=== PATIENT | female | born 1940 | race Caucasian/White ===

== ENCOUNTER 2017-01-10 12:52 | Inpatient (IN) | payer OTHER, BC ==
[2017-01-10 13:01] VITALS: BMI 34.2
--- NOTE | 2017-01-10 14:16 | PDOC ---
History of Present Illness - History of Present Illness Initial Comments: 01/10/17 14:19 The patient is a 76 year old female, with a significant past medical history of CAD s/p stents x3, CHF, COPD, hypertension, hyperlipidemia, diabetes, anemia ( hx of transfusions), who presents to the emergency department with complaints of right foot pain and swelling for 2 days sent by PCP for DVT today. She states she had an ultrasound of her right lower extremity yesterday around noon which was positive for a DVT. She states she first attributed her pain to the shoes she was wearing, however, became concerned when the pain persisted when the shoes were off. She states she is not as ambulatory as she should be and has been having a visiting nurse come to the house recently. She reports having a negative endoscopy with Dr. Castro recently. She denies chest pain, shortness of breath, headache and dizziness. She denies fever, chills, nausea, vomit, diarrhea and constipation. She denies dysuria, frequency, urgency and hematuria. Allergies: NKDA Social history: denies toxic habits PCP - Dr. Barrientos <Rika Crespo - Last Filed: 01/10/17 14:19> <Rosanne Butts - Last Filed: 01/12/17 10:24> - General Chief Complaint: Pain Stated Complaint: (PCP SENT) DVT Time Seen by Provider: 01/10/17 13:29 Past History <Rika Crespo - Last Filed: 01/10/17 14:19> - Past Medical History Anemia: Yes (h/o blood transfusions.) Cardiac Disorders: Yes COPD: Yes Dementia: Yes Diabetes: Yes (TYPE 2) Disorders: Yes ("WEAK BLADDER") HTN: Yes Hypercholesterolemia: Yes Suicide Attempt (Hx): No - Surgical History Abdominal Surgery: Yes (hernia repair) Cardiac Surgery: Yes (STENT) - Immunization History Td Vaccination: Yes TDAP Vaccination: No Immunization Up to Date: Yes - Psycho/Social/Smoking Cessation Hx Anxiety: No Suicidal Ideation: No Smoking Status: No Smoking History: Never smoked Years of Tobacco Use: 0 Have you smoked in the past 12 months: No Number of Cigarettes Smoked Daily: 0 Cigars Per Day: 0 Information on smoking cessation initiated: No Hx Alcohol Use: No Drug/Substance Use Hx: No Substance Use Type: None Hx Substance Use Treatment: No <Rosanne Butts - Last Filed: 01/12/17 10:24> - Past Medical History Allergies/Adverse Reactions: Allergies Allergy/AdvReac Type Severity Reaction Status Date / Time No Known Allergies Allergy Verified 01/10/17 13:01 Home Medications: Ambulatory Orders Atorvastatin Ca [Lipitor] 10 mg PO DAILY #0 05/21/13 Aspirin [ASA -] 81 mg PO DAILY #0 tab.chew 06/23/13 Budesonide/Formeterol Fumarate [SYMBICORT 80/4.5mcg -] 2 inh IH BID #0 inhaler 06/23/13 Carvedilol [Coreg -] 3.125 mg PO BID #0 tablet 06/23/13 Clopidogrel Bisulfate [Plavix -] 75 mg PO DAILY #0 tablet 06/23/13 Glipizide [Glucotrol -] 5 mg PO DAILY@1730 #0 tablet 06/23/13 Hypromellose 0.5% Opth Soln [Artificial Tears] 2 drop OU TID PRN #0 drops Losartan Potassium [Cozaar -] 50 mg PO DAILY #0 tablet 06/23/13 Metformin HCl [Glucophage -] 1,000 mg PO BIDAC #0 tablet 06/23/13 Pantoprazole Sodium [Protonix -] 40 mg PO DAILY #0 tablet.ec 06/23/13 Sitagliptin Phosphate [Januvia -] 100 mg PO DAILY@0700 #0 ud 06/23/13 Furosemide [Lasix -] 20 mg PO DAILY #30 tablet 11/30/16 Ezetimibe [Zetia] 10 mg PO DAILY 01/10/17 Non-Formulary 5 mg PO DAILY 01/10/17 Review of Systems - Review of Systems Able to Perform ROS?: Yes Comments:: 01/10/17 14:19 GENERAL/CONSTITUTIONAL: No fever or chills. No weakness. HEAD, EYES, EARS, NOSE AND THROAT: No change in vision. No ear pain or discharge. No sore throat. CARDIOVASCULAR: No chest pain or shortness of breath. RESPIRATORY: No cough, wheezing, or hemoptysis. GASTROINTESTINAL: No nausea, vomiting, diarrhea or constipation. GENITOURINARY: No dysuria, frequency, or change in urination. MUSCULOSKELETAL: (+) right foot pain. No joint or muscle swelling. No neck or back pain. SKIN: No rash NEUROLOGIC: No headache, vertigo, loss of consciousness, or change in strength/ sensation. ENDOCRINE: No increased thirst. No abnormal weight change. HEMATOLOGIC/LYMPHATIC: No anemia, easy bleeding, or history of blood clots. ALLERGIC/IMMUNOLOGIC: No hives or skin allergy. <Rika Crespo - Last Filed: 01/10/17 14:19> *Physical Exam - Vital Signs Last Vital Signs Temp Pulse Resp BP Pulse Ox 98.5 F 72 19 152/71 98 01/10/17 13:00 01/10/17 13:00 01/10/17 13:00 01/10/17 13:00 01/10/17 13:00 - Physical Exam Comments: 01/10/17 14:20 GENERAL: Awake, alert, and fully oriented, in no acute distress HEAD: No signs of trauma EYES: PERRLA, EOMI, sclera anicteric, conjunctiva clear ENT: Auricles normal inspection, hearing grossly normal, nares patent, oropharynx clear without exudates. Moist mucosa NECK: Normal ROM, supple, no lymphadenopathy, JVD, or masses LUNGS: Breath sounds equal, clear to auscultation bilaterally. No wheezes, and no crackles HEART: Regular rate and rhythm, normal S1 and S2, no murmurs, rubs or gallops ABDOMEN: Soft, nontender, normoactive bowel sounds. No guarding, no rebound. No masses EXTREMITIES: (+) mild tenderness over anterior right foot. Non-tender, non- edematous right calf. Normal range of motion, No clubbing or cyanosis. No cords , erythema. NEUROLOGICAL: Cranial nerves II through XII grossly intact. Normal speech, SKIN: Warm, Dry, normal turgor, no rashes or lesions noted. <Rika Crespo - Last Filed: 01/10/17 14:19> - Vital Signs Last Vital Signs Temp Pulse Resp BP Pulse Ox 98.5 F 72 19 152/71 98 01/10/17 13:00 01/10/17 13:00 01/10/17 13:00 01/10/17 13:00 01/10/17 13:00 <Rosanne Butts - Last Filed: 01/12/17 10:24> ED Treatment Course - LABORATORY CBC & Chemistry Diagram: 01/12/17 08:00 01/12/17 08:00 <Rosanne Butts - Last Filed: 01/12/17 10:24> Medical Decision Making - Medical Decision Making 01/10/17 16:47 D/w Dr. Pathak via phone. Pt sent for DVT, but found to have significant anemia. She has had prior negative GI workup. I will prepare to transfuse. Dr. Byrd in department to evaluate patient. I will sent guaiac in addition to the anemia labs, which I have already sent. Patient also with hypoglycemia, improved after she was given a tray of food. <Rosanne Butts - Last Filed: 01/12/17 10:24> *DC/Admit/Observation/Transfer - Attestations Scribe Attestion: 01/10/17 14:22 Documentation prepared by Rika Crespo, acting as medical review specialist for Rosanne Butts MD, <Rika Crespo - Last Filed: 01/10/17 14:19> - Discharge Dispostion Admit: Yes <Rosanne Butts - Last Filed: 01/12/17 10:24> Diagnosis at time of Disposition: Deep vein thrombosis (DVT) of right lower extremity Qualifiers: Affected thrombotic vein of extremity: femoral Chronicity: acute Qualified Code (s): I82.411 - Acute embolism and thrombosis of right femoral vein - Discharge Dispostion Condition at time of disposition: Stable - Referrals
[2017-01-10 15:37] LABS: BASOPHIL 1.2 % (0-2.0); EOSINOPHIL 1.5 % (0-4.5); MCH 21.3 pg (25.7-33.7); MCHC 30.1 g/dl (32.0-36.0); MEAN CELL VOLUME 70.7 fl (80-96); MEAN PLT VOLUME 7.3 fl (7.5-11.1); NEUTROPHILS 65.9 % (42.8-82.8); PLATELET COUNT 519 K/MM3 (134-434); RDW 24.6 % (11.6-15.6); WHITE BLOOD COUNT 9.4 K/mm3 (4.0-10.0)
[2017-01-10 16:10] LABS: INR 1.04 (0.82-1.09); PROTHROMBIN TIME (PATIENT) 11.5 SEC (9.98-11.88)
[2017-01-10 16:11] LABS: ALBUMIN 3.5 g/dl (3.4-5.0); BILIRUBIN,TOTAL 0.3 mg/dL (0.2-1.0); CALCIUM 9.2 mg/dL (8.5-10.1); COCKROFT - GAULT 40.6045; CREATININE 1.5 mg/dL (0.55-1.02); TOT PROT 6.6 g/dl (6.4-8.2)
[2017-01-10 16:22] LABS: ANISOCYTOSIS 3+; HYPOCHROMIA 4+; MICROCYTOSIS 2+; OVALOCYTES 1+; POIKILOCYTOSIS 2+; POLYCHROMASIA 1+; TEAR DROP CELLS 1+
[2017-01-10] MEDS ORDERED: DEXTROSE 50%-WATER 50 ML DISP.SYRIN ONE (16:38)
[2017-01-10] MEDS ORDERED: DEXTROSE 50%-WATER 50 ML VIAL IVPUSH ONE (16:39)
[2017-01-10] MEDS ORDERED: ARTIFICIAL TEARS (POLYVINYL ALCOHOL 1.4%) OPTH DROPS OU PRN (18:04)
--- NOTE | 2017-01-10 18:04 | HP ---
Admitting History and Physical - Primary Care Physician PCP: Pérez Barrientos - Admission Chief Complaint: I have a blood clot History of Present Illness: Ms Pierce is a very pleasant 76 year old female who comes in after being found to have a DVT as an outpatient. She was recently here for GI bleed where she had both an endoscopy and colonoscopy. No source of bleeding was found and her bleeding had stopped. She says she underwent capsule endoscopy as well and that was also negative. In spite of all tests being negative she is still having dark stool but she attributes this to iron. She has been feeling weak ever since prior to her last admission and she says this has not improved. She endorsed to me that she was ambulating, however she told the nurse that she was not walking much at all and relied heavily on her aids to assist her. Over the past week she started to notice pain and swelling in her R foot. She says that it was not severe and she decided to mention it at her next appointment. She saw Dr Pathak as an outpatient and was found to have a DVT. She was called and instructed to present to the ER for admission which she did the next day. Currently she says she is not feeling well for the above reasons. She denies fevers, chills, lightheadedness, dizziness, passing out, chest pain, shortness of breath, abdominal pain, nausea, vomiting, or pain or difficulty on urination. History Source: Patient Limitations to Obtaining History: No Limitations 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 History of Recent Travel: No Home Medications - Allergies Allergies/Adverse Reactions: Allergies Allergy/AdvReac Type Severity Reaction Status Date / Time No Known Allergies Allergy Verified 01/10/17 13:01 - Home Medications Home Medications: Ambulatory Orders Atorvastatin Ca [Lipitor] 10 mg PO DAILY #0 05/21/13 Aspirin [ASA -] 81 mg PO DAILY #0 tab.chew 06/23/13 Budesonide/Formeterol Fumarate [SYMBICORT 80/4.5mcg -] 2 inh IH BID #0 inhaler 06/23/13 Carvedilol [Coreg -] 3.125 mg PO BID #0 tablet 06/23/13 Clopidogrel Bisulfate [Plavix -] 75 mg PO DAILY #0 tablet 06/23/13 Glipizide [Glucotrol -] 5 mg PO DAILY@1730 #0 tablet 06/23/13 Hypromellose 0.5% Opth Soln [Artificial Tears] 2 drop OU TID PRN #0 drops Losartan Potassium [Cozaar -] 50 mg PO DAILY #0 tablet 06/23/13 Metformin HCl [Glucophage -] 1,000 mg PO BIDAC #0 tablet 06/23/13 Pantoprazole Sodium [Protonix -] 40 mg PO DAILY #0 tablet.ec 06/23/13 Sitagliptin Phosphate [Januvia -] 100 mg PO DAILY@0700 #0 ud 06/23/13 Furosemide [Lasix -] 20 mg PO DAILY #30 tablet 11/30/16 Ezetimibe [Zetia] 10 mg PO DAILY 01/10/17 Non-Formulary 5 mg PO DAILY 01/10/17 Family Disease History - Family Disease History Family Disease History: Heart Disease: Mother, Son (patient unsure of exact condition) Review of Systems Findings/Remarks: Full review of systems obtained, as per HPI and otherwise negative Physical Examination Vital Signs: Vital Signs Temperature 98.5 F 01/10/17 13:00 Pulse Rate 67 01/10/17 17:00 Respiratory Rate 18 01/10/17 17:00 Blood Pressure 103/51 01/10/17 17:00 O2 Sat by Pulse Oximetry (%) 94 L 01/10/17 17:00 Constitutional: Yes: No Distress, Calm, Obese Eyes: Yes: Conjunctiva Clear, EOM Intact Cardiovascular: Yes: Regular Rate and Rhythm. No: Gallop, Murmur, Rub Respiratory: Yes: Regular, CTA Bilaterally. No: Rales, Rhonchi, Wheezes Gastrointestinal: Yes: Normal Bowel Sounds, Soft. No: Distention, Tenderness Extremities: Yes: Cool Edema: RLE: 1+ Labs: CBC, BMP 01/10/17 15:19 01/10/17 15:19 Imaging - Results Chest X-ray: Report Reviewed, Image Reviewed Problem List - Problems (1) Deep vein thrombosis (DVT) of right lower extremity Assessment/Plan: -patient presents with DVT -will need admission, cannot anticoagulate secondary to anemia and GI bleed -admit to telemetry -hematology consulted and case discussed -will need IVC filter placement -IR and vascular surgery consulted Code(s): I82.401 - ACUTE EMBOLISM AND THOMBOS UNSP DEEP VEINS OF R LOW EXTREM Qualifiers: Chronicity: acute (2) NANCY (acute kidney injury) Assessment/Plan: -secondary to anemia and diuretics -hold all nephrotoxic agents currently -transfuse pRBCs -monitor for improvement Code(s): N17.9 - ACUTE KIDNEY FAILURE, UNSPECIFIED (3) Anemia Assessment/Plan: -secondary to suspected GIB -transfuse pRBCs -GI and hematology consulted Code(s): D64.9 - ANEMIA, UNSPECIFIED Qualifiers: Other causes of anemia: acute posthemorrhagic (4) GIB (gastrointestinal bleeding) Assessment/Plan: -consult GI -IV protonix -? if needs tagged RBC bleeding scan, will await GI recs Code(s): K92.2 - GASTROINTESTINAL HEMORRHAGE, UNSPECIFIED Qualifiers: GI bleed type/associated pathology: unspecified peptic ulcer Qualified Code(s): K27.4 - Chronic or unspecified peptic ulcer, site unspecified , with hemorrhage (5) CAD (coronary artery disease) Assessment/Plan: -currently will hold aspirin and plavix since appears to have active bleed -cardiology consult Code(s): I25.10 - ATHSCL HEART DISEASE OF [place] CORONARY ARTERY W/O ANG PCTRS Qualifiers: Coronary Disease-Associated Artery/Lesion type: [place] artery [place] vs. transplanted heart: [place] heart Associated angina: without angina Qualified Code(s): I25.10 - Atherosclerotic heart disease of [place] coronary artery without angina pectoris (6) Diabetes Assessment/Plan: -will place on SSI -hold metformin secondary to renal function -will hold other oral diabetic medications since may have diet interrupted for procedures -monitor FSBS, restart outpatient medication when renal function improved and on consistent diet Code(s): E11.9 - TYPE 2 DIABETES MELLITUS WITHOUT COMPLICATIONS Qualifiers: Diabetes mellitus type: type 2 (7) HLD (hyperlipidemia) Assessment/Plan: -continue vytorin Code(s): E78.5 - HYPERLIPIDEMIA, UNSPECIFIED Qualifiers: Hyperlipidemia type: pure hypercholesterolemia (8) HTN (hypertension) Assessment/Plan: -continue coreg -hold ARB and lasix currently -monitor Code(s): I10 - ESSENTIAL (PRIMARY) HYPERTENSION
[2017-01-10] MEDS ORDERED: ONDANSETRON 4 MG/2 ML VIAL IVPB PRN (18:10)
--- NOTE | 2017-01-10 21:32 | CONSULT ---
Consult - text type - Consultation Consultation Note: The patient is a 76 year old female, with a significant past medical history of CAD s/p stents x3, CHF, COPD, hypertension, hyperlipidemia, diabetes, anemia ( hx of transfusions), who presents to the emergency department with complaints of right foot pain and swelling for 2 days. She states she had an ultrasound of her right lower extremity yesterday around noon which was positive for a thrombus. She states she first attributed her pain to the shoes she was wearing , however, became concerned when the pain persisted when the shoes were off. She states she is not as ambulatory as she should be and has been having a visiting nurse come to the house recently. She also reports dark black stools and exxertional shortness of breath She denies chest pain, headache and dizziness. She denies fever, chills, nausea , vomit, diarrhea and constipation. She denies dysuria, frequency, urgency and hematuria. Allergies: NKDA Social history: denies toxic habits - Past Medical History Anemia: Yes (h/o blood transfusions.) Cardiac Disorders: Yes COPD: Yes Dementia: Yes Diabetes: Yes (TYPE 2) Disorders: Yes ("WEAK BLADDER") HTN: Yes Hypercholesterolemia: Yes - Surgical History Abdominal Surgery: Yes (hernia repair) Cardiac Surgery: Yes (STENT) - Psycho/Social/Smoking Cessation Hx Smoking History: Never smoked - Past Medical History Allergies/Adverse Reactions: Allergies Allergy/AdvReac Type Severity Reaction Status Date / Time No Known Allergies Allergy Verified 01/10/17 13:01 Home Medications: Ambulatory Orders Atorvastatin Ca [Lipitor] 10 mg PO DAILY #0 05/21/13 Aspirin [ASA -] 81 mg PO DAILY #0 tab.chew 06/23/13 Budesonide/Formeterol Fumarate [SYMBICORT 80/4.5mcg -] 2 inh IH BID #0 inhaler 06/23/13 Carvedilol [Coreg -] 3.125 mg PO BID #0 tablet 06/23/13 Clopidogrel Bisulfate [Plavix -] 75 mg PO DAILY #0 tablet 06/23/13 Glipizide [Glucotrol -] 5 mg PO DAILY@1730 #0 tablet 06/23/13 Hypromellose 0.5% Opth Soln [Artificial Tears] 2 drop OU TID PRN #0 drops Losartan Potassium [Cozaar -] 50 mg PO DAILY #0 tablet 06/23/13 Metformin HCl [Glucophage -] 1,000 mg PO BIDAC #0 tablet 06/23/13 Pantoprazole Sodium [Protonix -] 40 mg PO DAILY #0 tablet.ec 06/23/13 Sitagliptin Phosphate [Januvia -] 100 mg PO DAILY@0700 #0 ud 06/23/13 Furosemide [Lasix -] 20 mg PO DAILY #30 tablet 11/30/16 Ezetimibe [Zetia] 10 mg PO DAILY 01/10/17 Non-Formulary 5 mg PO DAILY 01/10/17 Active Medications Generic Name Dose Route Start Last Admin Trade Name Freq PRN Reason Stop Dose Admin Acetaminophen 650 mg 01/10/17 18:10 Tylenol - PO Q4H PRN FEVER OR PAIN Artificial Tears 2 drop 01/10/17 18:04 Artificial Tears OU TID PRN Burning Atorvastatin Calcium 10 mg 01/11/17 10:00 Lipitor - PO DAILY NICOLETTE Budesonide/Formoterol Fumarate 2 puff 01/10/17 22:00 01/10/17 22:45 Symbicort 80/4.5mcg - IH 2 puff BID NICOLETTE Administration Carvedilol 3.125 mg 01/10/17 22:00 01/10/17 22:45 Coreg - PO 3.125 mg BID NICOLETTE Administration Docusate Sodium 100 mg 01/10/17 22:00 01/10/17 22:43 Colace - PO 100 mg BID NICOLETTE Administration Ezetimibe 10 mg 01/11/17 10:00 Zetia - PO DAILY NICOLETTE Pantoprazole Sodium 100 mls @ 200 mls/hr 01/10/17 22:00 01/11/17 00:30 Protonix 40mg Ivpb (Pre-Docked) IVPB 200 mls/hr BID NICOLETTE Administration Insulin Aspart 1 vial 01/10/17 22:00 01/11/17 06:35 Novolog Vial Sliding Scale - SQ Not Given ACHS NICOLETTE Protocol Ondansetron HCl 4 mg 01/10/17 18:10 Zofran Injection IVPB Q6H PRN NAUSEA Polyethylene Glycol 17 gm 01/11/17 10:00 Miralax (For Daily Use) - PO DAILY NICOLETTE - Vital Signs Last Vital Signs Temp Pulse Resp BP Pulse Ox 98.5 F 72 19 152/71 98 01/10/17 13:00 01/10/17 13:00 01/10/17 13:00 01/10/17 13:00 01/10/17 13:00 Cor: RSR, No murmurs, No gallops Lungs: Clear to P&A Abd: Soft, Normal bowel sounds, No organomegaly Ext:No significant edema Abnormal Lab Results 01/10/17 01/10/17 01/10/17 15:19 15:19 16:25 RBC 2.59 L D Hgb 5.5 L* D Hct 18.3 L D MCV 70.7 L MCHC 30.1 L RDW 24.6 H D Plt Count 519 H D MPV 7.3 L BUN 32 H D Creatinine 1.5 H D Random Glucose 32 L* D AST 6 L D Crossmatch See Detail A/P 76 y/o patient with h/o CAD, s/p stents, on ASA, plavix, h/o COPD, h/o anemia, iron deficiency, B12 deficiency comes in with exertional shortness of breath, dark black stools over last couple of weeks and now Rt. foot deep femoral vein thrombosis given the degree of microcytic anemia and ongoing melaena, sh eowuld need ivc filter as we are holding on anticoagulation transfusing PRBCS check iron studies/ferritin/B12/folate/LDH /shay GI w/u with EGD in past--barretts, colonoscopy -- nl, capsule neg. Gi f/u Microcytosis and low iron sat last admission s/o ongoing iron deficiency will get cardiology input regarding ASa/plavix will consult vascular/IR regarding consideration of ivc filter discussed with Dr. Davidson
[2017-01-10] MEDS ORDERED: CARVEDILOL 3.125 MG TABLET (FP) PO SCH (22:00)
[2017-01-10] MEDS: INSULIN SLIDING SCALE (NOVOLOG) 1 VIAL SQ SCH (22:43)
[2017-01-10] MEDS: DOCUSATE SODIUM 100 MG CAPSULE (FP) PO SCH (22:43)
[2017-01-10] MEDS: BUDESONIDE/FORMETEROL FUMARATE 80/4.5 mcg INHALER IH SCH (22:45)
[2017-01-10] MEDS: CARVEDILOL 3.125 MG TABLET (FP) PO SCH (22:45)
[2017-01-11] MEDS: PANTOPRAZOLE SODIUM 100 ML IVPB SCH ×3 (00:30→21:57)
[2017-01-11] MEDS ORDERED: PT OWN MED DRAWER 7, Y5N ONE ×3 (02:04→21:54)
[2017-01-11] MEDS: INSULIN SLIDING SCALE (NOVOLOG) 1 VIAL SQ SCH ×4 (06:35→22:01)
[2017-01-11 07:50] LABS: BASOPHIL 1.1 % (0-2.0); EOSINOPHIL 1.3 % (0-4.5); MCH 22.8 pg (25.7-33.7); MCHC 31.6 g/dl (32.0-36.0); MEAN CELL VOLUME 72.1 fl (80-96); MEAN PLT VOLUME 7.7 fl (7.5-11.1); NEUTROPHILS 70.7 % (42.8-82.8); PLATELET COUNT 429 K/MM3 (134-434); RDW 23.4 % (11.6-15.6); WHITE BLOOD COUNT 9.6 K/mm3 (4.0-10.0)
[2017-01-11 08:19] LABS: ALBUMIN 3.3 g/dl (3.4-5.0); BILIRUBIN,TOTAL 1.2 mg/dL (0.2-1.0); COCKROFT - GAULT 50.7535; CREATININE 1.2 mg/dL (0.55-1.02); MAGNESIUM 1.9 mg/dL (1.8-2.4); PHOSPHOROUS 3.7 mg/dL (2.5-4.9); TOT PROT 6.1 g/dl (6.4-8.2)
[2017-01-11 08:57] LABS: INR 1.04 (0.82-1.09); PROTHROMBIN TIME (PATIENT) 11.5 SEC (9.98-11.88)
[2017-01-11 08:58] LABS: ACTIVATED PTT 26.8 SECONDS (26.9-34.4)
[2017-01-11] MEDS: BUDESONIDE/FORMETEROL FUMARATE 80/4.5 mcg INHALER IH SCH ×2 (09:18→21:57)
[2017-01-11] MEDS: POLYETHYLENE GLYCOL 3350 119 GM BTL PO SCH (09:19)
[2017-01-11] MEDS: ATORVASTATIN CA 10 MG TABLET (FP) PO SCH (09:19)
[2017-01-11] MEDS: CARVEDILOL 3.125 MG TABLET (FP) PO SCH ×2 (09:19→21:57)
[2017-01-11] MEDS: DOCUSATE SODIUM 100 MG CAPSULE (FP) PO SCH ×2 (09:19→21:57)
[2017-01-11] MEDS: EZETIMIBE 10 MG TABLET (FP) PO SCH (09:53)
[2017-01-11] MEDS ORDERED: LOSARTAN POTASSIUM 50 MG TABLET (FP) PO SCH (10:00)
[2017-01-11 11:23] LABS: URINE APPEARANCE CLEAR; URINE BILIRUBIN NEGATIVE (NEGATIVE); URINE BLOOD NEGATIVE (NEGATIVE); URINE COLOR STRAW; URINE GLUCOSE (UA) 3+ (NEGATIVE); URINE KETONE NEGATIVE (NEGATIVE); URINE LEUK ESTERASE NEGATIVE (NEGATIVE); URINE NITRITE NEGATIVE (NEGATIVE); URINE PROTEIN NEGATIVE (NEGATIVE); URINE UROBILINOGEN NEGATIVE E.U./dl (0.2-1.0)
--- NOTE | 2017-01-11 12:10 | CON.CARD ---
Consult Consult Specialty:: Cardiology Referred by:: Aureliano Davidson MD Reason for Consultation:: Right LE edema - History of Present Illness Chief Complaint: Right LE edema History of Present Illness: 76 yo CAD s/p PCI (stent) last 2013, sees Dr. Del Castillo at [facility], anemia, pyloric channel ulcer bleed 07/09: EGD performed at [facility] with cautery and endoclipping performed, h/o short segment clemons's s/p EGD 2009 and 2012, colonoscopy 05/06: diverticulosis and hyperplastic polyps, neg recent EGD/ colonoscopy and capsule endoscopy admitted for right foot pain and swelling referable to DVT, reports relative immobility, dyspnea and weakness referable to profound anemia Hgb 5.5, reports dark stools she attributes to iron. She denies chest pain, fatigue,chest pain, near or true syncope, palpitations, orthopnea, PND or LE edema, or hematochezia. Transfused 2U pRBC, IVC filter placed. - History Source History Provided By: Patient Limitations to Obtaining History: No Limitations 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 History of Recent Travel: No Home Medications - Allergies Allergies/Adverse Reactions: Allergies Allergy/AdvReac Type Severity Reaction Status Date / Time No Known Allergies Allergy Verified 01/10/17 13:01 - Home Medications Home Medications: Ambulatory Orders Atorvastatin Ca [Lipitor] 10 mg PO DAILY #0 05/21/13 Aspirin [ASA -] 81 mg PO DAILY #0 tab.chew 06/23/13 Budesonide/Formeterol Fumarate [SYMBICORT 80/4.5mcg -] 2 inh IH BID #0 inhaler 06/23/13 Carvedilol [Coreg -] 3.125 mg PO BID #0 tablet 06/23/13 Clopidogrel Bisulfate [Plavix -] 75 mg PO DAILY #0 tablet 06/23/13 Glipizide [Glucotrol -] 5 mg PO DAILY@1730 #0 tablet 06/23/13 Hypromellose 0.5% Opth Soln [Artificial Tears] 2 drop OU TID PRN #0 drops Losartan Potassium [Cozaar -] 50 mg PO DAILY #0 tablet 06/23/13 Metformin HCl [Glucophage -] 1,000 mg PO BIDAC #0 tablet 06/23/13 Pantoprazole Sodium [Protonix -] 40 mg PO DAILY #0 tablet.ec 06/23/13 Sitagliptin Phosphate [Januvia -] 100 mg PO DAILY@0700 #0 ud 06/23/13 Furosemide [Lasix -] 20 mg PO DAILY #30 tablet 11/30/16 Ezetimibe [Zetia] 10 mg PO DAILY 01/10/17 Non-Formulary 5 mg PO DAILY 01/10/17 Family Disease History - Family Disease History Family Disease History: Heart Disease: Mother, Son (patient unsure of exact condition) Review of Systems - Review of Systems Cardiovascular: reports: Shortness of Breath Vital Signs: Vital Signs Temperature 98.3 F 01/11/17 10:00 Pulse Rate 66 01/11/17 12:04 Respiratory Rate 16 01/11/17 12:04 Blood Pressure 193/82 01/11/17 12:04 O2 Sat by Pulse Oximetry (%) 100 01/11/17 12:04 Constitutional: Yes: No Distress, Calm Neck: Yes: Supple Respiratory: Yes: Regular, CTA Bilaterally Gastrointestinal: Yes: Normal Bowel Sounds, Soft, Abdomen, Obese Cardiovascular: Yes: Regular Rate and Rhythm JVD: No Carotid Bruit: No Heart Sounds: Yes: S1, S2 Murmur: Yes: Systolic Murmur, Grade 1 Edema: No - Other Data Labs, Other Data: CBC, BMP 01/11/17 06:30 01/11/17 06:30 INR, PTT INR 1.04 (0.82-1.09) 01/11/17 06:30 Fibrinogen 313.0 mg/dL (238-498) 01/11/17 06:30 Problem List - Problems (1) Deep vein thrombosis (DVT) of right lower extremity Code(s): I82.401 - ACUTE EMBOLISM AND THOMBOS UNSP DEEP VEINS OF R LOW EXTREM Qualifiers: Affected thrombotic vein of extremity: femoral Chronicity: acute Qualified Code(s): I82.411 - Acute embolism and thrombosis of right femoral vein (2) HTN (hypertension) Code(s): I10 - ESSENTIAL (PRIMARY) HYPERTENSION Qualifiers: Hypertension type: essential hypertension Qualified Code(s): I10 - Essential (primary) hypertension (3) NANCY (acute kidney injury) Code(s): N17.9 - ACUTE KIDNEY FAILURE, UNSPECIFIED (4) CAD (coronary artery disease) Code(s): I25.10 - ATHSCL HEART DISEASE OF [place] CORONARY ARTERY W/O ANG PCTRS Qualifiers: Coronary Disease-Associated Artery/Lesion type: [place] artery [place] vs. transplanted heart: [place] heart Associated angina: without angina Qualified Code(s): I25.10 - Atherosclerotic heart disease of [place] coronary artery without angina pectoris (5) Diabetes Code(s): E11.9 - TYPE 2 DIABETES MELLITUS WITHOUT COMPLICATIONS Qualifiers: Diabetes mellitus type: type 2 Chronic kidney disease stage: stage 2 ( mild) (6) GIB (gastrointestinal bleeding) Code(s): K92.2 - GASTROINTESTINAL HEMORRHAGE, UNSPECIFIED Qualifiers: GI bleed type/associated pathology: melena Qualified Code(s): K92.1 - Melena (7) HLD (hyperlipidemia) Code(s): E78.5 - HYPERLIPIDEMIA, UNSPECIFIED Qualifiers: Hyperlipidemia type: pure hypercholesterolemia Qualified Code(s): E78.00 - Pure hypercholesterolemia, unspecified; E78.0 - Pure hypercholesterolemia (8) Status post coronary artery stent placement Code(s): Z95.5 - PRESENCE OF CORONARY ANGIOPLASTY IMPLANT AND GRAFT (9) Weakness Code(s): R53.1 - WEAKNESS Assessment/Plan 11/28/2016 Echocardiogram: Normal LV size and fxn, mild cLVH, mild MR, TR, RVSP 50 -60 mmHg, mod pulm HTN, tr-mild SC 11/28/[address]: Substernal extension of nodular 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 Recurrent symptomatic microcytic anemia post transfusion with h/o pyloric channel ulcer bleed 07/09: EGD performed at [facility] with cautery and endoclipping, short segment clemons's s/p EGD 2009 and 2012, neg recent colonoscopy and capsule endoscopy 2. ASHD S/P PCI/NURIA, angina pectoris, last 2013 3. Right LE EVT s/p IVC filter 4. HTN 5. Hypercholesterolemia 6. Type 2 DM 7. PAF in sinus rhythm 8. Prerenal NANCY due to anemia improving 9. COPD PLAN: 1. Transfuse pRBC to maintain Hgb>8.0 2. Not ideal candidate for anticoagulation or antiplatelets given h/o recurrent GI bleeds 3. Continue Carvedilol 3.125 mg bid, Lipitor 10 mg qhs, Zetial 10 qd and resume Losartan once renal function stabilizes 4. Continue Protonix 40 mg qd. 5. Patient to follow up with Dr. Wetzel at [facility] upon discharge 6. Thank you for consultatuve hakan
--- NOTE | 2017-01-11 12:28 | EKG ---
Test Reason : Blood Pressure : / mmHG Vent. Rate : 067 BPM Atrial Rate : 067 BPM P-R Int : 216 ms QRS Dur : 088 ms QT Int : 428 ms P-R-T Axes : -03 -17 060 degrees QTc Int : 452 ms SINUS RHYTHM WITH 1ST DEGREE A-V BLOCK LOW VOLTAGE QRS SEPTAL INFARCT , AGE UNDETERMINED ABNORMAL ECG WHEN COMPARED WITH ECG OF 22-NOV-2016 18:54, NONSPECIFIC T WAVE ABNORMALITY NO LONGER EVIDENT IN INFERIOR LEADS NONSPECIFIC T WAVE ABNORMALITY, IMPROVED IN ANTEROLATERAL LEADS QT HAS LENGTHENED Confirmed by YVROSE POLK, MAXIMUS (2013) on 01/11/2017 12:27:52 PM Referred By: Confirmed By:MAXIMUS FRANCES MD
--- NOTE | 2017-01-11 13:33 | PN ---
Progress Note, Physician Chief Complaint: Ms Pierce says she is doing well. Still with weakness and fatigue but better. No cp, sob, n/v. Tolerated filter well - Current Medication List Current Medications: Active Medications Acetaminophen (Tylenol -) 650 mg PO Q4H PRN PRN Reason: FEVER OR PAIN Artificial Tears (Artificial Tears) 2 drop OU TID PRN PRN Reason: Burning Atorvastatin Calcium (Lipitor -) 10 mg PO DAILY [facility] Last Admin: 01/11/17 09:19 Dose: 10 mg Budesonide/Formoterol Fumarate (Symbicort 80/4.5mcg -) 2 puff IH BID [facility] Last Admin: 01/11/17 09:18 Dose: 2 puff Carvedilol (Coreg -) 3.125 mg PO BID [facility] Last Admin: 01/11/17 09:19 Dose: 3.125 mg Docusate Sodium (Colace -) 100 mg PO BID [facility] Last Admin: 01/11/17 09:19 Dose: 100 mg Ezetimibe (Zetia -) 10 mg PO DAILY [facility] Last Admin: 01/11/17 09:53 Dose: 10 mg Pantoprazole Sodium (Protonix 40mg Ivpb (Pre-Docked)) 100 mls @ 200 mls/hr IVPB BID [facility] Last Admin: 01/11/17 09:17 Dose: 200 mls/hr Insulin Aspart (Novolog Vial Sliding Scale -) 1 vial SQ ACHS [facility] PRN Reason: Protocol Last Admin: 01/11/17 13:09 Dose: Not Given Ondansetron HCl (Zofran Injection) 4 mg IVPB Q6H PRN PRN Reason: NAUSEA Polyethylene Glycol (Miralax (For Daily Use) -) 17 gm PO DAILY [facility] Last Admin: 01/11/17 09:19 Dose: Not Given - Objective Vital Signs: Vital Signs Temperature 98.3 F 01/11/17 10:00 Pulse Rate 66 01/11/17 12:20 Respiratory Rate 16 01/11/17 12:20 Blood Pressure 191/80 01/11/17 12:20 O2 Sat by Pulse Oximetry (%) 99 01/11/17 12:20 Constitutional: Yes: No Distress, Calm, Obese Cardiovascular: Yes: Regular Rate and Rhythm. No: Gallop, Murmur, Rub Respiratory: Yes: Regular, CTA Bilaterally. No: Rales, Rhonchi, Wheezes Gastrointestinal: Yes: Normal Bowel Sounds, Soft. No: Distention, Tenderness Extremities: Yes: Erythema Edema: Yes Edema: RLE: Trace Labs: CBC, BMP 01/11/17 06:30 01/11/17 06:30 INR, PTT INR 1.04 (0.82-1.09) 01/11/17 06:30 Fibrinogen 313.0 mg/dL (238-498) 01/11/17 06:30 Problem List - Problems (1) Deep vein thrombosis (DVT) of right lower extremity Code(s): I82.401 - ACUTE EMBOLISM AND THOMBOS UNSP DEEP VEINS OF R LOW EXTREM Qualifiers: Affected thrombotic vein of extremity: femoral Chronicity: acute Qualified Code(s): I82.411 - Acute embolism and thrombosis of right femoral vein (2) NANCY (acute kidney injury) Code(s): N17.9 - ACUTE KIDNEY FAILURE, UNSPECIFIED (3) Anemia Code(s): D64.9 - ANEMIA, UNSPECIFIED Qualifiers: Other causes of anemia: acute posthemorrhagic (4) GIB (gastrointestinal bleeding) Code(s): K92.2 - GASTROINTESTINAL HEMORRHAGE, UNSPECIFIED Qualifiers: GI bleed type/associated pathology: melena Qualified Code(s): K92.1 - Melena (5) CAD (coronary artery disease) Code(s): I25.10 - ATHSCL HEART DISEASE OF [place] CORONARY ARTERY W/O ANG PCTRS Qualifiers: Coronary Disease-Associated Artery/Lesion type: [place] artery [place] vs. transplanted heart: redding heart Associated angina: without angina Qualified Code(s): I25.10 - Atherosclerotic heart disease of [place] coronary artery without angina pectoris (6) Diabetes Code(s): E11.9 - TYPE 2 DIABETES MELLITUS WITHOUT COMPLICATIONS Qualifiers: Diabetes mellitus type: type 2 (7) HLD (hyperlipidemia) Code(s): E78.5 - HYPERLIPIDEMIA, UNSPECIFIED Qualifiers: Hyperlipidemia type: pure hypercholesterolemia Qualified Code(s): E78.00 - Pure hypercholesterolemia, unspecified; E78.0 - Pure hypercholesterolemia (8) HTN (hypertension) Code(s): I10 - ESSENTIAL (PRIMARY) HYPERTENSION Qualifiers: Hypertension type: essential hypertension Qualified Code(s): I10 - Essential (primary) hypertension Assessment/Plan (1) Deep vein thrombosis (DVT) of right lower extremity Assessment/Plan: -s/p IVC filter secondary to inability to anticoagulate -hematology following Code(s): I82.401 - ACUTE EMBOLISM AND THOMBOS UNSP DEEP VEINS OF R LOW EXTREM Qualifiers: Chronicity: acute (2) NANCY (acute kidney injury) Assessment/Plan: -secondary to anemia and diuretics -improving Code(s): N17.9 - ACUTE KIDNEY FAILURE, UNSPECIFIED (3) Anemia Assessment/Plan: -secondary to suspected GIB -transfused 2 units with proper response -defer to hematology for further transfusion Code(s): D64.9 - ANEMIA, UNSPECIFIED Qualifiers: Other causes of anemia: acute posthemorrhagic (4) GIB (gastrointestinal bleeding) Assessment/Plan: -consult GI -IV protonix -? if needs tagged RBC bleeding scan, will await GI recs Code(s): K92.2 - GASTROINTESTINAL HEMORRHAGE, UNSPECIFIED Qualifiers: GI bleed type/associated pathology: unspecified peptic ulcer Qualified Code(s): K27.4 - Chronic or unspecified peptic ulcer, site unspecified , with hemorrhage (5) CAD (coronary artery disease) Assessment/Plan: -currently will hold aspirin and plavix since appears to have active bleed -cardiology consulted and following Code(s): I25.10 - ATHSCL HEART DISEASE OF [place] CORONARY ARTERY W/O ANG PCTRS Qualifiers: Coronary Disease-Associated Artery/Lesion type: redding artery [place] vs. transplanted heart: redding heart Associated angina: without angina Qualified Code(s): I25.10 - Atherosclerotic heart disease of [place] coronary artery without angina pectoris (6) Diabetes Assessment/Plan: -continue SSI currently -monitor glucose -restart oral hypoglycemics if glucose elevates Code(s): E11.9 - TYPE 2 DIABETES MELLITUS WITHOUT COMPLICATIONS Qualifiers: Diabetes mellitus type: type 2 (7) HLD (hyperlipidemia) Assessment/Plan: -continue vytorin Code(s): E78.5 - HYPERLIPIDEMIA, UNSPECIFIED Qualifiers: Hyperlipidemia type: pure hypercholesterolemia (8) HTN (hypertension) Assessment/Plan: -continue coreg -restart ARB, elevated today Code(s): I10 - ESSENTIAL (PRIMARY) HYPERTENSION
--- NOTE | 2017-01-11 15:47 | PN ---
Progress Note (short form) - Note Progress Note: Consult dictated
--- NOTE | 2017-01-11 17:19 | CONS ---
DATE OF CONSULTATION: DATE OF DICTATION: 01/11/2017 REQUESTING PHYSICIAN: Aureliano Davidson MD The patient is a 76-year-old female admitted through Emergency Room for evaluation of anemia. She was noted to have a hemoglobin of 5.5. She was also noted to have lower extremity swelling and had seen Dr. Pathak the day before for this complaint. She was noted to have a right deep femoral vein thrombosis with surrounding blood flow. She had an IVC filter placed. I was asked to evaluate her anemia. She was evaluated in November, last month, and at that time she was noted to be profoundly anemic as well. She received PRBC transfusions and underwent upper endoscopy and colonoscopy. Her hospitalization at that time was prolonged, as she had some respiratory difficulties during her 1st attempt at upper endoscopy. Ultimately she did undergo the procedure November 27, 2016, and ultimately she underwent the endoscopic evaluation November 30, 2016. Upper endoscopy revealed patchy erythema in the antrum, no erosion, small nodular patchy mucosa in the pyloric channel at the 8 o'clock position, which I felt was likely the hyperplastic tissue where the previous Endo Clip from June of 2016 was secured. This is when she had had an upper endoscopy at [facility] for bleeding. There did not appear to be a persistent pyloric channel ulcer. The stomach was otherwise normal in appearance and the duodenum appeared normal to the 2nd portion. She also underwent colonoscopy on the same day that revealed moderate diverticulosis in the sigmoid colon, retained liquid adherent stool throughout the colon, limiting the exam somewhat; however, the mucosa appeared normal in the terminal ileum. I recommended a hematology evaluation, which she was undergoing at that time of admission and a capsule endoscopy as an outpatient to exclude small bowel source of blood loss and anemia. She was noted to be guaiac negative during that admission. I had seen her in office earlier, at the end of November, beginning of December. When I had seen her at that time, her stool was darker and it was guaiac positive. She ultimately underwent capsule endoscopy January 08, 2017, and this was an unrevealing study as read by my colleague, Dr. Rojas Ambrose. She denied any gross bleeding currently. She is being evaluated by Hematology. She has been transfused. Hemoglobin today is 7.8. She does have some wheezing. She denies any shortness of breath or abdominal pain. There has been no overt melena or rectal bleeding. She is intermittently compliant with iron supplementation. As noted above, she was hospitalized at [facility] on July 13, 2016, for anemia and dyspnea on exertion. She had an upper endoscopy performed on July 15, 2016, revealing superficial ulcer in the pyloric channel with a visible vessel, 2 Endo Clips and epinephrine injection were used in terms of therapies. She also alluded to having been transfused there. At that time she was apparently taking Aleve for knee pain along with aspirin 81 mg once daily and Plavix 75 mg, which she has been maintained on. The Plavix has been held on this admission. She had an upper endoscopy and colonoscopy performed by myself in the past. Initial upper endoscopy was performed in February of 2010, revealing a 5-cm [place] esophagus in the distal esophagus. 1-cm healing ulcer in the body of the stomach, 2 shallow clean-based ulcers in the antrum, normal duodenum otherwise. Biopsies were unrevealing for dysplasia or cancer. She then underwent repeat upper endoscopy in April of 2013 that revealed a 4-cm [place] esophagus in the distal esophagus, a large sliding hiatal hernia, erosions in the antrum, and erosive duodenitis in the bulb and descending duodenum. I advised Protonix 40 mg once daily, and she was noted to be H. pylori negative. She also had a colonoscopy in April 2013 as well, revealing mild diverticulosis in the sigmoid colon, scattered diverticula throughout the remainder of the colon, internal hemorrhoids, and removal of both hyperplastic polyps and a small tubular adenoma. Biopsies of the [place]rett esophagus in 2012 were unrevealing in terms of dysplasia. Father did pass away from colon cancer at age 86 years of age. Her [place]rett esophagus was biopsied, revealing extensive intestinal metaplasia. There was no dysplasia noted. Past medical history includes insulin-dependent diabetes mellitus, coronary artery disease, hypertension, hyperlipidemia, cardiac stenting in January of 2010 at [facility], history of peptic ulcer disease in 2009 and again in June of 2016, also had further coronary artery stenting performed more recently. History of hiatal hernia. Past surgical history includes vaginal hysterectomy, umbilical hernia repair, tonsillectomy, fracture of the right ankle, and ventral hernia repair in August of 2007, also recent upper endoscopy and colonoscopy. 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 No history of smoking, alcohol, or intravenous drug abuse or illicit drugs. FAMILY HISTORY: Father had a history of colon cancer. Medications prior to admission include Lipitor, aspirin, Coreg, Cozaar, metformin, glipizide, Januvia, Protonix, Plavix, Symbicort, Lasix, and Zetia. REVIEW OF SYSTEMS: She does have chronic shortness of breath. Denies any abdominal pain, dysphagia, odynophagia, gross rectal bleeding. She did describe right lower extremity swelling. No hematuria. No bruising. PHYSICAL EXAMINATION: General: Patient is found lying comfortably in bed. She appeared to be in no apparent distress. Vital Signs: Temperature is 97.8, pulse 57, blood pressure 154/76. Sclerae: Anicteric. Neck: Supple. Heart: Regular rate and rhythm. She did have a systolic murmur heard best at the right sternal border. Lungs: Revealed fine expiratory wheezing bilaterally. Abdomen: Nondistended. She had normoactive bowel sounds. No hepatosplenomegaly was appreciated. No masses were palpated. No hernias detected. No tenderness was elicited. Extremities: 1+ lower extremity edema in the right lower extremity. Digital Rectal Exam: She had no external lesions, no masses. She had light brown stool in the rectal vault, which was guaiac negative. Specimen sent today was noted to be positive. IMPRESSION: A 76-year-old female with worsened anemia, ongoing in nature. She is intermittently guaiac positive so there is a component of obscure occult GI bleeding and she has had recent workup. The next step would be a push enteroscopy to assess the small bowel further despite negative capsule endoscopy, however, given her prior difficulties with sedation, would continue hematological evaluation as there is question of whether there was alternate etiology contributing to her anemia as well. Continue to monitor hemoglobin and hematocrit and for signs of active GI bleeding. Continue hematology evaluation. Continue PPI for now, and will follow patient with you. I thank you for this consultative opportunity. JUAN CARLOS SUGGS DO [id number]
--- NOTE | 2017-01-11 18:00 | PN ---
Progress Note (short form) - Note Progress Note: Patient seen and examined s/p ivc filtewr placement Last Vital Signs Temp Pulse Resp BP Pulse Ox 98.3 F 68 20 148/65 99 01/11/17 17:43 01/11/17 17:43 01/11/17 17:43 01/11/17 17:43 01/11/17 12:20 Cor: RSR, No murmurs, No gallops Lungs: Clear to P&A Abd: Soft, Normal bowel sounds, No organomegaly Ext:No significant edema Skin: No rashes, Integument intact Abnormal Lab Results 01/10/17 01/11/17 01/11/17 16:25 06:30 06:30 RBC 3.41 L D Hgb 7.8 L D Hct 24.6 L D MCV 72.1 L MCHC 31.6 L RDW 23.4 H PTT (Actin FS) BUN 32 H Creatinine 1.2 H Total Bilirubin 1.2 H D AST 8 L D Total Protein 6.1 L Albumin 3.3 L Urine Glucose (UA) Crossmatch See Detail 01/11/17 01/11/17 06:30 10:40 RBC Hgb Hct MCV MCHC RDW PTT (Actin FS) 26.8 L BUN Creatinine Total Bilirubin AST Total Protein Albumin Urine Glucose (UA) 3+ H Crossmatch Active Medications Generic Name Dose Route Start Last Admin Trade Name Freq PRN Reason Stop Dose Admin Acetaminophen 650 mg 01/10/17 18:10 Tylenol - PO Q4H PRN FEVER OR PAIN Artificial Tears 2 drop 01/10/17 18:04 Artificial Tears OU TID PRN Burning Atorvastatin Calcium 10 mg 01/11/17 10:00 01/11/17 09:19 Lipitor - PO 10 mg DAILY NICOLETTE Administration Budesonide/Formoterol Fumarate 2 puff 01/10/17 22:00 01/11/17 09:18 Symbicort 80/4.5mcg - IH 2 puff BID NICOLETTE Administration Carvedilol 3.125 mg 01/10/17 22:00 01/11/17 09:19 Coreg - PO 3.125 mg BID NICOLETTE Administration Docusate Sodium 100 mg 01/10/17 22:00 01/11/17 09:19 Colace - PO 100 mg BID NICOLETTE Administration Ezetimibe 10 mg 01/11/17 10:00 01/11/17 09:53 Zetia - PO 10 mg DAILY NICOLETTE Administration Pantoprazole Sodium 100 mls @ 200 mls/hr 01/10/17 22:00 01/11/17 09:17 Protonix 40mg Ivpb (Pre-Docked) IVPB 200 mls/hr BID NICOLETTE Administration Insulin Aspart 1 vial 01/10/17 22:00 01/11/17 16:40 Novolog Vial Sliding Scale - SQ Not Given ACHS NICOLETTE Protocol Ondansetron HCl 4 mg 01/10/17 18:10 Zofran Injection IVPB Q6H PRN NAUSEA Polyethylene Glycol 17 gm 01/11/17 10:00 01/11/17 09:19 Miralax (For Daily Use) - PO Not Given DAILY NICOLETTE A/P 76 y/o patient with h/o CAD, s/p stents, on ASA, plavix, h/o COPD, h/o anemia, iron deficiency, B12 deficiency comes in with exertional shortness of breath, dark black stools over last couple of weeks and now Rt. leg deep femoral vein thrombosis given the degree of microcytic anemia and ongoing melaena, sh eowuld need ivc filter as we are holding on anticoagulation transfusing PRBCS f/u iron studies/ferritin/folate/LDH /shay B12-258 GI w/u with EGD in past--barretts, colonoscopy -- nl, capsule neg. Gi f/u Microcytosis and low iron sat last admission s/o ongoing iron deficiency DVT--s/p ivc filter discussed with IR team f/u gi recs monitor cbc
[2017-01-11 22:51] LABS: BASOPHIL 1.1 % (0-2.0); EOSINOPHIL 2.3 % (0-4.5); MCH 22.2 pg (25.7-33.7); MCHC 30.5 g/dl (32.0-36.0); MEAN CELL VOLUME 72.7 fl (80-96); MEAN PLT VOLUME 8.1 fl (7.5-11.1); NEUTROPHILS 69.9 % (42.8-82.8); PLATELET COUNT 532 K/MM3 (134-434); RDW 23.4 % (11.6-15.6); WHITE BLOOD COUNT 10.9 K/mm3 (4.0-10.0)
[2017-01-11] MEDS: ACETAMINOPHEN 325 MG TABLET (FP) PO PRN (23:24)
[2017-01-12] MEDS: ACETAMINOPHEN 325 MG TABLET (FP) PO PRN ×2 (04:25→22:47)
[2017-01-12 06:06] LABS: HAPTOGLOBIN 206 mg/dL (34-200); TRANSFERRIN 368 mg/dL (200-370)
[2017-01-12] MEDS: INSULIN SLIDING SCALE (NOVOLOG) 1 VIAL SQ SCH ×4 (06:40→22:48)
[2017-01-12 08:26] LABS: BASOPHIL 1.1 % (0-2.0); EOSINOPHIL 2.6 % (0-4.5); MCH 22.7 pg (25.7-33.7); MCHC 31.2 g/dl (32.0-36.0); MEAN CELL VOLUME 72.8 fl (80-96); MEAN PLT VOLUME 7.7 fl (7.5-11.1); NEUTROPHILS 68.1 % (42.8-82.8); PLATELET COUNT 456 K/MM3 (134-434); RDW 23.3 % (11.6-15.6); WHITE BLOOD COUNT 8.7 K/mm3 (4.0-10.0)
[2017-01-12 08:50] LABS: ALBUMIN 3.3 g/dl (3.4-5.0); CALCIUM 8.7 mg/dL (8.5-10.1); MAGNESIUM 2.2 mg/dL (1.8-2.4)
[2017-01-12 08:53] LABS: BILIRUBIN,TOTAL 0.4 mg/dL (0.2-1.0); COCKROFT - GAULT 50.7535; CREATININE 1.2 mg/dL (0.55-1.02); PHOSPHOROUS 3.5 mg/dL (2.5-4.9); TOT PROT 6.4 g/dl (6.4-8.2)
[2017-01-12] MEDS: CARVEDILOL 3.125 MG TABLET (FP) PO SCH ×2 (09:05→22:47)
[2017-01-12] MEDS: ATORVASTATIN CA 10 MG TABLET (FP) PO SCH (09:05)
[2017-01-12] MEDS: DOCUSATE SODIUM 100 MG CAPSULE (FP) PO SCH ×2 (09:05→22:47)
[2017-01-12] MEDS: EZETIMIBE 10 MG TABLET (FP) PO SCH (09:05)
[2017-01-12] MEDS: BUDESONIDE/FORMETEROL FUMARATE 80/4.5 mcg INHALER IH SCH ×2 (09:06→22:48)
[2017-01-12] MEDS: PANTOPRAZOLE SODIUM 100 ML IVPB SCH ×2 (09:06→22:49)
[2017-01-12] MEDS: POLYETHYLENE GLYCOL 3350 119 GM BTL PO SCH (09:11)
--- NOTE | 2017-01-12 11:03 | PN ---
Progress Note, Physician History of Present Illness: Hgb stable post transfusion 2U pRBC, IVC filter placed. - Current Medication List Current Medications: Active Medications Acetaminophen (Tylenol -) 650 mg PO Q4H PRN PRN Reason: FEVER OR PAIN Last Admin: 01/12/17 04:25 Dose: 650 mg Artificial Tears (Artificial Tears) 2 drop OU TID PRN PRN Reason: Burning Atorvastatin Calcium (Lipitor -) 10 mg PO DAILY [facility] Last Admin: 01/12/17 09:05 Dose: 10 mg Budesonide/Formoterol Fumarate (Symbicort 80/4.5mcg -) 2 puff IH BID [facility] Last Admin: 01/12/17 09:06 Dose: 2 puff Carvedilol (Coreg -) 3.125 mg PO BID [facility] Last Admin: 01/12/17 09:05 Dose: 3.125 mg Docusate Sodium (Colace -) 100 mg PO BID [facility] Last Admin: 01/12/17 09:05 Dose: 100 mg Ezetimibe (Zetia -) 10 mg PO DAILY [facility] Last Admin: 01/12/17 09:05 Dose: 10 mg Pantoprazole Sodium (Protonix 40mg Ivpb (Pre-Docked)) 100 mls @ 200 mls/hr IVPB BID [facility] Last Admin: 01/12/17 09:06 Dose: 200 mls/hr Insulin Aspart (Novolog Vial Sliding Scale -) 1 vial SQ ACHS [facility] PRN Reason: Protocol Last Admin: 01/12/17 06:40 Dose: Not Given Ondansetron HCl (Zofran Injection) 4 mg IVPB Q6H PRN PRN Reason: NAUSEA Polyethylene Glycol (Miralax (For Daily Use) -) 17 gm PO DAILY [facility] Last Admin: 01/12/17 09:11 Dose: Not Given - Objective Vital Signs: Vital Signs Temperature 97.8 F 01/12/17 10:00 Pulse Rate 60 01/12/17 10:00 Respiratory Rate 20 01/12/17 10:00 Blood Pressure 176/74 01/12/17 10:00 O2 Sat by Pulse Oximetry (%) 92 L 01/12/17 09:00 Constitutional: Yes: No Distress, Calm Neck: Yes: Supple Cardiovascular: Yes: Regular Rate and Rhythm Respiratory: Yes: Regular, CTA Bilaterally Gastrointestinal: Yes: Normal Bowel Sounds, Soft Edema: No Labs: CBC, BMP 01/12/17 08:00 01/12/17 08:00 INR, PTT INR 1.04 (0.82-1.09) 01/11/17 06:30 Fibrinogen 313.0 mg/dL (238-498) 01/11/17 06:30 Problem List - Problems (1) Deep vein thrombosis (DVT) of right lower extremity Code(s): I82.401 - ACUTE EMBOLISM AND THOMBOS UNSP DEEP VEINS OF R LOW EXTREM Qualifiers: Affected thrombotic vein of extremity: femoral Chronicity: acute Qualified Code(s): I82.411 - Acute embolism and thrombosis of right femoral vein (2) HTN (hypertension) Code(s): I10 - ESSENTIAL (PRIMARY) HYPERTENSION Qualifiers: Hypertension type: essential hypertension Qualified Code(s): I10 - Essential (primary) hypertension (3) NANCY (acute kidney injury) Code(s): N17.9 - ACUTE KIDNEY FAILURE, UNSPECIFIED (4) CAD (coronary artery disease) Code(s): I25.10 - ATHSCL HEART DISEASE OF [place] CORONARY ARTERY W/O ANG PCTRS Qualifiers: Coronary Disease-Associated Artery/Lesion type: [place] artery [place] vs. transplanted heart: [place] heart Associated angina: without angina Qualified Code(s): I25.10 - Atherosclerotic heart disease of [place] coronary artery without angina pectoris (5) Diabetes Code(s): E11.9 - TYPE 2 DIABETES MELLITUS WITHOUT COMPLICATIONS Qualifiers: Diabetes mellitus type: type 2 Chronic kidney disease stage: stage 2 ( mild) (6) GIB (gastrointestinal bleeding) Code(s): K92.2 - GASTROINTESTINAL HEMORRHAGE, UNSPECIFIED Qualifiers: GI bleed type/associated pathology: melena Qualified Code(s): K92.1 - Melena (7) HLD (hyperlipidemia) Code(s): E78.5 - HYPERLIPIDEMIA, UNSPECIFIED Qualifiers: Hyperlipidemia type: pure hypercholesterolemia Qualified Code(s): E78.00 - Pure hypercholesterolemia, unspecified; E78.0 - Pure hypercholesterolemia (8) Status post coronary artery stent placement Code(s): Z95.5 - PRESENCE OF CORONARY ANGIOPLASTY IMPLANT AND GRAFT (9) Weakness Code(s): R53.1 - WEAKNESS Assessment/Plan 11/28/2016 Echocardiogram: Normal LV size and fxn, mild cLVH, mild MR, TR, RVSP 50 -60 mmHg, mod pulm HTN, tr-mild SC 11/28/[address]: Substernal extension of nodular 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 Recurrent symptomatic microcytic iron deficient anemia post transfusion with h/o pyloric channel ulcer bleed 07/09: EGD performed at [facility] with cautery and endoclipping, short segment clemons's s/p EGD 2009 and 2012, neg recent colonoscopy and capsule endoscopy 2. ASHD S/P PCI/NURIA, angina pectoris, last 2013 3. Right LE EVT s/p IVC filter 4. HTN 5. Hypercholesterolemia 6. Type 2 DM 7. PAF in sinus rhythm 8. Prerenal NANCY due to anemia improving 9. COPD PLAN: 1. Transfuse pRBC to maintain Hgb>8.0, GI considering push enteroscopy to evaluate SB source 2. Not ideal candidate for anticoagulation or antiplatelets given h/o recurrent GI bleeds 3. Continue Carvedilol 3.125 mg bid, Lipitor 10 mg qhs, Zetia 10 qd and resume Losartan once renal function stabilizes 4. Continue Protonix 40 mg qd. 5. Patient to follow up with Dr. Gabriele Wetzel at [facility] [phone] upon discharge
--- NOTE | 2017-01-12 12:15 | PN ---
Progress Note (short form) - Note Progress Note: Patient seen and examined s/p ivc filter placement yesterday Hgb 8.1 Last Vital Signs Temp Pulse Resp BP Pulse Ox 97.8 F 60 20 176/74 92 L 01/12/17 10:00 01/12/17 10:00 01/12/17 10:00 01/12/17 10:00 01/12/17 09:00 Cor: RSR, No murmurs, No gallops Lungs: Clear to P&A Abd: Soft, Normal bowel sounds, No organomegaly Ext:No significant edema Abnormal Lab Results 01/10/17 01/11/17 01/12/17 15:26 21:40 08:00 WBC 10.9 H RBC 3.55 L Hgb 8.4 L 8.1 L Hct 27.4 L 25.9 L MCV 72.7 L 72.8 L MCHC 30.5 L 31.2 L RDW 23.4 H 23.3 H Plt Count 532 H D 456 H Haptoglobin 206 H BUN Creatinine Random Glucose AST Albumin 01/12/17 08:00 WBC RBC Hgb Hct MCV MCHC RDW Plt Count Haptoglobin BUN 24 H D Creatinine 1.2 H Random Glucose 160 H D AST 11 L D Albumin 3.3 L Active Medications Acetaminophen (Tylenol -) 650 mg PO Q4H PRN PRN Reason: FEVER OR PAIN Last Admin: 01/12/17 04:25 Dose: 650 mg Artificial Tears (Artificial Tears) 2 drop OU TID PRN PRN Reason: Burning Atorvastatin Calcium (Lipitor -) 10 mg PO DAILY [facility] Last Admin: 01/12/17 09:05 Dose: 10 mg Budesonide/Formoterol Fumarate (Symbicort 80/4.5mcg -) 2 puff IH BID [facility] Last Admin: 01/12/17 09:06 Dose: 2 puff Carvedilol (Coreg -) 3.125 mg PO BID [facility] Last Admin: 01/12/17 09:05 Dose: 3.125 mg Docusate Sodium (Colace -) 100 mg PO BID [facility] Last Admin: 01/12/17 09:05 Dose: 100 mg Ezetimibe (Zetia -) 10 mg PO DAILY [facility] Last Admin: 01/12/17 09:05 Dose: 10 mg Pantoprazole Sodium (Protonix 40mg Ivpb (Pre-Docked)) 100 mls @ 200 mls/hr IVPB BID [facility] Last Admin: 01/12/17 09:06 Dose: 200 mls/hr Insulin Aspart (Novolog Vial Sliding Scale -) 1 vial SQ ACHS [facility] PRN Reason: Protocol Last Admin: 01/12/17 11:34 Dose: Not Given Ondansetron HCl (Zofran Injection) 4 mg IVPB Q6H PRN PRN Reason: NAUSEA Polyethylene Glycol (Miralax (For Daily Use) -) 17 gm PO DAILY [facility] Last Admin: 01/12/17 09:11 Dose: Not Given A/P 76 y/o patient with h/o CAD, s/p stents, on ASA, plavix, h/o COPD, h/o anemia, iron deficiency, B12 deficiency comes in with exertional shortness of breath, dark black stools over last couple of weeks and now Rt. leg deep femoral vein thrombosis given the degree of microcytic anemia and ongoing melaena, she would need ivc filter as we are holding on anticoagulation transfusing PRBCS f/u iron studies/ferritin/folate/LDH /shay [id number] GI w/u with EGD in past--barretts, colonoscopy -- nl, capsule neg. GI f/u Microcytosis and low iron sat last admission s/o ongoing iron deficiency DVT--s/p ivc filter discussed with IR team f/u gi recs monitor cbc
--- NOTE | 2017-01-12 13:03 | PN ---
Progress Note, Physician Chief Complaint: Ms Pierce says she is improved. No cp, sob, n/v. - Current Medication List Current Medications: Active Medications Acetaminophen (Tylenol -) 650 mg PO Q4H PRN PRN Reason: FEVER OR PAIN Last Admin: 01/12/17 04:25 Dose: 650 mg Artificial Tears (Artificial Tears) 2 drop OU TID PRN PRN Reason: Burning Atorvastatin Calcium (Lipitor -) 10 mg PO DAILY [facility] Last Admin: 01/12/17 09:05 Dose: 10 mg Budesonide/Formoterol Fumarate (Symbicort 80/4.5mcg -) 2 puff IH BID [facility] Last Admin: 01/12/17 09:06 Dose: 2 puff Carvedilol (Coreg -) 3.125 mg PO BID [facility] Last Admin: 01/12/17 09:05 Dose: 3.125 mg Docusate Sodium (Colace -) 100 mg PO BID [facility] Last Admin: 01/12/17 09:05 Dose: 100 mg Ezetimibe (Zetia -) 10 mg PO DAILY [facility] Last Admin: 01/12/17 09:05 Dose: 10 mg Pantoprazole Sodium (Protonix 40mg Ivpb (Pre-Docked)) 100 mls @ 200 mls/hr IVPB BID [facility] Last Admin: 01/12/17 09:06 Dose: 200 mls/hr Insulin Aspart (Novolog Vial Sliding Scale -) 1 vial SQ ACHS [facility] PRN Reason: Protocol Last Admin: 01/12/17 11:34 Dose: Not Given Ondansetron HCl (Zofran Injection) 4 mg IVPB Q6H PRN PRN Reason: NAUSEA Polyethylene Glycol (Miralax (For Daily Use) -) 17 gm PO DAILY [facility] Last Admin: 01/12/17 09:11 Dose: Not Given - Objective Vital Signs: Vital Signs Temperature 97.8 F 01/12/17 10:00 Pulse Rate 60 01/12/17 10:00 Respiratory Rate 20 01/12/17 10:00 Blood Pressure 176/74 01/12/17 10:00 O2 Sat by Pulse Oximetry (%) 92 L 01/12/17 09:00 Constitutional: Yes: Well Nourished, No Distress, Calm Cardiovascular: Yes: Regular Rate and Rhythm. No: Gallop, Murmur, Rub Respiratory: Yes: Regular, CTA Bilaterally. No: Rales, Rhonchi, Wheezes Gastrointestinal: Yes: Normal Bowel Sounds, Soft. No: Distention, Tenderness Extremities: Yes: WNL Edema: No Labs: CBC, BMP 01/12/17 08:00 01/12/17 08:00 INR, PTT INR 1.04 (0.82-1.09) 01/11/17 06:30 Fibrinogen 313.0 mg/dL (238-498) 01/11/17 06:30 Problem List - Problems (1) Deep vein thrombosis (DVT) of right lower extremity Code(s): I82.401 - ACUTE EMBOLISM AND THOMBOS UNSP DEEP VEINS OF R LOW EXTREM Qualifiers: Affected thrombotic vein of extremity: femoral Chronicity: acute Qualified Code(s): I82.411 - Acute embolism and thrombosis of right femoral vein (2) NANCY (acute kidney injury) Code(s): N17.9 - ACUTE KIDNEY FAILURE, UNSPECIFIED (3) Anemia Code(s): D64.9 - ANEMIA, UNSPECIFIED Qualifiers: Other causes of anemia: acute posthemorrhagic (4) GIB (gastrointestinal bleeding) Code(s): K92.2 - GASTROINTESTINAL HEMORRHAGE, UNSPECIFIED Qualifiers: GI bleed type/associated pathology: melena Qualified Code(s): K92.1 - Melena (5) CAD (coronary artery disease) Code(s): I25.10 - ATHSCL HEART DISEASE OF [place] CORONARY ARTERY W/O ANG PCTRS Qualifiers: Coronary Disease-Associated Artery/Lesion type: [place] artery [place] vs. transplanted heart: [place] heart Associated angina: without angina Qualified Code(s): I25.10 - Atherosclerotic heart disease of [place] coronary artery without angina pectoris (6) Diabetes Code(s): E11.9 - TYPE 2 DIABETES MELLITUS WITHOUT COMPLICATIONS Qualifiers: Diabetes mellitus type: type 2 Chronic kidney disease stage: stage 2 ( mild) (7) HLD (hyperlipidemia) Code(s): E78.5 - HYPERLIPIDEMIA, UNSPECIFIED Qualifiers: Hyperlipidemia type: pure hypercholesterolemia Qualified Code(s): E78.00 - Pure hypercholesterolemia, unspecified; E78.0 - Pure hypercholesterolemia (8) HTN (hypertension) Code(s): I10 - ESSENTIAL (PRIMARY) HYPERTENSION Qualifiers: Hypertension type: essential hypertension Qualified Code(s): I10 - Essential (primary) hypertension Assessment/Plan (1) Deep vein thrombosis (DVT) of right lower extremity Assessment/Plan: -s/p IVC filter secondary to inability to anticoagulate -hematology following and case discussed Code(s): I82.401 - ACUTE EMBOLISM AND THOMBOS UNSP DEEP VEINS OF R LOW EXTREM Qualifiers: Chronicity: acute (2) NANCY (acute kidney injury) Assessment/Plan: -secondary to anemia and diuretics -improving -continue to monitor Code(s): N17.9 - ACUTE KIDNEY FAILURE, UNSPECIFIED (3) Anemia Assessment/Plan: -secondary to suspected GIB -transfused 2 units with proper response -planning for IV iron and B12 infusion Code(s): D64.9 - ANEMIA, UNSPECIFIED Qualifiers: Other causes of anemia: acute posthemorrhagic (4) GIB (gastrointestinal bleeding) Assessment/Plan: -GI following -IV protonix -push enteroscopy requested as next step -case d/w [facility] medicine service (patient seen by Dr Adam GUZMAN there) to discuss transfer -patient is complicated but stable -[facility] requested GI to GI discussion for outpatient vs inpatient evaluation Code(s): K92.2 - GASTROINTESTINAL HEMORRHAGE, UNSPECIFIED Qualifiers: GI bleed type/associated pathology: unspecified peptic ulcer Qualified Code(s): K27.4 - Chronic or unspecified peptic ulcer, site unspecified , with hemorrhage (5) CAD (coronary artery disease) Assessment/Plan: -currently will hold aspirin and plavix since appears to have active bleed -cardiology consulted and following Code(s): I25.10 - ATHSCL HEART DISEASE OF [place] CORONARY ARTERY W/O ANG PCTRS Qualifiers: Coronary Disease-Associated Artery/Lesion type: [place] artery [place] vs. transplanted heart: [place] heart Associated angina: without angina Qualified Code(s): I25.10 - Atherosclerotic heart disease of [place] coronary artery without angina pectoris (6) Diabetes Assessment/Plan: -continue SSI currently -monitor glucose -restart januvia Code(s): E11.9 - TYPE 2 DIABETES MELLITUS WITHOUT COMPLICATIONS Qualifiers: Diabetes mellitus type: type 2 (7) HLD (hyperlipidemia) Assessment/Plan: -continue vytorin Code(s): E78.5 - HYPERLIPIDEMIA, UNSPECIFIED Qualifiers: Hyperlipidemia type: pure hypercholesterolemia (8) HTN (hypertension) Assessment/Plan: -continue coreg -restart ARB today Code(s): I10 - ESSENTIAL (PRIMARY) HYPERTENSION
[2017-01-12] MEDS: LOSARTAN POTASSIUM 50 MG TABLET (FP) PO SCH (13:40)
--- NOTE | 2017-01-12 15:46 | PN ---
GI Progress Note Subjective: GI Note: Marylin describes having had 2 black small volume stools today but do not show it to the staff. He Hb is stable however. She tells me that she would like to go to [facility] for her double balloon enteroscopy as her personal attendant is there and she had a previous EGD with Dr Ina Medina there. She tells me that her personal attendant in very influential at [facility] and can expedite things. I gave her the name of Dr Sebastián Patel who is a very skilled endoscopist there and who does deep enteroscopy. - Objective Vital Signs: Vital Signs Temperature 97.8 F 01/12/17 14:00 Pulse Rate 62 01/12/17 14:00 Respiratory Rate 20 01/12/17 14:00 Blood Pressure 134/51 01/12/17 14:00 O2 Sat by Pulse Oximetry (%) 92 L 01/12/17 09:00 Constitutional: Calm Gastrointestinal Inspection: Yes: Distention ...Auscultate: Yes: Normoactive Bowel Sounds ...Palpate: Yes: Soft, Other (nontender) Labs: CBC, BMP 01/12/17 08:00 01/12/17 08:00 INR, PTT INR 1.04 (0.82-1.09) 01/11/17 06:30 Fibrinogen 313.0 mg/dL (238-498) 01/11/17 06:30 Assessment/Plan Chronic GI bleeding most likely from a small bowel source missed by capsule endoscopy. Agree that deep enteroscopy would be the next diagnostic step but need to a physician capable of doing this to accept her. Dr Beatty will be covering this weekend. Please call him as needed.
[2017-01-12] MEDS ORDERED: IRON SUCROSE INJECTION 100 MG in SODIUM CHLORIDE 95 ML IVPB ONE (16:00)
[2017-01-12] MEDS ORDERED: PT OWN MED DRAWER 7, Y5N ONE ×2 (22:40→23:37)
[2017-01-13] MEDS: ACETAMINOPHEN 325 MG TABLET (FP) PO PRN (03:35)
[2017-01-13] MEDS: sitaGLIPtin PHOSPHATE 100 MG TABLET (FP) PO SCH (06:49)
[2017-01-13] MEDS: INSULIN SLIDING SCALE (NOVOLOG) 1 VIAL SQ SCH ×4 (06:49→22:20)
[2017-01-13 07:39] LABS: BASOPHIL 1.4 % (0-2.0); EOSINOPHIL 2.9 % (0-4.5); MCH 23.1 pg (25.7-33.7); MEAN CELL VOLUME 74.5 fl (80-96); MEAN PLT VOLUME 7.7 fl (7.5-11.1); NEUTROPHILS 64.5 % (42.8-82.8); PLATELET COUNT 411 K/MM3 (134-434); RDW 23.8 % (11.6-15.6); WHITE BLOOD COUNT 7.4 K/mm3 (4.0-10.0)
[2017-01-13 08:01] LABS: CALCIUM 8.7 mg/dL (8.5-10.1); COCKROFT - GAULT 55.369; CREATININE 1.1 mg/dL (0.55-1.02); MAGNESIUM 2.2 mg/dL (1.8-2.4); PHOSPHOROUS 3.9 mg/dL (2.5-4.9)
[2017-01-13 08:07] LABS: SERUM IRON 125 ug/dL (27-139); TOTAL IRON BINDING CAPACITY 435 ug/dL (250-450); UIBC 310 ug/dL (118-369)
[2017-01-13] MEDS: PANTOPRAZOLE SODIUM 100 ML IVPB SCH ×2 (10:58→22:18)
[2017-01-13] MEDS: ATORVASTATIN CA 10 MG TABLET (FP) PO SCH (10:59)
[2017-01-13] MEDS: DOCUSATE SODIUM 100 MG CAPSULE (FP) PO SCH ×2 (10:59→22:17)
[2017-01-13] MEDS: CARVEDILOL 3.125 MG TABLET (FP) PO SCH ×2 (10:59→22:17)
[2017-01-13] MEDS: LOSARTAN POTASSIUM 50 MG TABLET (FP) PO SCH (10:59)
[2017-01-13] MEDS ORDERED: PT OWN MED DRAWER 7, Y5N ONE ×2 (11:04→22:19)
[2017-01-13] MEDS: BUDESONIDE/FORMETEROL FUMARATE 80/4.5 mcg INHALER IH SCH ×2 (11:13→22:20)
[2017-01-13] MEDS: EZETIMIBE 10 MG TABLET (FP) PO SCH (11:13)
[2017-01-13] MEDS: POLYETHYLENE GLYCOL 3350 119 GM BTL PO SCH (11:14)
--- NOTE | 2017-01-13 12:39 | PN ---
Progress Note (short form) - Note Progress Note: Patient seen and examined. Denies nausea, vomiting, abdominal pain. Receiving prbc transfusion for drop in H/H. Plan for transfer to [facility]. - Current Medication List Current Medications: Active Medications Acetaminophen (Tylenol -) 650 mg PO Q4H PRN PRN Reason: FEVER OR PAIN Last Admin: 01/12/17 04:25 Dose: 650 mg Artificial Tears (Artificial Tears) 2 drop OU TID PRN PRN Reason: Burning Atorvastatin Calcium (Lipitor -) 10 mg PO DAILY [facility] Last Admin: 01/12/17 09:05 Dose: 10 mg Budesonide/Formoterol Fumarate (Symbicort 80/4.5mcg -) 2 puff IH BID [facility] Last Admin: 01/12/17 09:06 Dose: 2 puff Carvedilol (Coreg -) 3.125 mg PO BID [facility] Last Admin: 01/12/17 09:05 Dose: 3.125 mg Docusate Sodium (Colace -) 100 mg PO BID [facility] Last Admin: 01/12/17 09:05 Dose: 100 mg Ezetimibe (Zetia -) 10 mg PO DAILY [facility] Last Admin: 01/12/17 09:05 Dose: 10 mg Pantoprazole Sodium (Protonix 40mg Ivpb (Pre-Docked)) 100 mls @ 200 mls/hr IVPB BID [facility] Last Admin: 01/12/17 09:06 Dose: 200 mls/hr Insulin Aspart (Novolog Vial Sliding Scale -) 1 vial SQ ACHS [facility] PRN Reason: Protocol Last Admin: 01/12/17 11:34 Dose: Not Given Ondansetron HCl (Zofran Injection) 4 mg IVPB Q6H PRN PRN Reason: NAUSEA Polyethylene Glycol (Miralax (For Daily Use) -) 17 gm PO DAILY [facility] Last Admin: 01/12/17 09:11 Dose: Not Given - Objective Vital Signs: Vital Signs Period Temp Pulse Resp BP Sys/[place] Pulse Ox Last 24 Hr 97.6 F-99.0 F 62-105 16-18 127-146/55-67 92-94 Constitutional: Yes: Well Nourished, No Distress, Calm Cardiovascular: Yes: Regular Rate and Rhythm. No: Gallop, Murmur, Rub Respiratory: Yes: Regular, CTA Bilaterally. No: Rales, Rhonchi, Wheezes Gastrointestinal: Yes: Normal Bowel Sounds, Soft. No: Distention, Tenderness Extremities: Yes: WNL Edema: No Labs: CBC, BMP 01/13/17 06:45 01/13/17 06:45 Problem List - Problems (1) Deep vein thrombosis (DVT) of right lower extremity Code(s): I82.401 - ACUTE EMBOLISM AND [place] UNSP DEEP VEINS OF R LOW EXTREM Qualifiers: Affected thrombotic vein of extremity: femoral Chronicity: acute Qualified Code(s): I82.411 - Acute embolism and thrombosis of right femoral vein (2) NANCY (acute kidney injury) Code(s): N17.9 - ACUTE KIDNEY FAILURE, UNSPECIFIED (3) Anemia Code(s): D64.9 - ANEMIA, UNSPECIFIED Qualifiers: Other causes of anemia: acute posthemorrhagic (4) GIB (gastrointestinal bleeding) Code(s): K92.2 - GASTROINTESTINAL HEMORRHAGE, UNSPECIFIED Qualifiers: GI bleed type/associated pathology: melena Qualified Code(s): K92.1 - Melena (5) CAD (coronary artery disease) Code(s): I25.10 - ATHSCL HEART DISEASE OF [place] CORONARY ARTERY W/O ANG PCTRS Qualifiers: Coronary Disease-Associated Artery/Lesion type: [place] artery [place] vs. transplanted heart: [place] heart Associated angina: without angina Qualified Code(s): I25.10 - Atherosclerotic heart disease of [place] coronary artery without angina pectoris (6) Diabetes Code(s): E11.9 - TYPE 2 DIABETES MELLITUS WITHOUT COMPLICATIONS Qualifiers: Diabetes mellitus type: type 2 Chronic kidney disease stage: stage 2 ( mild) (7) HLD (hyperlipidemia) Code(s): E78.5 - HYPERLIPIDEMIA, UNSPECIFIED Qualifiers: Hyperlipidemia type: pure hypercholesterolemia Qualified Code(s): E78.00 - Pure hypercholesterolemia, unspecified; E78.0 - Pure hypercholesterolemia (8) HTN (hypertension) Code(s): I10 - ESSENTIAL (PRIMARY) HYPERTENSION Qualifiers: Hypertension type: essential hypertension Qualified Code(s): I10 - Essential (primary) hypertension Assessment/Plan (1) Deep vein thrombosis (DVT) of right lower extremity Assessment/Plan: -s/p IVC filter secondary to inability to anticoagulate -hematology following and case discussed Code(s): I82.401 - ACUTE EMBOLISM AND [place] UNSP DEEP VEINS OF R LOW EXTREM Qualifiers: Chronicity: acute (2) NANCY (acute kidney injury) Assessment/Plan: -secondary to anemia and diuretics -improving -continue to monitor Code(s): N17.9 - ACUTE KIDNEY FAILURE, UNSPECIFIED (3) Anemia Assessment/Plan: - Drop in H/H. Receiving one unit of prbc. -secondary to suspected GIB -transfused 2 units prior to above. -planning for IV iron and B12 infusion Code(s): D64.9 - ANEMIA, UNSPECIFIED Qualifiers: Other causes of anemia: acute posthemorrhagic (4) GIB (gastrointestinal bleeding) Assessment/Plan: -GI following -IV protonix -push enteroscopy requested as next step -case d/w [facility] medicine service (patient seen by Dr Adam GUZMAN there) to discuss transfer -patient is complicated but stable -[facility] requested GI to GI discussion for outpatient vs inpatient evaluation Code(s): K92.2 - GASTROINTESTINAL HEMORRHAGE, UNSPECIFIED Qualifiers: GI bleed type/associated pathology: unspecified peptic ulcer Qualified Code(s): K27.4 - Chronic or unspecified peptic ulcer, site unspecified , with hemorrhage (5) CAD (coronary artery disease) Assessment/Plan: -currently aspirin and plavix on hold due to active bleed. -cardiology consulted and following Code(s): I25.10 - ATHSCL HEART DISEASE OF [place] CORONARY ARTERY W/O ANG PCTRS Qualifiers: Coronary Disease-Associated Artery/Lesion type: [place] artery [place] vs. transplanted heart: [place] heart Associated angina: without angina Qualified Code(s): I25.10 - Atherosclerotic heart disease of [place] coronary artery without angina pectoris (6) Diabetes Assessment/Plan: -continue SSI currently -monitor glucose -restart januvia Code(s): E11.9 - TYPE 2 DIABETES MELLITUS WITHOUT COMPLICATIONS Qualifiers: Diabetes mellitus type: type 2 (7) HLD (hyperlipidemia) Assessment/Plan: -continue vytorin Code(s): E78.5 - HYPERLIPIDEMIA, UNSPECIFIED Qualifiers: Hyperlipidemia type: pure hypercholesterolemia (8) HTN (hypertension) Assessment/Plan: -continue coreg -restart ARB today Code(s): I10 - ESSENTIAL (PRIMARY) HYPERTENSION
--- NOTE | 2017-01-13 18:32 | PN ---
Progress Note, Physician History of Present Illness: Hgb drifted lower, received another transfusion 1U pRBC, denies melena or lam hematochezia. - Current Medication List Current Medications: Active Medications Acetaminophen (Tylenol -) 650 mg PO Q4H PRN PRN Reason: FEVER OR PAIN Last Admin: 01/13/17 03:35 Dose: 650 mg Artificial Tears (Artificial Tears) 2 drop OU TID PRN PRN Reason: Burning Atorvastatin Calcium (Lipitor -) 10 mg PO DAILY [facility] Last Admin: 01/13/17 10:59 Dose: 10 mg Budesonide/Formoterol Fumarate (Symbicort 80/4.5mcg -) 2 puff IH BID [facility] Last Admin: 01/13/17 11:13 Dose: 2 puff Carvedilol (Coreg -) 3.125 mg PO BID [facility] Last Admin: 01/13/17 10:59 Dose: 3.125 mg Docusate Sodium (Colace -) 100 mg PO BID [facility] Last Admin: 01/13/17 10:59 Dose: 100 mg Ezetimibe (Zetia -) 10 mg PO DAILY [facility] Last Admin: 01/13/17 11:13 Dose: 10 mg Pantoprazole Sodium (Protonix 40mg Ivpb (Pre-Docked)) 100 mls @ 200 mls/hr IVPB BID [facility] Last Admin: 01/13/17 10:58 Dose: 200 mls/hr Insulin Aspart (Novolog Vial Sliding Scale -) 1 vial SQ ACHS [facility] PRN Reason: Protocol Last Admin: 01/13/17 16:13 Dose: Not Given Losartan Potassium (Cozaar -) 50 mg PO DAILY [facility] Last Admin: 01/13/17 10:59 Dose: 50 mg Ondansetron HCl (Zofran Injection) 4 mg IVPB Q6H PRN PRN Reason: NAUSEA Polyethylene Glycol (Miralax (For Daily Use) -) 17 gm PO DAILY [facility] Last Admin: 01/13/17 11:14 Dose: Not Given Sitagliptin Phosphate (Januvia -) 100 mg PO DAILY@0700 [facility] Last Admin: 01/13/17 06:49 Dose: 100 mg - Objective Vital Signs: Vital Signs Temperature 97.8 F 01/13/17 15:30 Pulse Rate 84 01/13/17 15:30 Respiratory Rate 18 01/13/17 15:30 Blood Pressure 127/64 01/13/17 15:30 O2 Sat by Pulse Oximetry (%) 94 L 01/13/17 09:00 Constitutional: Yes: No Distress, Calm Neck: Yes: Supple Cardiovascular: Yes: Regular Rate and Rhythm Respiratory: Yes: Regular, CTA Bilaterally Gastrointestinal: Yes: Normal Bowel Sounds, Soft, Abdomen, Obese Edema: No Labs: CBC, BMP 01/13/17 06:45 01/13/17 06:45 INR, PTT INR 1.04 (0.82-1.09) 01/11/17 06:30 Fibrinogen 313.0 mg/dL (238-498) 01/11/17 06:30 Problem List - Problems (1) Deep vein thrombosis (DVT) of right lower extremity Code(s): I82.401 - ACUTE EMBOLISM AND THOMBOS UNSP DEEP VEINS OF R LOW EXTREM Qualifiers: Affected thrombotic vein of extremity: femoral Chronicity: acute Qualified Code(s): I82.411 - Acute embolism and thrombosis of right femoral vein (2) HTN (hypertension) Code(s): I10 - ESSENTIAL (PRIMARY) HYPERTENSION Qualifiers: Hypertension type: essential hypertension Qualified Code(s): I10 - Essential (primary) hypertension (3) NANCY (acute kidney injury) Code(s): N17.9 - ACUTE KIDNEY FAILURE, UNSPECIFIED (4) CAD (coronary artery disease) Code(s): I25.10 - ATHSCL HEART DISEASE OF [place] CORONARY ARTERY W/O ANG PCTRS Qualifiers: Coronary Disease-Associated Artery/Lesion type: [place] artery [place] vs. transplanted heart: [place] heart Associated angina: without angina Qualified Code(s): I25.10 - Atherosclerotic heart disease of [place] coronary artery without angina pectoris (5) Diabetes Code(s): E11.9 - TYPE 2 DIABETES MELLITUS WITHOUT COMPLICATIONS Qualifiers: Diabetes mellitus type: type 2 Chronic kidney disease stage: stage 2 ( mild) (6) GIB (gastrointestinal bleeding) Code(s): K92.2 - GASTROINTESTINAL HEMORRHAGE, UNSPECIFIED Qualifiers: GI bleed type/associated pathology: melena Qualified Code(s): K92.1 - Melena (7) HLD (hyperlipidemia) Code(s): E78.5 - HYPERLIPIDEMIA, UNSPECIFIED Qualifiers: Hyperlipidemia type: pure hypercholesterolemia Qualified Code(s): E78.00 - Pure hypercholesterolemia, unspecified; E78.0 - Pure hypercholesterolemia (8) Status post coronary artery stent placement Code(s): Z95.5 - PRESENCE OF CORONARY ANGIOPLASTY IMPLANT AND GRAFT (9) Weakness Code(s): R53.1 - WEAKNESS Assessment/Plan 11/28/2016 Echocardiogram: Normal LV size and fxn, mild cLVH, mild MR, TR, RVSP 50 -60 mmHg, mod pulm HTN, tr-mild SD 11/28/[address]: Substernal extension of nodular 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 Recurrent symptomatic microcytic iron deficient anemia post transfusion with h/o pyloric channel ulcer bleed 07/09: EGD performed at [facility] with cautery and endoclipping, short segment clemons's s/p EGD 2009 and 2012, neg recent colonoscopy and capsule endoscopy, presumed small bowel source of blood loss 2. ASHD S/P PCI/NURIA, angina pectoris, last 2013 3. Right LE EVT s/p IVC filter 4. HTN 5. Hypercholesterolemia 6. Type 2 DM 7. PAF in sinus rhythm 8. Prerenal NANCY due to anemia improving 9. COPD PLAN: 1. Transfuse pRBC to maintain Hgb>8.0, GI considering push enteroscopy to evaluate SB source 2. Not ideal candidate for anticoagulation or antiplatelets given h/o recurrent GI bleeds 3. Continue Carvedilol 3.125 mg bid, Lipitor 10 mg qhs, Zetia 10 qd and Losartan 50 qd resumed now that renal function has stabilized 4. Continue Protonix 40 mg qd. 5. Patient to follow up with Dr. Gabriele Wetzel at [facility] [phone] upon discharge
[2017-01-14] MEDS ORDERED: LOSARTAN POTASSIUM 50 MG TABLET (FP) PO ONE (00:45)
[2017-01-14] MEDS: ACETAMINOPHEN 325 MG TABLET (FP) PO PRN ×2 (00:50→09:26)
[2017-01-14] MEDS: INSULIN SLIDING SCALE (NOVOLOG) 1 VIAL SQ SCH ×4 (06:35→23:46)
[2017-01-14] MEDS: sitaGLIPtin PHOSPHATE 100 MG TABLET (FP) PO SCH (06:36)
[2017-01-14] MEDS ORDERED: PT OWN MED DRAWER 7, Y5N ONE ×2 (09:15→21:41)
[2017-01-14] MEDS: CARVEDILOL 3.125 MG TABLET (FP) PO SCH ×2 (09:21→23:45)
[2017-01-14] MEDS: LOSARTAN POTASSIUM 50 MG TABLET (FP) PO SCH (09:21)
[2017-01-14] MEDS: DOCUSATE SODIUM 100 MG CAPSULE (FP) PO SCH ×2 (09:21→23:46)
[2017-01-14] MEDS: ATORVASTATIN CA 10 MG TABLET (FP) PO SCH (09:22)
[2017-01-14] MEDS: PANTOPRAZOLE SODIUM 100 ML IVPB SCH ×2 (09:22→23:46)
[2017-01-14] MEDS: BUDESONIDE/FORMETEROL FUMARATE 80/4.5 mcg INHALER IH SCH ×2 (09:22→23:46)
[2017-01-14] MEDS: EZETIMIBE 10 MG TABLET (FP) PO SCH (09:22)
[2017-01-14] MEDS: POLYETHYLENE GLYCOL 3350 119 GM BTL PO SCH (10:26)
[2017-01-14 12:19] LABS: BASOPHIL 1.2 % (0-2.0); EOSINOPHIL 2.3 % (0-4.5); MCH 24.3 pg (25.7-33.7); MCHC 31.4 g/dl (32.0-36.0); MEAN CELL VOLUME 77.3 fl (80-96); MEAN PLT VOLUME 7.9 fl (7.5-11.1); NEUTROPHILS 67.3 % (42.8-82.8); PLATELET COUNT 435 K/MM3 (134-434); RDW 24.7 % (11.6-15.6); WHITE BLOOD COUNT 8.5 K/mm3 (4.0-10.0)
[2017-01-14 12:40] LABS: ALBUMIN 3.1 g/dl (3.4-5.0); BILIRUBIN,TOTAL 0.4 mg/dL (0.2-1.0); CALCIUM 8.2 mg/dL (8.5-10.1); COCKROFT - GAULT 60.911; TOT PROT 6.3 g/dl (6.4-8.2)
--- NOTE | 2017-01-14 14:54 | PN ---
Progress Note, Physician History of Present Illness: Hgb stable post transfusion 1U pRBC, denies melena or lam hematochezia. - Current Medication List Current Medications: Active Medications Acetaminophen (Tylenol -) 650 mg PO Q4H PRN PRN Reason: FEVER OR PAIN Last Admin: 01/14/17 09:26 Dose: 650 mg Artificial Tears (Artificial Tears) 2 drop OU TID PRN PRN Reason: Burning Atorvastatin Calcium (Lipitor -) 10 mg PO DAILY [facility] Last Admin: 01/14/17 09:22 Dose: 10 mg Budesonide/Formoterol Fumarate (Symbicort 80/4.5mcg -) 2 puff IH BID [facility] Last Admin: 01/14/17 09:22 Dose: 2 puff Carvedilol (Coreg -) 3.125 mg PO BID [facility] Last Admin: 01/14/17 09:21 Dose: 3.125 mg Docusate Sodium (Colace -) 100 mg PO BID [facility] Last Admin: 01/14/17 09:21 Dose: 100 mg Ezetimibe (Zetia -) 10 mg PO DAILY [facility] Last Admin: 01/14/17 09:22 Dose: 10 mg Pantoprazole Sodium (Protonix 40mg Ivpb (Pre-Docked)) 100 mls @ 200 mls/hr IVPB BID [facility] Last Admin: 01/14/17 09:22 Dose: 200 mls/hr Insulin Aspart (Novolog Vial Sliding Scale -) 1 vial SQ ACHS [facility] PRN Reason: Protocol Last Admin: 01/14/17 12:26 Dose: Not Given Losartan Potassium (Cozaar -) 50 mg PO DAILY [facility] Last Admin: 01/14/17 09:21 Dose: 50 mg Ondansetron HCl (Zofran Injection) 4 mg IVPB Q6H PRN PRN Reason: NAUSEA Polyethylene Glycol (Miralax (For Daily Use) -) 17 gm PO DAILY [facility] Last Admin: 01/14/17 10:26 Dose: Not Given Sitagliptin Phosphate (Januvia -) 100 mg PO DAILY@0700 [facility] Last Admin: 01/14/17 06:36 Dose: 100 mg - Objective Vital Signs: Vital Signs Temperature 98.2 F 01/14/17 09:18 Pulse Rate 62 01/14/17 12:52 Respiratory Rate 14 01/14/17 12:52 Blood Pressure 146/76 01/14/17 12:52 O2 Sat by Pulse Oximetry (%) 95 01/14/17 09:00 Constitutional: Yes: No Distress, Calm Neck: Yes: Supple Cardiovascular: Yes: Regular Rate and Rhythm Respiratory: Yes: Regular, CTA Bilaterally Gastrointestinal: Yes: Normal Bowel Sounds, Soft, Abdomen, Obese Edema: No Labs: CBC, BMP 01/14/17 11:50 01/14/17 11:50 INR, PTT INR 1.04 (0.82-1.09) 01/11/17 06:30 Fibrinogen 313.0 mg/dL (238-498) 01/11/17 06:30 Problem List - Problems (1) Deep vein thrombosis (DVT) of right lower extremity Code(s): I82.401 - ACUTE EMBOLISM AND THOMBOS UNSP DEEP VEINS OF R LOW EXTREM Qualifiers: Affected thrombotic vein of extremity: femoral Chronicity: acute Qualified Code(s): I82.411 - Acute embolism and thrombosis of right femoral vein (2) HTN (hypertension) Code(s): I10 - ESSENTIAL (PRIMARY) HYPERTENSION Qualifiers: Hypertension type: essential hypertension Qualified Code(s): I10 - Essential (primary) hypertension (3) NANCY (acute kidney injury) Code(s): N17.9 - ACUTE KIDNEY FAILURE, UNSPECIFIED (4) CAD (coronary artery disease) Code(s): I25.10 - ATHSCL HEART DISEASE OF [place] CORONARY ARTERY W/O ANG PCTRS Qualifiers: Coronary Disease-Associated Artery/Lesion type: [place] artery [place] vs. transplanted heart: [place] heart Associated angina: without angina Qualified Code(s): I25.10 - Atherosclerotic heart disease of [place] coronary artery without angina pectoris (5) Diabetes Code(s): E11.9 - TYPE 2 DIABETES MELLITUS WITHOUT COMPLICATIONS Qualifiers: Diabetes mellitus type: type 2 Chronic kidney disease stage: stage 2 ( mild) (6) GIB (gastrointestinal bleeding) Code(s): K92.2 - GASTROINTESTINAL HEMORRHAGE, UNSPECIFIED Qualifiers: GI bleed type/associated pathology: melena Qualified Code(s): K92.1 - Melena (7) HLD (hyperlipidemia) Code(s): E78.5 - HYPERLIPIDEMIA, UNSPECIFIED Qualifiers: Hyperlipidemia type: pure hypercholesterolemia Qualified Code(s): E78.00 - Pure hypercholesterolemia, unspecified; E78.0 - Pure hypercholesterolemia (8) Status post coronary artery stent placement Code(s): Z95.5 - PRESENCE OF CORONARY ANGIOPLASTY IMPLANT AND GRAFT (9) Weakness Code(s): R53.1 - WEAKNESS Assessment/Plan 11/28/2016 Echocardiogram: Normal LV size and fxn, mild cLVH, mild MR, TR, RVSP 50 -60 mmHg, mod pulm HTN, tr-mild ID 11/28/[address]: Substernal extension of nodular 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 Recurrent symptomatic microcytic iron deficient anemia post transfusion with h/o pyloric channel ulcer bleed 07/09: EGD performed at [facility] with cautery and endoclipping, short segment clemons's s/p EGD 2009 and 2012, neg recent colonoscopy and capsule endoscopy, presumed small bowel source of blood loss 2. ASHD S/P PCI/NURIA, angina pectoris, last 2013 3. Right LE EVT s/p IVC filter 4. HTN 5. Hypercholesterolemia 6. Type 2 DM 7. PAF in sinus rhythm 8. Prerenal NANCY due to anemia improving 9. COPD 10. Hyperkalemia PLAN: 1. Transfuse pRBC to maintain Hgb>8.0, GI considering push enteroscopy to evaluate SB source 2. Not ideal candidate for anticoagulation or antiplatelets given h/o recurrent GI bleeds 3. Continue Carvedilol 3.125 mg bid, Lipitor 10 mg qhs, Zetia 10 qd and Losartan 50 qd (with caution given hyperkalemia, may have to hold if hyperkalemia worsens) 4. Continue Protonix 40 mg qd. 5. Patient to follow up with Dr. Gabriele Wetzel at [facility] [phone] upon discharge
--- NOTE | 2017-01-14 22:02 | PN ---
Progress Note (short form) - Note Progress Note: Patient seen and examined. No complaints Plan for transfer to [facility]. - Current Medication List Current Medications: Active Medications Acetaminophen (Tylenol -) 650 mg PO Q4H PRN PRN Reason: FEVER OR PAIN Last Admin: 01/12/17 04:25 Dose: 650 mg Artificial Tears (Artificial Tears) 2 drop OU TID PRN PRN Reason: Burning Atorvastatin Calcium (Lipitor -) 10 mg PO DAILY [facility] Last Admin: 01/12/17 09:05 Dose: 10 mg Budesonide/Formoterol Fumarate (Symbicort 80/4.5mcg -) 2 puff IH BID [facility] Last Admin: 01/12/17 09:06 Dose: 2 puff Carvedilol (Coreg -) 3.125 mg PO BID [facility] Last Admin: 01/12/17 09:05 Dose: 3.125 mg Docusate Sodium (Colace -) 100 mg PO BID [facility] Last Admin: 01/12/17 09:05 Dose: 100 mg Ezetimibe (Zetia -) 10 mg PO DAILY [facility] Last Admin: 01/12/17 09:05 Dose: 10 mg Pantoprazole Sodium (Protonix 40mg Ivpb (Pre-Docked)) 100 mls @ 200 mls/hr IVPB BID [facility] Last Admin: 01/12/17 09:06 Dose: 200 mls/hr Insulin Aspart (Novolog Vial Sliding Scale -) 1 vial SQ ACHS [facility] PRN Reason: Protocol Last Admin: 01/12/17 11:34 Dose: Not Given Ondansetron HCl (Zofran Injection) 4 mg IVPB Q6H PRN PRN Reason: NAUSEA Polyethylene Glycol (Miralax (For Daily Use) -) 17 gm PO DAILY [facility] Last Admin: 01/12/17 09:11 Dose: Not Given - Objective Vital Signs: Vital Signs Period Temp Pulse Resp BP Sys/[place] Pulse Ox Last 24 Hr 98.2 F-98.5 F 50-64 14-22 142-190/65-77 95 Constitutional: Yes: Well Nourished, No Distress, Calm Cardiovascular: Yes: Regular Rate and Rhythm. No: Gallop, Murmur, Rub Respiratory: Yes: Regular, CTA Bilaterally. No: Rales, Rhonchi, Wheezes Gastrointestinal: Yes: Normal Bowel Sounds, Soft. No: Distention, Tenderness Extremities: Yes: WNL Edema: No Labs: CBC, BMP 01/14/17 11:50 01/14/17 11:50 Problem List - Problems (1) Deep vein thrombosis (DVT) of right lower extremity Code(s): I82.401 - ACUTE EMBOLISM AND THOMBOS UNSP DEEP VEINS OF R LOW EXTREM Qualifiers: Affected thrombotic vein of extremity: femoral Chronicity: acute Qualified Code(s): I82.411 - Acute embolism and thrombosis of right femoral vein (2) NANCY (acute kidney injury) Code(s): N17.9 - ACUTE KIDNEY FAILURE, UNSPECIFIED (3) Anemia Code(s): D64.9 - ANEMIA, UNSPECIFIED Qualifiers: Other causes of anemia: acute posthemorrhagic (4) GIB (gastrointestinal bleeding) Code(s): K92.2 - GASTROINTESTINAL HEMORRHAGE, UNSPECIFIED Qualifiers: GI bleed type/associated pathology: melena Qualified Code(s): K92.1 - Melena (5) CAD (coronary artery disease) Code(s): I25.10 - ATHSCL HEART DISEASE OF [place] CORONARY ARTERY W/O ANG PCTRS Qualifiers: Coronary Disease-Associated Artery/Lesion type: [place] artery [place] vs. transplanted heart: [place] heart Associated angina: without angina Qualified Code(s): I25.10 - Atherosclerotic heart disease of [place] coronary artery without angina pectoris (6) Diabetes Code(s): E11.9 - TYPE 2 DIABETES MELLITUS WITHOUT COMPLICATIONS Qualifiers: Diabetes mellitus type: type 2 Chronic kidney disease stage: stage 2 ( mild) (7) HLD (hyperlipidemia) Code(s): E78.5 - HYPERLIPIDEMIA, UNSPECIFIED Qualifiers: Hyperlipidemia type: pure hypercholesterolemia Qualified Code(s): E78.00 - Pure hypercholesterolemia, unspecified; E78.0 - Pure hypercholesterolemia (8) HTN (hypertension) Code(s): I10 - ESSENTIAL (PRIMARY) HYPERTENSION Qualifiers: Hypertension type: essential hypertension Qualified Code(s): I10 - Essential (primary) hypertension Assessment/Plan (1) Deep vein thrombosis (DVT) of right lower extremity Assessment/Plan: -s/p IVC filter secondary to inability to anticoagulate -hematology following and case discussed Code(s): I82.401 - ACUTE EMBOLISM AND THOMBOS UNSP DEEP VEINS OF R LOW EXTREM Qualifiers: Chronicity: acute (2) NANCY (acute kidney injury) Assessment/Plan: -secondary to anemia and diuretics -improving -continue to monitor Code(s): N17.9 - ACUTE KIDNEY FAILURE, UNSPECIFIED (3) Anemia Assessment/Plan: - H/H improved after one unit of prbc. -secondary to suspected GIB -transfused 2 units prior to above. -planning for IV iron and B12 infusion Code(s): D64.9 - ANEMIA, UNSPECIFIED Qualifiers: Other causes of anemia: acute posthemorrhagic (4) GIB (gastrointestinal bleeding) Assessment/Plan: -GI following -IV protonix -push enteroscopy requested as next step -case d/w [facility] medicine service (patient seen by Dr Adam GUZMAN there) to discuss transfer -patient is complicated but stable -[facility] requested GI to GI discussion for outpatient vs inpatient evaluation Code(s): K92.2 - GASTROINTESTINAL HEMORRHAGE, UNSPECIFIED Qualifiers: GI bleed type/associated pathology: unspecified peptic ulcer Qualified Code(s): K27.4 - Chronic or unspecified peptic ulcer, site unspecified , with hemorrhage (5) CAD (coronary artery disease) Assessment/Plan: -currently aspirin and plavix on hold due to active bleed. -cardiology consulted and following Code(s): I25.10 - ATHSCL HEART DISEASE OF [place] CORONARY ARTERY W/O ANG PCTRS Qualifiers: Coronary Disease-Associated Artery/Lesion type: [place] artery [place] vs. transplanted heart: [place] heart Associated angina: without angina Qualified Code(s): I25.10 - Atherosclerotic heart disease of [place] coronary artery without angina pectoris (6) Diabetes Assessment/Plan: -continue SSI currently -monitor glucose -restart januvia Code(s): E11.9 - TYPE 2 DIABETES MELLITUS WITHOUT COMPLICATIONS Qualifiers: Diabetes mellitus type: type 2 (7) HLD (hyperlipidemia) Assessment/Plan: -continue vytorin Code(s): E78.5 - HYPERLIPIDEMIA, UNSPECIFIED Qualifiers: Hyperlipidemia type: pure hypercholesterolemia (8) HTN (hypertension) Assessment/Plan: -continue coreg -restart ARB today Code(s): I10 - ESSENTIAL (PRIMARY) HYPERTENSION
[2017-01-15] MEDS: ACETAMINOPHEN 325 MG TABLET (FP) PO PRN (02:01)
[2017-01-15] MEDS: sitaGLIPtin PHOSPHATE 100 MG TABLET (FP) PO SCH (06:39)
[2017-01-15] MEDS: INSULIN SLIDING SCALE (NOVOLOG) 1 VIAL SQ SCH ×2 (06:40→12:40)
[2017-01-15 07:52] LABS: BASOPHIL 1.3 % (0-2.0); EOSINOPHIL 2.7 % (0-4.5); MCH 24.5 pg (25.7-33.7); MCHC 31.8 g/dl (32.0-36.0); MEAN CELL VOLUME 76.9 fl (80-96); MEAN PLT VOLUME 7.9 fl (7.5-11.1); NEUTROPHILS 64.8 % (42.8-82.8); PLATELET COUNT 410 K/MM3 (134-434); RDW 25.7 % (11.6-15.6); WHITE BLOOD COUNT 8.4 K/mm3 (4.0-10.0)
[2017-01-15 08:05] LABS: ALBUMIN 3.1 g/dl (3.4-5.0); CALCIUM 8.6 mg/dL (8.5-10.1)
[2017-01-15 08:10] LABS: BILIRUBIN,TOTAL 0.5 mg/dL (0.2-1.0); COCKROFT - GAULT 55.369; CREATININE 1.1 mg/dL (0.55-1.02)
--- NOTE | 2017-01-15 08:59 | PN ---
Progress Note, Physician Chief Complaint: Events noted Not in distress History of Present Illness: Patient was seen and examined. Awake and alert. Chart was reviewed Denies chest pain, SOB or palpitations No active GI bleed at the moment - Current Medication List Current Medications: Active Medications Acetaminophen (Tylenol -) 650 mg PO Q4H PRN PRN Reason: FEVER OR PAIN Last Admin: 01/15/17 02:01 Dose: 650 mg Artificial Tears (Artificial Tears) 2 drop OU TID PRN PRN Reason: Burning Atorvastatin Calcium (Lipitor -) 10 mg PO DAILY [facility] Last Admin: 01/14/17 09:22 Dose: 10 mg Budesonide/Formoterol Fumarate (Symbicort 80/4.5mcg -) 2 puff IH BID [facility] Last Admin: 01/14/17 23:46 Dose: 2 puff Carvedilol (Coreg -) 3.125 mg PO BID [facility] Last Admin: 01/14/17 23:45 Dose: 3.125 mg Docusate Sodium (Colace -) 100 mg PO BID [facility] Last Admin: 01/14/17 23:46 Dose: 100 mg Ezetimibe (Zetia -) 10 mg PO DAILY [facility] Last Admin: 01/14/17 09:22 Dose: 10 mg Pantoprazole Sodium (Protonix 40mg Ivpb (Pre-Docked)) 100 mls @ 200 mls/hr IVPB BID [facility] Last Admin: 01/14/17 23:46 Dose: 200 mls/hr Insulin Aspart (Novolog Vial Sliding Scale -) 1 vial SQ ACHS [facility] PRN Reason: Protocol Last Admin: 01/15/17 06:40 Dose: Not Given Losartan Potassium (Cozaar -) 50 mg PO DAILY [facility] Last Admin: 01/14/17 09:21 Dose: 50 mg Ondansetron HCl (Zofran Injection) 4 mg IVPB Q6H PRN PRN Reason: NAUSEA Polyethylene Glycol (Miralax (For Daily Use) -) 17 gm PO DAILY [facility] Last Admin: 01/14/17 10:26 Dose: Not Given Sitagliptin Phosphate (Januvia -) 100 mg PO DAILY@0700 [facility] Last Admin: 01/15/17 06:39 Dose: 100 mg - Objective Vital Signs: Vital Signs Temperature 98.6 F 01/15/17 06:00 Pulse Rate 63 01/15/17 06:00 Respiratory Rate 18 01/15/17 06:00 Blood Pressure 151/76 01/15/17 06:00 O2 Sat by Pulse Oximetry (%) 94 L 01/14/17 21:00 Neck: Yes: Supple Cardiovascular: Yes: Regular Rate and Rhythm Respiratory: Yes: CTA Bilaterally Gastrointestinal: Yes: Normal Bowel Sounds, Soft. No: Tenderness Edema: No Additional Findings/Remarks: Review of Systems Constitutional: denies Chills or Fever Respiratory: denies: SOB, sputum production, hemoptysis Cardiovascular: As noted above Gastrointestinal: denies Nausea, Vomiting, Diarrhea or Constipation or Abdominal Discomfort Genitourinary: No Symptoms Reported Musculoskeletal: No Symptoms Reported Labs: CBC, BMP 01/15/17 06:15 01/15/17 06:15 INR, PTT INR 1.04 (0.82-1.09) 01/11/17 06:30 Fibrinogen 313.0 mg/dL (238-498) 01/11/17 06:30 Problem List - Problems (1) Deep vein thrombosis (DVT) of right lower extremity Code(s): I82.401 - ACUTE EMBOLISM AND [place]OMBOS UNSP DEEP VEINS OF R LOW EXTREM Qualifiers: Affected thrombotic vein of extremity: femoral Chronicity: acute Qualified Code(s): I82.411 - Acute embolism and thrombosis of right femoral vein (2) HTN (hypertension) Code(s): I10 - ESSENTIAL (PRIMARY) HYPERTENSION Qualifiers: Hypertension type: essential hypertension Qualified Code(s): I10 - Essential (primary) hypertension (3) NANCY (acute kidney injury) Code(s): N17.9 - ACUTE KIDNEY FAILURE, UNSPECIFIED (4) Acute diastolic heart failure Code(s): I50.31 - ACUTE DIASTOLIC (CONGESTIVE) HEART FAILURE (5) Anemia Code(s): D64.9 - ANEMIA, UNSPECIFIED Qualifiers: Other causes of anemia: acute posthemorrhagic (6) CAD (coronary artery disease) Code(s): I25.10 - ATHSCL HEART DISEASE OF [place] CORONARY ARTERY W/O ANG PCTRS Qualifiers: Coronary Disease-Associated Artery/Lesion type: [place] artery [place] vs. transplanted heart: [place] heart Associated angina: without angina Qualified Code(s): I25.10 - Atherosclerotic heart disease of [place] coronary artery without angina pectoris (7) Diabetes Code(s): E11.9 - TYPE 2 DIABETES MELLITUS WITHOUT COMPLICATIONS Qualifiers: Diabetes mellitus type: type 2 Chronic kidney disease stage: stage 2 ( mild) (8) GIB (gastrointestinal bleeding) Code(s): K92.2 - GASTROINTESTINAL HEMORRHAGE, UNSPECIFIED Qualifiers: GI bleed type/associated pathology: melena Qualified Code(s): K92.1 - Melena (9) HLD (hyperlipidemia) Code(s): E78.5 - HYPERLIPIDEMIA, UNSPECIFIED Qualifiers: Hyperlipidemia type: pure hypercholesterolemia Qualified Code(s): E78.00 - Pure hypercholesterolemia, unspecified; E78.0 - Pure hypercholesterolemia (10) Hyperkalemia Code(s): E87.5 - HYPERKALEMIA (11) Status post coronary artery stent placement Code(s): Z95.5 - PRESENCE OF CORONARY ANGIOPLASTY IMPLANT AND GRAFT Assessment/Plan 1. Recurrent symptomatic microcytic iron deficient anemia post transfusion with history of pyloric channel ulcer bleed - EGD performed at [facility] with cautery and endo-clipping, short segment clemons's s/p EGD 2009 and 2012, negative recent colonoscopy and capsule endoscopy, presumed small bowel source of blood loss 2. ASHD S/P PCI/NURIA, angina pectoris, last 2013 (followed at [facility]) 3. Right LE DVT s/p IVC filter 4. HTN 5. Hypercholesterolemia 6. Type 2 DM 7. PAF in sinus rhythm 8. Pre-renal NANCY due to anemia - improving 9. COPD 10. Hyperkalemia PLAN: 1. Transfuse PRBC to maintain Hgb>8.0, GI considering push enteroscopy to evaluate SB source at [facility] - awaiting further plan 2. Not ideal candidate for anticoagulation or antiplatelets given history of recurrent GI bleeds 3. Continue Carvedilol 3.125 mg bid, Lipitor 10 mg qhs, Zetia 10 mg qd and Losartan 50 mg qd (with caution given hyperkalemia, may have to hold if hyperkalemia worsens) 4. Continue GI prophylaxis 5. Patient to follow up with Dr. Gabriele Wetzel at [facility] [phone] upon discharge unless she [place]. Further plans are to follow Jose Alaniz MD
[2017-01-15 10:26] VITALS: BP 173/73; PULSE 62; TEMP 98.1
[2017-01-15] MEDS: POLYETHYLENE GLYCOL 3350 119 GM BTL PO SCH (10:26)
[2017-01-15] MEDS: PANTOPRAZOLE SODIUM 100 ML IVPB SCH (10:27)
[2017-01-15] MEDS: CARVEDILOL 3.125 MG TABLET (FP) PO SCH (10:30)
[2017-01-15] MEDS: LOSARTAN POTASSIUM 50 MG TABLET (FP) PO SCH (10:30)
[2017-01-15] MEDS: DOCUSATE SODIUM 100 MG CAPSULE (FP) PO SCH (10:30)
[2017-01-15] MEDS: ATORVASTATIN CA 10 MG TABLET (FP) PO SCH (10:31)
[2017-01-15] MEDS: BUDESONIDE/FORMETEROL FUMARATE 80/4.5 mcg INHALER IH SCH (10:31)
--- NOTE | 2017-01-15 12:34 | DS ---
Physical Examination Vital Signs: Vital Signs Temperature 98.1 F 01/15/17 10:00 Pulse Rate 62 01/15/17 10:00 Respiratory Rate 19 01/15/17 10:00 Blood Pressure 173/73 01/15/17 10:00 O2 Sat by Pulse Oximetry (%) 94 L 01/14/17 21:00 Constitutional: Yes: No Distress, Calm, Obese Cardiovascular: Yes: Regular Rate and Rhythm. No: Gallop, Murmur, Rub Respiratory: Yes: Regular, CTA Bilaterally. No: Rales, Rhonchi, Wheezes Gastrointestinal: Yes: Normal Bowel Sounds, Soft. No: Distention, Tenderness Extremities: Yes: WNL Edema: No Labs: CBC, BMP 01/15/17 06:15 01/15/17 06:15 Discharge Summary Reason For Visit: DEEP VEIN THROMBOSIS Current Active Problems Deep vein thrombosis (DVT) of right lower extremity (Acute) HTN (hypertension) (Acute) Hospital Course: (1) Deep vein thrombosis (DVT) of right lower extremity Code(s): I82.401 - ACUTE EMBOLISM AND THOMBOS UNSP DEEP VEINS OF R LOW EXTREM Qualifiers: Affected thrombotic vein of extremity: femoral Chronicity: acute Qualified Code(s): I82.411 - Acute embolism and thrombosis of right femoral vein (2) NANCY (acute kidney injury) Code(s): N17.9 - ACUTE KIDNEY FAILURE, UNSPECIFIED (3) Anemia Code(s): D64.9 - ANEMIA, UNSPECIFIED Qualifiers: Other causes of anemia: acute posthemorrhagic (4) GIB (gastrointestinal bleeding) Code(s): K92.2 - GASTROINTESTINAL HEMORRHAGE, UNSPECIFIED Qualifiers: GI bleed type/associated pathology: melena Qualified Code(s): K92.1 - Melena (5) CAD (coronary artery disease) Code(s): I25.10 - ATHSCL HEART DISEASE OF [place] CORONARY ARTERY W/O ANG PCTRS Qualifiers: Coronary Disease-Associated Artery/Lesion type: [place] artery [place] vs. transplanted heart: [place] heart Associated angina: without angina Qualified Code(s): I25.10 - Atherosclerotic heart disease of [place] coronary artery without angina pectoris (6) Diabetes Code(s): E11.9 - TYPE 2 DIABETES MELLITUS WITHOUT COMPLICATIONS Qualifiers: Diabetes mellitus type: type 2 Chronic kidney disease stage: stage 2 ( mild) (7) HLD (hyperlipidemia) Code(s): E78.5 - HYPERLIPIDEMIA, UNSPECIFIED Qualifiers: Hyperlipidemia type: pure hypercholesterolemia Qualified Code(s): E78.00 - Pure hypercholesterolemia, unspecified; E78.0 - Pure hypercholesterolemia (8) HTN (hypertension) Code(s): I10 - ESSENTIAL (PRIMARY) HYPERTENSION Qualifiers: Hypertension type: essential hypertension Qualified Code(s): I10 - Essential (primary) hypertension Ms Pierce is a 76 year old female who comes in when found to have a DVT and anemia from blood loss. She was admitted to the hospital and seen by hematology and GI. She underwent IVC filter placement, she is not a good candidate for anticoagulation secondary to GI bleeding. She was seen by GI and considered for deep endoscopy. However she is higher risk and was felt it would be safer to perform at a tertiary care center. Case was discussed with [facility] for transfer, however patient is stable and bleeding has stopped. GI saw her and referred her to a GI physician at [facility]. She remained stable over the weekend without problem. She is safe for discharge and follow up at [facility]. 37 minutes spent in preparation of this discharge Condition: Stable - Instructions Diet, Activity, Other Instructions: resume previous diet and activity. Follow up with GI and cardiology at [facility]. Referrals: Hung Pathak MD [Primary Care Provider] - Pérez Barrientos MD [Staff Physician] - Disposition: HOME - Home Medications Comprehensive Discharge Medication List: Ambulatory Orders Atorvastatin Ca [Lipitor] 10 mg PO DAILY #0 05/21/13 Budesonide/Formeterol Fumarate [SYMBICORT 80/4.5mcg -] 2 inh IH BID #0 inhaler 06/23/13 Carvedilol [Coreg -] 3.125 mg PO BID #0 tablet 06/23/13 Glipizide [Glucotrol -] 5 mg PO DAILY@1730 #0 tablet 06/23/13 Hypromellose 0.5% Opth Soln [Artificial Tears] 2 drop OU TID PRN #0 drops Losartan Potassium [Cozaar -] 50 mg PO DAILY #0 tablet 06/23/13 Metformin HCl [Glucophage -] 1,000 mg PO BIDAC #0 tablet 06/23/13 Pantoprazole Sodium [Protonix -] 40 mg PO DAILY #0 tablet.ec 06/23/13 Sitagliptin Phosphate [Januvia -] 100 mg PO DAILY@0700 #0 ud 06/23/13 Furosemide [Lasix -] 20 mg PO DAILY #30 tablet 11/30/16 Ezetimibe [Zetia] 10 mg PO DAILY 01/10/17 Non-Formulary 5 mg PO DAILY 01/10/17
[2017-01-15] MEDS: EZETIMIBE 10 MG TABLET (FP) PO SCH (15:00)
== END 2017-01-15 17:45 | disposition home or self-care (01) | DRG 252 ==
LOC: JER 12:52 → JERBED 14:45 → J6S 18:13 → J4S 18:35
PROVIDERS: ADMIT Internal Medicine; ATTEND Internal Medicine
PROC: 30233N1 Transfusion of Nonautologous Red Blood Cells into Peripheral Vein, Percutaneous Approach (ICD-10-PCS; 2017-01-10)
PROC: 06H03DZ Insertion of Intraluminal Device into Inferior Vena Cava, Percutaneous Approach (ICD-10-PCS; principal; 2017-01-11)
DX: I82.411 Acute embolism and thrombosis of right femoral vein (principal); K27.4 Chronic or unspecified peptic ulcer, site unspecified, with hemorrhage; N17.9 Acute kidney failure, unspecified; I25.10 Atherosclerotic heart disease of native coronary artery without angina pectoris; J44.9 Chronic obstructive pulmonary disease, unspecified; E78.5 Hyperlipidemia, unspecified; Z79.84 Long term (current) use of oral hypoglycemic drugs; E66.9 Obesity, unspecified; I11.0 Hypertensive heart disease with heart failure; I50.9 Heart failure, unspecified; E11.9 Type 2 diabetes mellitus without complications; Z95.5 Presence of coronary angioplasty implant and graft; I48.0 Paroxysmal atrial fibrillation; Z79.4 Long term (current) use of insulin; E53.8 Deficiency of other specified B group vitamins; D50.9 Iron deficiency anemia, unspecified; E87.5 Hyperkalemia; Z68.34 Body mass index [BMI] 34.0-34.9, adult
CPT/HCPCS: 36415; 36430; 37191; 71010-TC; 76937-TC; 80048; 80053; 81003; 82272; 82607; 82728; 83010; 83540; 83550; 83735; 84100; 84466; 85025; 85384; 85610; 85730; 86850; 86880; 86900; 86901; 86922; 93005; 93010; 93970-TC; 99284-25; C1769; C1880; J1756; P9038; P9058

== ENCOUNTER 2017-08-20 10:16 | Day surgery (SDC) | payer OTHER, BC ==
[2017-08-13 12:58] VITALS: BMI 31.1
[~2017-08-20 10:16] MED LIST: oxyCODONE HCL 10 MG SUSTAINED ACTING TABLET PO ONE
[2017-08-20] MEDS ORDERED: methylPREDNISolone ACET (DEPO) 40 MG/1 ML VIAL ONE (10:43)
[2017-08-20] MEDS ORDERED: BUPIVACAINE HCL/PF 2.5 MG/ML - 30 ML VIAL IJ ONE (10:43)
[2017-08-20] MEDS ORDERED: THROMBIN (BOVINE) 5,000 UNIT VIAL TP ONE ×2 (10:44→12:31)
[2017-08-20] MEDS ORDERED: LIDOCAINE HCL 1%, 10 MG/ML (20ML VIAL) ONE (10:44)
[2017-08-20] MEDS ORDERED: LIDOCAINE 1%/EPI 1:100000 (20 ML MULTI DOSE VIAL) ONE (10:44)
[2017-08-20] MEDS ORDERED: MIDAZOLAM HCL 2 MG/2 ML SINGLE DOSE VIAL ONE (11:06)
--- NOTE | 2017-08-20 11:09 | HP ---
History & Physical Update - History History: No Change - Physical Physical: No Change - Assessment Assessment: No Change - Plan Plan: No Change
[2017-08-20] MEDS ORDERED: LIDOCAINE 1%/EPI 1:100000 (50 ML MULTI DOSE VIAL) INF ONE (12:15)
[2017-08-20] MEDS ORDERED: GELATIN SPONGE,ABSORBABLE 1 GM PACKET TP ONE (12:31)
[2017-08-20] MEDS ORDERED: KETAMINE HCL 200 MG/20 ML VIAL ONE (12:32)
[2017-08-20] MEDS ORDERED: methylPREDNISolone ACET (DEPO) 40 MG/1 ML VIAL IM ONE (13:26)
[2017-08-20] MEDS ORDERED: BUPIVACAINE HCL/PF 0.25% (2.5MG/ML) 10 ML VIAL IJ ONE (13:27)
--- NOTE | 2017-08-20 14:10 | OP ---
Operative Note - Note: Operative Date: 08/20/17 Pre-Operative Diagnosis: spinal stenosis Operation: laminectomy of L2-L4 Surgeon: Otis Freire [employer] Architect: Winsome Jean Anesthesiologist/RECEIVING OPERATOR: Berenice Colby Anesthesia: Spinal Estimated Blood Loss (mls): 30 Fluid Volume Replaced (mls): 650 Operative Report Dictated: Yes
--- NOTE | 2017-08-20 14:11 | SURG ---
Surgery Table Runner Note Table Runner: Winsome Jean PA-C Date of Service: 08/20/17 Diagnosis: spinal stenosis Procedure: laminectomy of L2-L4 I was present for the entirety of the operative procedure. For further detail, please refer to operative report. Visit type - Case Type Case Type: Scheduled Admission - Emergency Emergency Visit: No - New patient This patient is new to me today: Yes Date on this admission: 08/20/17
[2017-08-20 15:34] VITALS: TEMP 97.9
[2017-08-20 16:59] VITALS: BP 116/52; PULSE 69
--- NOTE | 2017-08-20 21:59 | OP ---
DATE OF OPERATION: 08/20/2017 PREOPERATIVE DIAGNOSIS: Spinal stenosis, L2-3, L3-4. POSTOPERATIVE DIAGNOSIS: Spinal stenosis, L2-3, L3-4. PROCEDURE PERFORMED: Laminectomy, L2-3, L3-4. SURGEON: Otis Freire MD COPY MACHINE OPERATOR: ARCHANA Lee ESTIMATED BLOOD LOSS: 50 mL INTRAVENOUS FLUIDS: As per Anesthesia. ANESTHESIA: Spinal. COMPLICATIONS: None. DISPOSITION: Patient brought to the PACU in stable condition. INDICATION FOR SURGERY: The patient is a 76-year-old female who has been suffering from pain from her back down her legs. X-rays and MRI were completed which noted that she had spinal stenosis at L2-3 and L3-4. She had gone through an exhaustive course of treatment for this, which included medications, physical therapy as well as injections. Unfortunately, pain continued to persist despite all this. At this point, risks, benefits, and alternatives were discussed, and the patient consented to surgery. DESCRIPTION OF PROCEDURE: Patient was brought to the operating room by the Anesthesia staff. After appropriate patient identification was performed, spinal anesthesia was given. She was placed prone onto the OR table. Patient was able to position herself to avoid bony prominences. Two needles were placed into the back to shanna off the L2 to L4 segments. X-ray was taken to confirm this as correct. The needles were removed, and 10 mL of lidocaine with epinephrine were injected into her back at this time. Her back was prepped and draped in a sterile manner. At this point, timeout was completed. An incision was made from the top of L2 down to the bottom of L4. Dissection was carried down to the fascia. Fascia was split open at this time, and appropriate retractors were then placed in. A spinal needle was placed onto the L3 lamina to shanna off the L3-4 segment. X-ray was taken to confirm this as correct. The needle was removed. At this time, the microscope was brought in. The interspinous ligament at L2-3 and L3-4 was removed. The spinous process of L3 was removed. A bur was used to complete the removal of the lamina. The flavum was identified. It was removed. By the end of the procedure, both the L3 and L4 nerve roots appeared to be well decompressed. All bleeding was well controlled at this time. Steroid was placed over the nerve root, and FloSeal was placed over that. The fascia was closed with a No. 1 Vicryl suture. The subcutaneous tissues were closed with 2-0 Vicryl suture. Skin was closed with 3-0 Monocryl suture. Dermabond was applied. Steri-Strips were applied. Sterile dressing applied. Patient was placed supine on the OR bed and brought to the PACU in stable condition. Dayne SALES/[id number]
== END 2017-08-20 16:45 | disposition home or self-care (01) ==
LOC: FASU 10:16
PROVIDERS: ATTEND Orthopaedic Surgery Orthopaedic Surgery of the Spine
PROC: 01NB0ZZ Release Lumbar Nerve, Open Approach (ICD-10-PCS; principal; 2017-08-20 11:45)
DX: M48.061 Spinal stenosis, lumbar region without neurogenic claudication (principal)
CPT/HCPCS: 72100-TC; 94760

== ENCOUNTER 2017-11-10 20:45 | Observation (INO) | payer OTHER, BC ==
--- NOTE | 2017-11-10 21:21 | PDOC ---
Attending Attestation - Resident Resident Name: Roberth Feliz - ED Attending Attestation I have performed the following: I have examined & evaluated the patient, The case was reviewed & discussed with the resident, I agree w/resident's findings & plan - HPI HPI: 11/10/17 23:58 Pt comes with 3 episodes of lightheadedness. She just returned home 1 day ago after being discharged from [facility] 11/11/17 02:36 - Physicial Exam PE: 11/11/17 02:36 Agree with resident exam - Medical Decision Making 11/11/17 02:36 Pt's WBC is elevated and she will be admitted for telelmetry observation and she had a presyncopal episode.
--- NOTE | 2017-11-10 22:41 | PDOC ---
History of Present Illness - History of Present Illness Initial Comments: 11/10/17 22:33 76 yo F with h/o HTN, NIDDM, CAD s/p stent placement x 3, diastolic heart failure, LLE DVT, and s/p lumbarsacral laminectomy x 2 weeks, complicated with epidural abscess who presents with lightheadedness. Patient one day out of rehab ( [facility]) and resides with niece ( at bedside). Patient reports 3 episodes of transient presyncope today occurring while at home upon standing to answer door, rising from commode x 2. Ambulates with walker. 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 Patient denies head/neck/back trauma, LOC, convulsive activity, spinning sensation/vertiginous type symptoms, MAZARIEGOS, vision change, weakness, sensory changes. Decreased PO intake x 48 hours. 1 episode of loose watery voluminous stool this AM. Daughter reports dark concentrated urine. Denies abdominal pain, BPR, N/V, F/C, CP, palpitations, cough, wheezing, urinary complaints, hematuria. On doxyclyline and metronidazole following discharge from outside facility.Patient with multiple falls within the past month. Denies h/o MS, CABG, TIA/CVA. Denies anticoagulation. PMD Dr. Pérez Barrientos. <Roberth Feliz - Last Filed: 11/11/17 01:50> <Shaye Clinton - Last Filed: 11/11/17 06:53> - General Chief Complaint: Lightheaded Stated Complaint: WEAKNESS Time Seen by Provider: 11/10/17 20:50 Past History - Past Medical History Anemia: Yes (h/o blood transfusions-last 10/2016) Asthma: No Cancer: No Cardiac Disorders: Yes (CAD) CVA: No COPD: Yes CHF: No Dementia: Yes Diabetes: Yes (TYPE 2) GI Disorders: Yes (GERD,PUD) Disorders: Yes ("WEAK BLADDER") HTN: Yes Hypercholesterolemia: Yes Liver Disease: No Seizures: No Thyroid Disease: No - Surgical History Abdominal Surgery: Yes (hernia repair) Appendectomy: No Cardiac Surgery: Yes (3 stents-2009 & 2013) Cholecystectomy: No Lung Surgery: No Neurologic Surgery: No Orthopedic Surgery: No - Immunization History Td Vaccination: Yes TDAP Vaccination: No Immunization Up to Date: Yes - Suicide/Smoking/Psychosocial Hx Smoking Status: No Smoking History: Never smoked Years of Tobacco Use: 0 Have you smoked in the past 12 months: No Number of Cigarettes Smoked Daily: 0 Cigars Per Day: 0 Information on smoking cessation initiated: No Hx Alcohol Use: No Drug/Substance Use Hx: No Substance Use Type: None Hx Substance Use Treatment: No <TrayRoberth - Last Filed: 11/11/17 01:50> <Shaye Clinton - Last Filed: 11/11/17 06:53> - Past Medical History Allergies/Adverse Reactions: Allergies Allergy/AdvReac Type Severity Reaction Status Date / Time No Known Allergies Allergy Verified 11/10/17 21:23 Home Medications: Ambulatory Orders Carvedilol [Coreg -] 3.125 mg PO BID #0 tablet 06/23/13 Pantoprazole Sodium [Protonix -] 40 mg PO DAILY #0 tablet.ec 06/23/13 Sitagliptin Phosphate [Januvia -] 100 mg PO DAILY@0700 #0 ud 06/23/13 Ezetimibe [Zetia] 10 mg PO DAILY 01/10/17 Amiodarone HCl [Cordarone -] 200 mg PO DAILY 08/13/17 Atorvastatin Ca [Lipitor] 20 mg PO DAILY 08/13/17 Dapagliflozin Propanediol [Farxiga] 5 mg PO DAILY 08/13/17 Furosemide [Lasix -] 40 mg PO BID 08/13/17 Losartan Potassium [Cozaar -] 100 mg PO DAILY 08/13/17 Aspirin [Lo-Dose Aspirin EC] 81 mg PO DAILY #20 tab 08/20/17 Oxycodone HCl/Acetaminophen [Percocet 5-325 mg Tablet] 1 - 2 tab PO Q6H PRN #30 tab MDD 8 08/20/17 Cyclobenzaprine HCl [Flexeril 10 mg] 10 mg PO BID PRN 11/10/17 Doxycycline Hyclate 100 mg PO QID 11/10/17 Glipizide 5 mg PO BID 11/10/17 metFORMIN HCL [Glucophage -] 500 mg PO BIDAC 11/10/17 metroNIDAZOLE [Flagyl -] 500 mg PO DAILY 11/10/17 Review of Systems - Review of Systems Comments:: 11/10/17 22:43 GENERAL/CONSTITUTIONAL: No fever or chills. No weakness. HEAD, EYES, EARS, NOSE AND THROAT: No change in vision. No ear pain or discharge. No sore throat.- CARDIOVASCULAR: No chest pain or shortness of breath RESPIRATORY: No cough, wheezing, or hemoptysis. GASTROINTESTINAL: No nausea, vomiting, diarrhea or constipation. GENITOURINARY: No dysuria, frequency, or change in urination. MUSCULOSKELETAL: No joint or muscle swelling or pain. No neck or back pain. SKIN: No rash NEUROLOGIC: + Lightheadedness. No headache, vertigo, loss of consciousness, or change in strength/sensation. ENDOCRINE: No increased thirst. No abnormal weight change HEMATOLOGIC/LYMPHATIC: No anemia, easy bleeding, or history of blood clots. ALLERGIC/IMMUNOLOGIC: No hives or skin allergy. <Roberth Feliz - Last Filed: 11/11/17 01:50> *Physical Exam - Vital Signs Last Vital Signs Temp Pulse Resp BP Pulse Ox 99.1 F 78 14 102/51 100 11/10/17 21:24 11/10/17 21:24 11/10/17 21:24 11/10/17 21:24 11/10/17 21:24 - Physical Exam Comments: 11/10/17 22:41 GENERAL: Awake, alert, and fully oriented, in no acute distress HEAD: Right sided ecchymosis on face and superior orbit. Normocephalic. EYES: PERRLA, EOMI, sclera anicteric, conjunctiva clear ENT: Auricles normal inspection, hearing grossly normal, nares patent, oropharynx clear without exudates. Moist mucosa NECK: Normal ROM, supple, no lymphadenopathy, JVD, or masses LUNGS: No distress, speaks full sentences, clear to auscultation bilaterally HEART: Regular rate and rhythm, normal S1 and S2, no murmurs, rubs or gallops, peripheral pulses normal and equal bilaterally. ABDOMEN: Soft, nontender, normoactive bowel sounds. No guarding, no rebound. No masses. Absent rigidity, suprpapubic pain, or CVA ttp. Back: Lumbar dressing applied. Suture site c/d/i with absent fluctuance, induration, discharge. Minimal erythema. EXTREMITIES : Normal inspection, Normal range of motion, no edema. No clubbing or cyanosis. NEUROLOGICAL: Cranial nerves II through XII grossly intact. Normal speech, normal gait, no focal sensorimotor deficits. SKIN: Warm, Dry, normal turgor, no rashes or lesions noted. <Carlos Felizson - Last Filed: 11/11/17 01:50> - Vital Signs Last Vital Signs Temp Pulse Resp BP Pulse Ox 99.1 F 85 16 126/65 98 11/10/17 21:24 11/11/17 06:39 11/11/17 06:39 11/11/17 06:39 11/11/17 06:39 <Shaye Clinton - Last Filed: 11/11/17 06:53> ED Treatment Course - LABORATORY CBC & Chemistry Diagram: 11/10/17 23:30 11/10/17 23:30 <Roberth Feliz - Last Filed: 11/11/17 01:50> - LABORATORY CBC & Chemistry Diagram: 11/10/17 23:30 11/10/17 23:30 - ADDITIONAL ORDERS Additional order review: Laboratory Results 11/10/17 11/10/17 11/10/17 23:30 23:30 23:30 PT with INR INR Sodium 138 Potassium 3.9 Chloride 97 L Carbon Dioxide 29 Anion Gap 12 BUN 37 H Creatinine 1.5 H Creat Clearance w eGFR 33.85 Random Glucose 66 L Calcium 8.8 Total Bilirubin 0.4 AST 18 ALT 19 Alkaline Phosphatase 119 H Creatine Kinase 34 Troponin I < 0.02 B-Natriuretic Peptide 387.88 Total Protein 6.5 Albumin 2.6 L Urine Color Urine Appearance Urine pH Ur Specific [place] Urine Protein Urine Glucose (UA) Urine Ketones Urine Blood Urine Nitrite Urine Bilirubin Urine Urobilinogen Ur Leukocyte Esterase Urine WBC (Auto) Urine RBC (Auto) Ur Epithelial Cells Hyaline Casts Urine Mucus 11/10/17 11/10/17 23:30 02:52 PT with INR 13.30 H INR 1.18 H Sodium Potassium Chloride Carbon Dioxide Anion Gap BUN Creatinine Creat Clearance w eGFR Random Glucose Calcium Total Bilirubin AST ALT Alkaline Phosphatase Creatine Kinase Troponin I B-Natriuretic Peptide Total Protein Albumin Urine Color Yellow Urine Appearance Clear Urine pH 5.0 Ur Specific [place] 1.014 Urine Protein Negative Urine Glucose (UA) 2+ H Urine Ketones Negative Urine Blood Negative Urine Nitrite Negative Urine Bilirubin Negative Urine Urobilinogen Negative Ur Leukocyte Esterase Trace Urine WBC (Auto) <1 Urine RBC (Auto) <1 Ur Epithelial Cells Rare Hyaline Casts 2 Urine Mucus Rare 11/10/17 23:30 RBC 4.13 MCV 88.6 MCHC 32.0 RDW 19.7 H MPV 9.6 Neutrophils % 76.7 Lymphocytes % 13.7 Monocytes % 8.8 Eosinophils % 0.5 Basophils % 0.3 - Medications Given in the ED: ED Medications Discontinued Medications Generic Name Dose Route Start Last Admin Trade Name Javierq PRN Reason Stop Dose Admin Sodium Chloride 500 ml 11/11/17 00:01 11/11/17 00:55 Normal Saline - IV 11/11/17 00:02 500 ml ONCE ONE Administration <Shaye Clinton - Last Filed: 11/11/17 06:53> Medical Decision Making - Medical Decision Making 11/10/17 22:45 76 yo F with h/o HTN, NIDDM, CAD s/p stent placement x 3, diastolic heart failure, LLE DVT, and s/p lumbarsacral laminectomy x 2 weeks, complicated with epidural abscess who presents with 3 transient episodes of presyncope during transfer and ambulation attempts. Decreased PO intake x 48 hours. 1 episode of loose watery voluminous stool this AM. Patient one day out of rehab ( [facility]) and resides with niece. Patient denies head/neck/back trauma, LOC, urinary incontinence, convulsive activity, spinning sensation/vertiginous type symptoms , MAZARIEGOS, vision change, weakness, sensory changes. Denies abdominal pain, BPR, N/V , CP, palpitations, pleurisy, F/C, cough, wheezing, leg swelling, urinary complaints, hematuria. On doxyclyline and metronidazole following discharge from outside facility. Patient with multiple falls within the past month. Denies h/o MS, CABG, TIA/CVA. Denies anticoagulation. PMD Dr. Pérez Barrientos. Hemodynamically stable. Physical exam noteable for R sided facial ecchymosis. Absent cardiac, pulm, or neuro findings. Will evaluate pt. for sycnopal causes. Cardiac vs. neuro. vs hypoveolemia/dehydration/bleed vs. CVA/TIA. Possible that patient has situational/micturition vs orthostatic syncope. Unlikely vasovagal as patient did not have typical prodromal symptoms before and after syncopal event. Low suspicion of seizure, postictal state, or trauma. ED Course: CBC, CMP, Cardiac Pr, BNP, POC Gl UA EKG, CXR CT HEAD Orthostatic vitals 11/11/17 00:02 WBC: 18.1 11/11/17 00:23 Cr: 1.4 ( Baseline ~1.5) Trop Neg EKG: NSR with WA Prolongation 218, 1st degree AV block, Inferior Q waves in leads II, III, and ant T wave flattening.Absent KAITLIN, STD, or TWI. CT HEAD: No hemorrhage, or mass. Unremarkable. CXR: No acute pathology on preliminary read. Compared to interval study ( ) Patient stable at bedside Will admit pt. Dr. Frederick Gilmore. Obs/tele. <Roberth Feliz - Last Filed: 11/11/17 01:50> *DC/Admit/Observation/Transfer - Discharge Dispostion Admit: Yes <Roberth Feliz - Last Filed: 11/11/17 01:50> <Shaye Clinton - Last Filed: 11/11/17 06:53> Diagnosis at time of Disposition: Pre-syncope
[2017-11-10 23:49] LABS: BASO % 0.3 % (0-2.0); EOS % 0.5 % (0-4.5); HEMATOCRIT 36.6 % (32.4-45.2); HEMOGLOBIN 11.7 GM/dL (10.7-15.3); LYMPH % 13.7 % (8-40); MCH 28.4 pg (25.7-33.7); MEAN CELL VOLUME 88.6 fl (80-96); MEAN PLT VOLUME 9.6 fl (7.5-11.1); MONO % 8.8 % (3.8-10.2); NEUT % 76.7 % (42.8-82.8); PLATELET COUNT 304 K/MM3 (134-434); RBC 4.13 M/mm3 (3.60-5.2); RDW 19.7 % (11.6-15.6); WHITE BLOOD COUNT 18.1 K/mm3 (4.0-10.0)
[2017-11-10 23:51] LABS: INR 1.18 (0.82-1.09); PROTHROMBIN TIME (PATIENT) 13.3 SEC (9.98-11.88)
[2017-11-11] MEDS ORDERED: SODIUM CHLORIDE 0.9% 500 ML INFUS.BAG IV ONE (00:01)
[2017-11-11 00:02] LABS: ALBUMIN 2.6 g/dl (3.4-5.0); ALK PHOS 119 U/L (45-117); ANION GAP 12 (8-16); BILIRUBIN,TOTAL 0.4 mg/dL (0.2-1.0); BLOOD UREA NITROGEN 37 mg/dL (7-18); CALCIUM 8.8 mg/dL (8.5-10.1); CHLORIDE 97 mmol/L (98-107); CO2 29 mmol/L (21-32); CREATININE 1.5 mg/dL (0.55-1.02); GLUCOSE,RANDOM 66 mg/dL (74-106); POTASSIUM 3.9 mmol/L (3.5-5.1); SGOT/AST 18 U/L (15-37); SGPT/ALT 19 U/L (12-78); SODIUM 138 mmol/L (136-145); TOT PROT 6.5 g/dl (6.4-8.2)
[2017-11-11] MEDS ORDERED: CYCLOBENZAPRINE HCL 10 MG TABLET (FP) PO PRN (01:40)
[2017-11-11] MEDS: SODIUM CHLORIDE 1,000 ML IV SCH (02:03)
[2017-11-11 03:06] LABS: URINE APPEARANCE CLEAR; URINE BILIRUBIN NEGATIVE (NEGATIVE); URINE BLOOD NEGATIVE (NEGATIVE); URINE COLOR YELLOW; URINE GLUCOSE (UA) 2+ (NEGATIVE); URINE KETONE NEGATIVE (NEGATIVE); URINE LEUK ESTERASE TRACE (NEGATIVE); URINE NITRITE NEGATIVE (NEGATIVE); URINE PROTEIN NEGATIVE (NEGATIVE); URINE UROBILINOGEN NEGATIVE mg/dL (0.2-1.0)
[2017-11-11 03:27] LABS: EPI CELLS RARE /HPF (FEW); URINE HYALINE CAST 2 /lpf; URINE MUCUS RARE
[2017-11-11] MEDS: CARVEDILOL 3.125 MG TABLET (FP) PO SCH ×2 (10:58→22:41)
[2017-11-11] MEDS: ASPIRIN COATED 81 MG TABLET.EC PO SCH (10:58)
[2017-11-11] MEDS: AMIODARONE HCL 200 MG TABLET (FP) PO SCH (10:58)
--- NOTE | 2017-11-11 11:06 | EKG ---
Test Reason : Blood Pressure : / mmHG Vent. Rate : 069 BPM Atrial Rate : 069 BPM P-R Int : 232 ms QRS Dur : 094 ms QT Int : 452 ms P-R-T Axes : 037 -29 036 degrees QTc Int : 484 ms SINUS RHYTHM WITH 1ST DEGREE A-V BLOCK INFERIOR INFARCT (CITED ON OR BEFORE 10-NOV-2017) ABNORMAL ECG WHEN COMPARED WITH ECG OF 10-NOV-2017 23:35, NO SIGNIFICANT CHANGE WAS FOUND Confirmed by MAXIMUS FRANCES MD ([id number]) on 11/11/2017 11:06:08 AM Referred By: Nikki WOODS Confirmed By:MAXIMUS FRANCES MD
--- NOTE | 2017-11-11 11:07 | EKG ---
Test Reason : Blood Pressure : / mmHG Vent. Rate : 075 BPM Atrial Rate : 075 BPM P-R Int : 218 ms QRS Dur : 092 ms QT Int : 416 ms P-R-T Axes : 032 -49 050 degrees QTc Int : 464 ms SINUS RHYTHM WITH 1ST DEGREE A-V BLOCK LEFT AXIS DEVIATION INFERIOR INFARCT , AGE UNDETERMINED POSSIBLE ANTERIOR INFARCT (CITED ON OR BEFORE 10-JAN-2017) ABNORMAL ECG WHEN COMPARED WITH ECG OF 10-JAN-2017 14:50, NO SIGNIFICANT CHANGE WAS FOUND Confirmed by MAXIMUS FRANCES MD ([id number]) on 11/11/2017 11:07:08 AM Referred By: Confirmed By:MAXIMUS FRANCES MD
--- NOTE | 2017-11-11 13:39 | HP ---
Admitting History and Physical - Primary Care Physician PCP: Pérez Barrientos - Admission Chief Complaint: Dizzyness History of Present Illness: 76 yrs old F multiple medical Co-morbidities H/O T2DM, HTN, CAD s/p Stents yrs ago, dHF, chronic back pain s/plumbarsacral laminectomy in Jul 2017 , complicated with post Op infection, operated at [facility], treated with IV abx and discharged on PO Doxycycline, patient was transferred to [facility] from there she was discharged day before to home, she had large BM , while at home patient had multiple episodes of sever Dizziness , felt like she is about to pass out, no LOC, Chest pain, nausea, vomiting , palpitation or in continence in the Ed w/u shows elevated TWBC and BUN /Creat, clinically dehydrated so admitted for further evaluation. 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 History of Recent Travel: No Home Medications - Allergies Allergies/Adverse Reactions: Allergies Allergy/AdvReac Type Severity Reaction Status Date / Time No Known Allergies Allergy Verified 11/10/17 21:23 - Home Medications Home Medications: Ambulatory Orders Carvedilol [Coreg -] 3.125 mg PO BID #0 tablet 06/23/13 Pantoprazole Sodium [Protonix -] 40 mg PO DAILY #0 tablet.ec 06/23/13 Sitagliptin Phosphate [Januvia -] 100 mg PO DAILY@0700 #0 ud 06/23/13 Ezetimibe [Zetia] 10 mg PO DAILY 01/10/17 Amiodarone HCl [Cordarone -] 200 mg PO DAILY 08/13/17 Atorvastatin Ca [Lipitor] 20 mg PO DAILY 08/13/17 Dapagliflozin Propanediol [Farxiga] 5 mg PO DAILY 08/13/17 Furosemide [Lasix -] 40 mg PO BID 08/13/17 Losartan Potassium [Cozaar -] 100 mg PO DAILY 08/13/17 Aspirin [Lo-Dose Aspirin EC] 81 mg PO DAILY #20 tab 08/20/17 Oxycodone HCl/Acetaminophen [Percocet 5-325 mg Tablet] 1 - 2 tab PO Q6H PRN #30 tab MDD 8 08/20/17 Cyclobenzaprine HCl [Flexeril 10 mg] 10 mg PO BID PRN 11/10/17 Doxycycline Hyclate 100 mg PO QID 11/10/17 Glipizide 5 mg PO BID 11/10/17 metFORMIN HCL [Glucophage -] 500 mg PO BIDAC 11/10/17 metroNIDAZOLE [Flagyl -] 500 mg PO DAILY 11/10/17 Family Disease History - Family Disease History Family Disease History: Heart Disease: Mother, Son (patient unsure of exact condition) Review of Systems - Review of Systems Constitutional: denies: Chills, Diaphoresis Eyes: denies: Blind Spots, Blurred Vision HENT: denies: Difficult Swallowing, Ear Discharge Neck: denies: Decreased ROM, Lumps, Pain on Movement Cardiovascular: denies: Chest Pain, Edema, Palpitations Respiratory: denies: Cough, Exercise Intolerance Gastrointestinal: denies: No Symptoms, Bloating Genitourinary: denies: Burning, Discharge Neurological: reports: Dizziness. denies: Change in LOC, Change in Speech, Confusion Endocrine: denies: Excessive Sweating, Flushing, Increased Hunger Hematology/Lymphatic: denies: Easily Bruised, Excessive Bleeding Psychiatric: denies: Altered Sleep Pattern Physical Examination Vital Signs: Vital Signs Temperature 97.7 F 11/11/17 10:57 Pulse Rate 70 11/11/17 10:57 Respiratory Rate 18 11/11/17 10:57 Blood Pressure 121/65 11/11/17 10:57 O2 Sat by Pulse Oximetry (%) 100 11/11/17 10:57 Elderly F comfortable looks dehydrated no c/o cough or SOB, denies any diarrhea. HEENT: Mm dry , no anemia, PERRLA, No NYSTAGMUS NECK; No JVD No Bruit CHEST: CTA B/L CVS: S1S2 R no m/g/r ABD: No distention, non tender Bs + EXT: Stage 2 small Decubitus in Sacral area , Pulses + DAM TENDER: AOX3 non focal Labs: CBC, BMP 11/10/17 23:30 11/10/17 23:30 Imaging - Results Chest X-ray: Report Reviewed (Rotated ? Left LL infiltrate) Cat Scan: Report Reviewed (No acute changes) EKG: Report Reviewed (HR 69 nSR Ist HB, QTC 452 QRS 95 R wave axis -29. No Interval chnages) Problem List - Problems (1) Pre-syncope Assessment/Plan: Most likely Orthostatic due to dehydration, no cardiac symptoms now resolved. Code(s): R55 - SYNCOPE AND COLLAPSE (2) Dehydration Assessment/Plan: Due to poor PO on IV lasix and dIIarrhea IV Hydration F/U BMP and orthostatic Code(s): E86.0 - DEHYDRATION (3) NANCY (acute kidney injury) Assessment/Plan: Worsening Kidb+mar[place] functionss due to Dehydration F/U BMP after Hydration. Base line BUN Creat 16/1.0 Code(s): N17.9 - ACUTE KIDNEY FAILURE, UNSPECIFIED (4) T2DM (type 2 diabetes mellitus) Assessment/Plan: Hold PO Meds cont Insulin and Correction dose Lispro Code(s): E11.9 - TYPE 2 DIABETES MELLITUS WITHOUT COMPLICATIONS (5) CAD (coronary artery disease) Assessment/Plan: H/O CAD stable stents yrs ago at present asymptomatic Code(s): I25.10 - ATHSCL HEART DISEASE OF [place] CORONARY ARTERY W/O ANG PCTRS Qualifiers: Coronary Disease-Associated Artery/Lesion type: [place] artery [place] vs. transplanted heart: [place] heart Associated angina: without angina Qualified Code(s): I25.10 - Atherosclerotic heart disease of [place] coronary artery without angina pectoris (6) HTN (hypertension) Assessment/Plan: Well controlled Loasrtan on Hold due to NANCY Code(s): I10 - ESSENTIAL (PRIMARY) HYPERTENSION (7) HLD (hyperlipidemia) Assessment/Plan: On Statin Code(s): E78.5 - HYPERLIPIDEMIA, UNSPECIFIED Qualifiers: Hyperlipidemia type: pure hypercholesterolemia Qualified Code(s): E78.00 - Pure hypercholesterolemia, unspecified (8) Decubitus ulcer Assessment/Plan: Needs dressing clean based no discharge Code(s): L89.90 - PRESSURE ULCER OF UNSPECIFIED SITE, UNSPECIFIED STAGE Qualifiers: Pressure ulcer location: sacral region Pressure ulcer stage: stage 2 Qualified Code(s): L89.152 - Pressure ulcer of sacral region, stage 2
[2017-11-11 14:22] VITALS: BMI 30.7
[2017-11-11 15:32] LABS: BASO % 0.7 % (0-2.0); EOS % 1.7 % (0-4.5); HEMATOCRIT 35.4 % (32.4-45.2); HEMOGLOBIN 11.5 GM/dL (10.7-15.3); LYMPH % 15.2 % (8-40); MCH 28.6 pg (25.7-33.7); MCHC 32.3 g/dl (32.0-36.0); MEAN CELL VOLUME 88.6 fl (80-96); MEAN PLT VOLUME 9.6 fl (7.5-11.1); MONO % 12.9 % (3.8-10.2); NEUT % 69.5 % (42.8-82.8); PLATELET COUNT 273 K/MM3 (134-434); WHITE BLOOD COUNT 11.9 K/mm3 (4.0-10.0)
[2017-11-11 15:54] LABS: ANION GAP 10 (8-16); BLOOD UREA NITROGEN 30 mg/dL (7-18); CALCIUM 8.7 mg/dL (8.5-10.1); CHLORIDE 100 mmol/L (98-107); CO2 28 mmol/L (21-32); CREATININE 1.3 mg/dL (0.55-1.02); GLUCOSE,RANDOM 84 mg/dL (74-106); POTASSIUM 4.2 mmol/L (3.5-5.1); SODIUM 138 mmol/L (136-145)
[2017-11-11] MEDS ORDERED: DOXYCYCLINE HYCLATE 100 MG CAPSULE PO ONE (18:05)
[2017-11-11] MEDS: DOXYCYCLINE HYCLATE 100 MG CAPSULE PO SCH (18:08)
[2017-11-11] MEDS: ATORVASTATIN CA 20 MG TABLET (FP) PO SCH (22:41)
[2017-11-12] MEDS: SODIUM CHLORIDE 1,000 ML IV SCH ×2 (07:07→22:26)
[2017-11-12 07:30] LABS: ALBUMIN 2.1 g/dl (3.4-5.0); ANION GAP 8 (8-16); BLOOD UREA NITROGEN 26 mg/dL (7-18); CALCIUM 8.6 mg/dL (8.5-10.1); CHLORIDE 102 mmol/L (98-107); CO2 30 mmol/L (21-32); GLUCOSE,RANDOM 88 mg/dL (74-106); POTASSIUM 3.9 mmol/L (3.5-5.1); SGPT/ALT 17 U/L (12-78); SODIUM 140 mmol/L (136-145)
[2017-11-12 07:31] LABS: ALK PHOS 94 U/L (45-117); BILIRUBIN,TOTAL 0.4 mg/dL (0.2-1.0); CREATININE 1.3 mg/dL (0.55-1.02); SGOT/AST 15 U/L (15-37); TOT PROT 5.4 g/dl (6.4-8.2)
[2017-11-12] MEDS ORDERED: PT OWN MED DRAWER 7, Y5N ONE (09:57)
[2017-11-12] MEDS: DOXYCYCLINE HYCLATE 100 MG CAPSULE PO SCH ×2 (10:26→17:42)
[2017-11-12] MEDS: CARVEDILOL 3.125 MG TABLET (FP) PO SCH ×2 (10:26→21:34)
[2017-11-12] MEDS: ASPIRIN COATED 81 MG TABLET.EC PO SCH (10:26)
[2017-11-12] MEDS: AMIODARONE HCL 200 MG TABLET (FP) PO SCH (10:26)
--- NOTE | 2017-11-12 11:36 | PN ---
Progress Note, Physician Chief Complaint: Feels improved no C/O dizziness - Current Medication List Current Medications: Active Medications Generic Name Dose Route Start Last Admin Trade Name Freq PRN Reason Stop Dose Admin Amiodarone HCl 200 mg 11/11/17 10:00 11/12/17 10:26 Cordarone - PO 200 mg DAILY NICOLETTE Administration Aspirin 81 mg 11/11/17 10:00 11/12/17 10:26 Ecotrin - PO 81 mg DAILY NICOLETTE Administration Atorvastatin Calcium 20 mg 11/11/17 22:00 11/11/17 22:41 Lipitor - PO 20 mg HS NICOLETTE Administration Carvedilol 3.125 mg 11/11/17 10:00 11/12/17 10:26 Coreg - PO 3.125 mg BID NICOLETTE Administration Cyclobenzaprine HCl 10 mg 11/11/17 01:40 Flexeril - PO Q12H PRN MUSCLE SPASMS Doxycycline Hyclate 100 mg 11/11/17 18:00 11/12/17 10:26 Vibramycin - PO 100 mg BID@1000,1800 NICOLETTE Administration Sodium Chloride 1,000 mls @ 100 mls/hr 11/11/17 01:45 11/12/17 07:07 Normal Saline - IV 100 mls/hr ASDIR NICOLETTE Administration Insulin Aspart 1 vial 11/12/17 16:30 Novolog Vial Sliding Scale - SQ TIDAC NICOLETTE Protocol - Objective Vital Signs: Vital Signs Temperature 98.2 F 11/12/17 09:00 Pulse Rate 68 11/12/17 09:00 Respiratory Rate 14 11/12/17 09:00 Blood Pressure 122/80 11/12/17 09:00 O2 Sat by Pulse Oximetry (%) 100 11/11/17 21:00 Elderly F comfortable feels improved no c/o cough or SOB, denies any diarrhea. 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 Code(s): R55 - SYNCOPE AND COLLAPSE (2) Dehydration Assessment/Plan: Due to poor PO on IV lasix and diarrhea, improving cont IV Hydration F/U BMP and orthostatic Code(s): E86.0 - DEHYDRATION (3) NANCY (acute kidney injury) Assessment/Plan: Base line BUN Creat 16/1.0 iadmitted with BUN 37 Creat 1.9 now improving Code(s): N17.9 - ACUTE KIDNEY FAILURE, UNSPECIFIED (4) T2DM (type 2 diabetes mellitus) Assessment/Plan: Hold PO Meds cont Insulin and Correction dose Lispro Code(s): E11.9 - TYPE 2 DIABETES MELLITUS WITHOUT COMPLICATIONS (5) CAD (coronary artery disease) Assessment/Plan: H/O CAD stable stents yrs ago at present asymptomatic Code(s): I25.10 - ATHSCL HEART DISEASE OF [place] CORONARY ARTERY W/O ANG PCTRS Qualifiers: Coronary Disease-Associated Artery/Lesion type: [place] artery [place] vs. transplanted heart: [place] heart Associated angina: without angina Qualified Code(s): I25.10 - Atherosclerotic heart disease of [place] coronary artery without angina pectoris (6) HTN (hypertension) Assessment/Plan: Well controlled Loasrtan on Hold due to NANCY Code(s): I10 - ESSENTIAL (PRIMARY) HYPERTENSION (7) HLD (hyperlipidemia) Assessment/Plan: On Statin Code(s): E78.5 - HYPERLIPIDEMIA, UNSPECIFIED Qualifiers: Hyperlipidemia type: pure hypercholesterolemia Qualified Code(s): E78.00 - Pure hypercholesterolemia, unspecified (8) Decubitus ulcer Assessment/Plan: Needs dressing clean based no discharge Code(s): L89.90 - PRESSURE ULCER OF UNSPECIFIED SITE, UNSPECIFIED STAGE Qualifiers: Pressure ulcer location: sacral region Pressure ulcer stage: stage 2 Qualified Code(s): L89.152 - Pressure ulcer of sacral region, stage 2
[2017-11-12] MEDS: INSULIN SLIDING SCALE (NOVOLOG) 1 VIAL SQ SCH (17:42)
[2017-11-12] MEDS: ATORVASTATIN CA 20 MG TABLET (FP) PO SCH (21:34)
[2017-11-13] MEDS: SODIUM CHLORIDE 1,000 ML IV SCH (01:41)
[2017-11-13] MEDS: INSULIN SLIDING SCALE (NOVOLOG) 1 VIAL SQ SCH ×2 (06:24→12:25)
[2017-11-13 10:13] LABS: BASO % 1.3 % (0-2.0); EOS % 5.2 % (0-4.5); HEMATOCRIT 35.3 % (32.4-45.2); HEMOGLOBIN 11.1 GM/dL (10.7-15.3); LYMPH % 19.8 % (8-40); MCH 28.4 pg (25.7-33.7); MCHC 31.4 g/dl (32.0-36.0); MEAN CELL VOLUME 90.4 fl (80-96); MEAN PLT VOLUME 9.5 fl (7.5-11.1); MONO % 11.2 % (3.8-10.2); NEUT % 62.5 % (42.8-82.8); PLATELET COUNT 260 K/MM3 (134-434); RBC 3.91 M/mm3 (3.60-5.2); WHITE BLOOD COUNT 7.8 K/mm3 (4.0-10.0)
[2017-11-13 10:24] LABS: ANION GAP 9 (8-16); BLOOD UREA NITROGEN 21 mg/dL (7-18); CHLORIDE 106 mmol/L (98-107); CO2 25 mmol/L (21-32); CREATININE 1.3 mg/dL (0.55-1.02); GLUCOSE,RANDOM 169 mg/dL (74-106); POTASSIUM 4.4 mmol/L (3.5-5.1); SODIUM 140 mmol/L (136-145)
[2017-11-13 10:34] VITALS: BP 110/82; PULSE 68; TEMP 98
[2017-11-13] MEDS: CARVEDILOL 3.125 MG TABLET (FP) PO SCH (10:34)
[2017-11-13] MEDS: AMIODARONE HCL 200 MG TABLET (FP) PO SCH (10:34)
[2017-11-13] MEDS: DOXYCYCLINE HYCLATE 100 MG CAPSULE PO SCH (10:34)
[2017-11-13] MEDS: ASPIRIN COATED 81 MG TABLET.EC PO SCH (10:34)
--- NOTE | 2017-11-13 11:15 | DS ---
Physical Examination Vital Signs: Vital Signs Temperature 36.6 C 11/13/17 09:00 Pulse Rate 68 11/13/17 09:00 Respiratory Rate 14 11/13/17 09:00 Blood Pressure 110/82 11/13/17 09:00 O2 Sat by Pulse Oximetry (%) 98 11/12/17 21:00 Constitutional: Yes: No Distress, Calm, Obese Cardiovascular: Yes: Regular Rate and Rhythm. No: Gallop, Murmur, Rub Respiratory: Yes: Regular, CTA Bilaterally. No: Rales, Rhonchi, Wheezes Gastrointestinal: Yes: Normal Bowel Sounds, Soft. No: Distention, Tenderness Extremities: Yes: WNL Edema: No Labs: CBC, BMP 11/13/17 09:40 11/13/17 09:40 Discharge Summary Reason For Visit: PRE-SYNCOPE Current Active Problems Decubitus ulcer (Acute) Dehydration (Acute) HTN (hypertension) (Acute) Pre-syncope (Acute) T2DM (type 2 diabetes mellitus) (Acute) Hospital Course: (1) Pre-syncope Code(s): R55 - SYNCOPE AND COLLAPSE (2) Dehydration Code(s): E86.0 - DEHYDRATION (3) NANCY (acute kidney injury) Code(s): N17.9 - ACUTE KIDNEY FAILURE, UNSPECIFIED (4) T2DM (type 2 diabetes mellitus) Code(s): E11.9 - TYPE 2 DIABETES MELLITUS WITHOUT COMPLICATIONS (5) CAD (coronary artery disease) Code(s): I25.10 - ATHSCL HEART DISEASE OF [place] CORONARY ARTERY W/O ANG PCTRS Qualifiers: Coronary Disease-Associated Artery/Lesion type: [place] artery [place] vs. transplanted heart: [place] heart Associated angina: without angina Qualified Code(s): I25.10 - Atherosclerotic heart disease of [place] coronary artery without angina pectoris (6) HTN (hypertension) Code(s): I10 - ESSENTIAL (PRIMARY) HYPERTENSION (7) HLD (hyperlipidemia) Code(s): E78.5 - HYPERLIPIDEMIA, UNSPECIFIED Qualifiers: Hyperlipidemia type: pure hypercholesterolemia Qualified Code(s): E78.00 - Pure hypercholesterolemia, unspecified (8) Decubitus ulcer Code(s): L89.90 - PRESSURE ULCER OF UNSPECIFIED SITE, UNSPECIFIED STAGE Qualifiers: Pressure ulcer location: sacral region Pressure ulcer stage: stage 2 Qualified Code(s): L89.152 - Pressure ulcer of sacral region, stage 2 Ms Kari is a pleasant 76 year old female that came in with presyncope. She was admitted to the hospital on observation under telemetry. She was also found to have NANCY which was consistent with presyncope secondary to dehydration. She was hydrated with IVF. ECHO was performed and unchanged. She was able to ambulate with PT and back to baseline. Patient ambulatory orders show that she is on lasix 40mg IV bid, however does not have CHF. ? if this is for lymphedema but this may be too strong a dose. Will hold lasix right now and patient to follow up with Dr Barrientos to see if it can be restarted. She should keep all other follow up appointments. 32 minutes spent in preparation of this discharge Condition: Stable - Instructions Diet, Activity, Other Instructions: resume previous diet and activity Referrals: Pérez Barrientos MD [Primary Care Provider] - 1 Week Disposition: VNS/HOME HEALTH CARE - Home Medications Comprehensive Discharge Medication List: Ambulatory Orders Carvedilol [Coreg -] 3.125 mg PO BID #0 tablet 06/23/13 Pantoprazole Sodium [Protonix -] 40 mg PO DAILY #0 tablet.ec 06/23/13 Sitagliptin Phosphate [Januvia -] 100 mg PO DAILY@0700 #0 ud 06/23/13 Ezetimibe [Zetia] 10 mg PO DAILY 01/10/17 Amiodarone HCl [Cordarone -] 200 mg PO DAILY 08/13/17 Atorvastatin Ca [Lipitor] 20 mg PO DAILY 08/13/17 Dapagliflozin Propanediol [Farxiga] 5 mg PO DAILY 08/13/17 Aspirin [Lo-Dose Aspirin EC] 81 mg PO DAILY #20 tab 08/20/17 Oxycodone HCl/Acetaminophen [Percocet 5-325 mg Tablet] 1 - 2 tab PO Q6H PRN #30 tab MDD 8 08/20/17 Cyclobenzaprine HCl [Flexeril 10 mg] 10 mg PO BID PRN 11/10/17 Doxycycline Hyclate 100 mg PO QID 11/10/17 Glipizide 5 mg PO BID 11/10/17 metroNIDAZOLE [Flagyl -] 500 mg PO DAILY 11/10/17
== END 2017-11-13 14:22 | disposition home health service (06) ==
LOC: JER 20:45 → JERBED 11-11 01:38 → J4W 11-11 21:18
PROVIDERS: ADMIT Internal Medicine; ATTEND Internal Medicine
PROC: 3E0337Z Introduction of Electrolytic and Water Balance Substance into Peripheral Vein, Percutaneous Approach (ICD-10-PCS; principal; 2017-11-11)
PROC: 3E013VG Introduction of Insulin into Subcutaneous Tissue, Percutaneous Approach (ICD-10-PCS; 2017-11-11)
DX: R55 Syncope and collapse (principal); E86.0 Dehydration; N17.9 Acute kidney failure, unspecified; E11.9 Type 2 diabetes mellitus without complications; I25.10 Atherosclerotic heart disease of native coronary artery without angina pectoris; E78.5 Hyperlipidemia, unspecified; I50.30 Unspecified diastolic (congestive) heart failure; D64.9 Anemia, unspecified; J44.9 Chronic obstructive pulmonary disease, unspecified; K21.9 Gastro-esophageal reflux disease without esophagitis; Z79.82 Long term (current) use of aspirin; Z79.84 Long term (current) use of oral hypoglycemic drugs; R26.2 Difficulty in walking, not elsewhere classified; Z99.89 Dependence on other enabling machines and devices; Z86.718 Personal history of other venous thrombosis and embolism; Z95.5 Presence of coronary angioplasty implant and graft; L89.152 Pressure ulcer of sacral region, stage 2
CPT/HCPCS: 36415; 70450-TC; 71045-TC-FY; 80048; 80053; 81003; 81015; 82550; 82962; 83880; 84484; 85025; 85610; 87086; 93005; 93010; 93306-TC; 96372; 97116-GP; 97161-GP; 99285-25; G0378

== ENCOUNTER 2019-03-26 12:03 | Emergency (ER) | payer OTHER, BC ==
[2019-03-26 12:11] VITALS: BMI 38.3
--- NOTE | 2019-03-26 13:01 | PDOC ---
History of Present Illness - General Chief Complaint: Wound Stated Complaint: FALL/ LF FOOT INJURY Time Seen by Provider: 03/26/19 12:47 History Source: Patient - History of Present Illness Occurred: reports: yesterday Severity: Yes: moderate Lower Extremity Pain Location: left: foot Past History - Past Medical History Allergies/Adverse Reactions: Allergies Allergy/AdvReac Type Severity Reaction Status Date / Time No Known Allergies Allergy Verified 03/26/19 12:11 Home Medications: Ambulatory Orders Carvedilol [Coreg -] 3.125 mg PO BID #0 tablet 06/23/13 Pantoprazole Sodium [Protonix -] 40 mg PO DAILY #0 tablet.ec 06/23/13 Sitagliptin Phosphate [Januvia -] 100 mg PO DAILY@0700 #0 ud 06/23/13 Ezetimibe [Zetia] 10 mg PO DAILY 01/10/17 Amiodarone HCl [Cordarone -] 200 mg PO DAILY 08/13/17 Atorvastatin Ca [Lipitor] 20 mg PO DAILY 08/13/17 Dapagliflozin Propanediol [Farxiga] 5 mg PO DAILY 08/13/17 Aspirin [Lo-Dose Aspirin EC] 81 mg PO DAILY #20 tab 08/20/17 Oxycodone HCl/Acetaminophen [Percocet 5-325 mg Tablet] 1 - 2 tab PO Q6H PRN #30 tab MDD 8 08/20/17 Cyclobenzaprine HCl [Flexeril 10 mg] 10 mg PO BID PRN 11/10/17 Doxycycline Hyclate 100 mg PO QID 11/10/17 Glipizide 5 mg PO BID 11/10/17 metroNIDAZOLE [Flagyl -] 500 mg PO DAILY 11/10/17 Anemia: Yes (h/o blood transfusions-last 10/2016) Asthma: No Cancer: No Cardiac Disorders: Yes (CAD) CVA: No COPD: Yes CHF: No Dementia: Yes Diabetes: Yes (TYPE 2) GI Disorders: Yes (GERD,PUD) Disorders: Yes ("WEAK BLADDER") HTN: Yes Hypercholesterolemia: Yes Liver Disease: No Seizures: No Thyroid Disease: No - Surgical History Abdominal Surgery: Yes (hernia repair) Appendectomy: No Cardiac Surgery: Yes (3 stents-2009 & 2013) Cholecystectomy: No Lung Surgery: No Neurologic Surgery: No Orthopedic Surgery: No - Immunization History Td Vaccination: Yes TDAP Vaccination: No Immunization Up to Date: Yes - Suicide/Smoking/Psychosocial Hx Smoking Status: No Smoking History: Never smoked Years of Tobacco Use: 0 Have you smoked in the past 12 months: No Number of Cigarettes Smoked Daily: 0 Cigars Per Day: 0 Information on smoking cessation initiated: No Hx Alcohol Use: No Drug/Substance Use Hx: No Substance Use Type: None Hx Substance Use Treatment: No Review of Systems - Review of Systems Constitutional: No: Chills, Fever Respiratory: No: Shortness of Breath Cardiac (ROS): No: Chest Pain Musculoskeletal: Yes: Joint Pain, Joint Swelling Neurological: No: Headache, Dizziness *Physical Exam - Vital Signs Last Vital Signs Temp Pulse Resp BP Pulse Ox 98 F 58 L 1 L 123/43 L 92 L 03/26/19 12:08 03/26/19 12:08 03/26/19 12:08 03/26/19 12:08 03/26/19 12:08 - Physical Exam General Appearance: Yes: Appropriately Dressed. No: Apparent Distress HEENT: positive: Normal Voice Neck: positive: Supple Respiratory/Chest: positive: Lungs Clear, Normal Breath Sounds. negative: Respiratory Distress Cardiovascular: positive: Regular Rate, S1, S2 Gastrointestinal/Abdominal: positive: Soft. negative: Tender Extremity: positive: Other (mod swelling with ecchymosis to dorsum of L foot with multiple blisters seen to distal foot, 1 containing clear fluid and a 2nd 1 containing hemorrhagic fluid) Integumentary: positive: Dry, Warm Neurologic: positive: Fully Oriented, Alert, Normal Mood/Affect, Motor Strength 5/5 ED Treatment Course - RADIOLOGY Radiology Studies Ordered: Category Date Time Status ANKLE & FOOT-LEFT* [RAD] Stat Radiology 03/26/19 12:55 Ordered Medical Decision Making - Medical Decision Making 03/26/19 12:56 78-year-old female, history of NIDDM, hypertension, CAD, on low dose asa, CHF on Lasix, back surgery, walks w/ walker and cane, here with left foot pain and swelling after fall. Patient states while bending down to retrieve something from her bathtub yesterday, she "toppled" over into bath tube, striking LLE against tub. Has been able to bear weight but painful. No head injury, LOC, dizziness, n/v. No change in MS as per son who accompanied pt to ED. Denies any other injuries at this time. See exam Possible L foot sprain s/p minor mechanical fall, r/o fx Able to bear weight since Denies head injury On baby asa Exam remarkable for moderate swelling to L foot w/ traumatic blisters -declines pain meds here -XR 03/26/19 14:08 L 5th toe fx. ALESSIA placed to foot given swelling but placed loosely given traumatic blisters, no sig ttp to toe to warrant skye taping at this time. Ortho shoe given and pt able to bear weight in facility. Pt states she is familiar with Dr. Kelly of orthopedics and will follow-up w/ MD. Also has PMD appointment on Sunday and will follow up for reassessment. Reasons to return discussed with patient *DC/Admit/Observation/Transfer Diagnosis at time of Disposition: Toe fracture, left Qualifiers: Encounter type: initial encounter Toe: unspecified toe Fracture type: closed Fracture alignment: nondisplaced Qualified Code(s): S92.912A - Unspecified fracture of left toe(s), initial encounter for closed fracture - Discharge Dispostion Disposition: HOME Condition at time of disposition: Good - Referrals Referrals: Pérez Barrientos MD [Primary Care Provider] - - Patient Instructions Printed Discharge Instructions: DI for Toe Fracture Additional Instructions: Keep a thin place for swelling and elevate leg at home. Take Tylenol for pain as needed. Please follow-up with Dr. Kelly of orthopedic in 1-2 weeks You have multiple blisters w/ blood on your foot, please refrain from popping these at home but if they accidentally pop and you notice redness, pus or develop fever, please return to the ER immediately, otherwise follow-up with your PMD on Sunday as already scheduled - Post Discharge Activity
[2019-03-26 13:54] VITALS: BP 109/41; PULSE 57; TEMP 98.6
== END 2019-03-26 14:08 | disposition home or self-care (01) ==
LOC: JER 12:03
DX: S92.912A Unspecified fracture of left toe(s), initial encounter for closed fracture (principal); E11.9 Type 2 diabetes mellitus without complications; I10 Essential (primary) hypertension; I25.10 Atherosclerotic heart disease of native coronary artery without angina pectoris; I50.9 Heart failure, unspecified; W18.39XA Other fall on same level, initial encounter; Y93.89 Activity, other specified; Y92.002 Bathroom of unspecified non-institutional (private) residence as the place of occurrence of the external cause; J44.9 Chronic obstructive pulmonary disease, unspecified
CPT/HCPCS: 73610-TC-LT-FY; 73630-TC-LT; 99281-25

== ENCOUNTER 2019-04-10 15:28 | Inpatient (IN) | payer OTHER, BC ==
--- NOTE | 2019-04-10 15:45 | PDOC ---
Rapid Medical Evaluation Chief Complaint: Wound Medical Evaluation: Allergies Allergy/AdvReac Type Severity Reaction Status Date / Time No Known Allergies Allergy Verified 03/26/19 12:11 Vital Signs Temp Pulse Resp BP Pulse Ox 97.4 F L 56 L 19 132/54 L 97 04/10/19 15:41 04/10/19 15:41 04/10/19 15:41 04/10/19 15:41 04/10/19 15:41 04/10/19 15:43 I have performed a brief in-person evaluation of this patient. The patient presents with a chief complaint of: left foot wound , not healing sent from wound clinic for admission Pertinent physical exam findings: not observed foot= recently dressed in wound care- I have ordered the following: CBC, CMP, IV The patient will proceed to the ED for further evaluation. Discharge Disposition - Diagnosis Foot infection - Referrals - Patient Instructions - Post Discharge Activity
[2019-04-10] MEDS ORDERED: PIPERACILLIN/TAZOB 3.375 GM 3.375 GM in DEXTROSE 5%-WATER - 50 ML IVPB ONE (16:47)
[2019-04-10] MEDS ORDERED: VANCOMYCIN 1 GM in D5W (PRE-DOCKED) 1,000 MG/250 ML IVPB ONE (16:47)
[2019-04-10] MEDS ORDERED: VANCOMYCIN 1 GRAM (PRE-DOCKED) 1,000 MG/250 ML BAG IVPB ONE (17:18)
--- NOTE | 2019-04-10 17:47 | PDOC ---
Documentation entered by Alice Jacobson SCRIBE, acting as scribe for Malathi Hernandez MD. Malathi Hernandez MD: This documentation has been prepared by the Indira leon Brenda, SCRIBE, under my direction and personally reviewed by me in its entirety. I confirm that the documentation accurately reflects all work, treatment, procedures, and medical decision making performed by me. Attending Attestation - Resident Resident Name: Rosanne Adams - ED Attending Attestation I have performed the following: I have examined & evaluated the patient, The case was reviewed & discussed with the resident, I agree w/resident's findings & plan, Exceptions are as noted - HPI HPI: 04/10/19 17:35 The patient is a 78 year old female, with a significant PMH of HTN, NIDDM, CAD s /p stent placement x 3, diastolic heart failure, LLE DVT, and s/p lumbar sacral laminectomy, complicated with epidural abscess who presents to the emergency department with a left foot wound. The patient was reported to be at wound clinic, at which time they noticed the wound isn't healing and advised her to come to the Ed for evaluation. The patient is also s/p pinky fracture of left foot. The patient denies chest pain, shortness of breath, headache and dizziness. Denies fever, chills, nausea, vomiting, diarrhea and constipation. Denies dysuria, frequency, urgency and hematuria. Allergies: NKA Past surgical history: Hernia repair, stent, laminectomy of L2-L4 Social history: No reported PCP: Dr. Pérez Barrientos - Physicial Exam PE: 04/10/19 17:22 GENERAL: The patient is in no acute distress. ENT: Ears normal, nares patent, oropharynx clear without exudates. Moist mucous membranes. NECK: Normal range of motion, supple, no nuchal rigidity LUNGS: Breath sounds equal, clear to auscultation bilaterally. HEART: Regular rate and rhythm, normal S1 and S2 without murmur, rub or gallop. ABDOMEN: Soft, nontender EXTREMITIES: Swelling of the dorsum of the left foot, tender to palpation NEUROLOGICAL: Cranial nerves II through XII grossly intact. Normal speech. No focal neurological deficits. SKIN: Dorsum of the right foot with unroofed blister, granulation tissue at base - Medical Decision Making 04/10/19 17:26 78 yo F sent from wound care due to cellulitis Pt s/p injury 03/26/19 She fell in the shower, metal grate injured the dorsum of her foot and she broke her 5th digit Pt has been doing local wound care (son has been dressing wound with Xeroform) Pt was seen today at wound care where there was some concern about cellulitis No systemic signs or illness 04/10/19 17:27 Will do: Labs Arterial duplex Xray foot Blood culture Broad spectrum abx Admit
[2019-04-10] MEDS ORDERED: SODIUM CHLORIDE 0.9% 500 ML INFUS.BAG IV ONE (17:56)
--- NOTE | 2019-04-10 17:56 | PDOC ---
History of Present Illness - General Chief Complaint: Wound Stated Complaint: LT FOOT WOUND Time Seen by Provider: 04/10/19 16:06 - History of Present Illness Initial Comments: 04/10/19 18:50 78yo F hx DM, CAD s/p 4 stents on plavix, HTN, anemia (blood transfusion 3 weeks ago), and broken L 5th toe 3 weeks ago presents sent from wound care for admission for not healing L foot wound. Pt was here in the ED 3 weeks ago and had L 5th toe fx and traumatic blisters on foot. Pt has been dressing blisters with Xeroform at home. Pt went to wound care today and was found to have an infection. Pt c/o pain, redness, warmth, and oozing pus. Denies bleeding, pain med use, F/C, dizziness, N/V, MAZARIEGOS, CP, SOB, other complaints or injuries. Pt would like a pain medication stronger than tylenol. PCP Dr. Barrientos. Past History - Past Medical History Allergies/Adverse Reactions: Allergies Allergy/AdvReac Type Severity Reaction Status Date / Time No Known Allergies Allergy Verified 04/10/19 15:57 Home Medications: Ambulatory Orders Carvedilol [Coreg -] 3.125 mg PO BID #0 tablet 06/23/13 Pantoprazole Sodium [Protonix -] 40 mg PO DAILY #0 tablet.ec 06/23/13 Sitagliptin Phosphate [Januvia -] 100 mg PO DAILY@0700 #0 ud 06/23/13 Ezetimibe [Zetia] 10 mg PO DAILY 01/10/17 Amiodarone HCl [Cordarone -] 200 mg PO DAILY 08/13/17 Atorvastatin Ca [Lipitor] 40 mg PO DAILY 08/13/17 Dapagliflozin Propanediol [Farxiga] 5 mg PO DAILY 08/13/17 Aspirin [Lo-Dose Aspirin EC] 81 mg PO DAILY #20 tab 08/20/17 Glipizide 5 mg PO BID 11/10/17 Clopidogrel Bisulfate [Plavix -] 75 mg PO DAILY 04/10/19 Furosemide [Lasix -] 40 mg PO BID 04/10/19 metFORMIN HCL [Glucophage -] 500 mg PO BID 04/10/19 Albuterol Sulfate Inhaler - [Ventolin Hfa Inhaler -] 1 - 2 inh PO QID PRN Budesonide/Formeterol Fumarate [SYMBICORT 160/4.5mcg -] 2 puff IH BID 04/11/19 Fluticasone Prop 0.05% Nasal [Flonase -] 1 - 2 spray NS DAILY 04/11/19 Anemia: Yes (h/o blood transfusions-last 10/2016) Asthma: No Cancer: No Cardiac Disorders: Yes (CAD 4 stents) CVA: No COPD: Yes CHF: No Dementia: Yes Diabetes: Yes (TYPE 2) GI Disorders: Yes (GERD,PUD) Disorders: Yes ("WEAK BLADDER") HTN: Yes Hypercholesterolemia: Yes Liver Disease: No Seizures: No Thyroid Disease: No - Surgical History Abdominal Surgery: Yes (hernia repair) Appendectomy: No Cardiac Surgery: Yes (4 stents-2009 & 2013, 2018) Cholecystectomy: No Lung Surgery: No Neurologic Surgery: No Orthopedic Surgery: No - Immunization History Td Vaccination: Yes TDAP Vaccination: No Immunization Up to Date: Yes - Suicide/Smoking/Psychosocial Hx Smoking Status: No Smoking History: Never smoked Years of Tobacco Use: 0 Have you smoked in the past 12 months: No Number of Cigarettes Smoked Daily: 0 Cigars Per Day: 0 Information on smoking cessation initiated: No Hx Alcohol Use: No Drug/Substance Use Hx: No Substance Use Type: None Hx Substance Use Treatment: No Review of Systems - Review of Systems Comments:: Constitutional: Negative for chills, fever, fatigue. HENT: Negative for sore throat, rhinorrhea, congestion. Eyes: Negative for visual disturbance. Respiratory: Negative for shortness of breath, cough, and wheezing. Cardiovascular: Negative for chest pain, palpitations, and leg swelling. Gastrointestinal: Negative for abdominal pain, blood in stool, constipation, diarrhea, nausea, and vomiting. Genitourinary: Negative for dysuria, flank pain, and hematuria. Musculoskeletal: Negative for myalgias, back pain, and neck pain. Skin: Positive for pain, redness, warmth, and oozing pus to top of L foot. Neurological: Negative for light-headedness, dizziness, syncope, weakness, numbness and headaches. Psychiatric/Behavioral: Negative for behavioral problems and confusion. *Physical Exam - Vital Signs Last Vital Signs Temp Pulse Resp BP Pulse Ox 97.4 F L 56 L 19 132/54 L 97 04/10/19 15:41 04/10/19 15:41 04/10/19 15:41 04/10/19 15:41 04/10/19 15:41 - Physical Exam Comments: Gen: Alert, NAD, comfortable-appearing, sitting in wheelchair. HEENT: PERRL, EOMI, MMM, NCAT. No conjunctival pallor. Sclera are non-icteric. Oropharynx is clear. CV: Regular rate and rhythm. No murmurs, rubs, or gallops. PULM: No resp distress. CTAB, no wheezes, rales, or rhonchi. ABD: soft, NT/ND, no rebound tenderness or guarding, no CVA tenderness. BACK: No TTP of c/t/l-spine. No step-offs or deformities. MSK: No bony deformities. 2+ pulses in all extremities. NEURO: AAOx3. PERRL. No gross CN deficits. Strength and sensation grossly intact throughout. EXTREMITIES: No cyanosis. No clubbing. No edema. No calf tenderness. LEFT FOOT: 4x4cm erythema, warmth, purulence, and TTP on dorsal L foot. Capillary refill intact. Pulses heard by Doppler. Sensation intact to light touch. PSYCH: Normal mood and thought pattern. SKIN: Warm and dry. Normal capillary refill. No jaundice. 04/11/19 23:00 ED Treatment Course - LABORATORY CBC & Chemistry Diagram: 04/11/19 06:34 04/11/19 06:34 - RADIOLOGY Radiology Studies Ordered: Category Date Time Status FOOT-LEFT [RAD] Stat Radiology 04/10/19 16:41 Ordered TOE(S) LEFT [RAD] Stat Radiology 04/10/19 16:51 Ordered DUPLEX ART. LEGS- LIMITED US [US] Stat Ultrasound 04/10/19 17:06 Ordered - Medications Given in the ED: ED Medications Discontinued Medications Generic Name Dose Route Start Last Admin Trade Name Freq PRN Reason Stop Dose Admin Oxycodone/Acetaminophen 1 combo 04/10/19 16:46 04/10/19 17:26 Percocet 5/325 - PO 04/10/19 16:47 1 combo ONCE ONE Administration Medical Decision Making - Medical Decision Making 04/10/19 18:50 78yo F hx DM, CAD s/p 4 stents on plavix, HTN, anemia (blood transfusion 3 weeks ago), and broken L 5th toe 3 weeks ago presents sent from wound care for admission for not healing wound to dorsum of L foot, with erythema, warmth, and purulence. Afebrile, hemodynamically stable, neurovascularly intact. -CBC, CMP, Coags, T&S, BCx -500 NS -XR L foot and toes, US Doppler arterial LLE -Percocet for pain -Vanc and Zosyn -Dispo: pending w/u, admit to med surg 04/10/19 19:33 Pt signed out to Dr. Cruz. 04/11/19 22:59 *DC/Admit/Observation/Transfer Diagnosis at time of Disposition: Foot infection, NANCY (acute kidney injury), Hypoglycemia Cellulitis Qualifiers: Site of cellulitis: extremity Site of cellulitis of extremity: toe Laterality: left Qualified Code(s): L03.032 - Cellulitis of left toe - Discharge Dispostion Condition at time of disposition: Guarded - Referrals - Patient Instructions - Post Discharge Activity
[2019-04-10 19:17] LABS: EOS % 2.3 % (0-4.5); HEMATOCRIT 33.9 % (32.4-45.2); HEMOGLOBIN 10.6 GM/dL (10.7-15.3); LYMPH % 12.7 % (8-40); MCH 27.3 pg (25.7-33.7); MCHC 31.1 g/dl (32.0-36.0); MEAN CELL VOLUME 87.7 fl (80-96); MEAN PLT VOLUME 8.5 fl (7.5-11.1); MONO % 8.4 % (3.8-10.2); NEUT % 75.6 % (42.8-82.8); PLATELET COUNT 400 K/MM3 (134-434); RBC 3.87 M/mm3 (3.60-5.2); RDW 36.6 % (11.6-15.6); WHITE BLOOD COUNT 10.2 K/mm3 (4.0-10.0)
[2019-04-10] MEDS ORDERED: PIPERACILLIN/TAZOB 3.375 GM 3.375 GM/50 ML BAG IVPB ONE (19:35)
[2019-04-10 19:41] LABS: ALBUMIN 3.4 g/dl (3.4-5.0); BILIRUBIN,TOTAL 0.2 mg/dL (0.2-1); CALCIUM 8.3 mg/dL (8.5-10.1); POTASSIUM 4.1 mmol/L (3.5-5.1); TOT PROT 7.2 g/dl (6.4-8.2)
[2019-04-10] MEDS ORDERED: DEXTROSE 50%-WATER - 25 GM/50 ML VIAL IVPUSH ONE (19:57)
--- NOTE | 2019-04-10 20:19 | PDOC ---
*Physical Exam - Vital Signs Last Vital Signs Temp Pulse Resp BP Pulse Ox 97.4 F L 56 L 19 132/54 L 97 04/10/19 15:41 04/10/19 15:41 04/10/19 15:41 04/10/19 15:41 04/10/19 15:41 - Physical Exam General Appearance: Yes: Nourished, Appropriately Dressed. No: Apparent Distress HEENT: positive: Normal ENT Inspection Neck: positive: Supple Respiratory/Chest: positive: Lungs Clear Cardiovascular: positive: Regular Rhythm, Regular Rate, S1, S2 Vascular Pulses: Dorsalis-Pedis (R): 2+, Doralis-Pedis (L): 2+ Gastrointestinal/Abdominal: positive: Soft Rectal Exam: positive: deferred Lymphatic: negative: Adenopathy Musculoskeletal: positive: Normal Inspection Extremity: positive: Normal Capillary Refill, Normal Inspection, Swelling, Erythema, Inflammation Integumentary: positive: Erythema, Swelling, Bruising Neurologic: positive: Fully Oriented, Alert, Normal Mood/Affect, Normal Response ED Treatment Course - LABORATORY CBC & Chemistry Diagram: 04/10/19 18:49 04/10/19 18:49 - ADDITIONAL ORDERS Additional order review: Laboratory Results 04/10/19 18:49 Sodium 141 Potassium 4.1 Chloride 104 Carbon Dioxide 28 Anion Gap 9 BUN 42.0 H Creatinine 2.0 H Est GFR (CKD-EPI)AfAm 27.22 Est GFR (CKD-EPI)NonAf 23.49 Random Glucose 43 L* Calcium 8.3 L Total Bilirubin 0.2 AST 19 ALT 22 Alkaline Phosphatase 102 Total Protein 7.2 Albumin 3.4 04/10/19 18:49 RBC 3.87 MCV 87.7 MCHC 31.1 L RDW 36.6 H MPV 8.5 D Neutrophils % 75.6 D Lymphocytes % 12.7 D Monocytes % 8.4 Eosinophils % 2.3 Basophils % 1.0 - Medications Given in the ED: ED Medications Discontinued Medications Generic Name Dose Route Start Last Admin Trade Name Freq PRN Reason Stop Dose Admin Oxycodone/Acetaminophen 1 combo 04/10/19 16:46 04/10/19 17:26 Percocet 5/325 - PO 04/10/19 16:47 1 combo ONCE ONE Administration Sodium Chloride 500 ml 04/10/19 17:56 04/10/19 18:59 Normal Saline - IV 04/10/19 17:57 500 ml ONCE ONE Administration Vancomycin HCl 1,000 mg 04/10/19 16:47 04/10/19 18:59 Vancomycin (Pre-Docked) IVPB 04/10/19 16:48 1,000 mg ONCE ONE Administration Protocol Medical Decision Making - Medical Decision Making Patient signed out to me from the day team to be admitted for cellulitis. 78 yo obese F w a hx of anemia requiring transfusions, CAD s/p 4 stents, COPD, dementia, T2DM, GERD, PUD, weak bladder, HTN, HCL, Hernia repair. - Abx began in ED with vanc/zosyn Plan: Xr, US, admit - Patient brought over to XR and US Patient accepted to hospital for admission *DC/Admit/Observation/Transfer Diagnosis at time of Disposition: Foot infection, NANCY (acute kidney injury), Hypoglycemia Cellulitis Qualifiers: Site of cellulitis: extremity Site of cellulitis of extremity: toe Laterality: left Qualified Code(s): L03.032 - Cellulitis of left toe - Discharge Dispostion Condition at time of disposition: Guarded Decision to Admit order: Yes - Referrals - Patient Instructions - Post Discharge Activity
[2019-04-10 20:28] LABS: INR 0.96 (0.83-1.09); PROTHROMBIN TIME (PATIENT) 11.3 SEC (9.7-13.0)
[2019-04-10 20:30] LABS: ACTIVATED PTT 32.9 SECONDS (25.2-36.5)
--- NOTE | 2019-04-10 21:12 | PN ---
Teaching Attending Note Name of Resident: Mirlande Casillas ATTENDING PHYSICIAN STATEMENT I saw and evaluated the patient. I reviewed the resident's note and discussed the case with the resident. I agree with the resident's findings and plan as documented. SUBJECTIVE: Patient is a 78 year old woman with a PMH of HTN, NIDDM, CAD (s/p stent placement x 3), Diastolic CHF, LLE DVT, and s/p Lumbar sacral laminectomy, complicated with epidural abscess who presents to the ER with a left foot wound. The patient was reported to be at wound clinic - they noticed the wound isn't healing and advised her to come to the ER for evaluation. The patient is also s/p pinky fracture of left foot. The patient denies chest pain, shortness of breath, headache and dizziness. Denies fever, chills, nausea, vomiting, diarrhea and constipation. Denies dysuria, frequency, urgency and hematuria. OBJECTIVE: Alert Vital Signs Period Temp Pulse Resp BP Sys/Wesley Pulse Ox Last 24 Hr 97.4 F 56 19 132/54 97 HEENT: No Jaundice, eye redness or discharge, PERRLA, EOMI. Normocephalic, atraumatic. External ears are normal and hearing is grossly intact. No nasal discharge. Neck: Supple, nontender. No palpable adenopathy or thyromegaly. No JVD Chest: Good effort. Clear to auscultation and percussion. Heart: Regular. No S3, rub or murmur Abdomen: Not distended, soft, nontender and no HSM. No rebound or guarding. Normal bowel sounds. Ext: Peripheral pulses intact. Left foot wound with surrounding erythema. Blister on dorsum of left 5th toe. Skin: Warm and dry. No petechiae, rash or ecchymosis. Neuro: Alert. Oriented x3. CN 2-12 grossly intact. Sensation grossly intact in all four extremities and DTR are symmetric. Psych: Appropriate mood and affect. Good insight. Home Medications Medication Instructions Recorded Carvedilol [Coreg -] 3.125 mg PO BID #0 tablet 06/23/13 Pantoprazole Sodium [Protonix -] 40 mg PO DAILY #0 tablet.ec 06/23/13 Sitagliptin Phosphate [Januvia -] 100 mg PO DAILY@0700 #0 ud 06/23/13 Ezetimibe [Zetia] 10 mg PO DAILY 01/10/17 Amiodarone HCl [Cordarone -] 200 mg PO DAILY 08/13/17 Atorvastatin Ca [Lipitor] 20 mg PO DAILY 08/13/17 Dapagliflozin Propanediol [Farxiga] 5 mg PO DAILY 08/13/17 Aspirin [Lo-Dose Aspirin EC] 81 mg PO DAILY #20 tab 08/20/17 Glipizide 5 mg PO BID 11/10/17 Clopidogrel Bisulfate [Plavix -] 75 mg PO DAILY 04/10/19 Furosemide [Lasix -] 40 mg PO DAILY 04/10/19 metFORMIN HCL [Glucophage -] 500 mg PO BID 04/10/19 Abnormal Lab Results 04/10/19 04/10/19 18:49 18:49 WBC 10.2 H Hgb 10.6 L MCHC 31.1 L RDW 36.6 H BUN 42.0 H Creatinine 2.0 H Random Glucose 43 L* Calcium 8.3 L ASSESSMENT AND PLAN: 1. Nonhealing infected left foot wound - Xrays didnot show any gas collection. Will treat with IV Zosyn and Linezolid pending wound culture. Get foot MRI. Consult ID and Wound care. Hypoglycemia likely due to recent poor oral intake while taking her diabetes drugs. 2. DM For now, we will hold the home diabetes drugs and implement sliding scale insulin regimen. Provide comprehensive diabetes care with patient teaching and counseling about the importance of adherence to prescribed diabetes regimen, euglycemia, eye care and foot care. 3. NANCY - Cause unclear. Will get kidney sonogram, UA, urine protein/creatinine ratio, monitor urine output and hydrate gently. If azotmia fails to correct with hydration, then she should be off metformin permanently. Consult nephrology and avoid nephrotoxic agents such as NSAIDS, aminoglycosides, contrast dyes and certain Alternative medicine products. 4. Anemia - Likely multifactorial. Will do basic anemia work up including serial stool guaiacs, reticulocyte count and iron studies. 5. Obesity Counseled on the risks associated with obesity. Will provide patient all the necessary assistance, counseling and positive reinforcement to facilitate weight loss. Consult [facility] e[facility]. 6. Hypertension - Restart suitable outpatient antihypertensive drugs when clinically appropriate. Revise regimen to ensure good BP control. Nonpharmacologic measures to control hypertension like weight loss, salt restriction and exercise discussed. 7. DVT prophylaxis - Heparin 5000u sq tid. 8. Advance directives - Full code
--- NOTE | 2019-04-10 21:39 | HP ---
CHIEF COMPLAINT: Left foot wound PCP: Floyd HISTORY OF PRESENT ILLNESS: Ms. Pierce is a 78yo female with DM, CAD s/p 4 stents, COPD, HTN, HLD, and anemia who presents with left foot wound. About 3 weeks ago, she tripped in the shower and fell on her foot. She was diagnosed with L 5th digit fx and multiple trauma blisters. The blisters popped soon after, and she was bandaging it with Xeroform. She went to wound care today and was told to come to the ED to be treated for cellulitis. She denies fever, chills, nausea, vomiting, and dizziness. She reports some pain in her foot, but it is mostly at the base of the 1st digit. ER course was notable for: (1) vancomycin, zosyn PAST MEDICAL HISTORY: DM CAD s/p 4 stents, last one January 2019 COPD HTN HLD anemia dementia urinary incontinence GERD PAST SURGICAL HISTORY: back hysterectomy hernia repair Social History: Smoking: no Alcohol: no Drugs: no Lives at home with her son. Family History: father- DM Allergies No Known Allergies Allergy (Verified 04/10/19 15:57) HOME MEDICATIONS: Home Medications Medication Instructions Recorded Carvedilol [Coreg -] 3.125 mg PO BID #0 tablet 06/23/13 Pantoprazole Sodium [Protonix -] 40 mg PO DAILY #0 tablet.ec 06/23/13 Sitagliptin Phosphate [Januvia -] 100 mg PO DAILY@0700 #0 ud 06/23/13 Ezetimibe [Zetia] 10 mg PO DAILY 01/10/17 Amiodarone HCl [Cordarone -] 200 mg PO DAILY 08/13/17 Atorvastatin Ca [Lipitor] 20 mg PO DAILY 08/13/17 Dapagliflozin Propanediol [Farxiga] 5 mg PO DAILY 08/13/17 Aspirin [Lo-Dose Aspirin EC] 81 mg PO DAILY #20 tab 08/20/17 Glipizide 5 mg PO BID 11/10/17 Clopidogrel Bisulfate [Plavix -] 75 mg PO DAILY 04/10/19 Furosemide [Lasix -] 40 mg PO DAILY 04/10/19 metFORMIN HCL [Glucophage -] 500 mg PO BID 04/10/19 REVIEW OF SYSTEMS CONSTITUTIONAL: Absent: fever, chills, diaphoresis, generalized weakness HEENT: Absent: rhinorrhea, nasal congestion, throat pain, throat swelling CARDIOVASCULAR: Absent: chest pain, syncope, palpitations RESPIRATORY: Present: cough Absent: shortness of breath, dyspnea with exertion GASTROINTESTINAL: Absent: abdominal pain, abdominal distension, nausea, vomiting, diarrhea GENITOURINARY: Absent: dysuria MUSCULOSKELETAL: Absent: myalgia SKIN: Absent: rash, itching, pallor HEMATOLOGIC/IMMUNOLOGIC: Absent: easy bleeding, easy bruising, lymphadenopathy, frequent infections ENDOCRINE: Absent: unexplained weight gain, unexplained weight loss, heat intolerance, cold intolerance NEUROLOGIC: Absent: headache, dizziness PSYCHIATRIC: Absent: anxiety, depression, suicidal or homicidal ideation, hallucinations. PHYSICAL EXAMINATION Vital Signs - 24 hr 04/10/19 15:41 Temperature 97.4 F L Pulse Rate 56 L Respiratory 19 Rate Blood Pressure 132/54 L O2 Sat by Pulse 97 Oximetry (%) GENERAL: Awake, alert, and fully oriented, in no acute distress. HEAD: Normal with no signs of trauma. EYES: Pupils equal, round and reactive to light, extraocular movements intact, sclera anicteric, conjunctiva clear. No lid lag. EARS, NOSE, THROAT: Ears normal, nares patent. Moist mucous membranes. NECK: Normal range of motion, supple without lymphadenopathy, JVD, or masses. LUNGS: Breath sounds equal, clear to auscultation bilaterally. No wheezes, and no crackles. No accessory muscle use. HEART: Regular rate and rhythm, normal S1 and S2 without murmur, rub or gallop. ABDOMEN: Soft, nontender, not distended, normoactive bowel sounds, no guarding, no rebound, no masses. MUSCULOSKELETAL: Normal range of motion at all joints. No bony deformities or tenderness. No CVA tenderness. UPPER EXTREMITIES: 2+ pulses, warm, well-perfused. No cyanosis. No peripheral edema. LOWER EXTREMITIES: 2+ pulses, warm, well-perfused. +1 pitting edema bilaterally. Left dorsal surface lateral erythematous lesion with minimal purulent drainage. Warmer than surrounding tissue. NEUROLOGICAL: Cranial nerves II-XII intact. Normal speech. PSYCHIATRIC: Cooperative. Good eye contact. Appropriate mood and affect. SKIN: Warm, dry, normal turgor, no rashes or lesions noted other than stated above, normal capillary refill. Laboratory Results - last 24 hr 04/10/19 04/10/19 04/10/19 18:49 18:49 19:58 WBC 10.2 H RBC 3.87 Hgb 10.6 L Hct 33.9 MCV 87.7 MCH 27.3 MCHC 31.1 L RDW 36.6 H Plt Count 400 D MPV 8.5 D Absolute Neuts (auto) 7.7 Neutrophils % 75.6 D Lymphocytes % 12.7 D Monocytes % 8.4 Eosinophils % 2.3 Basophils % 1.0 Nucleated RBC % 0 PT with INR 11.30 INR 0.96 PTT (Actin FS) 32.9 Sodium 141 Potassium 4.1 Chloride 104 Carbon Dioxide 28 Anion Gap 9 BUN 42.0 H Creatinine 2.0 H Est GFR (CKD-EPI)AfAm 27.22 Est GFR (CKD-EPI)NonAf 23.49 Random Glucose 43 L* Calcium 8.3 L Total Bilirubin 0.2 AST 19 ALT 22 Alkaline Phosphatase 102 Total Protein 7.2 Albumin 3.4 Blood Type Antibody Screen 04/10/19 19:58 WBC RBC Hgb Hct MCV MCH MCHC RDW Plt Count MPV Absolute Neuts (auto) Neutrophils % Lymphocytes % Monocytes % Eosinophils % Basophils % Nucleated RBC % PT with INR INR PTT (Actin FS) Sodium Potassium Chloride Carbon Dioxide Anion Gap BUN Creatinine Est GFR (CKD-EPI)AfAm Est GFR (CKD-EPI)NonAf Random Glucose Calcium Total Bilirubin AST ALT Alkaline Phosphatase Total Protein Albumin Blood Type O NEGATIVE Antibody Screen Negative ASSESSMENT/PLAN: The pt is a 78 yo female with PMH of DM, CAD, HTN, and HLD who presents with increasing erythema and drainage of left foot, following trauma blisters. The wound is warm to touch. She denies fever and chills. She has a minimal white count 10.2. 1. left foot cellulitis -wound culture pending -blood culture pending -x-ray pending -continue Zosyn Q8, in the meantime -start linezolid 600mg BID, pt Cr is 2.0 so no vancomycin -CBC -CMP -Mg -phos -ID consult 2. DM -pt on 4 DM meds at home, possible polypharmacy -SSI and d/c home DM meds -BGM, pt had BG of 43 at admission but was asymptomatic 3. NANCY -Cr 2.0 -UA -renal U/S -gentle hydration -avoid nephrotoxic drugs DVT prophylaxis SCDs FEN NS 50mL/hr monitor electrolytes, Cr, and BG diabetic diet Visit type - Emergency Visit Emergency Visit: Yes ED Registration Date: 04/10/19 Care time: The patient presented to the Emergency Department on the above date and was hospitalized for further evaluation of their emergent condition. - New Patient This patient is new to me today: Yes Date on this admission: 04/11/19 - Critical Care Critical Care patient: No ATTENDING PHYSICIAN STATEMENT I saw and evaluated the patient. I reviewed the resident's note and discussed the case with the resident. I agree with the resident's findings and plan as documented. SUBJECTIVE: OBJECTIVE: ASSESSMENT AND PLAN:
[2019-04-10] MEDS ORDERED: DEXTROSE 50%-WATER 25 GM/50 ML DISP.SYRIN ONE (22:07)
[2019-04-10] MEDS ORDERED: SODIUM CHLORIDE 1,000 ML IV SCH ×2 (23:00→23:15)
[2019-04-10] MEDS ORDERED: LINEZOLID 600 MG PREMIX BAG 600 MG in PREMIX 300 IVPB SCH (23:15)
[2019-04-10] MEDS ORDERED: LINEZOLID 600 MG PREMIX BAG 600 MG/300 ML BAG IVPB SCH (23:30)
[2019-04-11 02:51] LABS: URINE APPEARANCE CLEAR; URINE BILIRUBIN NEGATIVE (NEGATIVE); URINE COLOR YELLOW; URINE GLUCOSE (UA) 3+ (NEGATIVE); URINE KETONE NEGATIVE (NEGATIVE); URINE LEUK ESTERASE NEGATIVE (NEGATIVE); URINE NITRITE NEGATIVE (NEGATIVE); URINE PROTEIN NEGATIVE (NEGATIVE); URINE UROBILINOGEN 0.2 mg/dL (0.2-1.0)
[2019-04-11] MEDS ORDERED: PIPERACILLIN/TAZOBACTAM 3.375 GM VIAL IVPB ONE (05:54)
[2019-04-11] MEDS ORDERED: DEXTROSE 5%-WATER - 100 ML IVPB ONE (05:54)
[2019-04-11] MEDS: INSULIN SLIDING SCALE (NOVOLOG) 1 VIAL SQ SCH ×4 (06:00→23:05)
[2019-04-11] MEDS ORDERED: PIPERACILLIN/TAZOB 3.375 GM 3.375 GM in DEXTROSE 5%-WATER - 50 ML IVPB SCH (06:00)
[2019-04-11] MEDS: PIPERACILLIN/TAZOB 3.375 GM 3.375 GM in DEXTROSE 5%-WATER - 50 ML IVPB SCH ×2 (06:00→16:04)
[2019-04-11 07:39] LABS: BASO % 1.1 % (0-2.0); EOS % 3.4 % (0-4.5); HEMATOCRIT 27.6 % (32.4-45.2); HEMOGLOBIN 8.9 GM/dL (10.7-15.3); LYMPH % 10.4 % (8-40); MCH 28.2 pg (25.7-33.7); MCHC 32.1 g/dl (32.0-36.0); MEAN CELL VOLUME 87.7 fl (80-96); MEAN PLT VOLUME 8.7 fl (7.5-11.1); MONO % 11.2 % (3.8-10.2); NEUT % 73.9 % (42.8-82.8); RBC 3.15 M/mm3 (3.60-5.2); RDW 36.4 % (11.6-15.6); WHITE BLOOD COUNT 8.1 K/mm3 (4.0-10.0)
[2019-04-11 08:07] LABS: ALBUMIN 2.9 g/dl (3.4-5.0); BILIRUBIN,TOTAL 0.3 mg/dL (0.2-1); CALCIUM 7.8 mg/dL (8.5-10.1); CREATININE 1.7 mg/dL (0.55-1.3); MAGNESIUM 2.4 mg/dL (1.8-2.4); POTASSIUM 4.2 mmol/L (3.5-5.1); TOT PROT 6.1 g/dl (6.4-8.2)
[2019-04-11 08:26] LABS: PLATELET COUNT 342 K/MM3 (134-434)
[2019-04-11] MEDS ORDERED: VANCOMYCIN 1 GRAM (PRE-DOCKED) 1,000 MG/250 ML BAG IVPB ONE (12:00)
[2019-04-11] MEDS: PSYLLIUM 5.85 GM PACKET PO SCH ×2 (15:31→23:05)
--- NOTE | 2019-04-11 16:09 | PN ---
Teaching Attending Note Name of Resident: Joselyn Lewis ATTENDING PHYSICIAN STATEMENT I saw and evaluated the patient. I reviewed the resident's note and discussed the case with the resident. I agree with the resident's findings and plan as documented with exceptions below. SUBJECTIVE: Patient seen and examined. left foot pain, no fevers, chills. reports falls 3 weeks ago, when seen in the ED, found with left 5th toe fracture. Reports decreased oral intake. No dyspnea, chest pain, orthopnea, or PND. OBJECTIVE: Vital Signs Period Temp Pulse Resp BP Sys/Wesley Pulse Ox Last 24 Hr 98.1 F-98.1 F 64-67 16-20 124-147/52-67 92-95 Intake & Output 04/08/19 04/09/19 04/10/19 04/11/19 23:59 23:59 23:59 23:59 Intake Total 450 Balance 450 Weight 180 lb 183 lb 11.2 oz General: lying in bed in no acute distress Chest; CTAB, no rales or wheezing Abdomen:soft, obese, NT Extremities: left foot swelling on dorsum extending to metacarpo phalangeal area , overly ruptured blisters with crusting and dried blood, overlying swelling/ erythema/warmth/tenderness, pos pulses, some extension of swelling/erythema to the over the toes Home Medications Medication Instructions Recorded Carvedilol [Coreg -] 3.125 mg PO BID #0 tablet 06/23/13 Pantoprazole Sodium [Protonix -] 40 mg PO DAILY #0 tablet.ec 06/23/13 Sitagliptin Phosphate [Januvia -] 100 mg PO DAILY@0700 #0 ud 06/23/13 Ezetimibe [Zetia] 10 mg PO DAILY 01/10/17 Amiodarone HCl [Cordarone -] 200 mg PO DAILY 08/13/17 Atorvastatin Ca [Lipitor] 20 mg PO DAILY 08/13/17 Dapagliflozin Propanediol [Farxiga] 5 mg PO DAILY 08/13/17 Aspirin [Lo-Dose Aspirin EC] 81 mg PO DAILY #20 tab 08/20/17 Glipizide 5 mg PO BID 11/10/17 Clopidogrel Bisulfate [Plavix -] 75 mg PO DAILY 04/10/19 Furosemide [Lasix -] 40 mg PO DAILY 04/10/19 metFORMIN HCL [Glucophage -] 500 mg PO BID 04/10/19 Active Medications Piperacillin Sod/Tazobactam (Sod 3.375 gm/ Dextrose) 50 mls @ 100 mls/hr IVPB Q8H-IV NICOLETTE; Protocol Piperacillin Sod/Tazobactam (Sod 3.375 gm/ Dextrose) 50 mls @ 100 mls/hr IVPB Q8H NICOLETTE; Protocol Stop: 04/11/19 22:29 Last Admin: 04/11/19 16:04 Dose: 100 mls/hr Sodium Chloride (Normal Saline -) 1,000 mls @ 75 mls/hr IV ASDIR NICOLETTE Insulin Aspart (Novolog Vial Sliding Scale -) 1 vial SQ ACHS NICOLETTE; Protocol Last Admin: 04/11/19 16:09 Dose: Not Given Psyllium Hydrophilic Mucilloid (Metamucil (Sugar-Free) -) 5.85 gm PO TID NICOLETTE Last Admin: 04/11/19 15:31 Dose: Not Given Laboratory Results - last 24 hr 04/10/19 04/10/19 04/10/19 18:49 18:49 19:58 WBC 10.2 H RBC 3.87 Hgb 10.6 L Hct 33.9 MCV 87.7 MCH 27.3 MCHC 31.1 L RDW 36.6 H Plt Count 400 D MPV 8.5 D Absolute Neuts (auto) 7.7 Neutrophils % 75.6 D Lymphocytes % 12.7 D Monocytes % 8.4 Eosinophils % 2.3 Basophils % 1.0 Nucleated RBC % 0 PT with INR 11.30 INR 0.96 PTT (Actin FS) 32.9 Sodium 141 Potassium 4.1 Chloride 104 Carbon Dioxide 28 Anion Gap 9 BUN 42.0 H Creatinine 2.0 H Est GFR (CKD-EPI)AfAm 27.22 Est GFR (CKD-EPI)NonAf 23.49 POC Glucometer Random Glucose 43 L* Calcium 8.3 L Phosphorus Magnesium Total Bilirubin 0.2 AST 19 ALT 22 Alkaline Phosphatase 102 C-Reactive Protein Total Protein 7.2 Albumin 3.4 Urine Color Urine Appearance Urine pH Ur Specific [place] Urine Protein Urine Glucose (UA) Urine Ketones Urine Blood Urine Nitrite Urine Bilirubin Urine Urobilinogen Ur Leukocyte Esterase Random Vancomycin Blood Type Antibody Screen 04/10/19 04/10/19 04/10/19 19:58 22:09 22:29 WBC RBC Hgb Hct MCV MCH MCHC RDW Plt Count MPV Absolute Neuts (auto) Neutrophils % Lymphocytes % Monocytes % Eosinophils % Basophils % Nucleated RBC % PT with INR INR PTT (Actin FS) Sodium Potassium Chloride Carbon Dioxide Anion Gap BUN Creatinine Est GFR (CKD-EPI)AfAm Est GFR (CKD-EPI)NonAf POC Glucometer 63 130 Random Glucose Calcium Phosphorus Magnesium Total Bilirubin AST ALT Alkaline Phosphatase C-Reactive Protein Total Protein Albumin Urine Color Urine Appearance Urine pH Ur Specific [place] Urine Protein Urine Glucose (UA) Urine Ketones Urine Blood Urine Nitrite Urine Bilirubin Urine Urobilinogen Ur Leukocyte Esterase Random Vancomycin Blood Type O NEGATIVE Antibody Screen Negative 04/10/19 04/11/19 04/11/19 23:43 01:30 05:47 WBC RBC Hgb Hct MCV MCH MCHC RDW Plt Count MPV Absolute Neuts (auto) Neutrophils % Lymphocytes % Monocytes % Eosinophils % Basophils % Nucleated RBC % PT with INR INR PTT (Actin FS) Sodium Potassium Chloride Carbon Dioxide Anion Gap BUN Creatinine Est GFR (CKD-EPI)AfAm Est GFR (CKD-EPI)NonAf POC Glucometer 134 86 Random Glucose Calcium Phosphorus Magnesium Total Bilirubin AST ALT Alkaline Phosphatase C-Reactive Protein Total Protein Albumin Urine Color Yellow Urine Appearance Clear Urine pH 5.0 Ur Specific [place] 1.023 Urine Protein Negative Urine Glucose (UA) 3+ H Urine Ketones Negative Urine Blood Negative Urine Nitrite Negative Urine Bilirubin Negative Urine Urobilinogen 0.2 Ur Leukocyte Esterase Negative Random Vancomycin Blood Type Antibody Screen 04/11/19 04/11/19 04/11/19 06:34 06:34 09:38 WBC 8.1 RBC 3.15 L Hgb 8.9 L Hct 27.6 L D MCV 87.7 MCH 28.2 MCHC 32.1 RDW 36.4 H Plt Count 342 MPV 8.7 Absolute Neuts (auto) 6.0 Neutrophils % 73.9 Lymphocytes % 10.4 Monocytes % 11.2 H Eosinophils % 3.4 Basophils % 1.1 Nucleated RBC % 0 PT with INR INR PTT (Actin FS) Sodium 139 Potassium 4.2 Chloride 103 Carbon Dioxide 29 Anion Gap 7 L BUN 40.0 H Creatinine 1.7 H Est GFR (CKD-EPI)AfAm 33.13 Est GFR (CKD-EPI)NonAf 28.59 POC Glucometer Random Glucose 86 Calcium 7.8 L Phosphorus 3.0 Magnesium 2.4 Total Bilirubin 0.3 AST 12 L ALT 19 Alkaline Phosphatase 95 C-Reactive Protein 0.5 H Total Protein 6.1 L Albumin 2.9 L Urine Color Urine Appearance Urine pH Ur Specific [place] Urine Protein Urine Glucose (UA) Urine Ketones Urine Blood Urine Nitrite Urine Bilirubin Urine Urobilinogen Ur Leukocyte Esterase Random Vancomycin 9.0 L Blood Type Antibody Screen 04/11/19 04/11/19 11:07 16:07 WBC RBC Hgb Hct MCV MCH MCHC RDW Plt Count MPV Absolute Neuts (auto) Neutrophils % Lymphocytes % Monocytes % Eosinophils % Basophils % Nucleated RBC % PT with INR INR PTT (Actin FS) Sodium Potassium Chloride Carbon Dioxide Anion Gap BUN Creatinine Est GFR (CKD-EPI)AfAm Est GFR (CKD-EPI)NonAf POC Glucometer 94 137 Random Glucose Calcium Phosphorus Magnesium Total Bilirubin AST ALT Alkaline Phosphatase C-Reactive Protein Total Protein Albumin Urine Color Urine Appearance Urine pH Ur Specific [place] Urine Protein Urine Glucose (UA) Urine Ketones Urine Blood Urine Nitrite Urine Bilirubin Urine Urobilinogen Ur Leukocyte Esterase Random Vancomycin Blood Type Antibody Screen Microbiology 04/11/19 01:41 Toe - Left Second Gram Stain - Final renal/Bladder US and arterial duplex results reviewed Toe xray results reviewed ASSESSMENT AND PLAN: 78 yof with PMhx of NIDDM, HTN, HLD, CAD s/p PCI (years ago), ?Diastolic CHF, Anemia requiring frequent blood transfusions, PUD, GI bleed concerns but prior w /u neg for etiology, DVT s/p IVC filter (deemed high bleed risk with AC), CKD stage II, recent fall with left 5th toe fx sent by Dr. Garcia from wound care for concerns for foot infection -left foot cellulitis, suspected abscess +/- osteomyelitis -NANCY on CKD stage II, ?hypovolumia from poor oral intake and continaution of diuretics -Hypoglycemia, suspect from poor oral intake compounded by continuation of oral hypoglycemics -Recent fall 03/26 with left 5th toe fracture -CAD s/p PCI (remote) -NIDDM -HTN -HLD -?Diastolic HF -Anemia requring frequent blood transfusions -GI bleed concerns with prior work up neg for etiology -DVT s/p IV filter Plan: Podiatry/ID input. May need I&D Zosyn/vancomycin renal dosing, wound cultures. MRI left foot, check ESR/CRP. Increase IVF. Hold lasix. Cr improved. trend for now. Renal/bladder US noted. ISS, hold metformin/sepuvia. Continue coreg. Continue if patient still on ASA/plavix. DVTPPX has IVC filter given high bleed risk Dispo pending clinical improvement. Plan discussed with patient and nursing in detail, all questions answered.
[2019-04-11] MEDS ORDERED: CARVEDILOL 3.125 MG TABLET (FP) PO ONE (16:15)
[2019-04-11] MEDS: SODIUM CHLORIDE 1,000 ML IV SCH (16:40)
--- NOTE | 2019-04-11 17:22 | CONSULT ---
Consult Consult Specialty:: Podiatry Reason for Consultation:: Cellulitis left foot - History of Present Illness History of Present Illness: 3 weeks duration cared for by Dr. Kelly with xeroform gauze. 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 History of Recent Travel: No Home Medications - Allergies Allergies/Adverse Reactions: Allergies Allergy/AdvReac Type Severity Reaction Status Date / Time No Known Allergies Allergy Verified 04/10/19 15:57 - Home Medications Home Medications: Ambulatory Orders Carvedilol [Coreg -] 3.125 mg PO BID #0 tablet 06/23/13 Pantoprazole Sodium [Protonix -] 40 mg PO DAILY #0 tablet.ec 06/23/13 Sitagliptin Phosphate [Januvia -] 100 mg PO DAILY@0700 #0 ud 06/23/13 Ezetimibe [Zetia] 10 mg PO DAILY 01/10/17 Amiodarone HCl [Cordarone -] 200 mg PO DAILY 08/13/17 Atorvastatin Ca [Lipitor] 40 mg PO DAILY 08/13/17 Dapagliflozin Propanediol [Farxiga] 5 mg PO DAILY 08/13/17 Aspirin [Lo-Dose Aspirin EC] 81 mg PO DAILY #20 tab 08/20/17 Glipizide 5 mg PO BID 11/10/17 Clopidogrel Bisulfate [Plavix -] 75 mg PO DAILY 04/10/19 Furosemide [Lasix -] 40 mg PO BID 04/10/19 metFORMIN HCL [Glucophage -] 500 mg PO BID 04/10/19 Albuterol Sulfate Inhaler - [Ventolin Hfa Inhaler -] 1 - 2 inh PO QID PRN Budesonide/Formeterol Fumarate [SYMBICORT 160/4.5mcg -] 2 puff IH BID 04/11/19 Fluticasone Prop 0.05% Nasal [Flonase -] 1 - 2 spray NS DAILY 04/11/19 Family Disease History - Family Disease History Family Disease History: Heart Disease: Mother, Son (patient unsure of exact condition) Physical Exam Vital Signs: Vital Signs Temperature 98.1 F 04/11/19 07:45 Pulse Rate 65 04/11/19 07:45 Respiratory Rate 16 04/11/19 07:45 Blood Pressure 124/60 04/11/19 07:45 O2 Sat by Pulse Oximetry (%) 95 04/11/19 09:00 Extremities: Yes: Other (+cellulitis left foot, +fluctuant dorsal aspect, + tender, +ascending to midfoot,) Labs: CBC, BMP 04/11/19 06:34 04/11/19 06:34 Assessment/Plan cellulitis abscess? IVABX as per ID.. Awaiting MRI. Son present. Santyl to left foot wound. Vascular consult. Will follow.
--- NOTE | 2019-04-11 17:37 | PN ---
Progress Note (short form) - Note Progress Note: ID CONSULT DICTATED CELLULITIS L FOOT R/O SOFT TISSUE ABSCESS HX MRSA AWAIT C/S, MRI EMPIRIC ZOSYN/ VANCOMYCIN
[2019-04-11] MEDS ORDERED: VANCOMYCIN 1 GRAM (PRE-DOCKED) 1,000 MG/250 ML BAG IVPB SCH (17:45)
[2019-04-11] MEDS ORDERED: PIPERACILLIN/TAZOB 2.25 GM 2.25 GM in DEXTROSE 5%-WATER - 50 ML IVPB SCH (18:00)
[2019-04-11] MEDS: COLLAGENASE CLOSTRIDIUM HIST. 30 GRAMS TUBE TP SCH (18:42)
--- NOTE | 2019-04-11 18:50 | PN ---
Physical Exam: SUBJECTIVE: Patient seen and examined. Denies chest pain or sob. Describes a fall, blisters on the foot and following with wound care. She had prior mx of same Left foot in past. Recent imaging in ED showed fracture of L 5th toe not seen in updated imaging OBJECTIVE: Vital Signs Period Temp Pulse Resp BP Sys/Wesley Pulse Ox Last 24 Hr 98.1 F-98.1 F 64-67 16-20 124-147/52-67 92-95 Vital Signs Temp 98.3 F 04/11/19 20:10 Pulse 61 04/11/19 20:10 Resp 18 04/11/19 21:00 BP 143/61 04/11/19 20:10 Pulse Ox 94 L 04/11/19 21:00 GENERAL: The patient is obese, awake, alert, and fully oriented, in no acute distress LUNGS: Breath sounds equal, clear to auscultation bilaterally, no wheezes, no crackles HEART: Rular rate and rhythm, S1, S2 ABDOMEN: Soft, nontender, obese, normoactive bowel sounds, EXTREMITIES: L foot with dressing, removed, swollen dorsum with some hyperpigmentation closer to metatarsals, some bruised skin. Dry, no obvious secretions. NEUROLOGICAL: Cranial nerves II through XII grossly intact. Normal speech, gait not observed. CBC, BMP 04/11/19 06:34 04/11/19 06:34 Laboratory Results - last 24 hr 04/10/19 04/10/19 04/10/19 18:49 18:49 19:58 WBC 10.2 H RBC 3.87 Hgb 10.6 L Hct 33.9 MCV 87.7 MCH 27.3 MCHC 31.1 L RDW 36.6 H Plt Count 400 D MPV 8.5 D Absolute Neuts (auto) 7.7 Neutrophils % 75.6 D Lymphocytes % 12.7 D Monocytes % 8.4 Eosinophils % 2.3 Basophils % 1.0 Nucleated RBC % 0 ESR PT with INR 11.30 INR 0.96 PTT (Actin FS) 32.9 Sodium 141 Potassium 4.1 Chloride 104 Carbon Dioxide 28 Anion Gap 9 BUN 42.0 H Creatinine 2.0 H Est GFR (CKD-EPI)AfAm 27.22 Est GFR (CKD-EPI)NonAf 23.49 POC Glucometer Random Glucose 43 L* Calcium 8.3 L Phosphorus Magnesium Total Bilirubin 0.2 AST 19 ALT 22 Alkaline Phosphatase 102 C-Reactive Protein Total Protein 7.2 Albumin 3.4 Urine Color Urine Appearance Urine pH Ur Specific [place] Urine Protein Urine Glucose (UA) Urine Ketones Urine Blood Urine Nitrite Urine Bilirubin Urine Urobilinogen Ur Leukocyte Esterase Random Vancomycin Blood Type Antibody Screen 04/10/19 04/10/19 04/10/19 19:58 22:09 22:29 WBC RBC Hgb Hct MCV MCH MCHC RDW Plt Count MPV Absolute Neuts (auto) Neutrophils % Lymphocytes % Monocytes % Eosinophils % Basophils % Nucleated RBC % ESR PT with INR INR PTT (Actin FS) Sodium Potassium Chloride Carbon Dioxide Anion Gap BUN Creatinine Est GFR (CKD-EPI)AfAm Est GFR (CKD-EPI)NonAf POC Glucometer 63 130 Random Glucose Calcium Phosphorus Magnesium Total Bilirubin AST ALT Alkaline Phosphatase C-Reactive Protein Total Protein Albumin Urine Color Urine Appearance Urine pH Ur Specific [place] Urine Protein Urine Glucose (UA) Urine Ketones Urine Blood Urine Nitrite Urine Bilirubin Urine Urobilinogen Ur Leukocyte Esterase Random Vancomycin Blood Type O NEGATIVE Antibody Screen Negative 04/10/19 04/11/19 04/11/19 23:43 01:30 05:47 WBC RBC Hgb Hct MCV MCH MCHC RDW Plt Count MPV Absolute Neuts (auto) Neutrophils % Lymphocytes % Monocytes % Eosinophils % Basophils % Nucleated RBC % ESR PT with INR INR PTT (Actin FS) Sodium Potassium Chloride Carbon Dioxide Anion Gap BUN Creatinine Est GFR (CKD-EPI)AfAm Est GFR (CKD-EPI)NonAf POC Glucometer 134 86 Random Glucose Calcium Phosphorus Magnesium Total Bilirubin AST ALT Alkaline Phosphatase C-Reactive Protein Total Protein Albumin Urine Color Yellow Urine Appearance Clear Urine pH 5.0 Ur Specific [place] 1.023 Urine Protein Negative Urine Glucose (UA) 3+ H Urine Ketones Negative Urine Blood Negative Urine Nitrite Negative Urine Bilirubin Negative Urine Urobilinogen 0.2 Ur Leukocyte Esterase Negative Random Vancomycin Blood Type Antibody Screen 04/11/19 04/11/19 04/11/19 06:34 06:34 09:38 WBC 8.1 RBC 3.15 L Hgb 8.9 L Hct 27.6 L D MCV 87.7 MCH 28.2 MCHC 32.1 RDW 36.4 H Plt Count 342 MPV 8.7 Absolute Neuts (auto) 6.0 Neutrophils % 73.9 Lymphocytes % 10.4 Monocytes % 11.2 H Eosinophils % 3.4 Basophils % 1.1 Nucleated RBC % 0 ESR PT with INR INR PTT (Actin FS) Sodium 139 Potassium 4.2 Chloride 103 Carbon Dioxide 29 Anion Gap 7 L BUN 40.0 H Creatinine 1.7 H Est GFR (CKD-EPI)AfAm 33.13 Est GFR (CKD-EPI)NonAf 28.59 POC Glucometer Random Glucose 86 Calcium 7.8 L Phosphorus 3.0 Magnesium 2.4 Total Bilirubin 0.3 AST 12 L ALT 19 Alkaline Phosphatase 95 C-Reactive Protein 0.5 H Total Protein 6.1 L Albumin 2.9 L Urine Color Urine Appearance Urine pH Ur Specific [place] Urine Protein Urine Glucose (UA) Urine Ketones Urine Blood Urine Nitrite Urine Bilirubin Urine Urobilinogen Ur Leukocyte Esterase Random Vancomycin 9.0 L Blood Type Antibody Screen 04/11/19 04/11/19 04/11/19 11:07 14:45 16:07 WBC RBC Hgb Hct MCV MCH MCHC RDW Plt Count MPV Absolute Neuts (auto) Neutrophils % Lymphocytes % Monocytes % Eosinophils % Basophils % Nucleated RBC % ESR 38 H PT with INR INR PTT (Actin FS) Sodium Potassium Chloride Carbon Dioxide Anion Gap BUN Creatinine Est GFR (CKD-EPI)AfAm Est GFR (CKD-EPI)NonAf POC Glucometer 94 137 Random Glucose Calcium Phosphorus Magnesium Total Bilirubin AST ALT Alkaline Phosphatase C-Reactive Protein Total Protein Albumin Urine Color Urine Appearance Urine pH Ur Specific [place] Urine Protein Urine Glucose (UA) Urine Ketones Urine Blood Urine Nitrite Urine Bilirubin Urine Urobilinogen Ur Leukocyte Esterase Random Vancomycin Blood Type Antibody Screen Active Medications Generic Name Dose Route Start Last Admin Trade Name Freq PRN Reason Stop Dose Admin Atorvastatin Calcium 20 mg 04/11/19 22:00 Lipitor - PO HS NICOLETTE Carvedilol 3.125 mg 04/11/19 22:00 Coreg - PO BID NICOLETTE Collagenase 1 applic 04/11/19 17:30 04/11/19 18:42 Santyl - TP 1 applic DAILY NICOLETTE Administration Protocol Sodium Chloride 1,000 mls @ 75 mls/hr 04/11/19 16:07 04/11/19 16:40 Normal Saline - IV 75 mls/hr ASDIR NICOLETTE Administration Piperacillin Sod/Tazobactam 50 mls @ 100 mls/hr 04/12/19 02:00 Sod 2.25 gm/ Dextrose IVPB Q8H-IV NICOLETTE Protocol Vancomycin HCl 1,000 mg in 250 mls @ 166.667 mls/hr 04/12/19 13:00 Vancomycin (Pre-Docked) IVPB Q24H [facility] Protocol Insulin Aspart 1 vial 04/11/19 07:00 04/11/19 16:09 Novolog Vial Sliding Scale - SQ Not Given ACHS [facility] Protocol Psyllium Hydrophilic Mucilloid 5.85 gm 04/11/19 14:00 04/11/19 15:31 Metamucil (Sugar-Free) - PO Not Given TID [facility] Ambulatory Orders Carvedilol [Coreg -] 3.125 mg PO BID #0 tablet 06/23/13 Pantoprazole Sodium [Protonix -] 40 mg PO DAILY #0 tablet.ec 06/23/13 Sitagliptin Phosphate [Januvia -] 100 mg PO DAILY@0700 #0 ud 06/23/13 Ezetimibe [Zetia] 10 mg PO DAILY 01/10/17 Amiodarone HCl [Cordarone -] 200 mg PO DAILY 08/13/17 Atorvastatin Ca [Lipitor] 40 mg PO DAILY 08/13/17 Dapagliflozin Propanediol [Farxiga] 5 mg PO DAILY 08/13/17 Aspirin [Lo-Dose Aspirin EC] 81 mg PO DAILY #20 tab 08/20/17 Glipizide 5 mg PO BID 11/10/17 Clopidogrel Bisulfate [Plavix -] 75 mg PO DAILY 04/10/19 Furosemide [Lasix -] 40 mg PO BID 04/10/19 metFORMIN HCL [Glucophage -] 500 mg PO BID 04/10/19 Albuterol Sulfate Inhaler - [Ventolin Hfa Inhaler -] 1 - 2 inh PO QID PRN Budesonide/Formeterol Fumarate [SYMBICORT 160/4.5mcg -] 2 puff IH BID 04/11/19 Fluticasone Prop 0.05% Nasal [Flonase -] 1 - 2 spray NS DAILY 04/11/19 Current Medications Acetaminophen (Tylenol -) 650 mg PO Q6H PRN PRN Reason: FEVER Amiodarone HCl (Cordarone -) 200 mg PO DAILY [facility] Aspirin (Ecotrin -) 81 mg PO DAILY [facility] Atorvastatin Calcium (Lipitor -) 20 mg PO HS [facility] Last Admin: 04/11/19 22:55 Dose: 20 mg Atorvastatin Calcium (Lipitor -) 40 mg PO DAILY [facility] Budesonide/Formoterol Fumarate (Symbicort 160/4.5mcg -) 2 puff IH BID [facility] Carvedilol (Coreg -) 3.125 mg PO BID [facility] Last Admin: 04/11/19 22:55 Dose: 3.125 mg Clopidogrel Bisulfate (Plavix -) 75 mg PO DAILY [facility] Collagenase (Santyl -) 1 applic TP DAILY [facility]; Protocol Last Admin: 04/11/19 18:42 Dose: 1 applic Ezetimibe (Zetia -) 10 mg PO DAILY [facility] Sodium Chloride (Normal Saline -) 1,000 mls @ 75 mls/hr IV ASDIR [facility] Last Admin: 04/11/19 16:40 Dose: 75 mls/hr Piperacillin Sod/Tazobactam (Sod 2.25 gm/ Dextrose) 50 mls @ 100 mls/hr IVPB Q8H-IV NICOLETTE; Protocol Last Admin: 04/12/19 01:54 Dose: 100 mls/hr Vancomycin HCl (Vancomycin (Pre-Docked)) 1,000 mg in 250 mls @ 166.667 mls/hr IVPB Q24H [facility]; Protocol Insulin Aspart (Novolog Vial Sliding Scale -) 1 vial SQ ACHS [facility]; Protocol Last Admin: 04/11/19 23:05 Dose: Not Given Pantoprazole Sodium (Protonix -) 40 mg PO DAILY [facility] Psyllium Hydrophilic Mucilloid (Metamucil (Sugar-Free) -) 5.85 gm PO TID [facility] Last Admin: 04/11/19 23:05 Dose: Not Given ASSESSMENT/PLAN: 78yo female with DM, CAD s/p 4 stents, COPD, HTN, HLD, and anemia who presents with left foot wound. About 3 weeks ago, she tripped in the shower and fell on her foot. She was diagnosed with L 5th digit fx and multiple trauma blisters. #left foot cellulitis -wound culture pending -blood culture pending -x-ray pending -continue Zosyn , vanc-random vanc level -start linezolid 600mg BID, -ID consult- Dr An #DM -pt on 4 DM meds at home, hold -SSI and d/c home DM meds -BGM, pt had BG of 43 at admission but was asymptomatic #Hypoglycemia -pt on multiple oral hypoglycemics with poor excretion in setting of NANCY -Hold oral hypoglycemics -ISS NANCY -Cr 2.0 on presentation, likely prerenal in setting of infection -Gentle hydration -Hold lasix -UA -renal U/S- urinary retention# -avoid nephrotoxic drugs #Anemia -Could be dilutional -Cont to monitor #Afib -Cont amio -Cont coreg -cont ASA/plavix #CHF Cont coreg Hold lasix #HLD Cont lipitor Cont ezetimibe #COPD Cont nebs DVT prophylaxis-pt anemic SCDs FEN NS 50mL/hr monitor electrolytes, Cr, and BG diabetic diet Visit type Visit type - Emergency Visit Emergency Visit: Yes ED Registration Date: 04/10/19 Care time: The patient presented to the Emergency Department on the above date and was hospitalized for further evaluation of their emergent condition. - New Patient This patient is new to me today: Yes Date on this admission: 04/11/19 - Critical Care Critical Care patient: No - Discharge Referral Referred to [facility] Med P.C.: No ATTENDING PHYSICIAN STATEMENT I saw and evaluated the patient. I reviewed the resident's note and discussed the case with the resident. I agree with the resident's findings and plan as documented. SUBJECTIVE: OBJECTIVE: ASSESSMENT AND PLAN:
[2019-04-11] MEDS ORDERED: ATORVASTATIN CA 20 MG TABLET (FP) PO SCH (22:00)
[2019-04-11] MEDS: CARVEDILOL 3.125 MG TABLET (FP) PO SCH (22:55)
[2019-04-11] MEDS ORDERED: ACETAMINOPHEN 325 MG TABLET (FP) PO ONE (22:57)
[2019-04-11] MEDS ORDERED: ACETAMINOPHEN 325 MG TABLET (FP) ONE (23:09)
[2019-04-12] MEDS ORDERED: PIPERACILLIN/TAZOBACTAM 2.25 GM VIAL IVPB ONE ×3 (01:48→18:26)
[2019-04-12] MEDS ORDERED: DEXTROSE 5%-WATER - 50 ML IVPB ONE ×3 (01:49→18:26)
[2019-04-12] MEDS: PIPERACILLIN/TAZOB 2.25 GM 2.25 GM in DEXTROSE 5%-WATER - 50 ML IVPB SCH ×3 (01:54→18:33)
[2019-04-12] MEDS: PSYLLIUM 5.85 GM PACKET PO SCH ×3 (07:41→21:29)
[2019-04-12] MEDS: INSULIN SLIDING SCALE (NOVOLOG) 1 VIAL SQ SCH ×4 (07:41→21:34)
[2019-04-12 08:27] LABS: BILIRUBIN,TOTAL 0.3 mg/dL (0.2-1); BLOOD UREA NITROGEN 31.9 mg/dL (7-18); CALCIUM 8.7 mg/dL (8.5-10.1); CREATININE 1.6 mg/dL (0.55-1.3); MAGNESIUM 2.9 mg/dL (1.8-2.4); PHOSPHOROUS 2.7 mg/dL (2.5-4.9); POTASSIUM 4.5 mmol/L (3.5-5.1); TOT PROT 6.4 g/dl (6.4-8.2)
[2019-04-12] MEDS: ACETAMINOPHEN 325 MG TABLET (FP) PO PRN ×2 (08:39→19:38)
[2019-04-12 09:16] LABS: HEMATOCRIT 29.9 % (32.4-45.2); HEMOGLOBIN 9.3 GM/dL (10.7-15.3); MCH 27.6 pg (25.7-33.7); MCHC 31.1 g/dl (32.0-36.0); MEAN CELL VOLUME 88.7 fl (80-96); PLATELET COUNT 321 K/MM3 (134-434); RBC 3.38 M/mm3 (3.60-5.2); RDW 35.9 % (11.6-15.6); WHITE BLOOD COUNT 7.3 K/mm3 (4.0-10.0)
[2019-04-12] MEDS ORDERED: PT OWN MED DRAWER 7, Y5N ONE (09:18)
[2019-04-12] MEDS: PANTOPRAZOLE 40 MG TABLET (FP) PO SCH (09:21)
[2019-04-12] MEDS: AMIODARONE HCL 200 MG TABLET (FP) PO SCH (09:21)
[2019-04-12] MEDS: EZETIMIBE 10 MG TABLET (FP) PO SCH (09:21)
[2019-04-12] MEDS: ASPIRIN COATED 81 MG TABLET.EC PO SCH (09:21)
[2019-04-12] MEDS: CARVEDILOL 3.125 MG TABLET (FP) PO SCH ×2 (09:21→21:29)
[2019-04-12] MEDS: CLOPIDOGREL BISULFATE 75 MG TABLET (FP) PO SCH (09:21)
[2019-04-12] MEDS: COLLAGENASE CLOSTRIDIUM HIST. 30 GRAMS TUBE TP SCH (09:22)
[2019-04-12] MEDS: BUDESONIDE/FORMETEROL FUMARATE 160/4.5 mcg INHALER IH SCH ×2 (09:46→21:30)
[2019-04-12] MEDS ORDERED: CARVEDILOL 3.125 MG TABLET (FP) PO SCH (10:00)
--- NOTE | 2019-04-12 10:51 | PN ---
Physical Exam: SUBJECTIVE: Patient seen and examined, still with left leg pain, swelling, overall unchanged, no new fevers, chills. Taking PO well. OBJECTIVE: Vital Signs Period Temp Pulse Resp BP Sys/Wesley Pulse Ox Last 24 Hr 98.3 F-98.5 F 61-66 16-20 141-150/61-80 94-96 Intake & Output 04/09/19 04/10/19 04/11/19 04/12/19 23:59 23:59 23:59 23:59 Intake Total 1800 725 Balance 1800 725 Weight 180 lb 183 lb 11.2 oz GENERAL: lying in bed in no acute distress CVS:S1S2 regular Chest: CTAB, no rales or wheezing Abdomen:soft, obese, NT, pos bowel sounds Extremities: left foot swelling with erythema/swelling/warm/tendernes and overlying ruptured blister with crusting unchanged, pos DP pulses Laboratory Results - last 24 hr 04/11/19 04/11/19 04/11/19 06:34 09:38 11:07 WBC RBC Hgb Hct MCV MCH MCHC RDW Plt Count MPV Absolute Neuts (auto) Neutrophils % Lymphocytes % Monocytes % Eosinophils % Basophils % Nucleated RBC % ESR Sodium 139 Potassium 4.2 Chloride 103 Carbon Dioxide 29 Anion Gap 7 L BUN 40.0 H Creatinine 1.7 H Est GFR (CKD-EPI)AfAm 33.13 Est GFR (CKD-EPI)NonAf 28.59 POC Glucometer 94 Random Glucose 86 Calcium 7.8 L Phosphorus 3.0 Magnesium 2.4 Total Bilirubin 0.3 AST 12 L ALT 19 Alkaline Phosphatase 95 C-Reactive Protein 0.5 H Total Protein 6.1 L Albumin 2.9 L Random Vancomycin 9.0 L 04/11/19 04/11/19 04/11/19 14:45 16:07 23:04 WBC RBC Hgb Hct MCV MCH MCHC RDW Plt Count MPV Absolute Neuts (auto) Neutrophils % Lymphocytes % Monocytes % Eosinophils % Basophils % Nucleated RBC % ESR 38 H Sodium Potassium Chloride Carbon Dioxide Anion Gap BUN Creatinine Est GFR (CKD-EPI)AfAm Est GFR (CKD-EPI)NonAf POC Glucometer 137 147 Random Glucose Calcium Phosphorus Magnesium Total Bilirubin AST ALT Alkaline Phosphatase C-Reactive Protein Total Protein Albumin Random Vancomycin 04/12/19 04/12/19 04/12/19 06:48 06:48 07:33 WBC 7.3 RBC 3.38 L Hgb 9.3 L Hct 29.9 L MCV 88.7 MCH 27.6 MCHC 31.1 L RDW 35.9 H Plt Count 321 MPV 9.0 Absolute Neuts (auto) 5.1 Neutrophils % 70.0 Lymphocytes % 12.0 Monocytes % 12.0 H Eosinophils % 4.0 Basophils % 2.0 Nucleated RBC % 0 ESR Sodium 140 Potassium 4.5 Chloride 107 Carbon Dioxide 28 Anion Gap 4 L BUN 31.9 H Creatinine 1.6 H Est GFR (CKD-EPI)AfAm 35.65 Est GFR (CKD-EPI)NonAf 30.76 POC Glucometer 148 Random Glucose 142 H Calcium 8.7 Phosphorus 2.7 Magnesium 2.9 H Total Bilirubin 0.3 AST 13 L ALT 19 Alkaline Phosphatase 92 C-Reactive Protein Total Protein 6.4 Albumin 3.0 L Random Vancomycin Active Medications Generic Name Dose Route Start Last Admin Trade Name Freq PRN Reason Stop Dose Admin Acetaminophen 650 mg 04/12/19 05:34 04/12/19 08:39 Tylenol - PO 650 mg Q6H PRN Administration FEVER Amiodarone HCl 200 mg 04/12/19 10:00 04/12/19 09:21 Cordarone - PO 200 mg DAILY NICOLETTE Administration Aspirin 81 mg 04/12/19 10:00 04/12/19 09:21 Ecotrin - PO 81 mg DAILY NICOLETTE Administration Atorvastatin Calcium 40 mg 04/12/19 22:00 Lipitor - PO HS NICOLETTE Budesonide/Formoterol Fumarate 2 puff 04/12/19 10:00 04/12/19 09:46 Symbicort 160/4.5mcg - IH 2 puff BID NICOLETTE Administration Carvedilol 3.125 mg 04/11/19 22:00 04/12/19 09:21 Coreg - PO 3.125 mg BID NICOLETTE Administration Clopidogrel Bisulfate 75 mg 04/12/19 10:00 04/12/19 09:21 Plavix - PO 75 mg DAILY NICOLETTE Administration Collagenase 1 applic 04/11/19 17:30 04/12/19 09:22 Santyl - TP 1 applic DAILY NICOLETTE Administration Protocol Ezetimibe 10 mg 04/12/19 10:00 04/12/19 09:21 Zetia - PO 10 mg DAILY NICOLETTE Administration Sodium Chloride 1,000 mls @ 75 mls/hr 04/11/19 16:07 04/11/19 16:40 Normal Saline - IV 75 mls/hr ASDIR NICOLETTE Administration Piperacillin Sod/Tazobactam 50 mls @ 100 mls/hr 04/12/19 02:00 04/12/19 09:22 Sod 2.25 gm/ Dextrose IVPB 100 mls/hr Q8H-IV NICOLETTE Administration Protocol Vancomycin HCl 1,000 mg in 250 mls @ 166.667 mls/hr 04/12/19 13:00 Vancomycin (Pre-Docked) IVPB Q24H NICOLETTE Protocol Insulin Aspart 1 vial 04/11/19 07:00 04/12/19 07:41 Novolog Vial Sliding Scale - SQ Not Given ACHS NICOLETTE Protocol Non-Formulary Med( 1 each 04/12/19 14:00 Fibercon) PO TID NICOLETTE Pantoprazole Sodium 40 mg 04/12/19 10:00 04/12/19 09:21 Protonix - PO 40 mg DAILY NICOLETTE Administration Psyllium Hydrophilic Mucilloid 5.85 gm 04/11/19 14:00 04/12/19 07:41 Metamucil (Sugar-Free) - PO Not Given TID NICOLETTE Microbiology 04/10/19 19:45 Blood - Peripheral Venous Blood Culture - Preliminary NO GROWTH OBTAINED AFTER 24 HOURS, INCUBATION TO CONTINUE FOR 4 DAYS. 04/10/19 19:45 Blood - Peripheral Venous Blood Culture - Preliminary NO GROWTH OBTAINED AFTER 24 HOURS, INCUBATION TO CONTINUE FOR 4 DAYS. 04/11/19 01:41 Toe - Left Second Gram Stain - Final ASSESSMENT/PLAN: 78 yof with PMhx of NIDDM, HTN, HLD, CAD s/p PCI (years ago), ?Diastolic CHF, Anemia requiring frequent blood transfusions, PUD, GI bleed concerns but prior w /u neg for etiology, DVT s/p IVC filter (deemed high bleed risk with AC), CKD stage II, recent fall with left 5th toe fx sent by Dr. Garcia from wound care for concerns for foot infection -left foot cellulitis, suspected abscess +/- osteomyelitis -NANCY on CKD stage II, ?hypovolumia from poor oral intake and continaution of diuretics -Hypoglycemia, suspect from poor oral intake compounded by continuation of oral hypoglycemics -Recent fall 03/26 with left 5th toe fracture -CAD s/p PCI (remote) -NIDDM -HTN -HLD -?Diastolic HF -Anemia requring frequent blood transfusions -GI bleed concerns with prior work up neg for etiology -DVT s/p IV filter Plan: ID/podiatry input noted. ESR/CRP noted. Follow up MRI LLE Vascular surgery input. Zosyn/vancomycin renal dosing, wound cultures. Cr improved, continue IVF. Hold lasix. Trend for now. Renal/bladder US noted. ISS, hold metformin/januvia. Continue coreg. Continue if patient still on ASA/plavix. DVTPPX has IVC filter given high bleed risk Dispo pending clinical improvement. Plan discussed with patient and nursing in detail, all questions answered. Visit type - Emergency Visit Emergency Visit: Yes ED Registration Date: 04/10/19 Care time: The patient presented to the Emergency Department on the above date and was hospitalized for further evaluation of their emergent condition. - New Patient This patient is new to me today: No - Critical Care Critical Care patient: No - Discharge Referral Referred to [facility] Med P.C.: No
[2019-04-12] MEDS ORDERED: INSULIN (NOVOLOG) ASPART 100 UNITS/ML 10ML VIAL ONE ×2 (11:26→21:28)
--- NOTE | 2019-04-12 11:35 | CONS ---
INFECTIOUS DISEASE CONSULTATION DATE OF CONSULTATION: DATE OF DICTATION: 04/12/2019 HISTORY: The patient is a 78-year-old female evaluated for cellulitis of the left foot. She reports falling in the shower at home and sustaining trauma to her left foot on March 26, 2019. She presented to the emergency room where an x-ray revealed a fracture of the left 5th toe. She was evaluated and discharged home. She subsequently developed a blister over the dorsum of the foot, which ruptured. She developed worsening left foot erythema, warmth, pain, and swelling. [facility] and was referred to the emergency room for admission. She denies any associated fever or chills. The patient has had a history of soft tissue infections in the past. She was treated several years ago for an infected cat bite of the left Achilles tendon. At the present time, she complains of moderate left foot pain. Positive history of MRSA infection of a wound dating back to 2012. PAST MEDICAL HISTORY: Positive for amm-ltaasaz-idofhlsga diabetes mellitus, COPD, hypertension, coronary artery disease, congestive heart failure, left lower extremity DVT, chronic kidney disease, mild dementia. PAST SURGICAL HISTORY: Status post coronary artery stents, lumbar laminectomy complicated by epidural abscess, hysterectomy, hernia repair. ALLERGIES: No known allergies. MEDICATIONS: Include Tylenol, amiodarone, aspirin, Lipitor, Coreg, Plavix, Zetia. SOCIAL HISTORY: She lives at home in the community. She is a nonsmoker, nondrinker. SYSTEMS REVIEW: Neurologic: No loss of consciousness, seizure activity, focal weakness. Cardiac: Negative chest pain or palpitations. Respiratory: Negative cough or sputum production. Gastrointestinal: Negative vomiting or diarrhea. Genitourinary: Negative for urinary tract infection. LABORATORY DATA: White count 8.1, hematocrit 27.6, platelet count 342, ESR 38, creatinine 1.7. Urinalysis negative. X-ray of the left foot: No evidence of osteomyelitis. PHYSICAL EXAMINATION: General: She is awake and alert. She is in no acute distress. Obese. Vital Signs: Temperature 98.1, blood pressure 124/60, pulse 65 regular, respirations 18 per minute. HEENT: Sclerae anicteric. Heart: Sounds S1, S2. Lungs: Clear. Abdomen: Obese, soft, nontender. Extremities: Examination of the left foot, there is soft tissue swelling present over the dorsum of the left foot with erythema and shallow-based ulceration. There is no purulent drainage. There is tenderness to palpation and slight fluctuance. No lymphangitic streaking. IMPRESSION: 1. Cellulitis left foot. 2. Rule out soft tissue abscess of the left foot. 3. History of methicillin-resistant Staphylococcus aureus. 4. Diabetes mellitus. 5. Chronic kidney disease. PLAN: Await culture results. MRI. Continue empiric vancomycin and Zosyn. Surgical evaluation. Thank you for the kind referral ANATOLIY BELTRAN M.D. [id number]
--- NOTE | 2019-04-12 12:58 | PN ---
Progress Note (short form) - Note Progress Note: Pt seen while getting an ekg. Daughter karlos present. +cellulitis left foot, not much improvement, wbc=7.3 cellulitis abscess? Awaiting MRI. Continue nicolásyl. Will follow.
[2019-04-12] MEDS: VANCOMYCIN 1 GRAM (PRE-DOCKED) 1,000 MG/250 ML BAG IVPB SCH (13:30)
--- NOTE | 2019-04-12 15:19 | PN ---
Progress Note, Physician History of Present Illness: C/O L FOOT PAIN NO C/O FEVER/CHILLS - Current Medication List Current Medications: Active Medications Acetaminophen (Tylenol -) 650 mg PO Q6H PRN PRN Reason: FEVER Last Admin: 04/12/19 08:39 Dose: 650 mg Amiodarone HCl (Cordarone -) 200 mg PO DAILY [facility] Last Admin: 04/12/19 09:21 Dose: 200 mg Aspirin (Ecotrin -) 81 mg PO DAILY [facility] Last Admin: 04/12/19 09:21 Dose: 81 mg Atorvastatin Calcium (Lipitor -) 40 mg PO HS [facility] Budesonide/Formoterol Fumarate (Symbicort 160/4.5mcg -) 2 puff IH BID [facility] Last Admin: 04/12/19 09:46 Dose: 2 puff Carvedilol (Coreg -) 3.125 mg PO BID [facility] Last Admin: 04/12/19 09:21 Dose: 3.125 mg Clopidogrel Bisulfate (Plavix -) 75 mg PO DAILY [facility] Last Admin: 04/12/19 09:21 Dose: 75 mg Collagenase (Santyl -) 1 applic TP DAILY [facility]; Protocol Last Admin: 04/12/19 09:22 Dose: 1 applic Ezetimibe (Zetia -) 10 mg PO DAILY [facility] Last Admin: 04/12/19 09:21 Dose: 10 mg Sodium Chloride (Normal Saline -) 1,000 mls @ 75 mls/hr IV ASDIR [facility] Last Admin: 04/11/19 16:40 Dose: 75 mls/hr Piperacillin Sod/Tazobactam (Sod 2.25 gm/ Dextrose) 50 mls @ 100 mls/hr IVPB Q8H-IV NICOLETTE; Protocol Last Admin: 04/12/19 09:22 Dose: 100 mls/hr Vancomycin HCl (Vancomycin (Pre-Docked)) 1,000 mg in 250 mls @ 166.667 mls/hr IVPB Q24H [facility]; Protocol Insulin Aspart (Novolog Vial Sliding Scale -) 1 vial SQ ACHS [facility]; Protocol Last Admin: 04/12/19 11:27 Dose: 2 units Non-Formulary Med( (Fibercon)) 1 each PO TID [facility] Pantoprazole Sodium (Protonix -) 40 mg PO DAILY [facility] Last Admin: 04/12/19 09:21 Dose: 40 mg Psyllium Hydrophilic Mucilloid (Metamucil (Sugar-Free) -) 5.85 gm PO TID [facility] Last Admin: 04/12/19 13:04 Dose: Not Given - Objective Vital Signs: Vital Signs Temperature 98.5 F 04/12/19 14:49 Pulse Rate 59 L 04/12/19 14:49 Respiratory Rate 16 04/12/19 08:08 Blood Pressure 124/73 04/12/19 14:49 O2 Sat by Pulse Oximetry (%) 96 04/12/19 08:45 Constitutional: Yes: No Distress Cardiovascular: Yes: Regular Rate and Rhythm, S1, S2 Respiratory: Yes: CTA Bilaterally Gastrointestinal: Yes: Normal Bowel Sounds, Soft Extremities: Yes: Other (+ ERYTHEMA/ SWELLING WITH ULCERATION DORSUM L FOOT) Labs: CBC, BMP 04/12/19 06:48 04/12/19 06:48 INR, PTT INR 0.96 (0.83-1.09) 04/10/19 19:58 Assessment/Plan CELLULITIS R/O SOFT TISSUE ABSCESS L FOOT AWAIT C/S, MRI CONTINUE ZOSYN/VANCOMYCIN
[2019-04-12] MEDS: SODIUM CHLORIDE 1,000 ML IV SCH (16:00)
[2019-04-12] MEDS: ATORVASTATIN CA 40 MG TABLET (FP) PO SCH (21:29)
[2019-04-12] MEDS: FIBERCON PO SCH (21:29)
--- NOTE | 2019-04-12 23:58 | EKG ---
Test Reason : Blood Pressure : / mmHG Vent. Rate : 058 BPM Atrial Rate : 058 BPM P-R Int : 250 ms QRS Dur : 092 ms QT Int : 444 ms P-R-T Axes : 041 -31 025 degrees QTc Int : 435 ms SINUS BRADYCARDIA WITH 1ST DEGREE A-V BLOCK LEFT AXIS DEVIATION LOW VOLTAGE QRS ABNORMAL ECG WHEN COMPARED WITH ECG OF 11-NOV-2017 09:28, QT HAS SHORTENED Confirmed by TAMIE POLK, VIC ([id number]) on 04/12/2019 11:58:08 PM Referred By: Miller KNOX Confirmed By:VIC WILLETT MD
[2019-04-13] MEDS ORDERED: PIPERACILLIN/TAZOBACTAM 2.25 GM VIAL IVPB ONE ×3 (01:41→16:58)
[2019-04-13] MEDS ORDERED: DEXTROSE 5%-WATER - 50 ML IVPB ONE ×3 (01:42→16:58)
[2019-04-13] MEDS: PIPERACILLIN/TAZOB 2.25 GM 2.25 GM in DEXTROSE 5%-WATER - 50 ML IVPB SCH ×3 (01:52→17:00)
[2019-04-13] MEDS: ACETAMINOPHEN 325 MG TABLET (FP) PO PRN (01:59)
[2019-04-13] MEDS: PSYLLIUM 5.85 GM PACKET PO SCH ×3 (05:44→22:02)
[2019-04-13] MEDS: FIBERCON PO SCH ×3 (05:47→22:03)
[2019-04-13] MEDS: INSULIN SLIDING SCALE (NOVOLOG) 1 VIAL SQ SCH ×4 (06:16→22:04)
[2019-04-13 08:37] LABS: BLOOD UREA NITROGEN 26.4 mg/dL (7-18); CALCIUM 8.3 mg/dL (8.5-10.1); CREATININE 1.4 mg/dL (0.55-1.3); MAGNESIUM 2.6 mg/dL (1.8-2.4); PHOSPHOROUS 2.9 mg/dL (2.5-4.9); POTASSIUM 4.6 mmol/L (3.5-5.1)
[2019-04-13 09:22] LABS: BASO % 1.5 % (0-2.0); EOS % 4.6 % (0-4.5); HEMATOCRIT 29.8 % (32.4-45.2); HEMOGLOBIN 9.3 GM/dL (10.7-15.3); LYMPH % 14.4 % (8-40); MCH 27.9 pg (25.7-33.7); MCHC 31.3 g/dl (32.0-36.0); MEAN CELL VOLUME 89.4 fl (80-96); MEAN PLT VOLUME 8.9 fl (7.5-11.1); MONO % 10.9 % (3.8-10.2); NEUT % 68.6 % (42.8-82.8); PLATELET COUNT 278 K/MM3 (134-434); RBC 3.34 M/mm3 (3.60-5.2); RDW 35.6 % (11.6-15.6)
[2019-04-13] MEDS: CARVEDILOL 3.125 MG TABLET (FP) PO SCH ×2 (09:28→22:02)
[2019-04-13] MEDS: CLOPIDOGREL BISULFATE 75 MG TABLET (FP) PO SCH (09:28)
[2019-04-13] MEDS: AMIODARONE HCL 200 MG TABLET (FP) PO SCH (09:28)
[2019-04-13] MEDS: PANTOPRAZOLE 40 MG TABLET (FP) PO SCH (09:28)
[2019-04-13] MEDS: ASPIRIN COATED 81 MG TABLET.EC PO SCH (09:28)
[2019-04-13] MEDS: BUDESONIDE/FORMETEROL FUMARATE 160/4.5 mcg INHALER IH SCH ×2 (09:31→22:06)
[2019-04-13] MEDS: EZETIMIBE 10 MG TABLET (FP) PO SCH (09:31)
[2019-04-13] MEDS: COLLAGENASE CLOSTRIDIUM HIST. 30 GRAMS TUBE TP SCH (09:31)
--- NOTE | 2019-04-13 10:48 | PN ---
Physical Exam: SUBJECTIVE: Patient seen and examined, left foot findings unchanged, tolerating diet, no new fevers or complaints. OBJECTIVE: Vital Signs Period Temp Pulse Resp BP Sys/Wesley Pulse Ox Last 24 Hr 98.4 F-98.6 F 59-63 20-20 124-163/63-76 96 GENERAL: lying in bed in no acute distress CVS:S1S2 regular Chest: CTAB, no rales or wheezing Abdomen:soft, obese, NT, pos bowel sounds Extremities: left foot swelling with erythema/swelling/warm/tendernes with some improvement and overlying ruptured blister with crusting unchanged, pos DP pulses Psych: pleasant, co-operative Laboratory Results - last 24 hr 04/12/19 04/12/19 04/12/19 11:24 16:11 21:32 WBC RBC Hgb Hct MCV MCH MCHC RDW Plt Count MPV Absolute Neuts (auto) Neutrophils % Lymphocytes % Monocytes % Eosinophils % Basophils % Nucleated RBC % Sodium Potassium Chloride Carbon Dioxide Anion Gap BUN Creatinine Est GFR (CKD-EPI)AfAm Est GFR (CKD-EPI)NonAf POC Glucometer 185 203 173 Random Glucose Calcium Phosphorus Magnesium 04/13/19 04/13/19 04/13/19 05:46 07:30 07:30 WBC 7.0 RBC 3.34 L Hgb 9.3 L Hct 29.8 L MCV 89.4 MCH 27.9 MCHC 31.3 L RDW 35.6 H Plt Count 278 MPV 8.9 Absolute Neuts (auto) 4.8 Neutrophils % 68.6 Lymphocytes % 14.4 Monocytes % 10.9 H Eosinophils % 4.6 H Basophils % 1.5 Nucleated RBC % 0 Sodium 140 Potassium 4.6 Chloride 109 H Carbon Dioxide 26 Anion Gap 5 L BUN 26.4 H Creatinine 1.4 H Est GFR (CKD-EPI)AfAm 41.90 Est GFR (CKD-EPI)NonAf 36.15 POC Glucometer 145 Random Glucose 134 H Calcium 8.3 L Phosphorus 2.9 Magnesium 2.6 H Active Medications Generic Name Dose Route Start Last Admin Trade Name Freq PRN Reason Stop Dose Admin Acetaminophen 650 mg 04/12/19 05:34 04/13/19 01:59 Tylenol - PO 650 mg Q6H PRN Administration FEVER Amiodarone HCl 200 mg 04/12/19 10:00 04/13/19 09:28 Cordarone - PO 200 mg DAILY NICOLETTE Administration Aspirin 81 mg 04/12/19 10:00 04/13/19 09:28 Ecotrin - PO 81 mg DAILY NICOLETTE Administration Atorvastatin Calcium 40 mg 04/12/19 22:00 04/12/19 21:29 Lipitor - PO 40 mg HS NICOLETTE Administration Budesonide/Formoterol Fumarate 2 puff 04/12/19 10:00 04/13/19 09:31 Symbicort 160/4.5mcg - IH 2 puff BID NICOLETTE Administration Carvedilol 3.125 mg 04/11/19 22:00 04/13/19 09:28 Coreg - PO 3.125 mg BID NICOLETTE Administration Clopidogrel Bisulfate 75 mg 04/12/19 10:00 04/13/19 09:28 Plavix - PO 75 mg DAILY NICOLETTE Administration Collagenase 1 applic 04/11/19 17:30 04/13/19 09:31 Santyl - TP 1 applic DAILY NICOLETTE Administration Protocol Ezetimibe 10 mg 04/12/19 10:00 04/13/19 09:31 Zetia - PO 10 mg DAILY NICOLETTE Administration Sodium Chloride 1,000 mls @ 75 mls/hr 04/11/19 16:07 04/12/19 16:00 Normal Saline - IV Not Given ASDIR NICOLETTE Piperacillin Sod/Tazobactam 50 mls @ 100 mls/hr 04/12/19 02:00 04/13/19 09:29 Sod 2.25 gm/ Dextrose IVPB 100 mls/hr Q8H-IV NICOLETTE Administration Protocol Vancomycin HCl 1,000 mg in 250 mls @ 166.667 mls/hr 04/12/19 13:00 04/12/19 13:30 Vancomycin (Pre-Docked) IVPB 166.667 mls/hr Q24H NICOLETTE Administration Protocol Insulin Aspart 1 vial 04/11/19 07:00 04/13/19 06:16 Novolog Vial Sliding Scale - SQ Not Given ACHS NICOLETTE Protocol Non-Formulary Med( 1 each 04/12/19 22:00 04/13/19 05:47 Fibercon) PO 1 each TID NICOLETTE Administration Pantoprazole Sodium 40 mg 04/12/19 10:00 04/13/19 09:28 Protonix - PO 40 mg DAILY NICOLETTE Administration Psyllium Hydrophilic Mucilloid 5.85 gm 04/11/19 14:00 04/13/19 05:44 Metamucil (Sugar-Free) - PO Not Given TID NICOLETTE MRI LLE results reviewed ASSESSMENT/PLAN: 78 yof with PMhx of NIDDM, HTN, HLD, CAD s/p PCI (years ago), ?Diastolic CHF, Anemia requiring frequent blood transfusions, PUD, GI bleed concerns but prior w /u neg for etiology, DVT s/p IVC filter (deemed high bleed risk with AC), CKD stage II, recent fall with left 5th toe fx sent by Dr. Garcia from wound care for concerns for foot infection -left foot cellulitis, hematoma with suspect abscess -Recent fall 03/26 with left 5th toe fracture -NANCY on CKD stage II, ?hypovolumia from poor oral intake and continaution of diuretics -Hypoglycemia, suspect from poor oral intake compounded by continuation of oral hypoglycemics -CAD s/p PCI (remote) -NIDDM -HTN -HLD -?Diastolic HF -Anemia requring frequent blood transfusions -GI bleed concerns with prior work up neg for etiology -DVT s/p IV filter Plan: ESR/CRP noted. MRi noted, Follow up vascular surgery/podiatry input. Anticipate needs I&D +/- vascular intervention. ID input noted. Zosyn/vancomycin renal dosing, wound cultures. Cr improved, continue IVF. Hold lasix. Trend for now. Renal/bladder US noted. ISS, hold metformin/januvia. Continue ASA/plavix/coreg. DVTPPX has IVC filter given high bleed risk, heparin BID. Dispo pending clinical improvement. Plan discussed with patient and nursing in detail, all questions answered. Visit type - Emergency Visit Emergency Visit: Yes ED Registration Date: 04/10/19 Care time: The patient presented to the Emergency Department on the above date and was hospitalized for further evaluation of their emergent condition. - New Patient This patient is new to me today: No - Critical Care Critical Care patient: No - Discharge Referral Referred to [facility] Med P.C.: No
[2019-04-13] MEDS ORDERED: INSULIN (NOVOLOG) ASPART 100 UNITS/ML 10ML VIAL ONE ×2 (11:44→21:59)
[2019-04-13] MEDS: VANCOMYCIN 1 GRAM (PRE-DOCKED) 1,000 MG/250 ML BAG IVPB SCH (12:46)
--- NOTE | 2019-04-13 13:41 | CONSULT ---
Consult Consult Specialty:: Vascular Surgery - History of Present Illness Chief Complaint: Left foot collection with cellulitis - History Source Limitations to Obtaining History: No Limitations 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 History of Recent Travel: No Home Medications - Allergies Allergies/Adverse Reactions: Allergies Allergy/AdvReac Type Severity Reaction Status Date / Time No Known Allergies Allergy Verified 04/10/19 15:57 - Home Medications Home Medications: Ambulatory Orders Carvedilol [Coreg -] 3.125 mg PO BID #0 tablet 06/23/13 Pantoprazole Sodium [Protonix -] 40 mg PO DAILY #0 tablet.ec 06/23/13 Sitagliptin Phosphate [Januvia -] 100 mg PO DAILY@0700 #0 ud 06/23/13 Ezetimibe [Zetia] 10 mg PO DAILY 01/10/17 Amiodarone HCl [Cordarone -] 200 mg PO DAILY 08/13/17 Atorvastatin Ca [Lipitor] 40 mg PO DAILY 08/13/17 Dapagliflozin Propanediol [Farxiga] 5 mg PO DAILY 08/13/17 Aspirin [Lo-Dose Aspirin EC] 81 mg PO DAILY #20 tab 08/20/17 Glipizide 5 mg PO BID 11/10/17 Clopidogrel Bisulfate [Plavix -] 75 mg PO DAILY 04/10/19 Furosemide [Lasix -] 40 mg PO BID 04/10/19 metFORMIN HCL [Glucophage -] 500 mg PO BID 04/10/19 Albuterol Sulfate Inhaler - [Ventolin Hfa Inhaler -] 1 - 2 inh PO QID PRN Budesonide/Formeterol Fumarate [SYMBICORT 160/4.5mcg -] 2 puff IH BID 04/11/19 Fluticasone Prop 0.05% Nasal [Flonase -] 1 - 2 spray NS DAILY 04/11/19 Family Disease History - Family Disease History Family Disease History: Heart Disease: Mother, Son (patient unsure of exact condition) Review of Systems - Review of Systems Constitutional: reports: No Symptoms Eyes: reports: No Symptoms HENT: reports: No Symptoms Neck: reports: No Symptoms Cardiovascular: reports: No Symptoms Respiratory: reports: No Symptoms Gastrointestinal: reports: No Symptoms Genitourinary: reports: No Symptoms Musculoskeletal: reports: No Symptoms Integumentary: reports: No Symptoms Neurological: reports: No Symptoms Endocrine: reports: No Symptoms Hematology/Lymphatic: reports: No Symptoms Psychiatric: reports: No Symptoms Physical Exam Vital Signs: Vital Signs Temperature 98.6 F 04/13/19 06:41 Pulse Rate 61 04/13/19 06:41 Respiratory Rate 20 04/13/19 06:41 Blood Pressure 149/63 04/13/19 06:41 O2 Sat by Pulse Oximetry (%) 96 04/12/19 21:00 Constitutional: Yes: Well Nourished, No Distress, Calm Eyes: Yes: WNL, Conjunctiva Clear, EOM Intact HENT: Yes: WNL, Atraumatic, Normocephalic Neck: Yes: WNL, Supple, Trachea Midline Cardiovascular: Yes: WNL, Regular Rate and Rhythm Respiratory: Yes: WNL, Regular, CTA Bilaterally Gastrointestinal: Yes: WNL, Normal Bowel Sounds ...Rectal Exam: Yes: WNL Renal/: Yes: WNL Breast(s): Yes: WNL Musculoskeletal: Yes: WNL Extremities: Yes: WNL Edema: Yes Peripheral Pulses WNL: Yes Integumentary: Yes: WNL Neurological: Yes: WNL, Alert, Oriented ...Motor Strength: WNL Psychiatric: Yes: WNL Labs: CBC, BMP 04/13/19 07:30 04/13/19 07:30 Problem List - Problems (1) Foot infection Assessment/Plan: Pt seen and examined. Left foot dorsal collection on MRI. No osteo. Spoke to pt and family at bedside. Pt has palpable DP pulse. Cleared from a vascular standpoint for Podiatry I&D of collection. Pt is S/P fall in shower. Will need Cx from OR to treat post op. Teo june DO Code(s): L08.9 - LOCAL INFECTION OF THE SKIN AND SUBCUTANEOUS TISSUE, UNSP
--- NOTE | 2019-04-13 14:56 | PN ---
Progress Note, Physician Chief Complaint: fuv left foot - Current Medication List Current Medications: Active Medications Acetaminophen (Tylenol -) 650 mg PO Q6H PRN PRN Reason: FEVER Last Admin: 04/13/19 01:59 Dose: 650 mg Amiodarone HCl (Cordarone -) 200 mg PO DAILY [facility] Last Admin: 04/13/19 09:28 Dose: 200 mg Aspirin (Ecotrin -) 81 mg PO DAILY [facility] Last Admin: 04/13/19 09:28 Dose: 81 mg Atorvastatin Calcium (Lipitor -) 40 mg PO HS [facility] Last Admin: 04/12/19 21:29 Dose: 40 mg Budesonide/Formoterol Fumarate (Symbicort 160/4.5mcg -) 2 puff IH BID [facility] Last Admin: 04/13/19 09:31 Dose: 2 puff Carvedilol (Coreg -) 3.125 mg PO BID [facility] Last Admin: 04/13/19 09:28 Dose: 3.125 mg Clopidogrel Bisulfate (Plavix -) 75 mg PO DAILY [facility] Last Admin: 04/13/19 09:28 Dose: 75 mg Collagenase (Santyl -) 1 applic TP DAILY [facility]; Protocol Last Admin: 04/13/19 09:31 Dose: 1 applic Ezetimibe (Zetia -) 10 mg PO DAILY [facility] Last Admin: 04/13/19 09:31 Dose: 10 mg Heparin Sodium (Porcine) (Heparin -) 5,000 unit SQ BID [facility] Sodium Chloride (Normal Saline -) 1,000 mls @ 75 mls/hr IV ASDIR [facility] Last Admin: 04/12/19 16:00 Dose: Not Given Piperacillin Sod/Tazobactam (Sod 2.25 gm/ Dextrose) 50 mls @ 100 mls/hr IVPB Q8H-IV [facility]; Protocol Last Admin: 04/13/19 09:29 Dose: 100 mls/hr Vancomycin HCl (Vancomycin (Pre-Docked)) 1,000 mg in 250 mls @ 166.667 mls/hr IVPB Q24H [facility]; Protocol Last Admin: 04/13/19 12:46 Dose: 166.667 mls/hr Insulin Aspart (Novolog Vial Sliding Scale -) 1 vial SQ ACHS [facility]; Protocol Last Admin: 04/13/19 11:47 Dose: 2 units Non-Formulary Med( (Fibercon)) 1 each PO TID [facility] Last Admin: 04/13/19 14:29 Dose: Not Given Pantoprazole Sodium (Protonix -) 40 mg PO DAILY [facility] Last Admin: 04/13/19 09:28 Dose: 40 mg Psyllium Hydrophilic Mucilloid (Metamucil (Sugar-Free) -) 5.85 gm PO TID [facility] Last Admin: 04/13/19 14:29 Dose: Not Given - Objective Vital Signs: Vital Signs Temperature 97.3 F L 04/13/19 14:23 Pulse Rate 59 L 04/13/19 14:23 Respiratory Rate 04/13/19 06:41 Blood Pressure 152/73 04/13/19 14:23 O2 Sat by Pulse Oximetry (%) 96 04/12/19 21:00 Extremities: Yes: Other (+hematoma collection dorsum of left foot with infection on mri, no om, +cellulitis,) Labs: CBC, BMP 04/13/19 07:30 04/13/19 07:30 INR, PTT INR 0.96 (0.83-1.09) 04/10/19 19:58 Assessment/Plan cellulitis abscess? hematoma IVABX as per ID. Santyl to left foot wound. Vascular consult read and appreciated. Cleared for OR. NPO tonight. Trying to get on schedule for tomorrow. Will follow. Patiet understands proposed tx plan. Verbally consented to incision and drainage fully understands all risks benefits and alternatives. Discussed with OR glue specialty supervisor and medicine.
[2019-04-13] MEDS ORDERED: MELATONIN 5 MG TABLETS PO PRN (15:02)
[2019-04-13] MEDS: SODIUM CHLORIDE 1,000 ML IV SCH ×2 (17:03→22:03)
[2019-04-13] MEDS ORDERED: PT OWN MED DRAWER 7, Y5N ONE (21:46)
[2019-04-13] MEDS ORDERED: HEPARIN NA (PORCINE) 5,000 UNITS/ML 1ML VIAL SQ SCH (22:00)
[2019-04-13] MEDS: ATORVASTATIN CA 40 MG TABLET (FP) PO SCH (22:02)
[2019-04-14] MEDS ORDERED: PIPERACILLIN/TAZOBACTAM 2.25 GM VIAL IVPB ONE ×3 (01:30→17:31)
[2019-04-14] MEDS ORDERED: DEXTROSE 5%-WATER - 50 ML IVPB ONE ×3 (01:30→17:31)
[2019-04-14] MEDS: PIPERACILLIN/TAZOB 2.25 GM 2.25 GM in DEXTROSE 5%-WATER - 50 ML IVPB SCH ×3 (01:35→17:42)
[2019-04-14] MEDS: ACETAMINOPHEN 325 MG TABLET (FP) PO PRN (04:41)
[2019-04-14] MEDS: FIBERCON PO SCH ×2 (07:02→14:27)
[2019-04-14] MEDS: INSULIN SLIDING SCALE (NOVOLOG) 1 VIAL SQ SCH ×4 (07:02→21:11)
[2019-04-14] MEDS: PSYLLIUM 5.85 GM PACKET PO SCH ×3 (07:03→21:05)
--- NOTE | 2019-04-14 07:27 | PN ---
Physical Exam: SUBJECTIVE: Patient seen and examined. C/O of wheeze when ambulating. Pt says she has no COPD hx. For OR today. Seen standing, talking in the bathroom, off oxygen, not SOB, no chest pain. OBJECTIVE: Vital Signs Period Temp Pulse Resp BP Sys/Wesley Pulse Ox Last 24 Hr 97.3 F-98.4 F 59-64 20-20 152-165/73-84 96 Vital Signs Temp 98.2 F 04/14/19 14:30 Pulse 54 L 04/14/19 14:30 Resp 18 04/14/19 14:30 BP 162/54 L 04/14/19 14:30 Pulse Ox 94 L 04/14/19 14:30 Intake & Output 04/13/19 04/14/19 04/14/19 23:59 11:59 23:59 Intake Total 430 1250 100 Output Total 20 Balance 430 1230 100 Intake: IV 1150 100 Normal Saline - 1,000 ml 900 @ 75 mls/hr IV ASDIR [facility] Rx#:[id number] IVPB 100 Oral 430 Output: Estimated Blood Loss 20 Other: Voiding Method Toilet Toilet # Unmeasured Voids Void 3 Bowel Movement Yes Yes # Bowel Movements 1 GENERAL: The patient is awake, alert, and fully oriented, in no acute distress. NECK: supple. LUNGS: Breath sounds equal, clear to auscultation bilaterally, no wheezes, no crackles, no accessory muscle use. HEART: Regular rate and rhythm, S1, S2 ABDOMEN: Soft, nontender, nondistended, normoactive bowel sounds EXTREMITIES:LLE in surgical dressing and socks, pt bearing weight on both feet NEUROLOGICAL: Cranial nerves II through XII grossly intact. No lateralizing signs. Normal speech CBC, BMP 04/14/19 06:45 04/14/19 06:45 Laboratory Results - last 24 hr 04/13/19 04/13/19 04/13/19 07:30 07:30 11:40 WBC 7.0 RBC 3.34 L Hgb 9.3 L Hct 29.8 L MCV 89.4 MCH 27.9 MCHC 31.3 L RDW 35.6 H Plt Count 278 MPV 8.9 Absolute Neuts (auto) 4.8 Neutrophils % 68.6 Lymphocytes % 14.4 Monocytes % 10.9 H Eosinophils % 4.6 H Basophils % 1.5 Nucleated RBC % 0 Sodium 140 Potassium 4.6 Chloride 109 H Carbon Dioxide 26 Anion Gap 5 L BUN 26.4 H Creatinine 1.4 H Est GFR (CKD-EPI)AfAm 41.90 Est GFR (CKD-EPI)NonAf 36.15 POC Glucometer 160 Random Glucose 134 H Calcium 8.3 L Phosphorus 2.9 Magnesium 2.6 H 04/13/19 04/13/19 04/14/19 16:43 22:01 06:18 WBC RBC Hgb Hct MCV MCH MCHC RDW Plt Count MPV Absolute Neuts (auto) Neutrophils % Lymphocytes % Monocytes % Eosinophils % Basophils % Nucleated RBC % Sodium Potassium Chloride Carbon Dioxide Anion Gap BUN Creatinine Est GFR (CKD-EPI)AfAm Est GFR (CKD-EPI)NonAf POC Glucometer 193 179 143 Random Glucose Calcium Phosphorus Magnesium Active Medications Generic Name Dose Route Start Last Admin Trade Name Freq PRN Reason Stop Dose Admin Acetaminophen 650 mg 04/12/19 05:34 04/14/19 04:41 Tylenol - PO 650 mg Q6H PRN Administration FEVER Amiodarone HCl 200 mg 04/12/19 10:00 04/13/19 09:28 Cordarone - PO 200 mg DAILY [facility] Administration Aspirin 81 mg 04/12/19 10:00 04/13/19 09:28 Ecotrin - PO 81 mg DAILY [facility] Administration Atorvastatin Calcium 40 mg 04/12/19 22:00 04/13/19 22:02 Lipitor - PO 40 mg HS [facility] Administration Budesonide/Formoterol Fumarate 2 puff 04/12/19 10:00 04/13/19 22:06 Symbicort 160/4.5mcg - IH 2 puff BID [facility] Administration Carvedilol 3.125 mg 04/11/19 22:00 04/13/19 22:02 Coreg - PO 3.125 mg BID [facility] Administration Clopidogrel Bisulfate 75 mg 04/12/19 10:00 04/13/19 09:28 Plavix - PO 75 mg DAILY [facility] Administration Collagenase 1 applic 04/11/19 17:30 04/13/19 09:31 Santyl - TP 1 applic DAILY [facility] Administration Protocol Ezetimibe 10 mg 04/12/19 10:00 04/13/19 09:31 Zetia - PO 10 mg DAILY [facility] Administration Heparin Sodium (Porcine) 5,000 unit 04/13/19 22:00 Heparin - SQ BID [facility] Sodium Chloride 1,000 mls @ 75 mls/hr 04/11/19 16:07 04/13/19 22:03 Normal Saline - IV Not Given ASDIR [facility] Piperacillin Sod/Tazobactam 50 mls @ 100 mls/hr 04/12/19 02:00 04/14/19 01:35 Sod 2.25 gm/ Dextrose IVPB 100 mls/hr Q8H-IV [facility] Administration Protocol Vancomycin HCl 1,000 mg in 250 mls @ 166.667 mls/hr 04/12/19 13:00 04/13/19 12:46 Vancomycin (Pre-Docked) IVPB 166.667 mls/hr Q24H [facility] Administration Protocol Insulin Aspart 1 vial 04/11/19 07:00 04/14/19 07:02 Novolog Vial Sliding Scale - SQ Not Given ACHS [facility] Protocol Melatonin 5 mg 04/13/19 15:02 04/13/19 22:02 Melatonin PO 5 mg HS PRN Administration INSOMNIA Non-Formulary Med( 1 each 04/12/19 22:00 04/14/19 07:02 Fibercon) PO Not Given TID [facility] Pantoprazole Sodium 40 mg 04/12/19 10:00 04/13/19 09:28 Protonix - PO 40 mg DAILY [facility] Administration Psyllium Hydrophilic Mucilloid 5.85 gm 04/11/19 14:00 04/14/19 07:03 Metamucil (Sugar-Free) - PO Not Given TID [facility] Current Medications Acetaminophen (Tylenol -) 650 mg PO Q6H PRN PRN Reason: FEVER Amiodarone HCl (Cordarone -) 200 mg PO DAILY [facility] Atorvastatin Calcium (Lipitor -) 40 mg PO HS [facility] Budesonide/Formoterol Fumarate (Symbicort 160/4.5mcg -) 2 puff IH BID [facility] Carvedilol (Coreg -) 3.125 mg PO BID [facility] Ezetimibe (Zetia -) 10 mg PO DAILY [facility] Fentanyl (Sublimaze Injection -) 25 mcg IVPUSH Q5M PRN PRN Reason: PAIN-PACU ORDER X 4 DOSES ONLY Piperacillin Sod/Tazobactam (Sod 2.25 gm/ Dextrose) 50 mls @ 100 mls/hr IVPB Q8H-IV [facility]; Protocol Sodium Chloride (Normal Saline -) 1,000 mls @ 75 mls/hr IV ASDIR [facility] Last Admin: 04/14/19 15:10 Dose: Not Given Vancomycin HCl (Vancomycin (Pre-Docked)) 1,000 mg in 250 mls @ 166.667 mls/hr IVPB Q24H [facility]; Protocol Insulin Aspart (Novolog Vial Sliding Scale -) 1 vial SQ ACHS [facility]; Protocol Melatonin (Melatonin) 5 mg PO HS PRN PRN Reason: INSOMNIA Non-Formulary Medication (Non-Formulary Med) 1 each PO TID [facility] Ondansetron HCl (Zofran Injection) 4 mg IVPUSH Q6H PRN PRN Reason: NAUSEA AND/OR VOMITING Pantoprazole Sodium (Protonix -) 40 mg PO DAILY [facility] Psyllium Hydrophilic Mucilloid (Metamucil (Sugar-Free) -) 5.85 gm PO TID [facility] Ambulatory Orders Carvedilol [Coreg -] 3.125 mg PO BID #0 tablet 06/23/13 Pantoprazole Sodium [Protonix -] 40 mg PO DAILY #0 tablet.ec 06/23/13 Sitagliptin Phosphate [Januvia -] 100 mg PO DAILY@0700 #0 ud 06/23/13 Ezetimibe [Zetia] 10 mg PO DAILY 01/10/17 Amiodarone HCl [Cordarone -] 200 mg PO DAILY 08/13/17 Atorvastatin Ca [Lipitor] 40 mg PO DAILY 08/13/17 Dapagliflozin Propanediol [Farxiga] 5 mg PO DAILY 08/13/17 Aspirin [Lo-Dose Aspirin EC] 81 mg PO DAILY #20 tab 08/20/17 Glipizide 5 mg PO BID 11/10/17 Clopidogrel Bisulfate [Plavix -] 75 mg PO DAILY 04/10/19 Furosemide [Lasix -] 40 mg PO BID 04/10/19 metFORMIN HCL [Glucophage -] 500 mg PO BID 04/10/19 Albuterol Sulfate Inhaler - [Ventolin Hfa Inhaler -] 1 - 2 inh PO QID PRN Budesonide/Formeterol Fumarate [SYMBICORT 160/4.5mcg -] 2 puff IH BID 04/11/19 Fluticasone Prop 0.05% Nasal [Flonase -] 1 - 2 spray NS DAILY 04/11/19 Microbiology 04/14/19 11:45 Foot - Left Dorsum Gram Stain - Final 04/11/19 01:41 Toe - Left Second Gram Stain - Final 04/11/19 01:41 Toe - Left Second Wound Culture - Final Enterococcus Faecalis Staphylococcus Coagulase Neg Diphtheroid/Corynebacterium Stenotrophomon.(X.)Maltophilia 04/10/19 19:45 Blood - Peripheral Venous Blood Culture - Preliminary NO GROWTH OBTAINED AFTER 72 HOURS, INCUBATION TO CONTINUE FOR 2 DAYS. 04/10/19 19:45 Blood - Peripheral Venous Blood Culture - Preliminary NO GROWTH OBTAINED AFTER 72 HOURS, INCUBATION TO CONTINUE FOR 2 DAYS. LE MRI W/O Left- 04/12/19 MRI of the left foot. Clinical information: Rule out osteomyelitis. Coronal sagittal and axial T1 and T2-weighted images of the left foot were obtained. There is marked soft tissue swelling of the foot with a large collection in the dorsal aspect.. This collection measures 3.9 cm in width, 1.5 cm in height and the 6.2 cm in AP dimension. It is high in signal on T1 and on T2-weighted images. It is suspicious for large subcutaneous hematoma. This collection also may be infected. There is no abnormal bone marrow signal suggestive of osteomyelitis. There is no disruption of the flexor of the extensor tendons. There are no bony lesions. Impression: Large collection of the dorsal aspect of the mid and forefoot. It probably represents a large subcutaneous hematoma, this collection also may be infected. There is no osteomyelitis. US Pelvic/Bladder 04/11/19 Real time examination of the pelvis demonstrates the following: Evaluation of the urinary bladder demonstrates no intrinsic bladder abnormalities. Bilateral ureteral jets are visualized. A pre-void bladder volume of 351 cc was calculated. A post voiding image demonstrates incomplete emptying of the bladder with a large postvoid residual of 134 cc. The patient is S/P hysterectomy. No pelvic masses or fluid collections are identified. IMPRESSION: Large postvoid residual. ASSESSMENT/PLAN: 78yo female with DM, CAD s/p 4 stents, COPD, HTN, HLD, and anemia who presents with left foot wound. About 3 weeks ago, she tripped in the shower and fell on her foot. She was diagnosed with L 5th digit fx and multiple trauma blisters. #left foot cellulitis with hematoma -Now s/p Incision and drainage with evacuation of hematoma left foot 04/14/19 per podiatry-hematoma clumps, no purulent dc, no pus, no mal odor -wound culture as above -blood culture negative -continue Zosyn , vanc-random vanc level -ID consult- Dr An #DM -pt on 4 DM meds at home, hold -SSI and d/c home DM meds -BGM, pt had BG of 43 at admission but was asymptomatic #Hypoglycemia -pt on multiple oral hypoglycemics with poor excretion in setting of NANCY -Hold oral hypoglycemics -ISS NANCY -Cr 2.0 >>>1.4 -likely prerenal in setting of infection, improved with hydration -Resume lasix -UA- Glucose 3+ -renal U/S- urinary retention -avoid nephrotoxic drugs #Anemia -Could be dilutional -Cont to monitor #Afib -Cont amio -Cont coreg -cont ASA/plavix #CHF Cont coreg Hold lasix #HLD Cont lipitor Cont ezetimibe #COPD Cont nebs DVT prophylaxis-pt anemic SCDs FEN monitor electrolytes, Cr, and BG diabetic diet Visit type Visit type - Emergency Visit Emergency Visit: Yes ED Registration Date: 04/10/19 Care time: The patient presented to the Emergency Department on the above date and was hospitalized for further evaluation of their emergent condition. - New Patient This patient is new to me today: No - Critical Care Critical Care patient: No - Discharge Referral Referred to [facility] Med P.C[facility] No ATTENDING PHYSICIAN STATEMENT I saw and evaluated the patient. I reviewed the resident's note and discussed the case with the resident. I agree with the resident's findings and plan as documented. SUBJECTIVE: OBJECTIVE: ASSESSMENT AND PLAN:
[2019-04-14 07:44] LABS: BLOOD UREA NITROGEN 22.2 mg/dL (7-18); CALCIUM 8.4 mg/dL (8.5-10.1); CREATININE 1.4 mg/dL (0.55-1.3); MAGNESIUM 2.5 mg/dL (1.8-2.4); PHOSPHOROUS 2.6 mg/dL (2.5-4.9); POTASSIUM 4.6 mmol/L (3.5-5.1)
[2019-04-14] MEDS ORDERED: PT OWN MED DRAWER 7, Y5N ONE ×4 (08:35→20:57)
[2019-04-14] MEDS: SODIUM CHLORIDE 1,000 ML IV SCH ×2 (08:58→15:10)
[2019-04-14] MEDS: CLOPIDOGREL BISULFATE 75 MG TABLET (FP) PO SCH (08:59)
[2019-04-14] MEDS: CARVEDILOL 3.125 MG TABLET (FP) PO SCH ×2 (08:59→21:04)
[2019-04-14] MEDS: ASPIRIN COATED 81 MG TABLET.EC PO SCH (08:59)
[2019-04-14] MEDS: AMIODARONE HCL 200 MG TABLET (FP) PO SCH (09:00)
[2019-04-14] MEDS: PANTOPRAZOLE 40 MG TABLET (FP) PO SCH (09:00)
[2019-04-14] MEDS: BUDESONIDE/FORMETEROL FUMARATE 160/4.5 mcg INHALER IH SCH ×2 (09:01→22:00)
[2019-04-14] MEDS: COLLAGENASE CLOSTRIDIUM HIST. 30 GRAMS TUBE TP SCH (09:03)
[2019-04-14] MEDS: EZETIMIBE 10 MG TABLET (FP) PO SCH (09:03)
[2019-04-14 09:37] LABS: BASO % 1.3 % (0-2.0); EOS % 3.3 % (0-4.5); HEMATOCRIT 30.4 % (32.4-45.2); HEMOGLOBIN 9.4 GM/dL (10.7-15.3); LYMPH % 14.2 % (8-40); MCHC 30.9 g/dl (32.0-36.0); MEAN CELL VOLUME 90.7 fl (80-96); MEAN PLT VOLUME 9.1 fl (7.5-11.1); NEUT % 69.2 % (42.8-82.8); PLATELET COUNT 262 K/MM3 (134-434); RBC 3.34 M/mm3 (3.60-5.2); RDW 34.6 % (11.6-15.6); WHITE BLOOD COUNT 7.9 K/mm3 (4.0-10.0)
[2019-04-14] MEDS ORDERED: MIDAZOLAM HCL 2 MG/2 ML SINGLE DOSE VIAL ONE (11:10)
[2019-04-14] MEDS ORDERED: PROPOFOL 20 ML ONE (11:12)
[2019-04-14] MEDS ORDERED: LIDOCAINE HCL/PF 2% SDV 5ML VIAL ONE (11:12)
[2019-04-14] MEDS ORDERED: BUPIVACAINE HCL/PF 0.5% (5MG/ML) 10 ML VIAL IJ ONE (11:21)
[2019-04-14] MEDS ORDERED: BACITRACIN 50,000 UNITS VIAL NR ONE ×2 (11:23)
[2019-04-14] MEDS ORDERED: DEXAMETHASONE SOD PHOSPHATE 4 MG/1 ML VIAL ONE (11:47)
--- NOTE | 2019-04-14 11:56 | PN ---
Teaching Attending Note Name of Resident: Joselyn Lewis ATTENDING PHYSICIAN STATEMENT I saw and evaluated the patient. I reviewed the resident's note and discussed the case with the resident. I agree with the resident's findings and plan as documented with exceptions below. SUBJECTIVE: Patient seen and examined no new complaints. OBJECTIVE: Vital Signs Period Temp Pulse Resp BP Sys/Wesley Pulse Ox Last 24 Hr 97.3 F-98.4 F 59-64 20-20 152-171/59-84 90-96 Intake & Output 04/11/19 04/12/19 04/13/19 04/14/19 23:59 23:59 23:59 23:59 Intake Total 1800 2080 1850 1000 Balance 1800 2079 1850 1000 Weight 183 lb 11.2 oz General: sitting in bed, no acute distress Chest: CTAB, no rales or wheezing Abdomen:soft, obese, NT Extremities: left foot dorsum swelling with crusting/ruptured blister, erythema/ warmth/tenderness overall unchanged, pos DP pulses Home Medications Medication Instructions Recorded Carvedilol [Coreg -] 3.125 mg PO BID #0 tablet 06/23/13 Pantoprazole Sodium [Protonix -] 40 mg PO DAILY #0 tablet.ec 06/23/13 Sitagliptin Phosphate [Januvia -] 100 mg PO DAILY@0700 #0 ud 06/23/13 Ezetimibe [Zetia] 10 mg PO DAILY 01/10/17 Amiodarone HCl [Cordarone -] 200 mg PO DAILY 08/13/17 Atorvastatin Ca [Lipitor] 40 mg PO DAILY 08/13/17 Dapagliflozin Propanediol [Farxiga] 5 mg PO DAILY 08/13/17 Aspirin [Lo-Dose Aspirin EC] 81 mg PO DAILY #20 tab 08/20/17 Glipizide 5 mg PO BID 11/10/17 Clopidogrel Bisulfate [Plavix -] 75 mg PO DAILY 04/10/19 Furosemide [Lasix -] 40 mg PO BID 04/10/19 metFORMIN HCL [Glucophage -] 500 mg PO BID 04/10/19 Albuterol Sulfate Inhaler - 1 - 2 inh PO QID PRN 04/11/19 [Ventolin Hfa Inhaler -] Budesonide/Formeterol Fumarate 2 puff IH BID 04/11/19 [SYMBICORT 160/4.5mcg -] Fluticasone Prop 0.05% Nasal 1 - 2 spray NS DAILY 04/11/19 [Flonase -] Active Medications Acetaminophen (Tylenol -) 650 mg PO Q6H PRN PRN Reason: FEVER Last Admin: 04/14/19 04:41 Dose: 650 mg Amiodarone HCl (Cordarone -) 200 mg PO DAILY [facility] Last Admin: 04/14/19 09:00 Dose: 200 mg Aspirin (Ecotrin -) 81 mg PO DAILY [facility] Last Admin: 04/14/19 08:59 Dose: 81 mg Atorvastatin Calcium (Lipitor -) 40 mg PO HS [facility] Last Admin: 04/13/19 22:02 Dose: 40 mg Budesonide/Formoterol Fumarate (Symbicort 160/4.5mcg -) 2 puff IH BID [facility] Last Admin: 04/14/19 09:01 Dose: 2 puff Carvedilol (Coreg -) 3.125 mg PO BID [facility] Last Admin: 04/14/19 08:59 Dose: 3.125 mg Clopidogrel Bisulfate (Plavix -) 75 mg PO DAILY [facility] Last Admin: 04/14/19 08:59 Dose: 75 mg Collagenase (Santyl -) 1 applic TP DAILY [facility]; Protocol Last Admin: 04/14/19 09:03 Dose: 1 applic Ezetimibe (Zetia -) 10 mg PO DAILY [facility] Last Admin: 04/14/19 09:03 Dose: 10 mg Heparin Sodium (Porcine) (Heparin -) 5,000 unit SQ BID [facility] Sodium Chloride (Normal Saline -) 1,000 mls @ 75 mls/hr IV ASDIR REPLACED [facility] Last Admin: 04/14/19 08:58 Dose: 75 mls/hr Piperacillin Sod/Tazobactam (Sod 2.25 gm/ Dextrose) 50 mls @ 100 mls/hr IVPB Q8H-IV [facility]; Protocol Last Admin: 04/14/19 09:05 Dose: 100 mls/hr Vancomycin HCl (Vancomycin (Pre-Docked)) 1,000 mg in 250 mls @ 166.667 mls/hr IVPB Q24H [facility]; Protocol Last Admin: 04/13/19 12:46 Dose: 166.667 mls/hr Insulin Aspart (Novolog Vial Sliding Scale -) 1 vial SQ ACHS [facility]; Protocol Last Admin: 04/14/19 11:11 Dose: Not Given Melatonin (Melatonin) 5 mg PO HS PRN PRN Reason: INSOMNIA Last Admin: 04/13/19 22:02 Dose: 5 mg Non-Formulary Med( (Fibercon)) 1 each PO TID [facility] Last Admin: 04/14/19 07:02 Dose: Not Given Pantoprazole Sodium (Protonix -) 40 mg PO DAILY [facility] Last Admin: 04/14/19 09:00 Dose: 40 mg Psyllium Hydrophilic Mucilloid (Metamucil (Sugar-Free) -) 5.85 gm PO TID [facility]PL[facility] Last Admin: 04/14/19 07:03 Dose: Not Given Laboratory Results - last 24 hr 04/13/19 04/13/19 04/14/19 16:43 22:01 06:18 WBC RBC Hgb Hct MCV MCH MCHC RDW Plt Count MPV Absolute Neuts (auto) Neutrophils % Lymphocytes % Monocytes % Eosinophils % Basophils % Nucleated RBC % Sodium Potassium Chloride Carbon Dioxide Anion Gap BUN Creatinine Est GFR (CKD-EPI)AfAm Est GFR (CKD-EPI)NonAf POC Glucometer 193 179 143 Random Glucose Calcium Phosphorus Magnesium 04/14/19 04/14/19 06:45 06:45 WBC 7.9 RBC 3.34 L Hgb 9.4 L Hct 30.4 L MCV 90.7 MCH 28.0 MCHC 30.9 L RDW 34.6 H Plt Count 262 MPV 9.1 Absolute Neuts (auto) 5.5 Neutrophils % 69.2 Lymphocytes % 14.2 Monocytes % 12.0 H Eosinophils % 3.3 Basophils % 1.3 Nucleated RBC % 0 Sodium 142 Potassium 4.6 Chloride 109 H Carbon Dioxide 27 Anion Gap 6 L BUN 22.2 H Creatinine 1.4 H Est GFR (CKD-EPI)AfAm 41.90 Est GFR (CKD-EPI)NonAf 36.15 POC Glucometer Random Glucose 144 H Calcium 8.4 L Phosphorus 2.6 Magnesium 2.5 H Microbiology 04/11/19 01:41 Toe - Left Second Gram Stain - Final 04/11/19 01:41 Toe - Left Second Wound Culture - Preliminary Enterococcus Faecalis Staphylococcus Coagulase Neg Diphtheroid/Corynebacterium Stenotrophomon.(X.)Maltophilia 04/10/19 19:45 Blood - Peripheral Venous Blood Culture - Preliminary NO GROWTH OBTAINED AFTER 72 HOURS, INCUBATION TO CONTINUE FOR 2 DAYS. 04/10/19 19:45 Blood - Peripheral Venous Blood Culture - Preliminary NO GROWTH OBTAINED AFTER 72 HOURS, INCUBATION TO CONTINUE FOR 2 DAYS. ASSESSMENT AND PLAN: 78 yof with PMhx of NIDDM, HTN, HLD, CAD s/p PCI (years ago), ?Diastolic CHF, Anemia requiring frequent blood transfusions, PUD, GI bleed concerns but prior w /u neg for etiology, DVT s/p IVC filter (deemed high bleed risk with AC), CKD stage II, recent fall with left 5th toe fx sent by Dr. Garcia from wound care for concerns for foot infection -Left foot cellulitis, hematoma with suspected abscess -Recent fall 03/26 with left 5th toe fracture -NANCY on CKD stage II, ?hypovolumia from poor oral intake and continaution of diuretics -Hypoglycemia, suspect from poor oral intake compounded by continuation of oral hypoglycemics -CAD s/p PCI (remote) -NIDDM -HTN -HLD -?Diastolic HF -Anemia requring frequent blood transfusions -GI bleed concerns with prior work up neg for etiology -DVT s/p IV filter Plan: Vascular/podiatry input noted. MRI LE reviewed Plan for I&D today, will follow up. ID input noted. Zosyn/vancomycin renal dosing, wound cultures polymicrobial. Cr stable, suspect underlying CKD stage II. IVF while NPO. Hold lasix. Renal/ bladder US noted. ISS, hold metformin/januvia/glipizide. Continue ASA/plavix/coreg. DVTPPX has IVC filter given high bleed risk, heparin BID. Dispo pending surgical intervention and clinical course. Plan discussed with patient and nursing in detail, all questions answered.
--- NOTE | 2019-04-14 12:15 | OP ---
Operative Note - Note: Operative Date: 04/14/19 Pre-Operative Diagnosis: Cellulitis with hematoma Operation: Incion and drainage with evacuation of hematom left foot Findings: hematoma clumps, no purulent dc, no pus, no mal odor Post-Operative Diagnosis: Same as Pre-op Surgeon: Christopher Garcia [place] Attendant: Morgan Jeffries Anesthesia: MAC Specimens Removed: hematoma, necrotic tissue Estimated Blood Loss (mls): 20 Instrument used (Debridements only): 15 blade and handle Drains & Tubes with Location: 1/4 inch plain packing Operative Report Dictated: No
[2019-04-14] MEDS ORDERED: ACETAMINOPHEN 325 MG TABLET (FP) PO ONE (14:00)
[2019-04-14] MEDS ORDERED: ACETAMINOPHEN 325 MG TABLET (FP) ONE (14:18)
[2019-04-14] MEDS ORDERED: MELATONIN 5 MG TABLETS PO PRN (15:01)
[2019-04-14] MEDS ORDERED: ONDANSETRON 4 MG/2 ML VIAL IVPUSH PRN (15:12)
--- NOTE | 2019-04-14 15:37 | PN ---
Progress Note, Physician History of Present Illness: S/P DEBRIDEMENT L FOOT OPERATIVE FINDINGS NOTED NO C/O L FOOT PAIN NO C/O FEVER/CHILLS - Current Medication List Current Medications: Active Medications Acetaminophen (Tylenol -) 650 mg PO Q6H PRN PRN Reason: FEVER Amiodarone HCl (Cordarone -) [address] [facility] Atorvastatin Calcium (Lipitor -) [address] [facility] Budesonide/Formoterol Fumarate (Symbicort 160/4.5mcg -) [address] [facility] Carvedilol (Coreg -) 3.[address] [facility] Ezetimibe (Zetia -) [address] [facility] Fentanyl (Sublimaze Injection -) 25 mcg IVPUSH Q5M PRN PRN Reason: PAIN-PACU ORDER X 4 DOSES ONLY Piperacillin Sod/Tazobactam (Sod 2.25 gm/ Dextrose) 50 mls @ 100 mls/hr IVPB Q8H-IV [facility]; Protocol Sodium Chloride (Normal Saline -) 1,000 mls @ 75 mls/hr IV ASDIR [facility] Last Admin: 04/14/19 15:10 Dose: Not Given Vancomycin HCl (Vancomycin (Pre-Docked)) 1,000 mg in 250 mls @ 166.667 mls/hr IVPB Q24H [facility]; Protocol Insulin Aspart (Novolog Vial Sliding Scale -) [address] [facility]; Protocol Melatonin (Melatonin) 5 mg PO HS PRN PRN Reason: INSOMNIA Non-Formulary Medication (Non-Formulary Med) [address] [facility] Ondansetron HCl (Zofran Injection) 4 mg IVPUSH Q6H PRN PRN Reason: NAUSEA AND/OR VOMITING Pantoprazole Sodium (Protonix -) [address] [facility] Psyllium Hydrophilic Mucilloid (Metamucil (Sugar-Free) -) 5.[address] [facility] - Objective Vital Signs: Vital Signs Temperature 98.2 F 04/14/19 14:30 Pulse Rate 54 L 04/14/19 14:30 Respiratory Rate 18 04/14/19 14:30 Blood Pressure 162/54 L 04/14/19 14:30 O2 Sat by Pulse Oximetry (%) 94 L 04/14/19 14:30 Constitutional: Yes: No Distress Eyes: Yes: Conjunctiva Clear Cardiovascular: Yes: Regular Rate and Rhythm, S1, S2 Respiratory: Yes: CTA Bilaterally Gastrointestinal: Yes: Normal Bowel Sounds, Soft. No: Tenderness Extremities: Yes: Other (POST OP DRESSING IN PLACE L FOOT) Labs: CBC, BMP 04/14/19 06:45 04/14/19 06:45 INR, PTT INR 0.96 (0.83-1.09) 04/10/19 19:58 Assessment/Plan CELLULITIS / HEMATOMA L FOOT CONTINUE ZOSYN/VANCOMYCIN
[2019-04-14] MEDS: VANCOMYCIN 1 GRAM (PRE-DOCKED) 1,000 MG/250 ML BAG IVPB SCH (16:54)
[2019-04-14 18:47] LABS: HEMATOCRIT 33.4 % (32.4-45.2); HEMOGLOBIN 10.1 GM/dL (10.7-15.3); LYMPH % 8.3 % (8-40); MCH 28.1 pg (25.7-33.7); MCHC 30.3 g/dl (32.0-36.0); MEAN CELL VOLUME 92.6 fl (80-96); MEAN PLT VOLUME 8.8 fl (7.5-11.1); MONO % 1.8 % (3.8-10.2); NEUT % 88.9 % (42.8-82.8); PLATELET COUNT 273 K/MM3 (134-434); RDW 34.6 % (11.6-15.6); WHITE BLOOD COUNT 7.6 K/mm3 (4.0-10.0)
[2019-04-14] MEDS: ATORVASTATIN CA 40 MG TABLET (FP) PO SCH (21:04)
[2019-04-14] MEDS: NON-FORMULARY MED PO SCH (21:05)
[2019-04-14] MEDS ORDERED: INSULIN (NOVOLOG) ASPART 100 UNITS/ML 10ML VIAL ONE (21:08)
[2019-04-14] MEDS: oxyCODONE HCL 5 MG TABLET PO PRN (21:09)
[2019-04-15] MEDS ORDERED: DEXTROSE 5%-WATER - 50 ML IVPB ONE ×3 (02:43→16:53)
[2019-04-15] MEDS ORDERED: PIPERACILLIN/TAZOBACTAM 2.25 GM VIAL IVPB ONE ×3 (02:43→16:53)
[2019-04-15] MEDS: PIPERACILLIN/TAZOB 2.25 GM 2.25 GM in DEXTROSE 5%-WATER - 50 ML IVPB SCH ×3 (02:47→17:25)
[2019-04-15] MEDS: NON-FORMULARY MED PO SCH ×3 (06:04→21:36)
[2019-04-15] MEDS: PSYLLIUM 5.85 GM PACKET PO SCH ×3 (06:10→21:29)
[2019-04-15] MEDS ORDERED: INSULIN (NOVOLOG) ASPART 100 UNITS/ML 10ML VIAL ONE (06:15)
[2019-04-15] MEDS: INSULIN SLIDING SCALE (NOVOLOG) 1 VIAL SQ SCH ×4 (06:16→21:29)
[2019-04-15] MEDS: SODIUM CHLORIDE 1,000 ML IV SCH (06:16)
[2019-04-15] MEDS: CARVEDILOL 3.125 MG TABLET (FP) PO SCH ×2 (09:17→21:29)
[2019-04-15] MEDS: AMIODARONE HCL 200 MG TABLET (FP) PO SCH (09:17)
[2019-04-15] MEDS: PANTOPRAZOLE 40 MG TABLET (FP) PO SCH (09:17)
[2019-04-15] MEDS: EZETIMIBE 10 MG TABLET (FP) PO SCH (09:19)
[2019-04-15] MEDS: BUDESONIDE/FORMETEROL FUMARATE 160/4.5 mcg INHALER IH SCH ×2 (09:23→21:36)
[2019-04-15 10:45] LABS: BASO % 0.3 % (0-2.0); HEMATOCRIT 30.8 % (32.4-45.2); HEMOGLOBIN 9.4 GM/dL (10.7-15.3); LYMPH % 9.8 % (8-40); MCH 28.5 pg (25.7-33.7); MCHC 30.6 g/dl (32.0-36.0); MEAN CELL VOLUME 93.2 fl (80-96); MEAN PLT VOLUME 8.7 fl (7.5-11.1); MONO % 8.2 % (3.8-10.2); NEUT % 81.7 % (42.8-82.8); PLATELET COUNT 250 K/MM3 (134-434); RDW 33.7 % (11.6-15.6); WHITE BLOOD COUNT 7.2 K/mm3 (4.0-10.0)
[2019-04-15 11:22] LABS: ALBUMIN 2.9 g/dl (3.4-5.0); BILIRUBIN,TOTAL 0.2 mg/dL (0.2-1); BLOOD UREA NITROGEN 20.8 mg/dL (7-18); CALCIUM 7.9 mg/dL (8.5-10.1); CREATININE 1.3 mg/dL (0.55-1.3); MAGNESIUM 2.4 mg/dL (1.8-2.4); PHOSPHOROUS 3.6 mg/dL (2.5-4.9); POTASSIUM 4.9 mmol/L (3.5-5.1); TOT PROT 6.2 g/dl (6.4-8.2)
--- NOTE | 2019-04-15 11:35 | PN ---
Progress Note (short form) - Note Progress Note: POD#1. No pain. VSS, tmax 98.7 +dressing intact, +granulation noted after packing pulled, wbc=7.2 normal post op Packing pulled. Betadine dressing change applied. Will follow.
[2019-04-15] MEDS: VANCOMYCIN 1 GRAM (PRE-DOCKED) 1,000 MG/250 ML BAG IVPB SCH (13:40)
[2019-04-15] MEDS ORDERED: FUROSEMIDE 40 MG/4 ML INJECTABLE VIAL IVPUSH ONE ×2 (14:27→14:32)
--- NOTE | 2019-04-15 14:30 | PN ---
Teaching Attending Note Name of Resident: Joselyn Lewis ATTENDING PHYSICIAN STATEMENT I saw and evaluated the patient. I reviewed the resident's note and discussed the case with the resident. I agree with the resident's findings and plan as documented with exceptions below. SUBJECTIVE: Patient seen and examined, left foot pain improved, reports dyspnea post operative. No fevers, chills or concerns. OBJECTIVE: Vital Signs Period Temp Pulse Resp BP Sys/Wesley Pulse Ox Last 24 Hr 97.3 F-98.7 F 62-85 20-20 144-171/66-77 90-98 Intake & Output 04/12/19 04/13/19 04/14/19 04/15/19 23:59 23:59 23:59 23:59 Intake Total 2079 185 2225 1600 Output Total 320 300 Balance 2079 1849 1905 1300 Weight 199 lb 12.8 oz general: sitting in bed in no acute distress, mild respiratory distress Chest : decreased air entry all over, basilar rales Abdomen:Soft, obese, NT Extremities: left foot dressing Home Medications Medication Instructions Recorded Carvedilol [Coreg -] 3.125 mg PO BID #0 tablet 06/23/13 Pantoprazole Sodium [Protonix -] 40 mg PO DAILY #0 tablet.ec 06/23/13 Sitagliptin Phosphate [Januvia -] 100 mg PO DAILY@0700 #0 ud 06/23/13 Ezetimibe [Zetia] 10 mg PO DAILY 01/10/17 Amiodarone HCl [Cordarone -] 200 mg PO DAILY 08/13/17 Atorvastatin Ca [Lipitor] 40 mg PO DAILY 08/13/17 Dapagliflozin Propanediol [Farxiga] 5 mg PO DAILY 08/13/17 Aspirin [Lo-Dose Aspirin EC] 81 mg PO DAILY #20 tab 08/20/17 Glipizide 5 mg PO BID 11/10/17 Clopidogrel Bisulfate [Plavix -] 75 mg PO DAILY 04/10/19 Furosemide [Lasix -] 40 mg PO BID 04/10/19 metFORMIN HCL [Glucophage -] 500 mg PO BID 04/10/19 Albuterol Sulfate Inhaler - 1 - 2 inh PO QID PRN 04/11/19 [Ventolin Hfa Inhaler -] Budesonide/Formeterol Fumarate 2 puff IH BID 04/11/19 [SYMBICORT 160/4.5mcg -] Fluticasone Prop 0.05% Nasal 1 - 2 spray NS DAILY 04/11/19 [Flonase -] Active Medications Acetaminophen (Tylenol -) 650 mg PO Q6H PRN PRN Reason: FEVER Amiodarone HCl (Cordarone -) 200 mg PO DAILY [facility] Last Admin: 04/15/19 09:17 Dose: 200 mg Atorvastatin Calcium (Lipitor -) 40 mg PO HS [facility] Last Admin: 04/14/19 21:04 Dose: 40 mg Budesonide/Formoterol Fumarate (Symbicort 160/4.5mcg -) 2 puff IH BID [facility] Last Admin: 04/15/19 09:23 Dose: 2 puff Carvedilol (Coreg -) 3.125 mg PO BID [facility] Last Admin: 04/15/19 09:17 Dose: 3.125 mg Ezetimibe (Zetia -) 10 mg PO DAILY [facility] Last Admin: 04/15/19 09:19 Dose: 10 mg Fentanyl (Sublimaze Injection -) 25 mcg IVPUSH Q5M PRN PRN Reason: PAIN-PACU ORDER X 4 DOSES ONLY Furosemide (Lasix -) 40 mg PO DAILY [facility] Piperacillin Sod/Tazobactam (Sod 2.25 gm/ Dextrose) 50 mls @ 100 mls/hr IVPB Q8H-IV [facility]; Protocol Last Admin: 04/15/19 09:19 Dose: 100 mls/hr Vancomycin HCl (Vancomycin (Pre-Docked)) 1,000 mg in 250 mls @ 166.667 mls/hr IVPB Q24H [facility]; Protocol Last Admin: 04/15/19 13:40 Dose: 166.667 mls/hr Insulin Aspart (Novolog Vial Sliding Scale -) 1 vial SQ ACHS [facility]; Protocol Last Admin: 04/15/19 11:28 Dose: 4 units Melatonin (Melatonin) 5 mg PO HS PRN PRN Reason: INSOMNIA Non-Formulary Medication (Non-Formulary Med) 1 each PO TID [facility] Last Admin: 04/15/19 06:04 Dose: Not Given Ondansetron HCl (Zofran Injection) 4 mg IVPUSH Q6H PRN PRN Reason: NAUSEA AND/OR VOMITING Oxycodone HCl (Roxicodone -) 5 mg PO Q6H PRN PRN Reason: PAIN LEVEL 6-10 Last Admin: 04/14/19 21:09 Dose: 5 mg Pantoprazole Sodium (Protonix -) 40 mg PO DAILY [facility] Last Admin: 04/15/19 09:17 Dose: 40 mg Psyllium Hydrophilic Mucilloid (Metamucil (Sugar-Free) -) 5.85 gm PO TID [facility] Last Admin: 04/15/19 06:10 Dose: Not Given Laboratory Results - last 24 hr 04/14/19 04/14/19 04/14/19 17:02 18:00 21:03 WBC 7.6 RBC 3.60 Hgb 10.1 L Hct 33.4 MCV 92.6 MCH 28.1 MCHC 30.3 L RDW 34.6 H Plt Count 273 MPV 8.8 Absolute Neuts (auto) 6.8 Neutrophils % 88.9 H D Lymphocytes % 8.3 D Monocytes % 1.8 L D Eosinophils % 0.0 D Basophils % 1.0 Nucleated RBC % 0 Sodium Potassium Chloride Carbon Dioxide Anion Gap BUN Creatinine Est GFR (CKD-EPI)AfAm Est GFR (CKD-EPI)NonAf POC Glucometer 176 229 Random Glucose Calcium Phosphorus Magnesium Total Bilirubin AST ALT Alkaline Phosphatase Total Protein Albumin 04/15/19 04/15/19 04/15/19 06:03 09:28 10:05 WBC 7.2 RBC 3.30 L Hgb 9.4 L Hct 30.8 L MCV 93.2 MCH 28.5 MCHC 30.6 L RDW 33.7 H Plt Count 250 MPV 8.7 Absolute Neuts (auto) 5.9 Neutrophils % 81.7 Lymphocytes % 9.8 Monocytes % 8.2 D Eosinophils % 0.0 Basophils % 0.3 Nucleated RBC % 0 Sodium 136 Potassium 4.9 Chloride 107 Carbon Dioxide 25 Anion Gap 4 L BUN 20.8 H Creatinine 1.3 Est GFR (CKD-EPI)AfAm 45.83 Est GFR (CKD-EPI)NonAf 39.54 POC Glucometer 191 Random Glucose 250 H Calcium 7.9 L Phosphorus 3.6 Magnesium 2.4 Total Bilirubin 0.2 AST 15 ALT 33 Alkaline Phosphatase 100 Total Protein 6.2 L Albumin 2.9 L 04/15/19 11:18 WBC RBC Hgb Hct MCV MCH MCHC RDW Plt Count MPV Absolute Neuts (auto) Neutrophils % Lymphocytes % Monocytes % Eosinophils % Basophils % Nucleated RBC % Sodium Potassium Chloride Carbon Dioxide Anion Gap BUN Creatinine Est GFR (CKD-EPI)AfAm Est GFR (CKD-EPI)NonAf POC Glucometer 205 Random Glucose Calcium Phosphorus Magnesium Total Bilirubin AST ALT Alkaline Phosphatase Total Protein Albumin Microbiology 04/14/19 11:45 Foot - Left Dorsum Gram Stain - Final 04/14/19 11:45 Foot - Left Dorsum Wound Culture - Preliminary NO GROWTH OBTAINED AFTER 24 HOURS INCUBATION, REINCUBATED. 04/10/19 19:45 Blood - Peripheral Venous Blood Culture - Preliminary NO GROWTH OBTAINED AFTER 96 HOURS, INCUBATION TO CONTINUE FOR 1 DAYS. 04/10/19 19:45 Blood - Peripheral Venous Blood Culture - Preliminary NO GROWTH OBTAINED AFTER 96 HOURS, INCUBATION TO CONTINUE FOR 1 DAYS. 04/11/19 01:41 Toe - Left Second Gram Stain - Final 04/11/19 01:41 Toe - Left Second Wound Culture - Final Enterococcus Faecalis Staphylococcus Coagulase Neg Diphtheroid/Corynebacterium Stenotrophomon.(X.)Maltophilia ASSESSMENT AND PLAN: 78 yof with PMhx of NIDDM, HTN, HLD, CAD s/p PCI (years ago), ?Diastolic CHF, Anemia requiring frequent blood transfusions, PUD, GI bleed concerns but prior w /u neg for etiology, DVT s/p IVC filter (deemed high bleed risk with AC), CKD stage II, recent fall with left 5th toe fx sent by Dr. Garcia from wound care for concerns for foot infection -Left foot cellulitis/Hematoma s/p I&D -Recent fall 03/26 with left 5th toe fracture -Post op hypoxic/dyspnea, ?volume overload/atelectasis. -NANCY on CKD stage II, ?hypovolumia from poor oral intake and continuation of diuretics -Hypoglycemia, suspect from poor oral intake compounded by continuation of oral hypoglycemics -CAD s/p PCI (remote) -NIDDM -HTN -HLD -?Diastolic HF -Anemia requring frequent blood transfusions -GI bleed concerns with prior work up neg for etiology -DVT s/p IV filter Plan: s/p I&D 04/14 with hematoma/clots, no abscess. ID/podiatry input noted. On Zosyn/vanco. Follow up for abx taper. MRI neg for osteomyelitis Post op dyspnea/hypoxia. D/c IVF. CXR, lasix 20 mg IV x 1, resume lasix at 40 mg daily and monitor. Incentive spirometry, OOB, PT eval. Cr stable. Renal/bladder US noted, ISS, hold metformin/januvia/glipizide. Continue ASA/plavix/coreg. DVTPPX has IVC filter given high bleed risk, heparin BID. Dispo in 48 hours if continues to improve and disposition arranged. PT eval, OOB. Plan discussed with patient and nursing in detail, all questions answered.
--- NOTE | 2019-04-15 14:38 | PN ---
Physical Exam: SUBJECTIVE: Patient seen and examined. No chest pain, no difficulty breathing. On NC. Says foot pain is controlled on oxycodone. OBJECTIVE: Vital Signs Period Temp Pulse Resp BP Sys/Wesley Pulse Ox Last 24 Hr 97.3 F-98.6 F 54-85 18-20 144-171/54-77 90-98 Vital Signs Temp 97.3 F L 04/15/19 09:25 Pulse 64 04/15/19 09:25 Resp 20 04/15/19 09:25 BP 148/69 04/15/19 09:25 Pulse Ox 97 04/15/19 09:00 Intake & Output 04/14/19 04/15/19 04/15/19 23:59 11:59 23:59 Intake Total 975 1200 Output Total 300 300 Balance 675 900 Weight 90.628 kg Intake: IV 325 900 Normal Saline - 1,000 ml 225 900 @ 75 mls/hr IV ASDIR NICOLETTE Rx#:[id number] IVPB 50 50 Oral 600 250 Output: Urine 300 300 Void 300 300 Other: Voiding Method Toilet Bedside Commode Bowel Movement No Weight Measurement Method Built in Bedscale GENERAL: The patient is awake, alert, and fully oriented, in no acute distress. ENT: moist mucous membranes. LUNGS: Breath sounds equal, clear to auscultation bilaterally, no wheezes, no crackles, no accessory muscle use. HEART: Regular rate and rhythm, S1, S2 ABDOMEN: Soft, nontender, nondistended, normoactive bowel sounds EXTREMITIES: S/p ID 04/14/19 with LLE surgical dressing on foot in socks NEUROLOGICAL: Cranial nerves II through XII grossly intact. Normal speech, gait not observed. CBC, BMP 04/15/19 10:05 04/15/19 09:28 Laboratory Results - last 24 hr 04/14/19 04/14/19 04/14/19 17:02 18:00 21:03 WBC 7.6 RBC 3.60 Hgb 10.1 L Hct 33.4 MCV 92.6 MCH 28.1 MCHC 30.3 L RDW 34.6 H Plt Count 273 MPV 8.8 Absolute Neuts (auto) 6.8 Neutrophils % 88.9 H D Lymphocytes % 8.3 D Monocytes % 1.8 L D Eosinophils % 0.0 D Basophils % 1.0 Nucleated RBC % 0 Sodium Potassium Chloride Carbon Dioxide Anion Gap BUN Creatinine Est GFR (CKD-EPI)AfAm Est GFR (CKD-EPI)NonAf POC Glucometer 176 229 Random Glucose Calcium Phosphorus Magnesium Total Bilirubin AST ALT Alkaline Phosphatase Total Protein Albumin 04/15/19 04/15/19 04/15/19 06:03 09:28 10:05 WBC 7.2 RBC 3.30 L Hgb 9.4 L Hct 30.8 L MCV 93.2 MCH 28.5 MCHC 30.6 L RDW 33.7 H Plt Count 250 MPV 8.7 Absolute Neuts (auto) 5.9 Neutrophils % 81.7 Lymphocytes % 9.8 Monocytes % 8.2 D Eosinophils % 0.0 Basophils % 0.3 Nucleated RBC % 0 Sodium 136 Potassium 4.9 Chloride 107 Carbon Dioxide 25 Anion Gap 4 L BUN 20.8 H Creatinine 1.3 Est GFR (CKD-EPI)AfAm 45.83 Est GFR (CKD-EPI)NonAf 39.54 POC Glucometer 191 Random Glucose 250 H Calcium 7.9 L Phosphorus 3.6 Magnesium 2.4 Total Bilirubin 0.2 AST 15 ALT 33 Alkaline Phosphatase 100 Total Protein 6.2 L Albumin 2.9 L 04/15/19 11:18 WBC RBC Hgb Hct MCV MCH MCHC RDW Plt Count MPV Absolute Neuts (auto) Neutrophils % Lymphocytes % Monocytes % Eosinophils % Basophils % Nucleated RBC % Sodium Potassium Chloride Carbon Dioxide Anion Gap BUN Creatinine Est GFR (CKD-EPI)AfAm Est GFR (CKD-EPI)NonAf POC Glucometer 205 Random Glucose Calcium Phosphorus Magnesium Total Bilirubin AST ALT Alkaline Phosphatase Total Protein Albumin Active Medications Generic Name Dose Route Start Last Admin Trade Name Freq PRN Reason Stop Dose Admin Acetaminophen 650 mg 04/14/19 15:01 Tylenol - PO Q6H PRN FEVER Amiodarone HCl 200 mg 04/15/19 10:00 04/15/19 09:17 Cordarone - PO 200 mg DAILY NICOLETTE Administration Atorvastatin Calcium 40 mg 04/14/19 22:00 04/14/19 21:04 Lipitor - PO 40 mg HS NICOLETTE Administration Budesonide/Formoterol Fumarate 2 puff 04/14/19 22:00 04/15/19 09:23 Symbicort 160/4.5mcg - IH 2 puff BID NICOLETTE Administration Carvedilol 3.125 mg 04/14/19 22:00 04/15/19 09:17 Coreg - PO 3.125 mg BID NICOLETTE Administration Ezetimibe 10 mg 04/15/19 10:00 04/15/19 09:19 Zetia - PO 10 mg DAILY NICOLETTE Administration Fentanyl 25 mcg 04/14/19 15:12 Sublimaze Injection - IVPUSH Q5M PRN PAIN-PACU ORDER X 4 DOSES ONLY Piperacillin Sod/Tazobactam 50 mls @ 100 mls/hr 04/14/19 18:00 04/15/19 09:19 Sod 2.25 gm/ Dextrose IVPB 100 mls/hr Q8H-IV NICOLETTE Administration Protocol Sodium Chloride 1,000 mls @ 75 mls/hr 04/14/19 15:01 04/15/19 06:16 Normal Saline - IV 75 mls/hr ASDIR NICOLETTE Administration Vancomycin HCl 1,000 mg in 250 mls @ 166.667 mls/hr 04/15/19 13:00 04/15/19 13:40 Vancomycin (Pre-Docked) IVPB 166.667 mls/hr Q24H NICOLETTE Administration Protocol Insulin Aspart 1 vial 04/14/19 16:30 04/15/19 11:28 Novolog Vial Sliding Scale - SQ 4 units ACHS NICOLETTE Administration Protocol Melatonin 5 mg 04/14/19 15:01 Melatonin PO HS PRN INSOMNIA Non-Formulary Medication 1 each 04/14/19 22:00 04/15/19 06:04 Non-Formulary Med PO Not Given TID [facility] Ondansetron HCl 4 mg 04/14/19 15:12 Zofran Injection IVPUSH Q6H PRN NAUSEA AND/OR VOMITING Oxycodone HCl 5 mg 04/14/19 17:52 04/14/19 21:09 Roxicodone - PO 5 mg Q6H PRN Administration PAIN LEVEL 6-10 Pantoprazole Sodium 40 mg 04/15/19 10:00 04/15/19 09:17 Protonix - PO 40 mg DAILY NICOLETTE Administration Psyllium Hydrophilic Mucilloid 5.85 gm 04/14/19 22:00 04/15/19 06:10 Metamucil (Sugar-Free) - PO Not Given TID [facility] Ambulatory Orders Carvedilol [Coreg -] 3.125 mg PO BID #0 tablet 06/23/13 Pantoprazole Sodium [Protonix -] 40 mg PO DAILY #0 tablet.ec 06/23/13 Sitagliptin Phosphate [Januvia -] 100 mg PO DAILY@0700 #0 ud 06/23/13 Ezetimibe [Zetia] 10 mg PO DAILY 01/10/17 Amiodarone HCl [Cordarone -] 200 mg PO DAILY 08/13/17 Atorvastatin Ca [Lipitor] 40 mg PO DAILY 08/13/17 Dapagliflozin Propanediol [Farxiga] 5 mg PO DAILY 08/13/17 Aspirin [Lo-Dose Aspirin EC] 81 mg PO DAILY #20 tab 08/20/17 Glipizide 5 mg PO BID 11/10/17 Clopidogrel Bisulfate [Plavix -] 75 mg PO DAILY 04/10/19 Furosemide [Lasix -] 40 mg PO BID 04/10/19 metFORMIN HCL [Glucophage -] 500 mg PO BID 04/10/19 Albuterol Sulfate Inhaler - [Ventolin Hfa Inhaler -] 1 - 2 inh PO QID PRN Budesonide/Formeterol Fumarate [SYMBICORT 160/4.5mcg -] 2 puff IH BID 04/11/19 Fluticasone Prop 0.05% Nasal [Flonase -] 1 - 2 spray NS DAILY 04/11/19 Current Medications Acetaminophen (Tylenol -) 650 mg PO Q6H PRN PRN Reason: FEVER Amiodarone HCl (Cordarone -) 200 mg PO DAILY [facility] Last Admin: 04/15/19 09:17 Dose: 200 mg Atorvastatin Calcium (Lipitor -) 40 mg PO HS [facility] Last Admin: 04/14/19 21:04 Dose: 40 mg Budesonide/Formoterol Fumarate (Symbicort 160/4.5mcg -) 2 puff IH BID [facility] Last Admin: 04/15/19 09:23 Dose: 2 puff Carvedilol (Coreg -) 3.125 mg PO BID [facility] Last Admin: 04/15/19 09:17 Dose: 3.125 mg Ezetimibe (Zetia -) 10 mg PO DAILY [facility] Last Admin: 04/15/19 09:19 Dose: 10 mg Fentanyl (Sublimaze Injection -) 25 mcg IVPUSH Q5M PRN PRN Reason: PAIN-PACU ORDER X 4 DOSES ONLY Furosemide (Lasix -) 40 mg PO DAILY [facility] Piperacillin Sod/Tazobactam (Sod 2.25 gm/ Dextrose) 50 mls @ 100 mls/hr IVPB Q8H-IV [facility]; Protocol Last Admin: 04/15/19 09:19 Dose: 100 mls/hr Vancomycin HCl (Vancomycin (Pre-Docked)) 1,000 mg in 250 mls @ 166.667 mls/hr IVPB Q24H [facility]; Protocol Last Admin: 04/15/19 13:40 Dose: 166.667 mls/hr Insulin Aspart (Novolog Vial Sliding Scale -) 1 vial SQ ACHS [facility]; Protocol Last Admin: 04/15/19 11:28 Dose: 4 units Melatonin (Melatonin) 5 mg PO HS PRN PRN Reason: INSOMNIA Non-Formulary Medication (Non-Formulary Med) 1 each PO TID [facility] Last Admin: 04/15/19 06:04 Dose: Not Given Ondansetron HCl (Zofran Injection) 4 mg IVPUSH Q6H PRN PRN Reason: NAUSEA AND/OR VOMITING Oxycodone HCl (Roxicodone -) 5 mg PO Q6H PRN PRN Reason: PAIN LEVEL 6-10 Last Admin: 04/14/19 21:09 Dose: 5 mg Pantoprazole Sodium (Protonix -) 40 mg PO DAILY [facility] Last Admin: 04/15/19 09:17 Dose: 40 mg Psyllium Hydrophilic Mucilloid (Metamucil (Sugar-Free) -) 5.85 gm PO TID [facility] Last Admin: 04/15/19 06:10 Dose: Not Given Microbiology 04/14/19 11:45 Foot - Left Dorsum Gram Stain - Final 04/14/19 11:45 Foot - Left Dorsum Wound Culture - Preliminary NO GROWTH OBTAINED AFTER 24 HOURS INCUBATION, REINCUBATED. 04/10/19 19:45 Blood - Peripheral Venous Blood Culture - Preliminary NO GROWTH OBTAINED AFTER 96 HOURS, INCUBATION TO CONTINUE FOR 1 DAYS. 04/10/19 19:45 Blood - Peripheral Venous Blood Culture - Preliminary NO GROWTH OBTAINED AFTER 96 HOURS, INCUBATION TO CONTINUE FOR 1 DAYS. 04/11/19 01:41 Toe - Left Second Gram Stain - Final 04/11/19 01:41 Toe - Left Second Wound Culture - Final Enterococcus Faecalis Staphylococcus Coagulase Neg Diphtheroid/Corynebacterium Stenotrophomon.(X.)Maltophilia LE MRI W/O Left- 04/12/19 MRI of the left foot. Clinical information: Rule out osteomyelitis. Coronal sagittal and axial T1 and T2-weighted images of the left foot were obtained. There is marked soft tissue swelling of the foot with a large collection in the dorsal aspect.. This collection measures 3.9 cm in width, 1.5 cm in height and the 6.2 cm in AP dimension. It is high in signal on T1 and on T2-weighted images. It is suspicious for large subcutaneous hematoma. This collection also may be infected. There is no abnormal bone marrow signal suggestive of osteomyelitis. There is no disruption of the flexor of the extensor tendons. There are no bony lesions. Impression: Large collection of the dorsal aspect of the mid and forefoot. It probably represents a large subcutaneous hematoma, this collection also may be infected. There is no osteomyelitis. US Pelvic/Bladder 04/11/19 Real time examination of the pelvis demonstrates the following: Evaluation of the urinary bladder demonstrates no intrinsic bladder abnormalities. Bilateral ureteral jets are visualized. A pre-void bladder volume of 351 cc was calculated. A post voiding image demonstrates incomplete emptying of the bladder with a large postvoid residual of 134 cc. The patient is S/P hysterectomy. No pelvic masses or fluid collections are identified. IMPRESSION: Large postvoid residual. ASSESSMENT/PLAN: 78yo female with DM, CAD s/p 4 stents, COPD, HTN, HLD, and anemia who presents with left foot wound. About 3 weeks ago, she tripped in the shower and fell on her foot. She was diagnosed with L 5th digit fx and multiple trauma blisters. #left foot cellulitis with hematoma -Now s/p Incision and drainage with evacuation of hematoma left foot 04/14/19 per podiatry-hematoma clumps, no purulent dc, no pus, no mal odor -wound culture - initial cx- multiorgs -Repeat wcx-negative -blood culture negative -continue Zosyn , vanc -ID consult- Dr An #DM -pt on 4 DM meds at home, hold -SSI and d/c home DM meds -BGM, pt had BG of 43 at admission but was asymptomatic #Hypoglycemia -pt on multiple oral hypoglycemics with poor excretion in setting of NANCY -Hold oral hypoglycemics -ISS NANCY -Cr 2.0 >>>1.4 -likely prerenal in setting of infection, improved with hydration -Resume lasix -UA- Glucose 3+ -renal U/S- urinary retention -avoid nephrotoxic drugs #Anemia -Could be dilutional -Cont to monitor #Afib -Cont amio -Cont coreg -cont ASA/plavix #CHF Cont coreg Hold lasix #HLD Cont lipitor Cont ezetimibe #COPD Cont nebs DVT prophylaxis-pt anemic SCDs FEN monitor electrolytes, Cr, and BG diabetic diet Visit type - Emergency Visit Emergency Visit: Yes ED Registration Date: 04/10/19 Care time: The patient presented to the Emergency Department on the above date and was hospitalized for further evaluation of their emergent condition. - New Patient This patient is new to me today: No - Critical Care Critical Care patient: No - Discharge Referral Referred to [facility] Med P.C.: No ATTENDING PHYSICIAN STATEMENT I saw and evaluated the patient. I reviewed the resident's note and discussed the case with the resident. I agree with the resident's findings and plan as documented. SUBJECTIVE: OBJECTIVE: ASSESSMENT AND PLAN:
--- NOTE | 2019-04-15 16:41 | PN ---
Progress Note, Physician History of Present Illness: S/P DEBRIDEMENT L FOOT OPERATIVE FINDINGS NOTED NO C/O L FOOT PAIN NO C/O FEVER/CHILLS - Current Medication List Current Medications: Active Medications Acetaminophen (Tylenol -) 650 mg PO Q6H PRN PRN Reason: FEVER Amiodarone HCl (Cordarone -) 200 mg PO DAILY [facility] Last Admin: 04/15/19 09:17 Dose: 200 mg Atorvastatin Calcium (Lipitor -) 40 mg PO HS [facility] Last Admin: 04/14/19 21:04 Dose: 40 mg Budesonide/Formoterol Fumarate (Symbicort 160/4.5mcg -) 2 puff IH BID [facility] Last Admin: 04/15/19 09:23 Dose: 2 puff Carvedilol (Coreg -) 3.125 mg PO BID [facility] Last Admin: 04/15/19 09:17 Dose: 3.125 mg Ezetimibe (Zetia -) 10 mg PO DAILY [facility] Last Admin: 04/15/19 09:19 Dose: 10 mg Fentanyl (Sublimaze Injection -) 25 mcg IVPUSH Q5M PRN PRN Reason: PAIN-PACU ORDER X 4 DOSES ONLY Furosemide (Lasix -) 40 mg PO DAILY [facility] Piperacillin Sod/Tazobactam (Sod 2.25 gm/ Dextrose) 50 mls @ 100 mls/hr IVPB Q8H-IV [facility]; Protocol Last Admin: 04/15/19 09:19 Dose: 100 mls/hr Vancomycin HCl (Vancomycin (Pre-Docked)) 1,000 mg in 250 mls @ 166.667 mls/hr IVPB Q24H [facility]; Protocol Last Admin: 04/15/19 13:40 Dose: 166.667 mls/hr Insulin Aspart (Novolog Vial Sliding Scale -) 1 vial SQ ACHS [facility]; Protocol Last Admin: 04/15/19 16:35 Dose: 4 units Melatonin (Melatonin) 5 mg PO HS PRN PRN Reason: INSOMNIA Non-Formulary Medication (Non-Formulary Med) 1 each PO TID [facility] Last Admin: 04/15/19 15:18 Dose: Not Given Ondansetron HCl (Zofran Injection) 4 mg IVPUSH Q6H PRN PRN Reason: NAUSEA AND/OR VOMITING Oxycodone HCl (Roxicodone -) 5 mg PO Q6H PRN PRN Reason: PAIN LEVEL 6-10 Last Admin: 04/14/19 21:09 Dose: 5 mg Pantoprazole Sodium (Protonix -) 40 mg PO DAILY [facility] Last Admin: 04/15/19 09:17 Dose: 40 mg Psyllium Hydrophilic Mucilloid (Metamucil (Sugar-Free) -) 5.85 gm PO TID [facility] Last Admin: 04/15/19 15:18 Dose: Not Given - Objective Vital Signs: Vital Signs Temperature 98.7 F 04/15/19 14:25 Pulse Rate 62 04/15/19 14:25 Respiratory Rate 20 04/15/19 14:25 Blood Pressure 151/66 04/15/19 14:25 O2 Sat by Pulse Oximetry (%) 97 04/15/19 09:00 Constitutional: Yes: No Distress, Obese Cardiovascular: Yes: Regular Rate and Rhythm, S1, S2 Respiratory: Yes: CTA Bilaterally Gastrointestinal: Yes: Normal Bowel Sounds, Soft. No: Tenderness Extremities: Yes: Other (decreased erythema/ swelling dorsum of foot. Incisional wound no drainage) Labs: CBC, BMP 04/15/19 10:05 04/15/19 09:28 INR, PTT INR 0.96 (0.83-1.09) 04/10/19 19:58 Assessment/Plan CELLULITIS / HEMATOMA L FOOT S/P I&D CONTINUE ZOSYN/VANCOMYCIN SUBSTITUTE AUGMENTIN 875MG PO BID NEXT 24-48HR
[2019-04-15] MEDS: ATORVASTATIN CA 40 MG TABLET (FP) PO SCH (21:29)
[2019-04-15] MEDS: oxyCODONE HCL 5 MG TABLET PO PRN (21:31)
[2019-04-16] MEDS ORDERED: DEXTROSE 5%-WATER - 50 ML IVPB ONE ×2 (01:36→08:41)
[2019-04-16] MEDS ORDERED: PIPERACILLIN/TAZOBACTAM 2.25 GM VIAL IVPB ONE ×2 (01:36→08:41)
[2019-04-16] MEDS: PIPERACILLIN/TAZOB 2.25 GM 2.25 GM in DEXTROSE 5%-WATER - 50 ML IVPB SCH ×2 (01:56→10:11)
[2019-04-16] MEDS ORDERED: FUROSEMIDE 40 MG TABLET (FP) PO SCH (06:00)
[2019-04-16] MEDS: ACETAMINOPHEN 325 MG TABLET (FP) PO PRN (06:03)
[2019-04-16] MEDS: NON-FORMULARY MED PO SCH ×3 (06:03→21:59)
[2019-04-16] MEDS: PSYLLIUM 5.85 GM PACKET PO SCH ×3 (06:03→21:59)
[2019-04-16] MEDS: INSULIN SLIDING SCALE (NOVOLOG) 1 VIAL SQ SCH ×4 (06:32→21:59)
[2019-04-16 07:42] LABS: HEMOGLOBIN 9.1 GM/dL (10.7-15.3); LYMPH % 11.5 % (8-40); MCH 28.8 pg (25.7-33.7); MCHC 31.3 g/dl (32.0-36.0); MEAN CELL VOLUME 91.9 fl (80-96); MEAN PLT VOLUME 8.6 fl (7.5-11.1); MONO % 8.7 % (3.8-10.2); NEUT % 77.8 % (42.8-82.8); PLATELET COUNT 264 K/MM3 (134-434); RBC 3.15 M/mm3 (3.60-5.2); RDW 33.2 % (11.6-15.6); WHITE BLOOD COUNT 10.4 K/mm3 (4.0-10.0)
[2019-04-16 08:23] LABS: BLOOD UREA NITROGEN 33.1 mg/dL (7-18); CREATININE 1.7 mg/dL (0.55-1.3); POTASSIUM 4.6 mmol/L (3.5-5.1)
[2019-04-16 08:24] LABS: ALBUMIN 2.8 g/dl (3.4-5.0); BILIRUBIN,TOTAL 0.2 mg/dL (0.2-1); CALCIUM 7.9 mg/dL (8.5-10.1); MAGNESIUM 2.4 mg/dL (1.8-2.4); PHOSPHOROUS 3.3 mg/dL (2.5-4.9); TOT PROT 6.2 g/dl (6.4-8.2)
[2019-04-16] MEDS: CARVEDILOL 3.125 MG TABLET (FP) PO SCH ×2 (10:11→21:59)
[2019-04-16] MEDS: EZETIMIBE 10 MG TABLET (FP) PO SCH (10:11)
[2019-04-16] MEDS: FUROSEMIDE 40 MG TABLET (FP) PO SCH (10:11)
[2019-04-16] MEDS: AMIODARONE HCL 200 MG TABLET (FP) PO SCH (10:11)
[2019-04-16] MEDS: BUDESONIDE/FORMETEROL FUMARATE 160/4.5 mcg INHALER IH SCH ×2 (10:11→21:59)
[2019-04-16] MEDS: PANTOPRAZOLE 40 MG TABLET (FP) PO SCH (10:11)
--- NOTE | 2019-04-16 14:09 | PN ---
Teaching Attending Note Name of Resident: Joselyn Lewis ATTENDING PHYSICIAN STATEMENT I saw and evaluated the patient. I reviewed the resident's note and discussed the case with the resident. I agree with the resident's findings and plan as documented. SUBJECTIVE: Ms Pierce says she is coughing today, thinks it is because her food was really dry. Some sob but at baseline. No cp or n/v. OBJECTIVE: Last Vital Signs Temp Pulse Resp BP Pulse Ox 36.5 C 53 L 20 128/57 L 98 04/16/19 13:49 04/16/19 13:49 04/16/19 13:49 04/16/19 13:49 04/15/19 21:00 Gen: nad Pulm: slight wheezing bilaterally CV: rrr w/o m/r/g Abd: +bs, s/nt/nd Ext: LLE wrapped CBC, BMP 04/16/19 06:58 04/16/19 06:58 ASSESSMENT AND PLAN: Problem List - Problems (1) Cellulitis Assessment/Plan: -appreciate ID assistance and note reviewed -improved -change to augmentin Code(s): L03.90 - CELLULITIS, UNSPECIFIED Qualifiers: Site of cellulitis: extremity Site of cellulitis of extremity: toe Laterality: left Qualified Code(s): L03.032 - Cellulitis of left toe (2) Hematoma Assessment/Plan: -s/p drainage Code(s): T14.8XXA - OTHER INJURY OF UNSPECIFIED BODY REGION, INITIAL ENCOUNTER (3) Deep vein thrombosis (DVT) of right lower extremity Assessment/Plan: -history of DVT -no AC, presented with hematoma Code(s): I82.401 - ACUTE EMBOLISM AND THOMBOS UNSP DEEP VEINS OF R LOW EXTREM Qualifiers: Affected thrombotic vein of extremity: femoral Chronicity: chronic Qualified Code(s): I82.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 (4) Diabetes Assessment/Plan: -diabetic diet -FSBS and SSI Code(s): E11.9 - TYPE 2 DIABETES MELLITUS WITHOUT COMPLICATIONS Qualifiers: Diabetes mellitus type: type 2 Chronic kidney disease stage: stage 2 (mild ) (5) GIB (gastrointestinal bleeding) Assessment/Plan: -continue protonix Code(s): K92.2 - GASTROINTESTINAL HEMORRHAGE, UNSPECIFIED Qualifiers: GI bleed type/associated pathology: melena Qualified Code(s): K92.1 - Melena (6) HLD (hyperlipidemia) Assessment/Plan: -continue statin Code(s): E78.5 - HYPERLIPIDEMIA, UNSPECIFIED Qualifiers: Hyperlipidemia type: pure hypercholesterolemia Qualified Code(s): E78.00 - Pure hypercholesterolemia, unspecified (7) HTN (hypertension) Assessment/Plan: -continue current management Code(s): I10 - ESSENTIAL (PRIMARY) HYPERTENSION Qualifiers: Hypertension type: essential hypertension Qualified Code(s): I10 - Essential (primary) hypertension
[2019-04-16] MEDS: VANCOMYCIN 1 GRAM (PRE-DOCKED) 1,000 MG/250 ML BAG IVPB SCH (14:57)
[2019-04-16] MEDS ORDERED: ALBUTEROL SO4 2.5/IPRATROPIUM 0.5 INH SOL 3 ML VIAL.NEB. NEB PRN (16:18)
[2019-04-16] MEDS ORDERED: guaiFENesin/D-M SUGAR-FREE/ACLHOL-FREE 118 ML BOTTLE PO PRN (17:10)
--- NOTE | 2019-04-16 17:18 | PATH ---
Surgical Pathology Report Patient Name: SHAKA MEJIA Med. Rec. #: [id number] /Age/Gender: 1940 (Age: 78) / F Account: [id number] Location: [address] [place] [address]/[facility] Taken: 04/14/2019 Received: 04/14/2019 Reported: 04/16/2019 Physicians: Amanda Howell M.D. Specimen(s) Received HEMATOMA, LEFT FOOT Clinical History Abscess, hematoma left foot Final Diagnosis FOOT, LEFT, HEMATOMA, INCISION AND DRAINAGE AND EVACUATION: BLOOD/ FIBRIN CLOT AND AGGREGATES OF ACUTE INFLAMMATORY EXUDATE CONSISTENT WITH ABSCESS. Electronically Signed Tonya Shahid M.D. Gross Description Received in formalin labeled "hematoma of left foot," is a 2.5 x 2.3 x 0.3 cm aggregate of torre-brown blood clot. The specimen is submitted in toto in one cassette. /04/15/2019 saudi04/15/2019
--- NOTE | 2019-04-16 17:33 | PN ---
Progress Note (short form) - Note Progress Note: POD#2. No pain. VSS, tmax 98.7 +dressing intact, +granulation noted, -cellulitis, -drainage, wbc=10.4 normal post op Betadine dressing change done. Do not believe wbc increase is from foot. Dr. Jeffries to follow patient while I am away.
[2019-04-16] MEDS: AMOX TR/POT CLAV 875MG/125MG TABLETS (FP) PO SCH (17:41)
--- NOTE | 2019-04-16 20:12 | PN ---
Physical Exam: SUBJECTIVE: Patient seen and examined. Nurse thought pt was desating to high 60s. Saw with PT, pulse ox with PT with PT off oxygen was in high 90s. Pt was helped to sitting position for PT. No chest pain. Received iv lasix yesterday, on PO lasix recieved a dose today OBJECTIVE: Vital Signs Period Temp Pulse Resp BP Sys/Wesley Pulse Ox Last 24 Hr 97.4 F-98.7 F 53-64 18-20 128-146/57-70 95-98 GENERAL: The patient is awake, alert, and fully oriented, in no acute distress. ENT: NC- off LUNGS: Few crackles with wheeze HEART: Regular rate and rhythm, S1, S2 ABDOMEN: Soft, nontender, obese, normoactive bowel sounds, EXTREMITIES: LLE with surgical dressing slightly blood stained NEUROLOGICAL: Cranial nerves II through XII grossly intact. Normal speech, gait not observed. CBC, BMP 04/17/19 07:30 04/17/19 07:30 Laboratory Results - last 24 hr 04/15/19 04/16/19 04/16/19 21:23 06:02 06:58 WBC 10.4 H RBC 3.15 L Hgb 9.1 L Hct 29.0 L MCV 91.9 MCH 28.8 MCHC 31.3 L RDW 33.2 H Plt Count 264 MPV 8.6 Absolute Neuts (auto) 8.1 H Neutrophils % 77.8 Lymphocytes % 11.5 Monocytes % 8.7 Eosinophils % 1.0 D Basophils % 1.0 D Nucleated RBC % 0 Sodium Potassium Chloride Carbon Dioxide Anion Gap BUN Creatinine Est GFR (CKD-EPI)AfAm Est GFR (CKD-EPI)NonAf POC Glucometer 215 192 Random Glucose Calcium Phosphorus Magnesium Total Bilirubin AST ALT Alkaline Phosphatase Total Protein Albumin 04/16/19 04/16/19 04/16/19 06:58 11:22 16:48 WBC RBC Hgb Hct MCV MCH MCHC RDW Plt Count MPV Absolute Neuts (auto) Neutrophils % Lymphocytes % Monocytes % Eosinophils % Basophils % Nucleated RBC % Sodium 139 Potassium 4.6 Chloride 108 H Carbon Dioxide 27 Anion Gap 4 L BUN 33.1 H Creatinine 1.7 H Est GFR (CKD-EPI)AfAm 33.13 Est GFR (CKD-EPI)NonAf 28.59 POC Glucometer 250 215 Random Glucose 204 H Calcium 7.9 L Phosphorus 3.3 Magnesium 2.4 Total Bilirubin 0.2 AST 16 ALT 37 Alkaline Phosphatase 109 Total Protein 6.2 L Albumin 2.8 L Active Medications Generic Name Dose Route Start Last Admin Trade Name Amanda PRN Reason Stop Dose Admin Acetaminophen 650 mg 04/14/19 15:01 04/16/19 06:03 Tylenol - PO 650 mg Q6H PRN Administration FEVER Albuterol/Ipratropium 1 amp 04/16/19 16:18 Duoneb - NEB Q6H PRN SHORTNESS OF BREATH Amiodarone HCl 200 mg 04/15/19 10:00 04/16/19 10:11 Cordarone - PO 200 mg DAILY NICOLETTE Administration Amoxicillin/Clavulanate Potassium 1 tab 04/16/19 17:30 04/16/19 17:41 Augmentin - 875mg Tablet PO 1 tab BID@0800,1730 NICOLETTE Administration Atorvastatin Calcium 40 mg 04/14/19 22:00 04/15/19 21:29 Lipitor - PO 40 mg HS NICOLETTE Administration Budesonide/Formoterol Fumarate 2 puff 04/14/19 22:00 04/16/19 10:11 Symbicort 160/4.5mcg - IH 2 puff BID NICOLETTE Administration Carvedilol 3.125 mg 04/14/19 22:00 04/16/19 10:11 Coreg - PO 3.125 mg BID NICOLETTE Administration Ezetimibe 10 mg 04/15/19 10:00 04/16/19 10:11 Zetia - PO 10 mg DAILY NICOLETTE Administration Fentanyl 25 mcg 04/14/19 15:12 Sublimaze Injection - IVPUSH Q5M PRN PAIN-PACU ORDER X 4 DOSES ONLY Furosemide 40 mg 04/16/19 10:00 04/16/19 10:11 Lasix - PO 40 mg DAILY NICOLETTE Administration Guaifenesin 5 ml 04/16/19 17:10 Diabetic Tussin Dm - PO Q6H PRN COUGH Vancomycin HCl 1,000 mg in 250 mls @ 166.667 mls/hr 04/15/19 13:00 04/16/19 14:57 Vancomycin (Pre-Docked) IVPB 166.667 mls/hr Q24H NICOLETTE Administration Protocol Insulin Aspart 1 vial 04/14/19 16:30 04/16/19 17:41 Novolog Vial Sliding Scale - SQ 4 units ACHS NICOLETTE Administration Protocol Melatonin 5 mg 04/14/19 15:01 Melatonin PO HS PRN INSOMNIA Non-Formulary Medication 1 each 04/14/19 22:00 04/16/19 14:47 Non-Formulary Med PO Not Given TID NICOLETTE Ondansetron HCl 4 mg 04/14/19 15:12 Zofran Injection IVPUSH Q6H PRN NAUSEA AND/OR VOMITING Oxycodone HCl 5 mg 04/14/19 17:52 04/15/19 21:31 Roxicodone - PO 5 mg Q6H PRN Administration PAIN LEVEL 6-10 Pantoprazole Sodium 40 mg 04/15/19 10:00 04/16/19 10:11 Protonix - PO 40 mg DAILY NICOLETTE Administration Psyllium Hydrophilic Mucilloid 5.85 gm 04/14/19 22:00 04/16/19 14:46 Metamucil (Sugar-Free) - PO Not Given TID [facility] Ambulatory Orders Carvedilol [Coreg -] 3.125 mg PO BID #0 tablet 06/23/13 Pantoprazole Sodium [Protonix -] 40 mg PO DAILY #0 tablet.ec 06/23/13 Sitagliptin Phosphate [Januvia -] 100 mg PO DAILY@0700 #0 ud 06/23/13 Ezetimibe [Zetia] 10 mg PO DAILY 01/10/17 Amiodarone HCl [Cordarone -] 200 mg PO DAILY 08/13/17 Atorvastatin Ca [Lipitor] 40 mg PO DAILY 08/13/17 Dapagliflozin Propanediol [Farxiga] 5 mg PO DAILY 08/13/17 Aspirin [Lo-Dose Aspirin EC] 81 mg PO DAILY #20 tab 08/20/17 Glipizide 5 mg PO BID 11/10/17 Clopidogrel Bisulfate [Plavix -] 75 mg PO DAILY 04/10/19 Furosemide [Lasix -] 40 mg PO BID 04/10/19 metFORMIN HCL [Glucophage -] 500 mg PO BID 04/10/19 Albuterol Sulfate Inhaler - [Ventolin HFA Inhaler -] 1 - 2 inh PO QID PRN Budesonide/Formeterol Fumarate [SYMBICORT 160/4.5mcg -] 2 puff IH BID 04/11/19 Fluticasone Prop 0.05% Nasal [Flonase -] 1 - 2 spray NS DAILY 04/11/19 Amox-Tr/K Cl [Augmentin 875-125mg Tablet -] 1 tab PO BID@0800,1730 #14 tablet Current Medications Acetaminophen (Tylenol -) 650 mg PO Q6H PRN PRN Reason: FEVER Last Admin: 04/16/19 06:03 Dose: 650 mg Albuterol/Ipratropium (Duoneb -) 1 amp NEB Q6H PRN PRN Reason: SHORTNESS OF BREATH Last Admin: 04/16/19 20:15 Dose: 1 amp Amiodarone HCl (Cordarone -) 200 mg PO DAILY [facility] Last Admin: 04/16/19 10:11 Dose: 200 mg Amoxicillin/Clavulanate Potassium (Augmentin - 875mg Tablet) 1 tab PO BID@0800, 1730 [facility] Last Admin: 04/17/19 08:45 Dose: 1 tab Atorvastatin Calcium (Lipitor -) 40 mg PO HS [facility] Last Admin: 04/16/19 21:59 Dose: 40 mg Budesonide/Formoterol Fumarate (Symbicort 160/4.5mcg -) 2 puff IH BID [facility] Last Admin: 04/16/19 21:59 Dose: 2 puff Carvedilol (Coreg -) 3.125 mg PO BID [facility] Last Admin: 04/16/19 21:59 Dose: 3.125 mg Ezetimibe (Zetia -) 10 mg PO DAILY [facility] Last Admin: 04/16/19 10:11 Dose: 10 mg Fentanyl (Sublimaze Injection -) 25 mcg IVPUSH Q5M PRN PRN Reason: PAIN-PACU ORDER X 4 DOSES ONLY Furosemide (Lasix -) 40 mg PO DAILY [facility] Last Admin: 04/16/19 10:11 Dose: 40 mg Guaifenesin (Diabetic Tussin Dm -) 5 ml PO Q6H PRN PRN Reason: COUGH Insulin Aspart (Novolog Vial Sliding Scale -) 1 vial SQ ACHS [facility]; Protocol Last Admin: 04/17/19 06:17 Dose: 2 units Melatonin (Melatonin) 5 mg PO HS PRN PRN Reason: INSOMNIA Non-Formulary Medication (Non-Formulary Med) 1 each PO TID [facility] Last Admin: 04/17/19 06:14 Dose: Not Given Ondansetron HCl (Zofran Injection) 4 mg IVPUSH Q6H PRN PRN Reason: NAUSEA AND/OR VOMITING Oxycodone HCl (Roxicodone -) 5 mg PO Q6H PRN PRN Reason: PAIN LEVEL 6-10 Last Admin: 04/16/19 22:00 Dose: 5 mg Pantoprazole Sodium (Protonix -) 40 mg PO DAILY [facility] Last Admin: 04/16/19 10:11 Dose: 40 mg Psyllium Hydrophilic Mucilloid (Metamucil (Sugar-Free) -) 5.85 gm PO TID [facility] Last Admin: 04/17/19 06:14 Dose: Not Given Microbiology 04/14/19 11:45 Foot - Left Dorsum Gram Stain - Final 04/14/19 11:45 Foot - Left Dorsum Wound Culture - Final NO GROWTH AFTER 48 HOURS INCUBATION 04/10/19 19:45 Blood - Peripheral Venous Blood Culture - Final NO GROWTH AFTER 5 DAYS INCUBATION 04/10/19 19:45 Blood - Peripheral Venous Blood Culture - Final NO GROWTH AFTER 5 DAYS INCUBATION 04/11/19 01:41 Toe - Left Second Gram Stain - Final 04/11/19 01:41 Toe - Left Second Wound Culture - Final Enterococcus Faecalis Staphylococcus Coagulase Neg Diphtheroid/Corynebacterium Stenotrophomon.(X.)Maltophilia LE MRI W/O Left- 04/12/19 MRI of the left foot. Clinical information: Rule out osteomyelitis. Coronal sagittal and axial T1 and T2-weighted images of the left foot were obtained. There is marked soft tissue swelling of the foot with a large collection in the dorsal aspect.. This collection measures 3.9 cm in width, 1.5 cm in height and the 6.2 cm in AP dimension. It is high in signal on T1 and on T2-weighted images. It is suspicious for large subcutaneous hematoma. This collection also may be infected. There is no abnormal bone marrow signal suggestive of osteomyelitis. There is no disruption of the flexor of the extensor tendons. There are no bony lesions. Impression: Large collection of the dorsal aspect of the mid and forefoot. It probably represents a large subcutaneous hematoma, this collection also may be infected. There is no osteomyelitis. US Pelvic/Bladder 04/11/19 Real time examination of the pelvis demonstrates the following: Evaluation of the urinary bladder demonstrates no intrinsic bladder abnormalities. Bilateral ureteral jets are visualized. A pre-void bladder volume of 351 cc was calculated. A post voiding image demonstrates incomplete emptying of the bladder with a large postvoid residual of 134 cc. The patient is S/P hysterectomy. No pelvic masses or fluid collections are identified. IMPRESSION: Large postvoid residual. ASSESSMENT/PLAN: 78yo female with DM, CAD s/p 4 stents, COPD, HTN, HLD, and anemia who presents with left foot wound. About 3 weeks ago, she tripped in the shower and fell on her foot. She was diagnosed with L 5th digit fx and multiple trauma blisters. #left foot cellulitis with hematoma -Now s/p Incision and drainage with evacuation of hematoma left foot 04/14/19 per podiatry-hematoma clumps, no purulent dc, no pus, no mal odor -wound culture - initial cx- multiorgs -Repeat wcx-negative -blood culture negative -continue Zosyn , vanc -ID consult- Dr An -Pt transitioned to PO augmentin -Vanc dcd #Leucocytosis Unclear source Per podiatry- not likely from wound #DM -pt on 4 DM meds at home, hold -SSI and hold home DM meds -BGM, pt had BG of 43 at admission but was asymptomatic #Hypoglycemia -pt on multiple oral hypoglycemics with poor excretion in setting of NANCY -Hold oral hypoglycemics -ISS NANCY -Cr stabilized then bumped again, monitor -likely prerenal in setting of infection, improved with hydration -Cont lasix PO -UA- Glucose 3+ -renal U/S- urinary retention -avoid nephrotoxic drugs #Anemia -Cont to monitor #Afib -Cont amio -Cont coreg -cont ASA/plavix #CHF Cont coreg Hold lasix #HLD Cont lipitor Cont ezetimibe #COPD Cont nebs DVT prophylaxis-pt anemic SCDs FEN monitor electrolytes, Cr, and BG diabetic diet Visit type - Emergency Visit Emergency Visit: Yes ED Registration Date: 04/10/19 Care time: The patient presented to the Emergency Department on the above date and was hospitalized for further evaluation of their emergent condition. - New Patient This patient is new to me today: No - Critical Care Critical Care patient: No - Discharge Referral Referred to [facility] Med P.C.: No ATTENDING PHYSICIAN STATEMENT I saw and evaluated the patient. I reviewed the resident's note and discussed the case with the resident. I agree with the resident's findings and plan as documented. SUBJECTIVE: OBJECTIVE: ASSESSMENT AND PLAN:
[2019-04-16] MEDS: ATORVASTATIN CA 40 MG TABLET (FP) PO SCH (21:59)
[2019-04-16] MEDS: oxyCODONE HCL 5 MG TABLET PO PRN (22:00)
[2019-04-17] MEDS: PSYLLIUM 5.85 GM PACKET PO SCH ×3 (06:14→21:25)
[2019-04-17] MEDS: NON-FORMULARY MED PO SCH ×3 (06:14→21:25)
[2019-04-17] MEDS: INSULIN SLIDING SCALE (NOVOLOG) 1 VIAL SQ SCH ×4 (06:17→21:28)
[2019-04-17 08:26] LABS: EOS % 2.5 % (0-4.5); HEMATOCRIT 28.7 % (32.4-45.2); HEMOGLOBIN 8.9 GM/dL (10.7-15.3); LYMPH % 12.2 % (8-40); MCH 28.2 pg (25.7-33.7); MCHC 31.1 g/dl (32.0-36.0); MEAN CELL VOLUME 90.9 fl (80-96); MEAN PLT VOLUME 8.6 fl (7.5-11.1); MONO % 9.5 % (3.8-10.2); NEUT % 74.8 % (42.8-82.8); PLATELET COUNT 249 K/MM3 (134-434); RBC 3.16 M/mm3 (3.60-5.2); RDW 32.7 % (11.6-15.6); WHITE BLOOD COUNT 8.4 K/mm3 (4.0-10.0)
[2019-04-17] MEDS ORDERED: PT OWN MED DRAWER 7, Y5N ONE ×5 (08:31→17:46)
[2019-04-17] MEDS: AMOX TR/POT CLAV 875MG/125MG TABLETS (FP) PO SCH ×2 (08:45→17:45)
[2019-04-17 08:59] LABS: ALBUMIN 2.8 g/dl (3.4-5.0); BILIRUBIN,TOTAL 0.3 mg/dL (0.2-1); CALCIUM 7.8 mg/dL (8.5-10.1); CREATININE 1.6 mg/dL (0.55-1.3); MAGNESIUM 2.4 mg/dL (1.8-2.4); PHOSPHOROUS 3.2 mg/dL (2.5-4.9); POTASSIUM 4.5 mmol/L (3.5-5.1); TOT PROT 6.2 g/dl (6.4-8.2)
[2019-04-17] MEDS: FUROSEMIDE 40 MG TABLET (FP) PO SCH (10:11)
[2019-04-17] MEDS: PANTOPRAZOLE 40 MG TABLET (FP) PO SCH (10:12)
[2019-04-17] MEDS: EZETIMIBE 10 MG TABLET (FP) PO SCH (10:12)
[2019-04-17] MEDS: AMIODARONE HCL 200 MG TABLET (FP) PO SCH (10:12)
[2019-04-17] MEDS: CARVEDILOL 3.125 MG TABLET (FP) PO SCH ×2 (10:12→21:24)
[2019-04-17] MEDS: BUDESONIDE/FORMETEROL FUMARATE 160/4.5 mcg INHALER IH SCH ×2 (10:13→21:24)
[2019-04-17] MEDS: predniSONE 20 MG TABLET (UD) PO SCH (11:42)
--- NOTE | 2019-04-17 15:00 | PN ---
Progress Note (short form) - Note Progress Note: + dressing intact, + granulation noted, -cellulitis , - drainage Normal post op betadine dressing change done. Dr Jeffries will follow
--- NOTE | 2019-04-17 15:06 | PN ---
Physical Exam: SUBJECTIVE: Patient seen and examined. Resting in bed comfortably. On 4L NC ( does not use home oxygen), no chest pain. Pt never had PFTs, was placed on nebs by possibly lead scientist when she got stent 01/[address] Del Castillo at [phone] in [facility]. Had discontinued the nebs for a while at home. c/o of cough. Had dressing change yesterday by podiatry. No leg pain. OBJECTIVE: Vital Signs Period Temp Pulse Resp BP Sys/Wesley Pulse Ox Last 24 Hr 98.5 F-98.8 F 56-59 20-20 137-146/52-70 95 Vital Signs Temp 98.8 F 04/17/19 13:41 Pulse 59 L 04/17/19 13:41 Resp 20 04/17/19 13:41 BP 145/57 L 04/17/19 13:41 Pulse Ox 95 04/16/19 21:00 Intake & Output 04/16/19 04/17/19 04/17/19 23:59 11:59 23:59 Intake Total 800 350 Balance 800 350 Weight 87.226 kg Intake: IVPB 50 Oral 750 350 Other: Voiding Method Toilet Toilet # Unmeasured Voids Void 3 Bowel Movement No Yes Weight Measurement Method Built in Bedscale GENERAL: The patient is awake, alert, and fully oriented, on 4L NC LUNGS: Diffuse wheezes HEART: Regular rate and rhythm, S1, S2 ABDOMEN: Soft, nontender,obese, normoactive bowel sounds, no guarding EXTREMITIES:LLE in surgical dressing and socks. Dried blood seen on dorsum of foot sticking to dressing. No active bleeding NEUROLOGICAL: AAOx3. No lateralizing signs. Able to move all extremities CBC, BMP 04/17/19 07:30 04/17/19 07:30 Laboratory Results - last 24 hr 04/16/19 04/16/19 04/17/19 16:48 21:56 06:16 WBC RBC Hgb Hct MCV MCH MCHC RDW Plt Count MPV Absolute Neuts (auto) Neutrophils % Lymphocytes % Monocytes % Eosinophils % Basophils % Nucleated RBC % Sodium Potassium Chloride Carbon Dioxide Anion Gap BUN Creatinine Est GFR (CKD-EPI)AfAm Est GFR (CKD-EPI)NonAf POC Glucometer 215 229 200 Random Glucose Calcium Phosphorus Magnesium Total Bilirubin AST ALT Alkaline Phosphatase Total Protein Albumin 04/17/19 04/17/19 04/17/19 07:30 07:30 11:22 WBC 8.4 RBC 3.16 L Hgb 8.9 L Hct 28.7 L MCV 90.9 MCH 28.2 MCHC 31.1 L RDW 32.7 H Plt Count 249 MPV 8.6 Absolute Neuts (auto) 6.3 Neutrophils % 74.8 Lymphocytes % 12.2 Monocytes % 9.5 Eosinophils % 2.5 D Basophils % 1.0 Nucleated RBC % 0 Sodium 138 Potassium 4.5 Chloride 105 Carbon Dioxide 28 Anion Gap 5 L BUN 35.0 H Creatinine 1.6 H Est GFR (CKD-EPI)AfAm 35.65 Est GFR (CKD-EPI)NonAf 30.76 POC Glucometer 229 Random Glucose 192 H Calcium 7.8 L Phosphorus 3.2 Magnesium 2.4 Total Bilirubin 0.3 AST 17 ALT 42 Alkaline Phosphatase 113 Total Protein 6.2 L Albumin 2.8 L Active Medications Generic Name Dose Route Start Last Admin Trade Name Freq PRN Reason Stop Dose Admin Acetaminophen 650 mg 04/14/19 15:01 04/16/19 06:03 Tylenol - PO 650 mg Q6H PRN Administration FEVER Albuterol/Ipratropium 1 amp 04/16/19 16:18 04/16/19 20:15 Duoneb - NEB 1 amp Q6H PRN Administration SHORTNESS OF BREATH Amiodarone HCl 200 mg 04/15/19 10:00 04/17/19 10:12 Cordarone - PO 200 mg DAILY NICOLETTE Administration Amoxicillin/Clavulanate Potassium 1 tab 04/16/19 17:30 04/17/19 08:45 Augmentin - 875mg Tablet PO 1 tab BID@0800,1730 NICOLETTE Administration Atorvastatin Calcium 40 mg 04/14/19 22:00 04/16/19 21:59 Lipitor - PO 40 mg HS NICOLETTE Administration Benzocaine/Menthol 1 each 04/17/19 14:39 Cepacol Lozenge - MM PRN PRN SORE THROAT Budesonide/Formoterol Fumarate 2 puff 04/14/19 22:00 04/17/19 10:13 Symbicort 160/4.5mcg - IH 2 puff BID NICOLETTE Administration Carvedilol 3.125 mg 04/14/19 22:00 04/17/19 10:12 Coreg - PO 3.125 mg BID NICOLETTE Administration Ezetimibe 10 mg 04/15/19 10:00 04/17/19 10:12 Zetia - PO 10 mg DAILY NICOLETTE Administration Fentanyl 25 mcg 04/14/19 15:12 Sublimaze Injection - IVPUSH Q5M PRN PAIN-PACU ORDER X 4 DOSES ONLY Furosemide 40 mg 04/16/19 10:00 04/17/19 10:11 Lasix - PO 40 mg DAILY NICOLETTE Administration Guaifenesin 5 ml 04/16/19 17:10 Diabetic Tussin Dm - PO Q6H PRN COUGH Insulin Aspart 1 vial 04/14/19 16:30 04/17/19 11:45 Novolog Vial Sliding Scale - SQ 4 units ACHS NICOLETTE Administration Protocol Melatonin 5 mg 04/14/19 15:01 Melatonin PO HS PRN INSOMNIA Non-Formulary Medication 1 each 04/14/19 22:00 04/17/19 06:14 Non-Formulary Med PO Not Given TID NICOLETTE Ondansetron HCl 4 mg 04/14/19 15:12 Zofran Injection IVPUSH Q6H PRN NAUSEA AND/OR VOMITING Oxycodone HCl 5 mg 04/14/19 17:52 04/16/19 22:00 Roxicodone - PO 5 mg Q6H PRN Administration PAIN LEVEL 6-10 Pantoprazole Sodium 40 mg 04/15/19 10:00 04/17/19 10:12 Protonix - PO 40 mg DAILY NICOLETTE Administration Prednisone 60 mg 04/17/19 11:00 04/17/19 11:42 Deltasone - PO 60 mg DAILY NICOLETTE Administration Psyllium Hydrophilic Mucilloid 5.85 gm 04/14/19 22:00 04/17/19 06:14 Metamucil (Sugar-Free) - PO Not Given TID [facility] Ambulatory Orders Carvedilol [Coreg -] 3.125 mg PO BID #0 tablet 06/23/13 Pantoprazole Sodium [Protonix -] 40 mg PO DAILY #0 tablet.ec 06/23/13 Sitagliptin Phosphate [Januvia -] 100 mg PO DAILY@0700 #0 ud 06/23/13 Ezetimibe [Zetia] 10 mg PO DAILY 01/10/17 Amiodarone HCl [Cordarone -] 200 mg PO DAILY 08/13/17 Atorvastatin Ca [Lipitor] 40 mg PO DAILY 08/13/17 Dapagliflozin Propanediol [Farxiga] 5 mg PO DAILY 08/13/17 Aspirin [Lo-Dose Aspirin EC] 81 mg PO DAILY #20 tab 08/20/17 Glipizide 5 mg PO BID 11/10/17 Clopidogrel Bisulfate [Plavix -] 75 mg PO DAILY 04/10/19 Furosemide [Lasix -] 40 mg PO BID 04/10/19 metFORMIN HCL [Glucophage -] 500 mg PO BID 04/10/19 Albuterol Sulfate Inhaler - [Ventolin HFA Inhaler -] 1 - 2 inh PO QID PRN Budesonide/Formeterol Fumarate [SYMBICORT 160/4.5mcg -] 2 puff IH BID 04/11/19 Fluticasone Prop 0.05% Nasal [Flonase -] 1 - 2 spray NS DAILY 04/11/19 Amox-Tr/K Cl [Augmentin 875-125mg Tablet -] 1 tab PO BID@0800,1730 #14 tablet Current Medications Acetaminophen (Tylenol -) 650 mg PO Q6H PRN PRN Reason: FEVER Last Admin: 04/16/19 06:03 Dose: 650 mg Albuterol/Ipratropium (Duoneb -) 1 amp NEB Q6H PRN PRN Reason: SHORTNESS OF BREATH Last Admin: 04/16/19 20:15 Dose: 1 amp Amiodarone HCl (Cordarone -) 200 mg PO DAILY [facility] Last Admin: 04/17/19 10:12 Dose: 200 mg Amoxicillin/Clavulanate Potassium (Augmentin - 875mg Tablet) 1 tab PO BID@0800, 1730 [facility] Last Admin: 04/17/19 08:45 Dose: 1 tab Atorvastatin Calcium (Lipitor -) 40 mg PO HS [facility] Last Admin: 04/16/19 21:59 Dose: 40 mg Benzocaine/Menthol (Cepacol Lozenge -) 1 each MM PRN PRN PRN Reason: SORE THROAT Budesonide/Formoterol Fumarate (Symbicort 160/4.5mcg -) 2 puff IH BID [facility] Last Admin: 04/17/19 10:13 Dose: 2 puff Carvedilol (Coreg -) 3.125 mg PO BID [facility] Last Admin: 04/17/19 10:12 Dose: 3.125 mg Ezetimibe (Zetia -) 10 mg PO DAILY [facility] Last Admin: 04/17/19 10:12 Dose: 10 mg Fentanyl (Sublimaze Injection -) 25 mcg IVPUSH Q5M PRN PRN Reason: PAIN-PACU ORDER X 4 DOSES ONLY Furosemide (Lasix -) 40 mg PO DAILY [facility] Last Admin: 04/17/19 10:11 Dose: 40 mg Guaifenesin (Diabetic Tussin Dm -) 5 ml PO Q6H PRN PRN Reason: COUGH Insulin Aspart (Novolog Vial Sliding Scale -) 1 vial SQ ACHS [facility]; Protocol Last Admin: 04/17/19 11:45 Dose: 4 units Melatonin (Melatonin) 5 mg PO HS PRN PRN Reason: INSOMNIA Non-Formulary Medication (Non-Formulary Med) 1 each PO TID [facility] Last Admin: 04/17/19 06:14 Dose: Not Given Ondansetron HCl (Zofran Injection) 4 mg IVPUSH Q6H PRN PRN Reason: NAUSEA AND/OR VOMITING Oxycodone HCl (Roxicodone -) 5 mg PO Q6H PRN PRN Reason: PAIN LEVEL 6-10 Last Admin: 04/16/19 22:00 Dose: 5 mg Pantoprazole Sodium (Protonix -) 40 mg PO DAILY [facility] Last Admin: 04/17/19 10:12 Dose: 40 mg Prednisone (Deltasone -) 60 mg PO DAILY [facility] Last Admin: 04/17/19 11:42 Dose: 60 mg Psyllium Hydrophilic Mucilloid (Metamucil (Sugar-Free) -) 5.85 gm PO TID [facility] Last Admin: 04/17/19 06:14 Dose: Not Given LE MRI W/O Left- 04/12/19 MRI of the left foot. Clinical information: Rule out osteomyelitis. Coronal sagittal and axial T1 and T2-weighted images of the left foot were obtained. There is marked soft tissue swelling of the foot with a large collection in the dorsal aspect.. This collection measures 3.9 cm in width, 1.5 cm in height and the 6.2 cm in AP dimension. It is high in signal on T1 and on T2-weighted images. It is suspicious for large subcutaneous hematoma. This collection also may be infected. There is no abnormal bone marrow signal suggestive of osteomyelitis. There is no disruption of the flexor of the extensor tendons. There are no bony lesions. Impression: Large collection of the dorsal aspect of the mid and forefoot. It probably represents a large subcutaneous hematoma, this collection also may be infected. There is no osteomyelitis. US Pelvic/Bladder 04/11/19 Real time examination of the pelvis demonstrates the following: Evaluation of the urinary bladder demonstrates no intrinsic bladder abnormalities. Bilateral ureteral jets are visualized. A pre-void bladder volume of 351 cc was calculated. A post voiding image demonstrates incomplete emptying of the bladder with a large postvoid residual of 134 cc. The patient is S/P hysterectomy. No pelvic masses or fluid collections are identified. IMPRESSION: Large postvoid residual. ASSESSMENT/PLAN: 78yo female with DM, CAD s/p 4 stents, COPD, HTN, HLD, and anemia who presents with left foot wound. About 3 weeks ago, she tripped in the shower and fell on her foot. She was diagnosed with L 5th digit fx and multiple trauma blisters. #left foot cellulitis with hematoma -Now s/p Incision and drainage with evacuation of hematoma left foot 04/14/19 per podiatry-hematoma clumps, no purulent dc, no pus, no mal odor -wound culture - initial cx- multiorgs -Repeat wcx-negative -blood culture negative -continue Zosyn , vanc -ID consult- Dr An -Pt transitioned to PO augmentin -Vanc dcd #COPD exacerbation Wheezes, cough, needing O2 supplementation Cont nebs PO prednisone started- day 1 (04/17/19) Will benefit from outpt PFTs #Leucocytosis resolved Unclear source Per podiatry- not likely from wound #DM -pt on 4 DM meds at home, hold -SSI and hold home DM meds -BGM, pt had BG of 43 at admission but was asymptomatic #Hypoglycemia -pt on multiple oral hypoglycemics with poor excretion in setting of NANCY -Hold oral hypoglycemics , for outpt discussion with PCP -ISS NANCY on CKD -pt appears to be at her baseline -Cr stabilized then bumped again, monitor -likely prerenal in setting of infection, improved with hydration -Cont lasix PO -UA- Glucose 3+ -renal U/S- urinary retention -avoid nephrotoxic drugs #Anemia Transfusion treshold <8 -Cont to monitor #CAD -Cardiac stent in January 2019 -Cont DAPT -Cont coreg -Cont lipito-Will contact lead scientist-Dr Del Castillo at [phone] in [facility] #Afib -Cont amio -Cont coreg -cont ASA/plavix #CHF Cont coreg Cont lasix #HLD Cont lipitor Cont ezetimibe SCDs- pt anemic Visit type - Emergency Visit Emergency Visit: Yes ED Registration Date: 04/10/19 Care time: The patient presented to the Emergency Department on the above date and was hospitalized for further evaluation of their emergent condition. - New Patient This patient is new to me today: No - Critical Care Critical Care patient: No - Discharge Referral Referred to [facility] Med [facility] No ATTENDING PHYSICIAN STATEMENT I saw and evaluated the patient. I reviewed the resident's note and discussed the case with the resident. I agree with the resident's findings and plan as documented. SUBJECTIVE: OBJECTIVE: ASSESSMENT AND PLAN:
[2019-04-17] MEDS: BENZOCAINE/MENTH/CETYLPYRD CL 1 EACH LOZENGE MM PRN (15:27)
--- NOTE | 2019-04-17 17:02 | PN ---
Teaching Attending Note Name of Resident: Joselyn Lewis ATTENDING PHYSICIAN STATEMENT I saw and evaluated the patient. I reviewed the resident's note and discussed the case with the resident. I agree with the resident's findings and plan as documented. SUBJECTIVE: Ms Pierce complains of coughing and shortness of breath. Cough is dry and non-productive. No cp or n/v. OBJECTIVE: Last Vital Signs Temp Pulse Resp BP Pulse Ox 37.1 C 59 L 20 145/57 L 95 04/17/19 13:41 04/17/19 13:41 04/17/19 13:41 04/17/19 13:41 04/17/19 09:00 Gen: nad, obese Pulm: wheezing bilaterally with dry cough CV: rrr w/o m/r/g Abd: +bs, s/nt/nd Ext: wrapped CBC, BMP 04/17/19 07:30 04/17/19 07:30 ASSESSMENT AND PLAN: (1) Cellulitis Assessment/Plan: -continue augmentin Code(s): L03.90 - CELLULITIS, UNSPECIFIED Qualifiers: Site of cellulitis: extremity Site of cellulitis of extremity: toe Laterality: left Qualified Code(s): L03.032 - Cellulitis of left toe (2) Hematoma Assessment/Plan: -s/p drainage Code(s): T14.8XXA - OTHER INJURY OF UNSPECIFIED BODY REGION, INITIAL ENCOUNTER (3) Deep vein thrombosis (DVT) of right lower extremity Assessment/Plan: -history of DVT -no AC, presented with hematoma Code(s): I82.401 - ACUTE EMBOLISM AND THOMBOS UNSP DEEP VEINS OF R LOW EXTREM Qualifiers: Affected thrombotic vein of extremity: femoral Chronicity: chronic Qualified Code(s): I82.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 (4) Diabetes Assessment/Plan: -diabetic diet -FSBS and SSI Code(s): E11.9 - TYPE 2 DIABETES MELLITUS WITHOUT COMPLICATIONS Qualifiers: Diabetes mellitus type: type 2 Chronic kidney disease stage: stage 2 (mild ) (5) GIB (gastrointestinal bleeding) Assessment/Plan: -continue protonix Code(s): K92.2 - GASTROINTESTINAL HEMORRHAGE, UNSPECIFIED Qualifiers: GI bleed type/associated pathology: melena Qualified Code(s): K92.1 - Melena (6) HLD (hyperlipidemia) Assessment/Plan: -continue statin Code(s): E78.5 - HYPERLIPIDEMIA, UNSPECIFIED Qualifiers: Hyperlipidemia type: pure hypercholesterolemia Qualified Code(s): E78.00 - Pure hypercholesterolemia, unspecified (7) HTN (hypertension) Assessment/Plan: -continue current management Code(s): I10 - ESSENTIAL (PRIMARY) HYPERTENSION Qualifiers: Hypertension type: essential hypertension Qualified Code(s): I10 - Essential (primary) hypertension (8) Bronchitis -wheezing noted today -also with continued cough -prednisone added -continue bronchodilators -continue oxygen Problem List - Problems (1) Cellulitis Code(s): L03.90 - CELLULITIS, UNSPECIFIED Qualifiers: Site of cellulitis: extremity Site of cellulitis of extremity: toe Laterality: left Qualified Code(s): L03.032 - Cellulitis of left toe (2) Hematoma Code(s): T14.8XXA - OTHER INJURY OF UNSPECIFIED BODY REGION, INITIAL ENCOUNTER (3) Deep vein thrombosis (DVT) of right lower extremity Code(s): I82.401 - ACUTE EMBOLISM AND THOMBOS UNSP DEEP VEINS OF R LOW EXTREM Qualifiers: Affected thrombotic vein of extremity: femoral Chronicity: chronic Qualified Code(s): I82.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 (4) Diabetes Code(s): E11.9 - TYPE 2 DIABETES MELLITUS WITHOUT COMPLICATIONS Qualifiers: Diabetes mellitus type: type 2 Chronic kidney disease stage: stage 2 (mild ) (5) GIB (gastrointestinal bleeding) Code(s): K92.2 - GASTROINTESTINAL HEMORRHAGE, UNSPECIFIED Qualifiers: GI bleed type/associated pathology: melena Qualified Code(s): K92.1 - Melena (6) HLD (hyperlipidemia) Code(s): E78.5 - HYPERLIPIDEMIA, UNSPECIFIED Qualifiers: Hyperlipidemia type: pure hypercholesterolemia Qualified Code(s): E78.00 - Pure hypercholesterolemia, unspecified (7) HTN (hypertension) Code(s): I10 - ESSENTIAL (PRIMARY) HYPERTENSION Qualifiers: Hypertension type: essential hypertension Qualified Code(s): I10 - Essential (primary) hypertension
[2019-04-17] MEDS: FLUTICASONE PROP 0.05% 16 GM NASAL SPRAY NS SCH (18:14)
[2019-04-17] MEDS ORDERED: INSULIN (NOVOLOG) ASPART 100 UNITS/ML 10ML VIAL ONE (18:35)
[2019-04-17] MEDS: ATORVASTATIN CA 40 MG TABLET (FP) PO SCH (21:24)
[2019-04-18] MEDS ORDERED: PT OWN MED DRAWER 7, Y5N ONE (06:09)
[2019-04-18] MEDS: PSYLLIUM 5.85 GM PACKET PO SCH ×3 (06:22→22:31)
[2019-04-18] MEDS: INSULIN SLIDING SCALE (NOVOLOG) 1 VIAL SQ SCH ×4 (06:22→22:31)
[2019-04-18] MEDS: NON-FORMULARY MED PO SCH ×3 (06:22→22:31)
[2019-04-18 07:25] LABS: ARTERIAL BLD GAS O2 SATURATION 98.1 % (95-98); ARTERIAL BLOOD GAS BASE EXCESS 1.6 meq/l (-2-2); ARTERIAL BLOOD GAS PCO2 63.3 mmHg (35-45); ARTERIAL BLOOD GAS PO2 102 mmHg (80-105); ARTERIAL BLOOD GAS pH 7.28 (7.35-7.45)
[2019-04-18 07:33] LABS: ALLENS TEST POSITIVE
[2019-04-18 08:33] LABS: BASO % 0.5 % (0-2.0); EOS % 0.1 % (0-4.5); HEMATOCRIT 27.8 % (32.4-45.2); LYMPH % 12.9 % (8-40); MCH 28.9 pg (25.7-33.7); MCHC 32.4 g/dl (32.0-36.0); MEAN CELL VOLUME 89.4 fl (80-96); MEAN PLT VOLUME 8.8 fl (7.5-11.1); MONO % 9.3 % (3.8-10.2); NEUT % 77.2 % (42.8-82.8); PLATELET COUNT 246 K/MM3 (134-434); RBC 3.11 M/mm3 (3.60-5.2); RDW 32.6 % (11.6-15.6)
[2019-04-18 08:43] LABS: ALBUMIN 2.9 g/dl (3.4-5.0); BILIRUBIN,TOTAL 0.3 mg/dL (0.2-1); CREATININE 1.3 mg/dL (0.55-1.3); MAGNESIUM 2.3 mg/dL (1.8-2.4); PHOSPHOROUS 2.5 mg/dL (2.5-4.9); POTASSIUM 4.3 mmol/L (3.5-5.1); TOT PROT 6.2 g/dl (6.4-8.2)
--- NOTE | 2019-04-18 09:23 | PN ---
Progress Note (short form) - Note Progress Note: +dressing intact, +granaltion noted,-cellitis,-drainage normal post op Betadine dressing change done Patient feels good
[2019-04-18] MEDS: AMIODARONE HCL 200 MG TABLET (FP) PO SCH (10:59)
[2019-04-18] MEDS: predniSONE 20 MG TABLET (UD) PO SCH (10:59)
[2019-04-18] MEDS: PANTOPRAZOLE 40 MG TABLET (FP) PO SCH (10:59)
[2019-04-18] MEDS: FUROSEMIDE 40 MG TABLET (FP) PO SCH (10:59)
[2019-04-18] MEDS: AMOX TR/POT CLAV 875MG/125MG TABLETS (FP) PO SCH ×2 (10:59→19:39)
[2019-04-18] MEDS: EZETIMIBE 10 MG TABLET (FP) PO SCH (11:00)
[2019-04-18] MEDS: CARVEDILOL 3.125 MG TABLET (FP) PO SCH ×2 (11:00→22:31)
[2019-04-18] MEDS: FLUTICASONE PROP 0.05% 16 GM NASAL SPRAY NS SCH (11:00)
[2019-04-18] MEDS: BUDESONIDE/FORMETEROL FUMARATE 160/4.5 mcg INHALER IH SCH ×2 (11:00→22:32)
[2019-04-18] MEDS ORDERED: INSULIN (NOVOLOG) ASPART 100 UNITS/ML 10ML VIAL ONE (11:58)
--- NOTE | 2019-04-18 14:14 | PN ---
Progress Note (short form) - Note Progress Note: PULMONARY CONSULTATION DICTATED 04/18/19 IMP ACUTE HYPOXEMIC/HYPERCAPNEIC RESPIRATORY FAILURE COPD CHF ASHD S/P STENTS DM SUSPECTED OSAS HTN OBESITY ANEMIA PULMONARY HTN LEFT FOOT WOUND H/O SUBSTERNAL THYROID PLAN O2 NIPPV NEEDED INHALED BRONCHODILATORS SOLUMEDROL CHEST CT BNP F/U ABGS F/U CHEST X-RAYS NORMAL TRANFUSION THRESHOLD MONITOR LYTES ECHO OUTPATIENT SLEEP STUDIES DR CONLEY Problem List - Problems (1) Acute respiratory failure with hypoxia and hypercapnia Code(s): J96.01 - ACUTE RESPIRATORY FAILURE WITH HYPOXIA; J96.02 - ACUTE RESPIRATORY FAILURE WITH HYPERCAPNIA (2) Cellulitis Code(s): L03.90 - CELLULITIS, UNSPECIFIED Qualifiers: Site of cellulitis: extremity Site of cellulitis of extremity: toe Laterality: left Qualified Code(s): L03.032 - Cellulitis of left toe (3) Foot infection Code(s): L08.9 - LOCAL INFECTION OF THE SKIN AND SUBCUTANEOUS TISSUE, UNSP (4) Hematoma Code(s): T14.8XXA - OTHER INJURY OF UNSPECIFIED BODY REGION, INITIAL ENCOUNTER (5) Anemia Code(s): D64.9 - ANEMIA, UNSPECIFIED Qualifiers: Other causes of anemia: acute posthemorrhagic (6) CAD (coronary artery disease) Code(s): I25.10 - ATHSCL HEART DISEASE OF [place] CORONARY ARTERY W/O ANG PCTRS Qualifiers: Coronary Disease-Associated Artery/Lesion type: [place] artery [place] vs. transplanted heart: [place] heart Associated angina: without angina Qualified Code(s): I25.10 - Atherosclerotic heart disease of [place] coronary artery without angina pectoris (7) HLD (hyperlipidemia) Code(s): E78.5 - HYPERLIPIDEMIA, UNSPECIFIED Qualifiers: Hyperlipidemia type: pure hypercholesterolemia Qualified Code(s): E78.00 - Pure hypercholesterolemia, unspecified (8) HTN (hypertension) Code(s): I10 - ESSENTIAL (PRIMARY) HYPERTENSION Qualifiers: Hypertension type: essential hypertension Qualified Code(s): I10 - Essential (primary) hypertension (9) COPD exacerbation Code(s): J44.1 - CHRONIC OBSTRUCTIVE PULMONARY DISEASE W (ACUTE) EXACERBATION
[2019-04-18] MEDS ORDERED: ALBUTEROL SO4 2.5/IPRATROPIUM 0.5 INH SOL 3 ML VIAL.NEB. NEB PRN (14:42)
--- NOTE | 2019-04-18 15:51 | ECHO ---
Name: SHAKA MEJIA Exam:Adult Echocardiogram Study Date: 04/18/2019 03:00 PM Age: 78 yrs Reason For Study: LVF Height: 59 in Weight: 191 lb BSA: 1.8 m2 MMode/2D Measurements & Calculations IVSd: 1.2 cm Ao root diam: 2.5 cm LVIDd: 3.7 cm LA dimension: 3.7 cm LVIDs: 2.7 cm LVPWd: 0.86 cm EDV(Teich): 59.1 ml LVOT diam: 2.0 cm ESV(Teich): 25.9 ml Doppler Measurements & Calculations MV E max ebeenzer: 66.0 cm/sec Ao V2 max: 156.4 cm/sec MV A max ebenezer: 74.0 cm/sec Ao max P.8 mmHg MV E/A: 0.89 Ao V2 mean: 109.4 cm/sec MV dec time: 0.20 sec Ao mean P.4 mmHg Ao V2 VTI: 37.4 cm MARIYA(I,D): 2.4 cm2 MARIYA(V,D): 2.2 cm2 LV V1 max P.1 mmHg MR max ebenezer: 337.0 cm/sec LV V1 mean P.7 mmHg MR max P.1 mmHg LV V1 max: 113.0 cm/sec LV V1 mean: 78.5 cm/sec LV V1 VTI: 29.0 cm SV(LVOT): 88.0 ml TR max ebenezer: 293.4 cm/sec TR max P.9 mmHg Med Peak E' Ebenezer: 4.7 cm/sec Med E/e': 13.9 Lat Peak E' Ebenezer: 5.6 cm/sec Lat E/e': 11.7 Left Ventricle There is mild concentric left ventricular hypertrophy. Left ventricular systolic function is normal. Ejection Fraction = 55-60%. The transmitral spectral Doppler flow pattern is normal for age. Right Ventricle The right ventricle is grossly normal size. The right ventricular systolic function is grossly normal . Atria Normal left and right atrial size and function. Mitral Valve There is moderate mitral annular calcification. There is mild mitral regurgitation. Tricuspid Valve The tricuspid valve is normal in structure and function. There is mild tricuspid regurgitation. There was insufficient TR detected to calculate RV systolic pressure. Aortic Valve There is mild to moderate aortic sclerosis.;. No hemodynamically significant valvular aortic stenosis . Great Vessels The aortic root is normal size. Pericardium/Pleura There is no pericardial effusion. Interpretation Summary There is mild concentric left ventricular hypertrophy. There is moderate mitral annular calcification. There is mild to moderate aortic sclerosis.; Left ventricular systolic function is normal. Ejection Fraction = 55-60%. There is mild tricuspid regurgitation. There was insufficient TR detected to calculate RV systolic pressure. There is mild mitral regurgitation. There is no pericardial effusion. MD Aburto *Michelle 04/18/2019 03:50 PM
[2019-04-18] MEDS: ALBUTEROL SO4 2.5/IPRATROPIUM 0.5 INH SOL 3 ML VIAL.NEB. NEB SCH ×2 (17:15→20:44)
[2019-04-18] MEDS: methylPREDNISolone NA SUCC 40 MG/1 ML VIAL IVPUSH SCH ×2 (17:20→22:31)
--- NOTE | 2019-04-18 17:31 | CONS ---
DATE OF CONSULTATION: 04/18/2019 PULMONARY CONSULTATION REFERRING PHYSICIAN: Aureliano Davidson M.D. HISTORY OF PRESENT ILLNESS: The patient is a 78-year-old white female with extensive past medical history which includes diabetes mellitus, ASHD status post 4 stents , COPD, hypertension, anemia, hyperlipidemia, pulmonary hypertension, nonsmoker, admitted to [facility] on April 10 with left foot wound. Patient apparently fell 3 weeks prior to admission, tripped in the shower and fell on her foot. She was diagnosed at that time with left 5th digit fracture and multiple trauma blisters. Apparently the blisters popped soon after and she was bandaging with Xeroform on her own. She went to wound care on the day of admission and was told to go to the emergency room. On admission, she is noted to have cellulitis and an infected wound. She was admitted, placed on broad-spectrum antibiotics. The patient underwent an incision and drainage and debridement of the left foot on April 14. Postoperative course she was noted to be hypoxic. She states that every time she has a surgical procedure, she develops hypoxemic postoperative. Yesterday she started developing increasing shortness of breath and was noted to have O2 saturations going into the 60s. She was treated with Prednisone and bronchodilators with clinical improvement. Patient is a nonsmoker. She denies any history of occupational exposure to chemicals or fumes. She states that for the past few months or so, she has been developing increasing shortness of breath and dyspnea on exertion. She denies any chest pains or palpitations. 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 She apparently went to a director vaccine and then was told to go back to the supervisor tree fruit and nut farming. The patient states that she is a heavy snorer and has excessive daytime sleepiness. She also noted on previous echo 2018 to have pulmonary artery pressure of 46 mmHg. The patient denies any history of DVT or PE in the past. There is no history of respiratory failure in the past, on ventilatory support. PAST MEDICAL HISTORY: Again includes ASHD status post stents, questionable CHF, COPD, diabetes, hypertension, obesity, anemia, pulmonary hypertension suspected of obstructive sleep apnea syndrome. REVIEW OF SYSTEMS: Positive orthopnea. Positive dyspnea. Positive cough, nonproductive. Positive bronchospasm. No chest pain. No palpitation. No abdominal pain. CURRENT MEDICATIONS: Include Zofran, Symbicort, prednisone, Tylenol, Cordarone, Augmentin, DuoNeb, Coreg, Metamucil, Zetia, Flonase, Lipitor, NovoLog Lasix, melatonin, and Protonix. PHYSICAL EXAMINATION: GENERAL: The patient is an obese female awake, alert, mildly dyspneic but in no acute distress. She is afebrile. VITAL SIGNS: Blood pressure is 146/59, respiratory rate is 20, O2 saturation on nasal cannula is now 88 to 90. HEENT: Normocephalic, atraumatic. NECK: Supple. HEART: Regular S1, S2. CHEST: Diffuse bilateral wheezes. ABDOMEN: Soft, bowel sounds positive. EXTREMITIES: No cyanosis, edema. LABORATORY: WBC is 7, hemoglobin 9.0, hematocrit 27.8 with platelet count of 246,000. Blood gas: pH of 7.28, pCO2 of 63, pO2 of 102, bicarbonate of 28, and saturation of 98 that was on 4 L nasal cannula. BUN 34, creatinine 1.3, BNP was not performed. Chest x-ray: Poor inspiratory effort. There is a fullness of hilum and mild congestion. IMPRESSION: Acute hypercapnic, hypoxemic respiratory failure likely secondary to 1. Chronic obstructive pulmonary disease exacerbation. 2. Likely Component of congestive heart failure. 3. Arteriosclerotic heart disease status post stents. 4. Pulmonary hypertension. 5. Diabetes. 6. Suspected obstructive sleep apnea. 7. Hypertension. 8. Obesity. 9. Anemia. 10. Left foot wound. Suggest supplemental O2, NIPPV as needed, inhaled bronchodilators, start Solu- Medrol, CT scan of the chest, check BNP, follow up ABGs, follow up chest x-rays, normal transfusion threshold, monitor electrolytes, obtain echocardiogram. FERNANDO CONLEY M.D. NEREIDA/[id number] MTDD
--- NOTE | 2019-04-18 17:34 | PN ---
Teaching Attending Note Name of Resident: Joselyn Lewis ATTENDING PHYSICIAN STATEMENT I saw and evaluated the patient. I reviewed the resident's note and discussed the case with the resident. I agree with the resident's findings and plan as documented. SUBJECTIVE: Ms Pierce is wearing Bipap and complains it is uncomfortable. Denies cp, sob, n/v currently OBJECTIVE: Last Vital Signs Temp Pulse Resp BP Pulse Ox 36.6 C 54 L 20 147/59 L 100 04/18/19 09:45 04/18/19 09:45 04/18/19 09:45 04/18/19 09:45 04/18/19 10:00 Gen: nad, obese Pulm: wheezing bilaterally, on bipap CV: rrr w/o m/r/g Abd: +bs, s/nt/nd Ext: LLE wrapped CBC, BMP 04/18/19 06:00 04/18/19 07:00 ASSESSMENT AND PLAN: (1) Cellulitis Assessment/Plan: -continue augmentin Code(s): L03.90 - CELLULITIS, UNSPECIFIED Qualifiers: Site of cellulitis: extremity Site of cellulitis of extremity: toe Laterality: left Qualified Code(s): L03.032 - Cellulitis of left toe (2) Hematoma Assessment/Plan: -s/p drainage Code(s): T14.8XXA - OTHER INJURY OF UNSPECIFIED BODY REGION, INITIAL ENCOUNTER (3) Deep vein thrombosis (DVT) of right lower extremity Assessment/Plan: -history of DVT -no AC, presented with hematoma Code(s): I82.401 - ACUTE EMBOLISM AND THOMBOS UNSP DEEP VEINS OF R LOW EXTREM Qualifiers: Affected thrombotic vein of extremity: femoral Chronicity: chronic Qualified Code(s): I82.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 (4) Diabetes Assessment/Plan: -diabetic diet -FSBS and SSI Code(s): E11.9 - TYPE 2 DIABETES MELLITUS WITHOUT COMPLICATIONS Qualifiers: Diabetes mellitus type: type 2 Chronic kidney disease stage: stage 2 (mild ) (5) GIB (gastrointestinal bleeding) Assessment/Plan: -continue protonix Code(s): K92.2 - GASTROINTESTINAL HEMORRHAGE, UNSPECIFIED Qualifiers: GI bleed type/associated pathology: melena Qualified Code(s): K92.1 - Melena (6) HLD (hyperlipidemia) Assessment/Plan: -continue statin Code(s): E78.5 - HYPERLIPIDEMIA, UNSPECIFIED Qualifiers: Hyperlipidemia type: pure hypercholesterolemia Qualified Code(s): E78.00 - Pure hypercholesterolemia, unspecified (7) HTN (hypertension) Assessment/Plan: -continue current management Code(s): I10 - ESSENTIAL (PRIMARY) HYPERTENSION Qualifiers: Hypertension type: essential hypertension Qualified Code(s): I10 - Essential (primary) hypertension (8) Hypoxic hypercapneic respiratory failure -ABG noted -started on bipap -case d/w Dr Alford -obtain chest CT -place on IV steroids -obtain ECHO Problem List - Problems (1) Acute respiratory failure with hypoxia and hypercapnia Code(s): J96.01 - ACUTE RESPIRATORY FAILURE WITH HYPOXIA; J96.02 - ACUTE RESPIRATORY FAILURE WITH HYPERCAPNIA (2) Cellulitis Code(s): L03.90 - CELLULITIS, UNSPECIFIED Qualifiers: Site of cellulitis: extremity Site of cellulitis of extremity: toe Laterality: left Qualified Code(s): L03.032 - Cellulitis of left toe (3) Hematoma Code(s): T14.8XXA - OTHER INJURY OF UNSPECIFIED BODY REGION, INITIAL ENCOUNTER (4) Deep vein thrombosis (DVT) of right lower extremity Code(s): I82.401 - ACUTE EMBOLISM AND THOMBOS UNSP DEEP VEINS OF R LOW EXTREM Qualifiers: Affected thrombotic vein of extremity: femoral Chronicity: chronic Qualified Code(s): I82.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 (5) Diabetes Code(s): E11.9 - TYPE 2 DIABETES MELLITUS WITHOUT COMPLICATIONS Qualifiers: Diabetes mellitus type: type 2 Chronic kidney disease stage: stage 2 (mild ) (6) GIB (gastrointestinal bleeding) Code(s): K92.2 - GASTROINTESTINAL HEMORRHAGE, UNSPECIFIED Qualifiers: GI bleed type/associated pathology: melena Qualified Code(s): K92.1 - Melena (7) HLD (hyperlipidemia) Code(s): E78.5 - HYPERLIPIDEMIA, UNSPECIFIED Qualifiers: Hyperlipidemia type: pure hypercholesterolemia Qualified Code(s): E78.00 - Pure hypercholesterolemia, unspecified (8) HTN (hypertension) Code(s): I10 - ESSENTIAL (PRIMARY) HYPERTENSION Qualifiers: Hypertension type: essential hypertension Qualified Code(s): I10 - Essential (primary) hypertension
[2019-04-18 17:58] VITALS: BMI 38.7
--- NOTE | 2019-04-18 19:28 | PN ---
Physical Exam: SUBJECTIVE: Patient seen and examined. Sitting out in bed off nasal cannular oxygen. Started prednisone yesterday. denies chest pain. ABG in am shows respiratory acidosis. Pt reports waking up at night severally and thinks she has OLGA. WB on LLE. OBJECTIVE: Vital Signs Period Temp Pulse Resp BP Sys/Wesley Pulse Ox Last 24 Hr 97.8 F-99.0 F 54-68 20-20 147-158/59-72 94-100 GENERAL: The patient is awake, alert, and fully oriented, in no acute distress. Bruise below chin NECK: Short, thick neck LUNGS: reduced respiratory effort, no wheezes appreciated, no crackles. HEART: Regular rate and rhythm, S1, S2 without murmur ABDOMEN: Soft, nontender, obese, normoactive bowel sounds EXTREMITIES: LLE with dressing over foot and in socks, Dressing clean, dry. Some swelling noted LLE plantar aspect of foot NEUROLOGICAL: AAOx3. Strength 5/5 globally, no lateralizing signs. CBC, BMP 04/18/19 06:00 04/18/19 07:00 Laboratory Results - last 24 hr 04/17/19 04/18/19 04/18/19 21:27 05:55 06:00 WBC 7.0 RBC 3.11 L Hgb 9.0 L Hct 27.8 L MCV 89.4 MCH 28.9 MCHC 32.4 RDW 32.6 H Plt Count 246 MPV 8.8 Absolute Neuts (auto) 5.4 Neutrophils % 77.2 Lymphocytes % 12.9 Monocytes % 9.3 Eosinophils % 0.1 D Basophils % 0.5 Nucleated RBC % 0 Puncture Site ABG pH ABG pCO2 at Pt Temp ABG pO2 at Pt Temp ABG HCO3 ABG O2 Sat (Measured) ABG O2 Content ABG Base Excess Alberto Test O2 Delivery Device Oxygen Flow Rate Sodium Potassium Chloride Carbon Dioxide Anion Gap BUN Creatinine Est GFR (CKD-EPI)AfAm Est GFR (CKD-EPI)NonAf POC Glucometer 312 229 Random Glucose Calcium Phosphorus Magnesium Total Bilirubin AST ALT Alkaline Phosphatase B-Natriuretic Peptide Total Protein Albumin 04/18/19 04/18/19 04/18/19 07:00 07:05 11:26 WBC RBC Hgb Hct MCV MCH MCHC RDW Plt Count MPV Absolute Neuts (auto) Neutrophils % Lymphocytes % Monocytes % Eosinophils % Basophils % Nucleated RBC % Puncture Site Right radial ABG pH 7.28 L ABG pCO2 at Pt Temp 63.3 H ABG pO2 at Pt Temp 102 ABG HCO3 28.6 H ABG O2 Sat (Measured) 98.1 H ABG O2 Content 11.8 L ABG Base Excess 1.6 Alberto Test Positive O2 Delivery Device N/c Oxygen Flow Rate 4l Sodium 140 Potassium 4.3 Chloride 105 Carbon Dioxide 30 Anion Gap 5 L BUN 34.0 H Creatinine 1.3 Est GFR (CKD-EPI)AfAm 45.83 Est GFR (CKD-EPI)NonAf 39.54 POC Glucometer 220 Random Glucose 213 H Calcium 8.0 L Phosphorus 2.5 Magnesium 2.3 Total Bilirubin 0.3 AST 12 L ALT 39 Alkaline Phosphatase 108 B-Natriuretic Peptide Total Protein 6.2 L Albumin 2.9 L 04/18/19 04/18/19 17:00 17:01 WBC RBC Hgb Hct MCV MCH MCHC RDW Plt Count MPV Absolute Neuts (auto) Neutrophils % Lymphocytes % Monocytes % Eosinophils % Basophils % Nucleated RBC % Puncture Site ABG pH ABG pCO2 at Pt Temp ABG pO2 at Pt Temp ABG HCO3 ABG O2 Sat (Measured) ABG O2 Content ABG Base Excess Alberto Test O2 Delivery Device Oxygen Flow Rate Sodium Potassium Chloride Carbon Dioxide Anion Gap BUN Creatinine Est GFR (CKD-EPI)AfAm Est GFR (CKD-EPI)NonAf POC Glucometer 263 Random Glucose Calcium Phosphorus Magnesium Total Bilirubin AST ALT Alkaline Phosphatase B-Natriuretic Peptide 2064.2 H Total Protein Albumin Active Medications Generic Name Dose Route Start Last Admin Trade Name Freq PRN Reason Stop Dose Admin Acetaminophen 650 mg 04/14/19 15:01 04/16/19 06:03 Tylenol - PO 650 mg Q6H PRN Administration FEVER Albuterol/Ipratropium 1 amp 04/18/19 16:00 04/18/19 17:15 Duoneb - NEB Not Given RQID NICOLETTE Albuterol/Ipratropium 1 amp 04/18/19 14:42 Duoneb - NEB Q4H PRN SHORTNESS OF BREATH Amiodarone HCl 200 mg 04/15/19 10:00 04/18/19 10:59 Cordarone - PO 200 mg DAILY NICOLETTE Administration Amoxicillin/Clavulanate Potassium 1 tab 04/16/19 17:30 04/18/19 10:59 Augmentin - 875mg Tablet PO 1 tab BID@0800,1730 NICOLETTE Administration Atorvastatin Calcium 40 mg 04/14/19 22:00 04/17/19 21:24 Lipitor - PO 40 mg HS NICOLETTE Administration Benzocaine/Menthol 1 each 04/17/19 14:39 04/17/19 15:27 Cepacol Lozenge - MM 1 each PRN PRN Administration SORE THROAT Budesonide/Formoterol Fumarate 2 puff 04/14/19 22:00 04/18/19 11:00 Symbicort 160/4.5mcg - IH 2 puff BID NICLOETTE Administration Carvedilol 3.125 mg 04/14/19 22:00 04/18/19 11:00 Coreg - PO 3.125 mg BID NICOLETTE Administration Ezetimibe 10 mg 04/15/19 10:00 04/18/19 11:00 Zetia - PO 10 mg DAILY NICOLETTE Administration Fentanyl 25 mcg 04/14/19 15:12 Sublimaze Injection - IVPUSH Q5M PRN PAIN-PACU ORDER X 4 DOSES ONLY Fluticasone Propionate 2 spray 04/17/19 17:30 04/18/19 11:00 Flonase - NS 2 sprays DAILY NICOLETTE Administration Furosemide 40 mg 04/16/19 10:00 04/18/19 10:59 Lasix - PO 40 mg DAILY NICOLETTE Administration Guaifenesin 5 ml 04/16/19 17:10 Diabetic Tussin Dm - PO Q6H PRN COUGH Insulin Aspart 1 vial 04/14/19 16:30 04/18/19 17:20 Novolog Vial Sliding Scale - SQ 6 units ACHS NICOLETTE Administration Protocol Melatonin 5 mg 04/14/19 15:01 04/17/19 21:24 Melatonin PO 5 mg HS PRN Administration INSOMNIA Methylprednisolone Sodium Succinate 40 mg 04/18/19 15:00 04/18/19 17:20 Solu-Medrol - IVPUSH 40 mg Q6H-IV NICOLETTE Administration Non-Formulary Medication 1 each 04/14/19 22:00 04/18/19 14:28 Non-Formulary Med PO Not Given TID NICOLETTE Ondansetron HCl 4 mg 04/14/19 15:12 Zofran Injection IVPUSH Q6H PRN NAUSEA AND/OR VOMITING Pantoprazole Sodium 40 mg 04/15/19 10:00 04/18/19 10:59 Protonix - PO 40 mg DAILY [facility] Administration Psyllium Hydrophilic Mucilloid 5.85 gm 04/14/19 22:00 04/18/19 14:28 Metamucil (Sugar-Free) - PO Not Given TID [facility] Ambulatory Orders Carvedilol [Coreg -] 3.125 mg PO BID #0 tablet 06/23/13 Pantoprazole Sodium [Protonix -] 40 mg PO DAILY #0 tablet.ec 06/23/13 Sitagliptin Phosphate [Januvia -] 100 mg PO DAILY@0700 #0 ud 06/23/13 Ezetimibe [Zetia] 10 mg PO DAILY 01/10/17 Amiodarone HCl [Cordarone -] 200 mg PO DAILY 08/13/17 Atorvastatin Ca [Lipitor] 40 mg PO DAILY 08/13/17 Dapagliflozin Propanediol [Farxiga] 5 mg PO DAILY 08/13/17 Aspirin [Lo-Dose Aspirin EC] 81 mg PO DAILY #20 tab 08/20/17 Glipizide 5 mg PO BID 11/10/17 Clopidogrel Bisulfate [Plavix -] 75 mg PO DAILY 04/10/19 Furosemide [Lasix -] 40 mg PO BID 04/10/19 metFORMIN HCL [Glucophage -] 500 mg PO BID 04/10/19 Albuterol Sulfate Inhaler - [Ventolin HFA Inhaler -] 1 - 2 inh PO QID PRN Budesonide/Formeterol Fumarate [SYMBICORT 160/4.5mcg -] 2 puff IH BID 04/11/19 Fluticasone Prop 0.05% Nasal [Flonase -] 1 - 2 spray NS DAILY 04/11/19 Amox-Tr/K Cl [Augmentin 875-125mg Tablet -] 1 tab PO BID@0800,1730 #14 tablet Current Medications Acetaminophen (Tylenol -) 650 mg PO Q6H PRN PRN Reason: FEVER Last Admin: 04/16/19 06:03 Dose: 650 mg Albuterol/Ipratropium (Duoneb -) 1 amp NEB RQID NICOLETTE Last Admin: 04/18/19 20:44 Dose: 1 amp Albuterol/Ipratropium (Duoneb -) 1 amp NEB Q4H PRN PRN Reason: SHORTNESS OF BREATH Amiodarone HCl (Cordarone -) 200 mg PO DAILY [facility] Last Admin: 04/18/19 10:59 Dose: 200 mg Amoxicillin/Clavulanate Potassium (Augmentin - 875mg Tablet) 1 tab PO BID@0800, 1730 [facility] Last Admin: 04/18/19 19:39 Dose: 1 tab Atorvastatin Calcium (Lipitor -) 40 mg PO HS [facility] Last Admin: 04/18/19 22:31 Dose: 40 mg Benzocaine/Menthol (Cepacol Lozenge -) 1 each MM PRN PRN PRN Reason: SORE THROAT Last Admin: 04/18/19 22:32 Dose: 1 each Budesonide/Formoterol Fumarate (Symbicort 160/4.5mcg -) 2 puff IH BID [facility] Last Admin: 04/18/19 22:32 Dose: 2 puff Carvedilol (Coreg -) 3.125 mg PO BID [facility] Last Admin: 04/18/19 22:31 Dose: 3.125 mg Ezetimibe (Zetia -) 10 mg PO DAILY [facility] Last Admin: 04/18/19 11:00 Dose: 10 mg Fentanyl (Sublimaze Injection -) 25 mcg IVPUSH Q5M PRN PRN Reason: PAIN-PACU ORDER X 4 DOSES ONLY Fluticasone Propionate (Flonase -) 2 spray NS DAILY [facility] Last Admin: 04/18/19 11:00 Dose: 2 sprays Furosemide (Lasix -) 40 mg PO DAILY [facility] Last Admin: 04/18/19 10:59 Dose: 40 mg Guaifenesin (Diabetic Tussin Dm -) 5 ml PO Q6H PRN PRN Reason: COUGH Insulin Aspart (Novolog Vial Sliding Scale -) 1 vial SQ ACHS [facility]; Protocol Last Admin: 04/18/19 22:31 Dose: 8 units Melatonin (Melatonin) 5 mg PO HS PRN PRN Reason: INSOMNIA Last Admin: 04/17/19 21:24 Dose: 5 mg Methylprednisolone Sodium Succinate (Solu-Medrol -) 40 mg IVPUSH Q6H-IV [facility] Last Admin: 04/19/19 02:48 Dose: 40 mg Non-Formulary Medication (Non-Formulary Med) 1 each PO TID [facility] Last Admin: 07/26/19 22:31 Dose: Not Given Ondansetron HCl (Zofran Injection) 4 mg IVPUSH Q6H PRN PRN Reason: NAUSEA AND/OR VOMITING Pantoprazole Sodium (Protonix -) 40 mg PO DAILY [facility] Last Admin: 04/18/19 10:59 Dose: 40 mg Psyllium Hydrophilic Mucilloid (Metamucil (Sugar-Free) -) 5.85 gm PO TID [facility] Last Admin: 04/18/19 22:31 Dose: Not Given Microbiology 04/14/19 11:45 Foot - Left Dorsum Gram Stain - Final 04/14/19 11:45 Foot - Left Dorsum Wound Culture - Final NO GROWTH AFTER 48 HOURS INCUBATION 04/10/19 19:45 Blood - Peripheral Venous Blood Culture - Final NO GROWTH AFTER 5 DAYS INCUBATION 04/10/19 19:45 Blood - Peripheral Venous Blood Culture - Final NO GROWTH AFTER 5 DAYS INCUBATION 04/11/19 01:41 Toe - Left Second Gram Stain - Final 04/11/19 01:41 Toe - Left Second Wound Culture - Final Enterococcus Faecalis Staphylococcus Coagulase Neg Diphtheroid/Corynebacterium Stenotrophomon.(X.)Maltophilia ECHO 04/18/19: Mild conc LV hypertrophy. Mod mitral annular calcification. Mild to mod aortic sclerosis. LVSF is nl. EF-55-60%. Mild TR. insufficient TR detected to calculate RVSP. Mild MR. No pericardial effusion. CT chest 04/18/19: Pulmonary artery trunk is dilated with a 3.7cm cherelle strongly suggestive of pulmonary hypertension. Since CT of 05/13/2017 Mildly increased ROBERT and LLL ground glass interstitial thickening probably on the basis of small airway disease and less likely representing focal infiltrates. Possible development of minimal to mild interstitial thickening with questionable mild vascular congestion. Possible L ventricular dilatation. Stable non calcified 3mm nodule is again seen within the R middle lobe inferiorly. Interval increased size of preaortic mediastinal lymphnode is seen with 1.1cm short axis diameter previously 0.6cm. Correlation with [address] is suggested to evaluate stability . Partial imaging of a R thyroid nodule with mild thyroid substernal extension. No interval change is appreciated. LE MRI W/O Left- 04/12/19 MRI of the left foot. Clinical information: Rule out osteomyelitis. Coronal sagittal and axial T1 and T2-weighted images of the left foot were obtained. There is marked soft tissue swelling of the foot with a large collection in the dorsal aspect.. This collection measures 3.9 cm in width, 1.5 cm in height and the 6.2 cm in AP dimension. It is high in signal on T1 and on T2-weighted images. It is suspicious for large subcutaneous hematoma. This collection also may be infected. There is no abnormal bone marrow signal suggestive of osteomyelitis. There is no disruption of the flexor of the extensor tendons. There are no bony lesions. Impression: Large collection of the dorsal aspect of the mid and forefoot. It probably represents a large subcutaneous hematoma, this collection also may be infected. There is no osteomyelitis. US Pelvic/Bladder 04/11/19 Real time examination of the pelvis demonstrates the following: Evaluation of the urinary bladder demonstrates no intrinsic bladder abnormalities. Bilateral ureteral jets are visualized. A pre-void bladder volume of 351 cc was calculated. A post voiding image demonstrates incomplete emptying of the bladder with a large postvoid residual of 134 cc. The patient is S/P hysterectomy. No pelvic masses or fluid collections are identified. IMPRESSION: Large postvoid residual. ASSESSMENT/PLAN: 78yo female with DM, CAD s/p 4 stents, COPD, HTN, HLD, and anemia who presents with left foot wound. About 3 weeks ago, she tripped in the shower and fell on her foot. She was diagnosed with L 5th digit fx and multiple trauma blisters. #SOB Possibly multifactorial including OLGA with COPD vs ILD and congestion vs PH CT chest with mixed picture Not likely infiltrate, pt on augmentin Started iv steroids Bipap 10/5 Repeat ABG Supplemental O2 as needed #Bradycardia Pt on amiod Unknown reason Will hold coreg fo HR <50 #Respiratory Acidosis No baseline ABG noted, could be due to combined OLGA/COPD iv steroids outpt sleep studies Bipap prn repeat ABG #possible PH Could be type 2 or Type 3 or a combination Pt with CAD s/p cardiac stent With possible underlying chronic lung disease Pt with possible dilated L ventricle #Possible OLD R/O ILD ground glass thickening in setting of small airway disease less likely focal infiltrates Cont iv steroids Oxygen supplementation as needed to maintain sats >90 Nebs #Possible LV dilation possibly HFpEF ECHO showing normal EF Cont PO lasix Cont coreg Cont lasix #left foot cellulitis with hematoma -Now s/p Incision and drainage with evacuation of hematoma left foot 04/14/19 per podiatry-hematoma clumps, no purulent dc, no pus, no mal odor -wound culture - initial cx- multiorgs -Repeat wcx-negative -blood culture negative -continue Zosyn , vanc -ID consult- Dr An -Pt transitioned to PO augmentin -Vanc dcd #COPD exacerbation Wheezes, cough, needing O2 supplementation Cont nebs PO prednisone started- day 1 (04/17/19), now on iv steroids 04/18/19 Will benefit from outpt PFTs and sleep study #Leucocytosis resolved Unclear source Per podiatry- not likely from wound #DM -pt on 4 DM meds at home, hold -SSI and hold home DM meds -BGM, pt had BG of 43 at admission but was asymptomatic #Hypoglycemia -pt on multiple oral hypoglycemics with poor excretion in setting of NANCY -Hold oral hypoglycemics , for outpt discussion with PCP -ISS NANCY on CKD -pt appears to be at her baseline -Cr stabilized then bumped again, monitor -likely prerenal in setting of infection, improved with hydration -Cont lasix PO -UA- Glucose 3+ -renal U/S- urinary retention -avoid nephrotoxic drugs #Anemia Transfusion treshold <8 -Cont to monitor #CAD -Cardiac stent in January 2019 -Cont DAPT -Cont coreg -Cont lipito-Will contact board design engineer-Dr Del Castillo at [phone] in [facility] #Afib -Cont amio -Cont coreg -cont ASA/plavix #HLD Cont lipitor Cont ezetimibe SCDs- pt anemic Visit type - Emergency Visit Emergency Visit: Yes ED Registration Date: 04/10/19 Care time: The patient presented to the Emergency Department on the above date and was hospitalized for further evaluation of their emergent condition. - New Patient This patient is new to me today: No - Critical Care Critical Care patient: No - Discharge Referral Referred to [facility] Med P.C[facility] No ATTENDING PHYSICIAN STATEMENT I saw and evaluated the patient. I reviewed the resident's note and discussed the case with the resident. I agree with the resident's findings and plan as documented. SUBJECTIVE: OBJECTIVE: ASSESSMENT AND PLAN:
[2019-04-18] MEDS: ATORVASTATIN CA 40 MG TABLET (FP) PO SCH (22:31)
[2019-04-18] MEDS: BENZOCAINE/MENTH/CETYLPYRD CL 1 EACH LOZENGE MM PRN (22:32)
[2019-04-19] MEDS ORDERED: oxyCODONE HCL 5 MG TABLET PO ONE (00:43)
[2019-04-19] MEDS: methylPREDNISolone NA SUCC 40 MG/1 ML VIAL IVPUSH SCH ×4 (02:48→20:23)
[2019-04-19] MEDS: NON-FORMULARY MED PO SCH ×3 (06:19→21:12)
[2019-04-19] MEDS: PSYLLIUM 5.85 GM PACKET PO SCH ×3 (06:19→21:08)
[2019-04-19 06:38] LABS: ARTERIAL BLD GAS O2 SATURATION 92.6 % (95-98); ARTERIAL BLOOD GAS PCO2 51.5 mmHg (35-45); ARTERIAL BLOOD GAS pH 7.36 (7.35-7.45)
[2019-04-19] MEDS: ACETAMINOPHEN 325 MG TABLET (FP) PO PRN (06:54)
[2019-04-19] MEDS: INSULIN SLIDING SCALE (NOVOLOG) 1 VIAL SQ SCH ×4 (06:55→21:09)
[2019-04-19 07:07] LABS: ALLENS TEST POSITIVE
[2019-04-19] MEDS: ALBUTEROL SO4 2.5/IPRATROPIUM 0.5 INH SOL 3 ML VIAL.NEB. NEB SCH ×4 (08:00→20:47)
[2019-04-19 08:27] LABS: BASO % 0.1 % (0-2.0); HEMOGLOBIN 9.6 GM/dL (10.7-15.3); LYMPH % 10.1 % (8-40); MCH 28.5 pg (25.7-33.7); MEAN CELL VOLUME 89.2 fl (80-96); MEAN PLT VOLUME 8.7 fl (7.5-11.1); MONO % 1.2 % (3.8-10.2); NEUT % 88.6 % (42.8-82.8); PLATELET COUNT 298 K/MM3 (134-434); RBC 3.36 M/mm3 (3.60-5.2); RDW 32.5 % (11.6-15.6); WHITE BLOOD COUNT 4.7 K/mm3 (4.0-10.0)
[2019-04-19 08:38] LABS: ALBUMIN 3.1 g/dl (3.4-5.0); BILIRUBIN,TOTAL 0.3 mg/dL (0.2-1); BLOOD UREA NITROGEN 35.9 mg/dL (7-18); CALCIUM 8.5 mg/dL (8.5-10.1); CREATININE 1.3 mg/dL (0.55-1.3); MAGNESIUM 2.4 mg/dL (1.8-2.4); POTASSIUM 4.3 mmol/L (3.5-5.1); TOT PROT 6.6 g/dl (6.4-8.2)
--- NOTE | 2019-04-19 09:07 | PN ---
Progress Note (short form) - Note Progress Note: + dressing intact, granulation noted, -cellulitis, -drainage normal post op Betadine dressing change done , Heel is still senstive Waiting for biopsy results Dr Garcia to follow
[2019-04-19] MEDS ORDERED: PT OWN MED DRAWER 7, Y5N ONE ×3 (09:28→20:58)
[2019-04-19] MEDS: AMOX TR/POT CLAV 875MG/125MG TABLETS (FP) PO SCH ×2 (10:04→16:54)
[2019-04-19] MEDS: FUROSEMIDE 40 MG TABLET (FP) PO SCH (10:05)
[2019-04-19] MEDS: PANTOPRAZOLE 40 MG TABLET (FP) PO SCH (10:05)
[2019-04-19] MEDS: CARVEDILOL 3.125 MG TABLET (FP) PO SCH ×2 (10:05→21:08)
[2019-04-19] MEDS: AMIODARONE HCL 200 MG TABLET (FP) PO SCH (10:05)
[2019-04-19] MEDS: FLUTICASONE PROP 0.05% 16 GM NASAL SPRAY NS SCH (10:05)
[2019-04-19] MEDS: BUDESONIDE/FORMETEROL FUMARATE 160/4.5 mcg INHALER IH SCH ×2 (10:06→21:15)
[2019-04-19] MEDS: EZETIMIBE 10 MG TABLET (FP) PO SCH (10:06)
--- NOTE | 2019-04-19 13:30 | PN ---
Progress Note, Physician History of Present Illness: PULMONARY ALERT,FEELNG BETTER,LESS DYSPNEIC,+ COUGH,ABG IMPROVING. PT REFUSES BIPAP - Current Medication List Current Medications: Active Medications Acetaminophen (Tylenol -) 650 mg PO Q6H PRN PRN Reason: FEVER Last Admin: 04/19/19 06:54 Dose: 650 mg Albuterol/Ipratropium (Duoneb -) 1 amp NEB RQID [facility] Last Admin: 04/19/19 12:02 Dose: 1 amp Albuterol/Ipratropium (Duoneb -) 1 amp NEB Q4H PRN PRN Reason: SHORTNESS OF BREATH Amiodarone HCl (Cordarone -) 200 mg PO DAILY [facility] Last Admin: 04/19/19 10:05 Dose: 200 mg Amoxicillin/Clavulanate Potassium (Augmentin - 875mg Tablet) 1 tab PO BID@0800, 1730 [facility] Last Admin: 04/19/19 10:04 Dose: 1 tab Atorvastatin Calcium (Lipitor -) 40 mg PO HS [facility] Last Admin: 04/18/19 22:31 Dose: 40 mg Benzocaine/Menthol (Cepacol Lozenge -) 1 each MM PRN PRN PRN Reason: SORE THROAT Last Admin: 04/18/19 22:32 Dose: 1 each Budesonide/Formoterol Fumarate (Symbicort 160/4.5mcg -) 2 puff IH BID [facility] Last Admin: 04/19/19 10:06 Dose: 2 puff Carvedilol (Coreg -) 3.125 mg PO BID [facility] Last Admin: 04/19/19 10:05 Dose: 3.125 mg Ezetimibe (Zetia -) 10 mg PO DAILY [facility] Last Admin: 04/19/19 10:06 Dose: 10 mg Fentanyl (Sublimaze Injection -) 25 mcg IVPUSH Q5M PRN PRN Reason: PAIN-PACU ORDER X 4 DOSES ONLY Fluticasone Propionate (Flonase -) 2 spray NS DAILY [facility] Last Admin: 04/19/19 10:05 Dose: 2 sprays Furosemide (Lasix -) 40 mg PO DAILY [facility] Last Admin: 04/19/19 10:05 Dose: 40 mg Guaifenesin (Diabetic Tussin Dm -) 5 ml PO Q6H PRN PRN Reason: COUGH Insulin Aspart (Novolog Vial Sliding Scale -) 1 vial SQ ACHS [facility]; Protocol Last Admin: 04/19/19 12:11 Dose: 10 units Melatonin (Melatonin) 5 mg PO HS PRN PRN Reason: INSOMNIA Last Admin: 04/17/19 21:24 Dose: 5 mg Methylprednisolone Sodium Succinate (Solu-Medrol -) 40 mg IVPUSH Q6H-IV [facility] Last Admin: 04/19/19 10:05 Dose: 40 mg Non-Formulary Medication (Non-Formulary Med) 1 each PO TID [facility] Last Admin: 04/19/19 06:19 Dose: Not Given Ondansetron HCl (Zofran Injection) 4 mg IVPUSH Q6H PRN PRN Reason: NAUSEA AND/OR VOMITING Pantoprazole Sodium (Protonix -) 40 mg PO DAILY [facility] Last Admin: 04/19/19 10:05 Dose: 40 mg Psyllium Hydrophilic Mucilloid (Metamucil (Sugar-Free) -) 5.85 gm PO TID [facility] Last Admin: 04/19/19 06:19 Dose: Not Given - Objective Vital Signs: Vital Signs Temperature 98.1 F 04/19/19 10:20 Pulse Rate 58 L 04/19/19 10:20 Respiratory Rate 20 04/19/19 10:20 Blood Pressure 157/76 04/19/19 10:20 O2 Sat by Pulse Oximetry (%) 98 04/19/19 09:00 Constitutional: Yes: Well Nourished, Calm Eyes: Yes: WNL HENT: Yes: WNL Neck: Yes: WNL Cardiovascular: Yes: Regular Rate and Rhythm, S1, S2 Respiratory: Yes: Wheezes (LESS WHEEZES BILATERALLY) Gastrointestinal: Yes: Normal Bowel Sounds, Soft Extremities: Yes: WNL Edema: No Labs: CBC, BMP 04/19/19 07:15 04/19/19 07:15 INR, PTT INR 0.96 (0.83-1.09) 04/10/19 19:58 Laboratory Tests 04/19/19 06:30 ABG pH 7.36 ABG pCO2 at Pt Temp 51.5 H ABG pO2 at Pt Temp 67.0 L ABG HCO3 28.4 H ABG O2 Sat (Measured) 92.6 L Oxygen Flow Rate 2l Laboratory Tests 04/18/19 17:00 B-Natriuretic Peptide 2064.2 H - ....Imaging Cat Scan: Report Reviewed, Image Reviewed (INCREASED GG INFILTRATES RHEA,MILD INCREASED MEDIASTINAL ADENPATHY) Problem List - Problems (1) Acute respiratory failure with hypoxia and hypercapnia Code(s): J96.01 - ACUTE RESPIRATORY FAILURE WITH HYPOXIA; J96.02 - ACUTE RESPIRATORY FAILURE WITH HYPERCAPNIA (2) Cellulitis Code(s): L03.90 - CELLULITIS, UNSPECIFIED Qualifiers: Site of cellulitis: extremity Site of cellulitis of extremity: toe Laterality: left Qualified Code(s): L03.032 - Cellulitis of left toe (3) Foot infection Code(s): L08.9 - LOCAL INFECTION OF THE SKIN AND SUBCUTANEOUS TISSUE, UNSP (4) Hematoma Code(s): T14.8XXA - OTHER INJURY OF UNSPECIFIED BODY REGION, INITIAL ENCOUNTER (5) Anemia Code(s): D64.9 - ANEMIA, UNSPECIFIED Qualifiers: Other causes of anemia: acute posthemorrhagic (6) CAD (coronary artery disease) Code(s): I25.10 - ATHSCL HEART DISEASE OF [place] CORONARY ARTERY W/O ANG PCTRS Qualifiers: Coronary Disease-Associated Artery/Lesion type: [place] artery [place] vs. transplanted heart: [place] heart Associated angina: without angina Qualified Code(s): I25.10 - Atherosclerotic heart disease of [place] coronary artery without angina pectoris (7) HLD (hyperlipidemia) Code(s): E78.5 - HYPERLIPIDEMIA, UNSPECIFIED Qualifiers: Hyperlipidemia type: pure hypercholesterolemia Qualified Code(s): E78.00 - Pure hypercholesterolemia, unspecified (8) HTN (hypertension) Code(s): I10 - ESSENTIAL (PRIMARY) HYPERTENSION Qualifiers: Hypertension type: essential hypertension Qualified Code(s): I10 - Essential (primary) hypertension (9) COPD exacerbation Code(s): J44.1 - CHRONIC OBSTRUCTIVE PULMONARY DISEASE W (ACUTE) EXACERBATION Assessment/Plan IMP ACUTE HYPOXEMIC/HYPERCAPNEIC RESPIRATORY FAILURE IMPROVING COPD ? ILD ? CHF + ELEVATED BNP ASHD S/P STENTS DM SUSPECTED OSAS HTN OBESITY ANEMIA PULMONARY HTN LEFT FOOT WOUND MEDIASTINAL ADENOPATHY H/O SUBSTERNAL THYROID PLAN O2 NIPPV NEEDED INHALED BRONCHODILATORS CONTINUE SOLUMEDROL F/U ABGS NORMAL TRANFUSION THRESHOLD MONITOR LYTES ECHO PFTS OUTPATIENT F/U CHEST CT 3-4 MONTHS OUTPATIENT SLEEP STUD[address] CONLEY Problem List - Problems (1) Acute respiratory failure with hypoxia and hypercapnia Code(s): J96.01 - ACUTE RESPIRATORY FAILURE WITH HYPOXIA; J96.02 - ACUTE RESPIRATORY FAILURE WITH HYPERCAPNIA (2) Cellulitis Code(s): L03.90 - CELLULITIS, UNSPECIFIED Qualifiers: Site of cellulitis: extremity Site of cellulitis of extremity: toe Laterality: left Qualified Code(s): L03.032 - Cellulitis of left toe (3) Foot infection Code(s): L08.9 - LOCAL INFECTION OF THE SKIN AND SUBCUTANEOUS TISSUE, UNSP (4) Hematoma Code(s): T14.8XXA - OTHER INJURY OF UNSPECIFIED BODY REGION, INITIAL ENCOUNTER (5) Anemia Code(s): D64.9 - ANEMIA, UNSPECIFIED Qualifiers: Other causes of anemia: acute posthemorrhagic (6) CAD (coronary artery disease) Code(s): I25.10 - ATHSCL HEART DISEASE OF [place] CORONARY ARTERY W/O ANG PCTRS Qualifiers: Coronary Disease-Associated Artery/Lesion type: [place] artery [place] vs. transplanted heart: [place] heart Associated angina: without angina Qualified Code(s): I25.10 - Atherosclerotic heart disease of [place] coronary artery without angina pectoris (7) HLD (hyperlipidemia) Code(s): E78.5 - HYPERLIPIDEMIA, UNSPECIFIED Qualifiers: Hyperlipidemia type: pure hypercholesterolemia Qualified Code(s): E78.00 - Pure hypercholesterolemia, unspecified (8) HTN (hypertension) Code(s): I10 - ESSENTIAL (PRIMARY) HYPERTENSION Qualifiers: Hypertension type: essential hypertension Qualified Code(s): I10 - Essential (primary) hypertension (9) COPD exacerbation Code(s): J44.1 - CHRONIC OBSTRUCTIVE PULMONARY DISEASE W (ACUTE) EXACERBATION
--- NOTE | 2019-04-19 15:04 | PN ---
Progress Note (short form) - Note Progress Note: POD#5. No pain. VSS, tmax 98.7 -cellulitis, -drainage, wbc=4.7 normal post op Betadine dressing change done. Patient can be dc to home from Podiatry standpoint. Will follow till dc.
--- NOTE | 2019-04-19 16:54 | PN ---
Progress Note, Physician Chief Complaint: Ms Pierce says she is feeling better today. Will not wear the bipap. Denies cp, sob, n/v. - Current Medication List Current Medications: Active Medications Acetaminophen (Tylenol -) 650 mg PO Q6H PRN PRN Reason: FEVER Last Admin: 04/19/19 06:54 Dose: 650 mg Albuterol/Ipratropium (Duoneb -) 1 amp NEB RQID [facility] Last Admin: 04/19/19 15:51 Dose: 1 amp Albuterol/Ipratropium (Duoneb -) 1 amp NEB Q4H PRN PRN Reason: SHORTNESS OF BREATH Amiodarone HCl (Cordarone -) 200 mg PO DAILY [facility] Last Admin: 04/19/19 10:05 Dose: 200 mg Amoxicillin/Clavulanate Potassium (Augmentin - 875mg Tablet) 1 tab PO BID@0800, 1730 [facility] Last Admin: 04/19/19 10:04 Dose: 1 tab Atorvastatin Calcium (Lipitor -) 40 mg PO HS [facility] Last Admin: 04/18/19 22:31 Dose: 40 mg Benzocaine/Menthol (Cepacol Lozenge -) 1 each MM PRN PRN PRN Reason: SORE THROAT Last Admin: 04/18/19 22:32 Dose: 1 each Budesonide/Formoterol Fumarate (Symbicort 160/4.5mcg -) 2 puff IH BID [facility] Last Admin: 04/19/19 10:06 Dose: 2 puff Carvedilol (Coreg -) 3.125 mg PO BID [facility] Last Admin: 04/19/19 10:05 Dose: 3.125 mg Ezetimibe (Zetia -) 10 mg PO DAILY [facility] Last Admin: 04/19/19 10:06 Dose: 10 mg Fentanyl (Sublimaze Injection -) 25 mcg IVPUSH Q5M PRN PRN Reason: PAIN-PACU ORDER X 4 DOSES ONLY Fluticasone Propionate (Flonase -) 2 spray NS DAILY [facility] Last Admin: 04/19/19 10:05 Dose: 2 sprays Furosemide (Lasix -) 40 mg PO DAILY [facility] Last Admin: 04/19/19 10:05 Dose: 40 mg Guaifenesin (Diabetic Tussin Dm -) 5 ml PO Q6H PRN PRN Reason: COUGH Insulin Aspart (Novolog Vial Sliding Scale -) 1 vial SQ ACHS [facility]; Protocol Last Admin: 04/19/19 12:11 Dose: 10 units Melatonin (Melatonin) 5 mg PO HS PRN PRN Reason: INSOMNIA Last Admin: 04/17/19 21:24 Dose: 5 mg Methylprednisolone Sodium Succinate (Solu-Medrol -) 40 mg IVPUSH Q6H-IV [facility] Last Admin: 04/19/19 15:52 Dose: 40 mg Non-Formulary Medication (Non-Formulary Med) 1 each PO TID [facility] Last Admin: 04/19/19 15:52 Dose: 1 each Ondansetron HCl (Zofran Injection) 4 mg IVPUSH Q6H PRN PRN Reason: NAUSEA AND/OR VOMITING Pantoprazole Sodium (Protonix -) 40 mg PO DAILY [facility] Last Admin: 04/19/19 10:05 Dose: 40 mg Psyllium Hydrophilic Mucilloid (Metamucil (Sugar-Free) -) 5.85 gm PO TID [facility] Last Admin: 04/19/19 15:51 Dose: Not Given - Objective Vital Signs: Vital Signs Temperature 36.3 C L 04/19/19 13:59 Pulse Rate 58 L 04/19/19 13:59 Respiratory Rate 20 04/19/19 13:59 Blood Pressure 162/78 04/19/19 13:59 O2 Sat by Pulse Oximetry (%) 98 04/19/19 09:00 Constitutional: Yes: No Distress, Calm, Obese Cardiovascular: Yes: Regular Rate and Rhythm. No: Gallop, Murmur, Rub Respiratory: Yes: Regular, On Nasal O2, Rales. No: CTA Bilaterally, Rhonchi, Wheezes Gastrointestinal: Yes: Normal Bowel Sounds, Soft. No: Distention, Tenderness Extremities: Yes: WNL Edema: No Labs: CBC, BMP 04/19/19 07:15 04/19/19 07:15 INR, PTT INR 0.96 (0.83-1.09) 04/10/19 19:58 Problem List - Problems (1) Acute respiratory failure with hypoxia and hypercapnia Code(s): J96.01 - ACUTE RESPIRATORY FAILURE WITH HYPOXIA; J96.02 - ACUTE RESPIRATORY FAILURE WITH HYPERCAPNIA (2) Cellulitis Code(s): L03.90 - CELLULITIS, UNSPECIFIED Qualifiers: Site of cellulitis: extremity Site of cellulitis of extremity: toe Laterality: left Qualified Code(s): L03.032 - Cellulitis of left toe (3) Hematoma Code(s): T14.8XXA - OTHER INJURY OF UNSPECIFIED BODY REGION, INITIAL ENCOUNTER (4) Deep vein thrombosis (DVT) of right lower extremity Code(s): I82.401 - ACUTE EMBOLISM AND THOMBOS UNSP DEEP VEINS OF R LOW EXTREM Qualifiers: Affected thrombotic vein of extremity: femoral Chronicity: chronic Qualified Code(s): I82.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 (5) Diabetes Code(s): E11.9 - TYPE 2 DIABETES MELLITUS WITHOUT COMPLICATIONS Qualifiers: Diabetes mellitus type: type 2 Chronic kidney disease stage: stage 2 (mild ) (6) GIB (gastrointestinal bleeding) Code(s): K92.2 - GASTROINTESTINAL HEMORRHAGE, UNSPECIFIED Qualifiers: GI bleed type/associated pathology: melena Qualified Code(s): K92.1 - Melena (7) HLD (hyperlipidemia) Code(s): E78.5 - HYPERLIPIDEMIA, UNSPECIFIED Qualifiers: Hyperlipidemia type: pure hypercholesterolemia Qualified Code(s): E78.00 - Pure hypercholesterolemia, unspecified (8) HTN (hypertension) Code(s): I10 - ESSENTIAL (PRIMARY) HYPERTENSION Qualifiers: Hypertension type: essential hypertension Qualified Code(s): I10 - Essential (primary) hypertension Assessment/Plan (1) Cellulitis Assessment/Plan: -continue augmentin Code(s): L03.90 - CELLULITIS, UNSPECIFIED Qualifiers: Site of cellulitis: extremity Site of cellulitis of extremity: toe Laterality: left Qualified Code(s): L03.032 - Cellulitis of left toe (2) Hematoma Assessment/Plan: -s/p drainage Code(s): T14.8XXA - OTHER INJURY OF UNSPECIFIED BODY REGION, INITIAL ENCOUNTER (3) Deep vein thrombosis (DVT) of right lower extremity Assessment/Plan: -history of DVT -no AC, presented with hematoma Code(s): I82.401 - ACUTE EMBOLISM AND THOMBOS UNSP DEEP VEINS OF R LOW EXTREM Qualifiers: Affected thrombotic vein of extremity: femoral Chronicity: chronic Qualified Code(s): I82.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 (4) Diabetes Assessment/Plan: -diabetic diet -FSBS and SSI Code(s): E11.9 - TYPE 2 DIABETES MELLITUS WITHOUT COMPLICATIONS Qualifiers: Diabetes mellitus type: type 2 Chronic kidney disease stage: stage 2 (mild ) (5) GIB (gastrointestinal bleeding) Assessment/Plan: -continue protonix Code(s): K92.2 - GASTROINTESTINAL HEMORRHAGE, UNSPECIFIED Qualifiers: GI bleed type/associated pathology: melena Qualified Code(s): K92.1 - Melena (6) HLD (hyperlipidemia) Assessment/Plan: -continue statin Code(s): E78.5 - HYPERLIPIDEMIA, UNSPECIFIED Qualifiers: Hyperlipidemia type: pure hypercholesterolemia Qualified Code(s): E78.00 - Pure hypercholesterolemia, unspecified (7) HTN (hypertension) Assessment/Plan: -continue current management Code(s): I10 - ESSENTIAL (PRIMARY) HYPERTENSION Qualifiers: Hypertension type: essential hypertension Qualified Code(s): I10 - Essential (primary) hypertension (8) Hypoxic hypercapneic respiratory failure -ECHO and CT scan reviewed -case d/w Dr Alford -refusing Bipap at this time -continue IV steroids and inhaled bronchodilators -will need pre and post prior to discharge -outpatient sleep study -possible discharge on Sunday
[2019-04-19] MEDS: ATORVASTATIN CA 40 MG TABLET (FP) PO SCH (21:08)
[2019-04-20] MEDS: oxyCODONE HCL 5 MG TABLET PO PRN ×2 (02:16→23:45)
[2019-04-20] MEDS: methylPREDNISolone NA SUCC 40 MG/1 ML VIAL IVPUSH SCH ×4 (02:16→20:23)
[2019-04-20] MEDS ORDERED: PT OWN MED DRAWER 7, Y5N ONE ×3 (05:58→20:53)
[2019-04-20] MEDS: INSULIN SLIDING SCALE (NOVOLOG) 1 VIAL SQ SCH ×4 (06:13→21:00)
[2019-04-20 06:31] LABS: ALLENS TEST POSITIVE
[2019-04-20 06:35] LABS: ARTERIAL BLD GAS O2 SATURATION 95.4 % (95-98); ARTERIAL BLOOD GAS BASE EXCESS 4.6 meq/l (-2-2); ARTERIAL BLOOD GAS PCO2 59.5 mmHg (35-45); ARTERIAL BLOOD GAS PO2 78.1 mmHg (80-105); ARTERIAL BLOOD GAS pH 7.34 (7.35-7.45)
[2019-04-20] MEDS: PSYLLIUM 5.85 GM PACKET PO SCH ×3 (07:12→21:01)
[2019-04-20] MEDS: NON-FORMULARY MED PO SCH ×3 (07:12→21:01)
[2019-04-20] MEDS: AMOX TR/POT CLAV 875MG/125MG TABLETS (FP) PO SCH ×2 (08:45→17:40)
[2019-04-20] MEDS: ALBUTEROL SO4 2.5/IPRATROPIUM 0.5 INH SOL 3 ML VIAL.NEB. NEB SCH ×4 (08:53→20:20)
[2019-04-20] MEDS: AMIODARONE HCL 200 MG TABLET (FP) PO SCH (08:59)
[2019-04-20] MEDS: CARVEDILOL 3.125 MG TABLET (FP) PO SCH ×2 (09:00→21:00)
[2019-04-20] MEDS: PANTOPRAZOLE 40 MG TABLET (FP) PO SCH (09:00)
[2019-04-20] MEDS: FUROSEMIDE 40 MG TABLET (FP) PO SCH (09:00)
[2019-04-20] MEDS: BUDESONIDE/FORMETEROL FUMARATE 160/4.5 mcg INHALER IH SCH ×2 (09:01→21:01)
[2019-04-20] MEDS: FLUTICASONE PROP 0.05% 16 GM NASAL SPRAY NS SCH (09:01)
[2019-04-20] MEDS: EZETIMIBE 10 MG TABLET (FP) PO SCH (09:03)
[2019-04-20 09:09] LABS: BASO % 0.1 % (0-2.0); HEMATOCRIT 31.1 % (32.4-45.2); HEMOGLOBIN 9.9 GM/dL (10.7-15.3); MCH 28.6 pg (25.7-33.7); MCHC 31.9 g/dl (32.0-36.0); MEAN CELL VOLUME 89.6 fl (80-96); MEAN PLT VOLUME 9.2 fl (7.5-11.1); MONO % 3.2 % (3.8-10.2); NEUT % 90.7 % (42.8-82.8); PLATELET COUNT 306 K/MM3 (134-434); RBC 3.47 M/mm3 (3.60-5.2); RDW 31.9 % (11.6-15.6); WHITE BLOOD COUNT 5.6 K/mm3 (4.0-10.0)
[2019-04-20 09:28] LABS: BLOOD UREA NITROGEN 43.4 mg/dL (7-18); CALCIUM 8.5 mg/dL (8.5-10.1); CREATININE 1.2 mg/dL (0.55-1.3); MAGNESIUM 2.4 mg/dL (1.8-2.4); PHOSPHOROUS 3.5 mg/dL (2.5-4.9); POTASSIUM 4.4 mmol/L (3.5-5.1)
--- NOTE | 2019-04-20 11:06 | PN ---
Progress Note, Physician History of Present Illness: PULMONARY ALERT,STILL WHEEZING REFUSES BIPAP,INTERMITTENT EPISODES OF O2 DESATURATION - Current Medication List Current Medications: Active Medications Acetaminophen (Tylenol -) 650 mg PO Q6H PRN PRN Reason: FEVER Last Admin: 04/19/19 06:54 Dose: 650 mg Albuterol/Ipratropium (Duoneb -) 1 amp NEB RQID [facility] Last Admin: 04/20/19 08:53 Dose: 1 amp Albuterol/Ipratropium (Duoneb -) 1 amp NEB Q4H PRN PRN Reason: SHORTNESS OF BREATH Amiodarone HCl (Cordarone -) 200 mg PO DAILY [facility] Last Admin: 04/20/19 08:59 Dose: 200 mg Amoxicillin/Clavulanate Potassium (Augmentin - 875mg Tablet) 1 tab PO BID@0800, 1730 [facility] Last Admin: 04/20/19 08:45 Dose: 1 tab Atorvastatin Calcium (Lipitor -) 40 mg PO HS [facility] Last Admin: 04/19/19 21:08 Dose: 40 mg Benzocaine/Menthol (Cepacol Lozenge -) 1 each MM PRN PRN PRN Reason: SORE THROAT Last Admin: 04/18/19 22:32 Dose: 1 each Budesonide/Formoterol Fumarate (Symbicort 160/4.5mcg -) 2 puff IH BID [facility] Last Admin: 04/20/19 09:01 Dose: 2 puff Carvedilol (Coreg -) 3.125 mg PO BID [facility] Last Admin: 04/20/19 09:00 Dose: 3.125 mg Ezetimibe (Zetia -) 10 mg PO DAILY [facility] Last Admin: 04/20/19 09:03 Dose: 10 mg Fluticasone Propionate (Flonase -) 2 spray NS DAILY [facility] Last Admin: 04/20/19 09:01 Dose: 2 sprays Furosemide (Lasix -) 40 mg PO DAILY [facility] Last Admin: 04/20/19 09:00 Dose: 40 mg Guaifenesin (Diabetic Tussin Dm -) 5 ml PO Q6H PRN PRN Reason: COUGH Insulin Aspart (Novolog Vial Sliding Scale -) 1 vial SQ ACHS [facility]; Protocol Last Admin: 04/20/19 06:13 Dose: 8 units Melatonin (Melatonin) 5 mg PO HS PRN PRN Reason: INSOMNIA Last Admin: 04/17/19 21:24 Dose: 5 mg Methylprednisolone Sodium Succinate (Solu-Medrol -) 40 mg IVPUSH Q6H-IV [facility] Last Admin: 04/20/19 08:46 Dose: 40 mg Non-Formulary Medication (Non-Formulary Med) 1 each PO TID [facility] Last Admin: 04/20/19 07:12 Dose: Not Given Ondansetron HCl (Zofran Injection) 4 mg IVPUSH Q6H PRN PRN Reason: NAUSEA AND/OR VOMITING Oxycodone HCl (Roxicodone -) 5 mg PO Q6H PRN PRN Reason: PAIN LEVEL 6-10 Last Admin: 04/20/19 02:16 Dose: 5 mg Pantoprazole Sodium (Protonix -) 40 mg PO DAILY [facility] Last Admin: 04/20/19 09:00 Dose: 40 mg Psyllium Hydrophilic Mucilloid (Metamucil (Sugar-Free) -) 5.85 gm PO TID [facility] Last Admin: 04/20/19 07:12 Dose: Not Given - Objective Vital Signs: Vital Signs Temperature 98.2 F 04/20/19 09:09 Pulse Rate 61 04/20/19 09:09 Respiratory Rate 21 H 04/20/19 09:09 Blood Pressure 161/86 04/20/19 09:09 O2 Sat by Pulse Oximetry (%) 99 04/20/19 09:49 Constitutional: Yes: Well Nourished, Calm, Obese Eyes: Yes: WNL HENT: Yes: WNL Neck: Yes: WNL Cardiovascular: Yes: Regular Rate and Rhythm, S1, S2 Respiratory: Yes: Wheezes (RHEA WHEEZES) Gastrointestinal: Yes: Normal Bowel Sounds, Soft Extremities: Yes: WNL Edema: No Labs: CBC, BMP 04/20/19 07:05 04/20/19 07:05 INR, PTT INR 0.96 (0.83-1.09) 04/10/19 19:58 Problem List - Problems (1) Acute respiratory failure with hypoxia and hypercapnia Code(s): J96.01 - ACUTE RESPIRATORY FAILURE WITH HYPOXIA; J96.02 - ACUTE RESPIRATORY FAILURE WITH HYPERCAPNIA (2) Cellulitis Code(s): L03.90 - CELLULITIS, UNSPECIFIED Qualifiers: Site of cellulitis: extremity Site of cellulitis of extremity: toe Laterality: left Qualified Code(s): L03.032 - Cellulitis of left toe (3) Foot infection Code(s): L08.9 - LOCAL INFECTION OF THE SKIN AND SUBCUTANEOUS TISSUE, UNSP (4) Hematoma Code(s): T14.8XXA - OTHER INJURY OF UNSPECIFIED BODY REGION, INITIAL ENCOUNTER (5) Anemia Code(s): D64.9 - ANEMIA, UNSPECIFIED Qualifiers: Other causes of anemia: acute posthemorrhagic (6) CAD (coronary artery disease) Code(s): I25.10 - ATHSCL HEART DISEASE OF [place] CORONARY ARTERY W/O ANG PCTRS Qualifiers: Coronary Disease-Associated Artery/Lesion type: [place] artery [place] vs. transplanted heart: [place] heart Associated angina: without angina Qualified Code(s): I25.10 - Atherosclerotic heart disease of [place] coronary artery without angina pectoris (7) HLD (hyperlipidemia) Code(s): E78.5 - HYPERLIPIDEMIA, UNSPECIFIED Qualifiers: Hyperlipidemia type: pure hypercholesterolemia Qualified Code(s): E78.00 - Pure hypercholesterolemia, unspecified (8) HTN (hypertension) Code(s): I10 - ESSENTIAL (PRIMARY) HYPERTENSION Qualifiers: Hypertension type: essential hypertension Qualified Code(s): I10 - Essential (primary) hypertension (9) COPD exacerbation Code(s): J44.1 - CHRONIC OBSTRUCTIVE PULMONARY DISEASE W (ACUTE) EXACERBATION Assessment/Plan IMP ACUTE HYPOXEMIC/HYPERCAPNEIC RESPIRATORY FAILURE IMPROVING COPD ? ILD ? CHF + ELEVATED BNP ASHD S/P STENTS DM SUSPECTED OSAS HTN OBESITY ANEMIA PULMONARY HTN LEFT FOOT WOUND MEDIASTINAL ADENOPATHY H/O SUBSTERNAL THYROID PLAN O2 NIPPV IF PT COMPLIES INHALED BRONCHODILATORS CONTINUE SOLUMEDROL SAME DOSE F/U ABGS NORMAL TRANFUSION THRESHOLD MONITOR LYTES PFTS OUTPATIENT F/U CHEST CT 3-4 MONTHS OUTPATIENT SLEEP STUDIES AMBULATORY O2 SAT PRIOR TO DISCHARGE DR CONLEY Problem List - Problems (1) Acute respiratory failure with hypoxia and hypercapnia Code(s): J96.01 - ACUTE RESPIRATORY FAILURE WITH HYPOXIA; J96.02 - ACUTE RESPIRATORY FAILURE WITH HYPERCAPNIA (2) Cellulitis Code(s): L03.90 - CELLULITIS, UNSPECIFIED Qualifiers: Site of cellulitis: extremity Site of cellulitis of extremity: toe Laterality: left Qualified Code(s): L03.032 - Cellulitis of left toe (3) Foot infection Code(s): L08.9 - LOCAL INFECTION OF THE SKIN AND SUBCUTANEOUS TISSUE, UNSP (4) Hematoma Code(s): T14.8XXA - OTHER INJURY OF UNSPECIFIED BODY REGION, INITIAL ENCOUNTER (5) Anemia Code(s): D64.9 - ANEMIA, UNSPECIFIED Qualifiers: Other causes of anemia: acute posthemorrhagic (6) CAD (coronary artery disease) Code(s): I25.10 - ATHSCL HEART DISEASE OF [place] CORONARY ARTERY W/O ANG PCTRS Qualifiers: Coronary Disease-Associated Artery/Lesion type: [place] artery [place] vs. transplanted heart: [place] heart Associated angina: without angina Qualified Code(s): I25.10 - Atherosclerotic heart disease of [place] coronary artery without angina pectoris (7) HLD (hyperlipidemia) Code(s): E78.5 - HYPERLIPIDEMIA, UNSPECIFIED Qualifiers: Hyperlipidemia type: pure hypercholesterolemia Qualified Code(s): E78.00 - Pure hypercholesterolemia, unspecified (8) HTN (hypertension) Code(s): I10 - ESSENTIAL (PRIMARY) HYPERTENSION Qualifiers: Hypertension type: essential hypertension Qualified Code(s): I10 - Essential (primary) hypertension (9) COPD exacerbation Code(s): J44.1 - CHRONIC OBSTRUCTIVE PULMONARY DISEASE W (ACUTE) EXACERBATION
[2019-04-20 12:26] LABS: ARTERIAL BLD GAS O2 SATURATION 97.2 % (95-98); ARTERIAL BLOOD GAS PCO2 51.7 mmHg (35-45); ARTERIAL BLOOD GAS PO2 87.9 mmHg (80-105); ARTERIAL BLOOD GAS pH 7.35 (7.35-7.45)
[2019-04-20 12:31] LABS: ALLENS TEST POSITIVE
--- NOTE | 2019-04-20 12:47 | PN ---
Progress Note, Physician Chief Complaint: Ms Pierce says she is feeling better. Denies cp, sob, n/v. Refuses to wear the bipap. - Current Medication List Current Medications: Active Medications Acetaminophen (Tylenol -) 650 mg PO Q6H PRN PRN Reason: FEVER Last Admin: 04/19/19 06:54 Dose: 650 mg Albuterol/Ipratropium (Duoneb -) 1 amp NEB RQID [facility] Last Admin: 04/20/19 11:43 Dose: 1 amp Albuterol/Ipratropium (Duoneb -) 1 amp NEB Q4H PRN PRN Reason: SHORTNESS OF BREATH Amiodarone HCl (Cordarone -) 200 mg PO DAILY [facility] Last Admin: 04/20/19 08:59 Dose: 200 mg Amoxicillin/Clavulanate Potassium (Augmentin - 875mg Tablet) 1 tab PO BID@0800, 1730 [facility] Last Admin: 04/20/19 08:45 Dose: 1 tab Atorvastatin Calcium (Lipitor -) 40 mg PO HS [facility] Last Admin: 04/19/19 21:08 Dose: 40 mg Benzocaine/Menthol (Cepacol Lozenge -) 1 each MM PRN PRN PRN Reason: SORE THROAT Last Admin: 04/18/19 22:32 Dose: 1 each Budesonide/Formoterol Fumarate (Symbicort 160/4.5mcg -) 2 puff IH BID [facility] Last Admin: 04/20/19 09:01 Dose: 2 puff Carvedilol (Coreg -) 3.125 mg PO BID [facility] Last Admin: 04/20/19 09:00 Dose: 3.125 mg Ezetimibe (Zetia -) 10 mg PO DAILY [facility] Last Admin: 04/20/19 09:03 Dose: 10 mg Fluticasone Propionate (Flonase -) 2 spray NS DAILY [facility] Last Admin: 04/20/19 09:01 Dose: 2 sprays Furosemide (Lasix -) 40 mg PO DAILY [facility] Last Admin: 04/20/19 09:00 Dose: 40 mg Guaifenesin (Diabetic Tussin Dm -) 5 ml PO Q6H PRN PRN Reason: COUGH Insulin Aspart (Novolog Vial Sliding Scale -) 1 vial SQ ACHS [facility]; Protocol Last Admin: 04/20/19 11:48 Dose: 8 units Insulin Detemir (Levemir Vial) 10 units SQ BID [facility] Melatonin (Melatonin) 5 mg PO HS PRN PRN Reason: INSOMNIA Last Admin: 04/17/19 21:24 Dose: 5 mg Methylprednisolone Sodium Succinate (Solu-Medrol -) 40 mg IVPUSH Q6H-IV [facility] Last Admin: 04/20/19 08:46 Dose: 40 mg Non-Formulary Medication (Non-Formulary Med) 1 each PO TID [facility] Last Admin: 04/20/19 07:12 Dose: Not Given Ondansetron HCl (Zofran Injection) 4 mg IVPUSH Q6H PRN PRN Reason: NAUSEA AND/OR VOMITING Oxycodone HCl (Roxicodone -) 5 mg PO Q6H PRN PRN Reason: PAIN LEVEL 6-10 Last Admin: 04/20/19 02:16 Dose: 5 mg Pantoprazole Sodium (Protonix -) 40 mg PO DAILY [facility] Last Admin: 04/20/19 09:00 Dose: 40 mg Psyllium Hydrophilic Mucilloid (Metamucil (Sugar-Free) -) 5.85 gm PO TID [facility] Last Admin: 04/20/19 07:12 Dose: Not Given - Objective Vital Signs: Vital Signs Temperature 36.8 C 04/20/19 09:09 Pulse Rate 61 04/20/19 09:09 Respiratory Rate 21 H 04/20/19 09:09 Blood Pressure 161/86 04/20/19 09:09 O2 Sat by Pulse Oximetry (%) 99 04/20/19 09:49 Constitutional: Yes: No Distress, Calm, Obese Cardiovascular: Yes: Regular Rate and Rhythm. No: Gallop, Murmur, Rub Respiratory: Yes: Regular, On Nasal O2, Wheezes. No: CTA Bilaterally, Rales, Rhonchi Gastrointestinal: Yes: Normal Bowel Sounds, Soft. No: Distention, Tenderness Extremities: Yes: Other (wrapped) Edema: No Labs: CBC, BMP 04/20/19 07:05 04/20/19 07:05 INR, PTT INR 0.96 (0.83-1.09) 04/10/19 19:58 Problem List - Problems (1) Acute respiratory failure with hypoxia and hypercapnia Code(s): J96.01 - ACUTE RESPIRATORY FAILURE WITH HYPOXIA; J96.02 - ACUTE RESPIRATORY FAILURE WITH HYPERCAPNIA (2) Cellulitis Code(s): L03.90 - CELLULITIS, UNSPECIFIED Qualifiers: Site of cellulitis: extremity Site of cellulitis of extremity: toe Laterality: left Qualified Code(s): L03.032 - Cellulitis of left toe (3) Hematoma Code(s): T14.8XXA - OTHER INJURY OF UNSPECIFIED BODY REGION, INITIAL ENCOUNTER (4) Deep vein thrombosis (DVT) of right lower extremity Code(s): I82.401 - ACUTE EMBOLISM AND THOMBOS UNSP DEEP VEINS OF R LOW EXTREM Qualifiers: Affected thrombotic vein of extremity: femoral Chronicity: chronic Qualified Code(s): I82.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 (5) Diabetes Code(s): E11.9 - TYPE 2 DIABETES MELLITUS WITHOUT COMPLICATIONS Qualifiers: Diabetes mellitus type: type 2 Chronic kidney disease stage: stage 2 (mild ) (6) GIB (gastrointestinal bleeding) Code(s): K92.2 - GASTROINTESTINAL HEMORRHAGE, UNSPECIFIED Qualifiers: GI bleed type/associated pathology: melena Qualified Code(s): K92.1 - Melena (7) HLD (hyperlipidemia) Code(s): E78.5 - HYPERLIPIDEMIA, UNSPECIFIED Qualifiers: Hyperlipidemia type: pure hypercholesterolemia Qualified Code(s): E78.00 - Pure hypercholesterolemia, unspecified (8) HTN (hypertension) Code(s): I10 - ESSENTIAL (PRIMARY) HYPERTENSION Qualifiers: Hypertension type: essential hypertension Qualified Code(s): I10 - Essential (primary) hypertension Assessment/Plan (1) Cellulitis Assessment/Plan: -continue augmentin Code(s): L03.90 - CELLULITIS, UNSPECIFIED Qualifiers: Site of cellulitis: extremity Site of cellulitis of extremity: toe Laterality: left Qualified Code(s): L03.032 - Cellulitis of left toe (2) Hematoma Assessment/Plan: -s/p drainage Code(s): T14.8XXA - OTHER INJURY OF UNSPECIFIED BODY REGION, INITIAL ENCOUNTER (3) Deep vein thrombosis (DVT) of right lower extremity Assessment/Plan: -history of DVT -no AC, presented with hematoma Code(s): I82.401 - ACUTE EMBOLISM AND THOMBOS UNSP DEEP VEINS OF R LOW EXTREM Qualifiers: Affected thrombotic vein of extremity: femoral Chronicity: chronic Qualified Code(s): I82.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 (4) Diabetes Assessment/Plan: -diabetic diet -FSBS and SSI Code(s): E11.9 - TYPE 2 DIABETES MELLITUS WITHOUT COMPLICATIONS Qualifiers: Diabetes mellitus type: type 2 Chronic kidney disease stage: stage 2 (mild ) (5) GIB (gastrointestinal bleeding) Assessment/Plan: -continue protonix Code(s): K92.2 - GASTROINTESTINAL HEMORRHAGE, UNSPECIFIED Qualifiers: GI bleed type/associated pathology: melena Qualified Code(s): K92.1 - Melena (6) HLD (hyperlipidemia) Assessment/Plan: -continue statin Code(s): E78.5 - HYPERLIPIDEMIA, UNSPECIFIED Qualifiers: Hyperlipidemia type: pure hypercholesterolemia Qualified Code(s): E78.00 - Pure hypercholesterolemia, unspecified (7) HTN (hypertension) Assessment/Plan: -continue current management Code(s): I10 - ESSENTIAL (PRIMARY) HYPERTENSION Qualifiers: Hypertension type: essential hypertension Qualified Code(s): I10 - Essential (primary) hypertension (8) Hypoxic hypercapneic respiratory failure -patient continues to refuse bipap -continue current management -will need further outpatient work up -pre and post tomorrow -possible discharge in next 24-48 hours
--- NOTE | 2019-04-20 13:04 | PN ---
Progress Note (short form) - Note Progress Note: POD#6. No pain. VSS, -cellulitis, -drainage, wbc=5.6 normal post op Betadine dressing change done. Patient can be dc to home from Podiatry standpoint. Will follow till dc. Regranex ordered today.
[2019-04-20] MEDS: ATORVASTATIN CA 40 MG TABLET (FP) PO SCH (21:00)
[2019-04-20] MEDS: INSULIN (LEVEMIR) 100 UNITS/ML UNITS SQ SCH (21:01)
[2019-04-21] MEDS: methylPREDNISolone NA SUCC 40 MG/1 ML VIAL IVPUSH SCH ×2 (02:11→08:49)
[2019-04-21] MEDS: INSULIN SLIDING SCALE (NOVOLOG) 1 VIAL SQ SCH ×3 (06:07→16:50)
[2019-04-21 06:15] VITALS: BP 156/74; TEMP 98.5
[2019-04-21] MEDS ORDERED: INSULIN (NOVOLOG) ASPART 100 UNITS/ML 10ML VIAL ONE ×4 (06:37→16:41)
[2019-04-21] MEDS: ALBUTEROL SO4 2.5/IPRATROPIUM 0.5 INH SOL 3 ML VIAL.NEB. NEB SCH ×3 (07:20→15:56)
[2019-04-21 07:38] LABS: BLOOD UREA NITROGEN 46.6 mg/dL (7-18); CALCIUM 8.7 mg/dL (8.5-10.1); CREATININE 1.3 mg/dL (0.55-1.3); MAGNESIUM 2.4 mg/dL (1.8-2.4); POTASSIUM 4.2 mmol/L (3.5-5.1)
[2019-04-21 07:49] LABS: BASO % 0.1 % (0-2.0); HEMATOCRIT 30.7 % (32.4-45.2); HEMOGLOBIN 9.9 GM/dL (10.7-15.3); LYMPH % 4.4 % (8-40); MCH 28.8 pg (25.7-33.7); MCHC 32.3 g/dl (32.0-36.0); MEAN CELL VOLUME 89.2 fl (80-96); MEAN PLT VOLUME 8.9 fl (7.5-11.1); MONO % 3.7 % (3.8-10.2); NEUT % 91.8 % (42.8-82.8); PLATELET COUNT 296 K/MM3 (134-434); RBC 3.44 M/mm3 (3.60-5.2); RDW 31.1 % (11.6-15.6); WHITE BLOOD COUNT 6.2 K/mm3 (4.0-10.0)
[2019-04-21] MEDS: AMOX TR/POT CLAV 875MG/125MG TABLETS (FP) PO SCH ×2 (08:49→16:51)
[2019-04-21 08:52] VITALS: PULSE 89
[2019-04-21] MEDS: AMIODARONE HCL 200 MG TABLET (FP) PO SCH (09:35)
[2019-04-21] MEDS: CARVEDILOL 3.125 MG TABLET (FP) PO SCH (09:35)
[2019-04-21] MEDS: PANTOPRAZOLE 40 MG TABLET (FP) PO SCH (09:35)
[2019-04-21] MEDS: FUROSEMIDE 40 MG TABLET (FP) PO SCH (09:35)
[2019-04-21] MEDS: INSULIN (LEVEMIR) 100 UNITS/ML UNITS SQ SCH (09:35)
[2019-04-21] MEDS: EZETIMIBE 10 MG TABLET (FP) PO SCH (09:41)
[2019-04-21] MEDS: FLUTICASONE PROP 0.05% 16 GM NASAL SPRAY NS SCH (09:50)
[2019-04-21] MEDS: BUDESONIDE/FORMETEROL FUMARATE 160/4.5 mcg INHALER IH SCH (09:51)
[2019-04-21] MEDS ORDERED: methylPREDNISolone NA SUCC 40 MG/1 ML VIAL IVPUSH SCH (10:00)
--- NOTE | 2019-04-21 10:06 | PN ---
Physical Exam: SUBJECTIVE: Patient seen and examined at bed side , no acute events , feeling better pre and post 92 % upon walking OBJECTIVE: Vital Signs Period Temp Pulse Resp BP Sys/Wesley Pulse Ox Last 24 Hr 97.6 F-98.9 F 56-89 19-22 152-180/69-84 91-99 GENERAL: The patient is awake, alert, and fully oriented, in no acute distress. HEAD: Normal with no signs of trauma. EYES: PERRL, extraocular movements intact, sclera anicteric, conjunctiva clear. No ptosis. ENT: Ears normal, nares patent, oropharynx clear without exudates, moist mucous membranes. NECK: Trachea midline, full range of motion, supple. LUNGS: Breath sounds equal, clear to auscultation bilaterally, no wheezes, no crackles, no accessory muscle use. HEART: Regular rate and rhythm, S1, S2 without murmur, rub or gallop. ABDOMEN: Soft, nontender, nondistended, normoactive bowel sounds, no guarding, no rebound, no hepatosplenomegaly, no masses. EXTREMITIES: 2+ pulses, warm, well-perfused, no edema. NEUROLOGICAL: Cranial nerves II through XII grossly intact. Normal speech, gait not observed. PSYCH: Normal mood, normal affect. SKIN: Warm, dry, normal turgor, no rashes or lesions noted Laboratory Results - last 24 hr 04/20/19 04/20/19 04/20/19 07:05 11:44 12:20 WBC RBC Hgb Hct MCV MCH MCHC RDW Plt Count MPV Absolute Neuts (auto) Neutrophils % Lymphocytes % Monocytes % Eosinophils % Basophils % Nucleated RBC % Puncture Site Right radial ABG pH 7.35 ABG pCO2 at Pt Temp 51.7 H ABG pO2 at Pt Temp 87.9 ABG HCO3 27.6 H ABG O2 Sat (Measured) 97.2 ABG O2 Content 13.6 L ABG Base Excess 2.0 Alberto Test Positive Oxygen Flow Rate Yes Sodium Potassium Chloride Carbon Dioxide Anion Gap BUN Creatinine Est GFR (CKD-EPI)AfAm Est GFR (CKD-EPI)NonAf POC Glucometer 331 Random Glucose 326 H* Calcium Phosphorus Magnesium 04/20/19 04/20/19 04/21/19 16:33 20:32 05:42 WBC RBC Hgb Hct MCV MCH MCHC RDW Plt Count MPV Absolute Neuts (auto) Neutrophils % Lymphocytes % Monocytes % Eosinophils % Basophils % Nucleated RBC % Puncture Site ABG pH ABG pCO2 at Pt Temp ABG pO2 at Pt Temp ABG HCO3 ABG O2 Sat (Measured) ABG O2 Content ABG Base Excess Alberto Test Oxygen Flow Rate Sodium Potassium Chloride Carbon Dioxide Anion Gap BUN Creatinine Est GFR (CKD-EPI)AfAm Est GFR (CKD-EPI)NonAf POC Glucometer 323 433 330 Random Glucose Calcium Phosphorus Magnesium 04/21/19 04/21/19 06:12 06:12 WBC 6.2 RBC 3.44 L Hgb 9.9 L Hct 30.7 L MCV 89.2 MCH 28.8 MCHC 32.3 RDW 31.1 H Plt Count 296 MPV 8.9 Absolute Neuts (auto) 5.7 Neutrophils % 91.8 H Lymphocytes % 4.4 L D Monocytes % 3.7 L Eosinophils % 0.0 Basophils % 0.1 Nucleated RBC % 0 Puncture Site ABG pH ABG pCO2 at Pt Temp ABG pO2 at Pt Temp ABG HCO3 ABG O2 Sat (Measured) ABG O2 Content ABG Base Excess Alberto Test Oxygen Flow Rate Sodium 138 Potassium 4.2 Chloride 99 Carbon Dioxide 34 H Anion Gap 5 L BUN 46.6 H Creatinine 1.3 Est GFR (CKD-EPI)AfAm 45.83 Est GFR (CKD-EPI)NonAf 39.54 POC Glucometer Random Glucose 357 H* Calcium 8.7 Phosphorus 3.0 Magnesium 2.4 Active Medications Generic Name Dose Route Start Last Admin Trade Name Freq PRN Reason Stop Dose Admin Acetaminophen 650 mg 04/14/19 15:01 04/19/19 06:54 Tylenol - PO 650 mg Q6H PRN Administration FEVER Albuterol/Ipratropium 1 amp 04/18/19 16:00 04/21/19 07:20 Duoneb - NEB 1 amp RQID [facility] Administration Albuterol/Ipratropium 1 amp 04/18/19 14:42 Duoneb - NEB Q4H PRN SHORTNESS OF BREATH Amiodarone HCl 200 mg 04/15/19 10:00 04/21/19 09:35 Cordarone - PO 200 mg DAILY [facility] Administration Amoxicillin/Clavulanate Potassium 1 tab 04/16/19 17:30 04/21/19 08:49 Augmentin - 875mg Tablet PO 1 tab BID@0800,1730 [facility] Administration Atorvastatin Calcium 40 mg 04/14/19 22:00 04/20/19 21:00 Lipitor - PO 40 mg HS [facility] Administration Benzocaine/Menthol 1 each 04/17/19 14:39 04/18/19 22:32 Cepacol Lozenge - MM 1 each PRN PRN Administration SORE THROAT Budesonide/Formoterol Fumarate 2 puff 04/14/19 22:00 04/21/19 09:51 Symbicort 160/4.5mcg - IH 2 puff BID [facility] Administration Carvedilol 3.125 mg 04/14/19 22:00 04/21/19 09:35 Coreg - PO 3.125 mg BID [facility] Administration Ezetimibe 10 mg 04/15/19 10:00 04/21/19 09:41 Zetia - PO 10 mg DAILY [facility] Administration Fluticasone Propionate 2 spray 04/17/19 17:30 04/21/19 09:50 Flonase - NS 2 sprays DAILY [facility] Administration Furosemide 40 mg 04/16/19 10:00 04/21/19 09:35 Lasix - PO 40 mg DAILY [facility] Administration Guaifenesin 5 ml 04/16/19 17:10 Diabetic Tussin Dm - PO Q6H PRN COUGH Insulin Aspart 1 vial 04/14/19 16:30 04/21/19 06:07 Novolog Vial Sliding Scale - SQ 8 units ACHS [facility] Administration Protocol Insulin Detemir 10 units 04/20/19 22:00 04/21/19 09:35 Levemir Vial SQ 10 units BID [facility] Administration Melatonin 5 mg 04/14/19 15:01 04/17/19 21:24 Melatonin PO 5 mg HS PRN Administration INSOMNIA Methylprednisolone Sodium Succinate 40 mg 04/21/19 10:00 Solu-Medrol - IVPUSH BID [facility] Non-Formulary Medication 1 each 04/14/19 22:00 04/20/19 21:01 Non-Formulary Med PO 1 each TID [facility] Administration Ondansetron HCl 4 mg 04/14/19 15:12 Zofran Injection IVPUSH Q6H PRN NAUSEA AND/OR VOMITING Oxycodone HCl 5 mg 04/19/19 17:19 04/20/19 23:45 Roxicodone - PO 5 mg Q6H PRN Administration PAIN LEVEL 6-10 Pantoprazole Sodium 40 mg 04/15/19 10:00 04/21/19 09:35 Protonix - PO 40 mg DAILY [facility] Administration Psyllium Hydrophilic Mucilloid 5.85 gm 04/14/19 22:00 04/20/19 21:01 Metamucil (Sugar-Free) - PO Not Given TID [facility] ASSESSMENT/PLAN: ATTENDING PHYSICIAN STATEMENT I saw and evaluated the patient. I reviewed the resident's note and discussed the case with the resident. I agree with the resident's findings and plan as documented. SUBJECTIVE: OBJECTIVE: ASSESSMENT AND PLAN:
[2019-04-21 10:36] LABS: ANISOCYTOSIS 1+; MACROCYTOSIS 1+; OVALOCYTE 1+; PLATELET ESTIMATE NORMAL
--- NOTE | 2019-04-21 11:40 | PN ---
Progress Note (short form) - Note Progress Note: PULMONARY States breathing is better. Less cough and wheezing. Vital Signs Period Temp Pulse Resp BP Sys/Wesley Pulse Ox Last 24 Hr 97.6 F-98.9 F 56-89 19-22 152-180/69-84 91-99 Gen: NAD at rest Heart: RRR Lung: scattered wheezes Abd: soft, nontender Ext: no edema CBC, BMP 04/21/19 06:12 04/21/19 06:12 Active Medications Acetaminophen (Tylenol -) 650 mg PO Q6H PRN PRN Reason: FEVER Last Admin: 04/19/19 06:54 Dose: 650 mg Albuterol/Ipratropium (Duoneb -) 1 amp NEB RQID [facility] Last Admin: 04/21/19 11:25 Dose: 1 amp Albuterol/Ipratropium (Duoneb -) 1 amp NEB Q4H PRN PRN Reason: SHORTNESS OF BREATH Amiodarone HCl (Cordarone -) 200 mg PO DAILY [facility] Last Admin: 04/21/19 09:35 Dose: 200 mg Amoxicillin/Clavulanate Potassium (Augmentin - 875mg Tablet) 1 tab PO BID@0800, 1730 [facility] Last Admin: 04/21/19 08:49 Dose: 1 tab Atorvastatin Calcium (Lipitor -) 40 mg PO HS [facility] Last Admin: 04/20/19 21:00 Dose: 40 mg Benzocaine/Menthol (Cepacol Lozenge -) 1 each MM PRN PRN PRN Reason: SORE THROAT Last Admin: 04/18/19 22:32 Dose: 1 each Budesonide/Formoterol Fumarate (Symbicort 160/4.5mcg -) 2 puff IH BID [facility] Last Admin: 04/21/19 09:51 Dose: 2 puff Carvedilol (Coreg -) 3.125 mg PO BID [facility] Last Admin: 04/21/19 09:35 Dose: 3.125 mg Ezetimibe (Zetia -) 10 mg PO DAILY [facility] Last Admin: 04/21/19 09:41 Dose: 10 mg Fluticasone Propionate (Flonase -) 2 spray NS DAILY [facility] Last Admin: 04/21/19 09:50 Dose: 2 sprays Furosemide (Lasix -) 40 mg PO DAILY [facility] Last Admin: 04/21/19 09:35 Dose: 40 mg Guaifenesin (Diabetic Tussin Dm -) 5 ml PO Q6H PRN PRN Reason: COUGH Insulin Aspart (Novolog Vial Sliding Scale -) 1 vial SQ ACHS [facility]; Protocol Last Admin: 04/21/19 06:07 Dose: 8 units Insulin Detemir (Levemir Vial) 10 units SQ BID [facility] Last Admin: 04/21/19 09:35 Dose: 10 units Melatonin (Melatonin) 5 mg PO HS PRN PRN Reason: INSOMNIA Last Admin: 04/17/19 21:24 Dose: 5 mg Methylprednisolone Sodium Succinate (Solu-Medrol -) 40 mg IVPUSH BID [facility] Last Admin: 04/21/19 10:09 Dose: Not Given Non-Formulary Medication (Non-Formulary Med) 1 each PO TID [facility] Last Admin: 04/20/19 21:01 Dose: 1 each Ondansetron HCl (Zofran Injection) 4 mg IVPUSH Q6H PRN PRN Reason: NAUSEA AND/OR VOMITING Oxycodone HCl (Roxicodone -) 5 mg PO Q6H PRN PRN Reason: PAIN LEVEL 6-10 Last Admin: 04/20/19 23:45 Dose: 5 mg Pantoprazole Sodium (Protonix -) 40 mg PO DAILY [facility] Last Admin: 04/21/19 09:35 Dose: 40 mg Psyllium Hydrophilic Mucilloid (Metamucil (Sugar-Free) -) 5.85 gm PO TID [facility] Last Admin: 04/20/19 21:01 Dose: Not Given A/P Acute Hypoxic and Hypercapneic Respiratory Failure improving Acute COPD Exacerbation CAD LV Diastolic Dysfunction Pulmonary HTN Mediastinal Lymphadenopathy DM HTN - can change steroids to PO prednisone 40mg daily and taper as outpt - inhaled bronchodilators - O2 to keep SpO2 >90% - outpt f/u of chest imaging - outpt PFTs, PSG - DVT prophylaxis
--- NOTE | 2019-04-21 12:42 | PN ---
Teaching Attending Note Name of Resident: Bill Godinez ATTENDING PHYSICIAN STATEMENT I saw and evaluated the patient. I reviewed the resident's note and discussed the case with the resident. I agree with the resident's findings and plan as documented. SUBJECTIVE: Ms Pierce says she is feeling good and ready to go home. No cp, sob , n/v. OBJECTIVE: Last Vital Signs Temp Pulse Resp BP Pulse Ox 36.9 C 89 19 156/74 92 L 04/21/19 06:13 04/21/19 08:53 04/21/19 06:13 04/21/19 06:13 04/21/19 08:53 Gen: nad, obese Pulm: wheezing bilaterally but minimal CV: rrr w/o m/r/g Abd: +bs, s/nt/nd Ext: erythema unchanged CBC, BMP 04/21/19 06:12 04/21/19 06:12 Please refer to discharge summary but in short Ms Pierce is a very pleasant 78 year old female who came in with cellulitis with hematoma. She was seen by ID and podiatry. She underwent removal of hematoma without difficulty. She was on vancomycin and zosyn and was successfully transitioned to augmentin. She was found to have wheezing and pulmonary was consulted. She was started on steroids and this improved. She is now on prednisone and can be discharged on a taper. She was evaluated for home oxygen and did not meet criteria. However she was found to be acidotic in the morning, most likely secondary to sleep apnea but she refused to wear bipap in the hospital. She is currently stable for discharge home with close follow up with pulmonary and her PCP. Problem List - Problems (1) Acute respiratory failure with hypoxia and hypercapnia Code(s): J96.01 - ACUTE RESPIRATORY FAILURE WITH HYPOXIA; J96.02 - ACUTE RESPIRATORY FAILURE WITH HYPERCAPNIA (2) Cellulitis Code(s): L03.90 - CELLULITIS, UNSPECIFIED Qualifiers: Site of cellulitis: extremity Site of cellulitis of extremity: toe Laterality: left Qualified Code(s): L03.032 - Cellulitis of left toe (3) Hematoma Code(s): T14.8XXA - OTHER INJURY OF UNSPECIFIED BODY REGION, INITIAL ENCOUNTER (4) Deep vein thrombosis (DVT) of right lower extremity Code(s): I82.401 - ACUTE EMBOLISM AND THOMBOS UNSP DEEP VEINS OF R LOW EXTREM Qualifiers: Affected thrombotic vein of extremity: femoral Chronicity: chronic Qualified Code(s): I82.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 (5) Diabetes Code(s): E11.9 - TYPE 2 DIABETES MELLITUS WITHOUT COMPLICATIONS Qualifiers: Diabetes mellitus type: type 2 Chronic kidney disease stage: stage 2 (mild ) (6) GIB (gastrointestinal bleeding) Code(s): K92.2 - GASTROINTESTINAL HEMORRHAGE, UNSPECIFIED Qualifiers: GI bleed type/associated pathology: melena Qualified Code(s): K92.1 - Melena (7) HLD (hyperlipidemia) Code(s): E78.5 - HYPERLIPIDEMIA, UNSPECIFIED Qualifiers: Hyperlipidemia type: pure hypercholesterolemia Qualified Code(s): E78.00 - Pure hypercholesterolemia, unspecified (8) HTN (hypertension) Code(s): I10 - ESSENTIAL (PRIMARY) HYPERTENSION Qualifiers: Hypertension type: essential hypertension Qualified Code(s): I10 - Essential (primary) hypertension
[2019-04-21] MEDS: NON-FORMULARY MED PO SCH (13:58)
[2019-04-21] MEDS: PSYLLIUM 5.85 GM PACKET PO SCH (13:59)
--- NOTE | 2019-04-21 16:52 | DS ---
Physical Exam: SUBJECTIVE: Patient seen and examined at bed side , lungs clear no wheezing , feeling better, but she is refusing PIPAP at night, she will needs PFT and Sleep apnea screening as out pt. pre and post with 92 % o2 sat , does not qualified for home o2. OBJECTIVE: Vital Signs Period Temp Pulse Resp BP Sys/Wesley Pulse Ox Last 24 Hr 97.6 F-98.9 F 58-89 18-22 152-180/69-75 90-99 PHYSICAL EXAM GENERAL: The patient is awake, alert, and fully oriented, in no acute distress. Bruise below chin NECK: Short, thick neck LUNGS: reduced respiratory effort, no wheezes appreciated, no crackles. HEART: Regular rate and rhythm, S1, S2 without murmur ABDOMEN: Soft, nontender, obese, normoactive bowel sounds EXTREMITIES: LLE with dressing over foot and in socks, Dressing clean, dry. Some swelling noted LLE plantar aspect of foot NEUROLOGICAL: AAOx3. Strength 5/5 globally, no lateralizing signs. LABS Laboratory Results - last 24 hr 04/20/19 04/21/19 04/21/19 20:32 05:42 06:12 WBC 6.2 RBC 3.44 L Hgb 9.9 L Hct 30.7 L MCV 89.2 MCH 28.8 MCHC 32.3 RDW 31.1 H Plt Count 296 MPV 8.9 Absolute Neuts (auto) 5.7 Neutrophils % 91.8 H Neutrophils % (Manual) 95.0 H Band Neutrophils % 0.0 Lymphocytes % 4.4 L D Lymphocytes % (Manual) 3.0 L Monocytes % 3.7 L Monocytes % (Manual) 2 L Eosinophils % 0.0 Eosinophils % (Manual) 0.0 Basophils % 0.1 Basophils % (Manual) 0.0 Myelocytes % (Man) 0 Promyelocytes % (Man) 0 Blast Cells % (Manual) 0 Nucleated RBC % 0 Metamyelocytes 0 Hypochromia 0 Platelet Estimate Normal Polychromasia 1+ Poikilocytosis 0 Anisocytosis 1+ Microcytosis 1+ Macrocytosis 1+ Ovalocytes 1+ Schistocytes 1+ Sodium Potassium Chloride Carbon Dioxide Anion Gap BUN Creatinine Est GFR (CKD-EPI)AfAm Est GFR (CKD-EPI)NonAf POC Glucometer 433 330 Random Glucose Calcium Phosphorus Magnesium 04/21/19 04/21/19 04/21/19 06:12 11:47 16:29 WBC RBC Hgb Hct MCV MCH MCHC RDW Plt Count MPV Absolute Neuts (auto) Neutrophils % Neutrophils % (Manual) Band Neutrophils % Lymphocytes % Lymphocytes % (Manual) Monocytes % Monocytes % (Manual) Eosinophils % Eosinophils % (Manual) Basophils % Basophils % (Manual) Myelocytes % (Man) Promyelocytes % (Man) Blast Cells % (Manual) Nucleated RBC % Metamyelocytes Hypochromia Platelet Estimate Polychromasia Poikilocytosis Anisocytosis Microcytosis Macrocytosis Ovalocytes Schistocytes Sodium 138 Potassium 4.2 Chloride 99 Carbon Dioxide 34 H Anion Gap 5 L BUN 46.6 H Creatinine 1.3 Est GFR (CKD-EPI)AfAm 45.83 Est GFR (CKD-EPI)NonAf 39.54 POC Glucometer 379 360 Random Glucose 357 H* Calcium 8.7 Phosphorus 3.0 Magnesium 2.4 CBC, BMP 04/21/19 06:12 04/21/19 06:12 ECHO 04/18/19: Mild conc LV hypertrophy. Mod mitral annular calcification. Mild to mod aortic sclerosis. LVSF is nl. EF-55-60%. Mild TR. insufficient TR detected to calculate RVSP. Mild MR. No pericardial effusion. CT chest 04/18/19: Pulmonary artery trunk is dilated with a 3.7cm cherelle strongly suggestive of pulmonary hypertension. Since CT of 05/13/2017 Mildly increased ROBERT and LLL ground glass interstitial thickening probably on the basis of small airway disease and less likely representing focal infiltrates. Possible development of minimal to mild interstitial thickening with questionable mild vascular congestion. Possible L ventricular dilatation. Stable non calcified 3mm nodule is again seen within the R middle lobe inferiorly. Interval increased size of preaortic mediastinal lymphnode is seen with 1.1cm short axis diameter previously 0.6cm. Correlation with [address] is suggested to evaluate stability . Partial imaging of a R thyroid nodule with mild thyroid substernal extension. No interval change is appreciated. LE MRI W/O Left- 04/12/19 MRI of the left foot. Clinical information: Rule out osteomyelitis. Coronal sagittal and axial T1 and T2-weighted images of the left foot were obtained. There is marked soft tissue swelling of the foot with a large collection in the dorsal aspect.. This collection measures 3.9 cm in width, 1.5 cm in height and the 6.2 cm in AP dimension. It is high in signal on T1 and on T2-weighted images. It is suspicious for large subcutaneous hematoma. This collection also may be infected. There is no abnormal bone marrow signal suggestive of osteomyelitis. There is no disruption of the flexor of the extensor tendons. There are no bony lesions. Impression: Large collection of the dorsal aspect of the mid and forefoot. It probably represents a large subcutaneous hematoma, this collection also may be infected. There is no osteomyelitis. US Pelvic/Bladder 04/11/19 Real time examination of the pelvis demonstrates the following: Evaluation of the urinary bladder demonstrates no intrinsic bladder abnormalities. Bilateral ureteral jets are visualized. A pre-void bladder volume of 351 cc was calculated. A post voiding image demonstrates incomplete emptying of the bladder with a large postvoid residual of 134 cc. The patient is S/P hysterectomy. No pelvic masses or fluid collections are identified. IMPRESSION: Large postvoid residual. HOSPITAL COURSE: Date of Admission:04/10/19 Date of Discharge: 04/21/19 Ms Pierce is a very pleasant 78 year old female who came in with cellulitis with hematoma. She was seen by ID and podiatry. She underwent removal of hematoma without difficulty. She was on vancomycin and zosyn and was successfully transitioned to augmentin. She was found to have wheezing and pulmonary was consulted. She was started on steroids and this improved. She is now on prednisone and can be discharged on a taper. She was evaluated for home oxygen and did not meet criteria. However she was found to be acidotic in the morning, most likely secondary to sleep apnea but she refused to wear bipap in the hospital. She is currently stable for discharge home with close follow up with pulmonary and her PCP. Minutes to complete discharge: 45 Discharge Summary Reason For Visit: ACUTE KIDNEY INJURY,CELLULITIS,HYPOGLYCEMIA Current Active Problems Acute respiratory failure with hypoxia and hypercapnia (Chronic) HLD (hyperlipidemia) (Chronic) Condition: Improved - Instructions Diet, Activity, Other Instructions: You came in after a fall with fracture of your left fifth toe and blood collection (hematoma) with skin infection You got drainage of the blood collection you complete a course of antibiotics We are palceing you on inhalers to help your breathing Follow up with a lung doctor, we are attaching a referral, please call to make an appointment, you will benefit fro sleep screen for sleep apnea please use prednisone taper over 12 days as prescribed Continue with your other medications as prescribed Follow up for local wound care as out pt follow up with Dr Alford pulmonary within one week please follow up with Your primary care physician within one week If you think your symptoms are not getting better, with chills, fever, worsening pain, bleeding, foul smelling drainage from the site, please call 911 or return to the nearest emergency room Referrals: Rashad Alford MD [Staff Physician] - 1 Week Christopher Garcia DPM [Staff Physician] - Pérez Barrientos MD [Primary Care Provider] - 1 Week Disposition: HOME - Home Medications Comprehensive Discharge Medication List: Ambulatory Orders Carvedilol [Coreg -] 3.125 mg PO BID #0 tablet 06/23/13 Pantoprazole Sodium [Protonix -] 40 mg PO DAILY #0 tablet.ec 06/23/13 Sitagliptin Phosphate [Januvia -] 100 mg PO DAILY@0700 #0 ud 06/23/13 Ezetimibe [Zetia] 10 mg PO DAILY 01/10/17 Amiodarone HCl [Cordarone -] 200 mg PO DAILY 08/13/17 Atorvastatin Ca [Lipitor] 40 mg PO DAILY 08/13/17 Dapagliflozin Propanediol [Farxiga] 5 mg PO DAILY 08/13/17 Aspirin [Lo-Dose Aspirin EC] 81 mg PO DAILY #20 tab 08/20/17 Glipizide 5 mg PO BID 11/10/17 Clopidogrel Bisulfate [Plavix -] 75 mg PO DAILY 04/10/19 Furosemide [Lasix -] 40 mg PO BID 04/10/19 metFORMIN HCL [Glucophage -] 500 mg PO BID 04/10/19 Albuterol Sulfate Inhaler - [Ventolin HFA Inhaler -] 1 - 2 inh PO QID PRN Budesonide/Formeterol Fumarate [SYMBICORT 160/4.5mcg -] 2 puff IH BID 04/11/19 Fluticasone Prop 0.05% Nasal [Flonase -] 1 - 2 spray NS DAILY 04/11/19 Becaplermin [Regranex] 15 gm TP DAILY #1 gel..gram. 04/20/19 Miscellaneous Medical Supply [Outpatient Order] 1 each ASDIR #1 misc Prednisone See Taper PO DAILY 12 Days #78 tab.ds.[email or web address] 04/21/19 This patient is new to me today: Yes Date on this admission: 04/21/19 Emergency Visit: Yes ED Registration Date: 04/10/19 Care time: The patient presented to the Emergency Department on the above date and was hospitalized for further evaluation of their emergent condition. Critical Care patient: No - Discharge Referral Referred to [facility] Med P.C.: No ATTENDING PHYSICIAN STATEMENT I saw and evaluated the patient. I reviewed the resident's note and discussed the case with the resident. I agree with the resident's findings and plan as documented. SUBJECTIVE: OBJECTIVE: ASSESSMENT AND PLAN:
[2019-04-21] MEDS ORDERED: PT OWN MED DRAWER 7, Y5N ONE (18:09)
--- NOTE | 2019-05-15 06:51 | OP ---
DATE OF OPERATION: 04/14/2019 SURGEON: Christopher Garcia DPM ROOM SERVICE BELLHOP: Morgan Jeffries DPM PREOPERATIVE DIAGNOSIS: Cellulitis with hematoma, left foot. POSTOPERATIVE DIAGNOSIS: Cellulitis with hematoma, left foot. PROCEDURE PERFORMED: Incision and drainage of hematoma, left foot. DESCRIPTION OF PROCEDURE: After noting all preoperative vital signs were within normal limits and after the surgical consent was signed and witnessed, the patient was brought to the OR and placed on the operating table in a supine position. The patient had an IV line started before coming to the OR. Once the patient was in the OR, the patient was sedated. The left foot was then prepped and draped in the usual sterile fashion. Once this was done, attention was directed to the dorsal aspect of the left foot. An incision was created over the dorsum of the left foot, approximately 6 cm in length. This incision was deepened using sharp and blunt dissection. All unavoidable vessels were ligated in the usual fashion. All other neurovascular structures were retracted out of the surgical site. At this time it was noted there were clumps of hematoma in this area. They were expressed from the wound. The area was then flushed with copious amounts of sterile saline that had antibiotic added to it. The wound was then packed using 1/4th inch plain packing. Once the wound was packed, dry sterile gauze was applied over the wound using a Kerlix dressing covering the gauze. Tape was then put on the gauze. This was the end of the procedure. The patient tolerated the anesthesia and the procedure well. The patient returned to the recovery room with vital signs stable and vascular status intact. BRITTNEY Garces/[id number] MTDD
== END 2019-04-21 18:51 | disposition home or self-care (01) | DRG 604 ==
LOC: JER 15:28 → JERBED 20:20 → J6S 04-11 01:09
PROVIDERS: ADMIT Internal Medicine; ATTEND Internal Medicine
PROC: 0JCP0ZZ Extirpation of Matter from Left Lower Leg Subcutaneous Tissue and Fascia, Open Approach (ICD-10-PCS; 2019-04-14)
PROC: 0J9R0ZX Drainage of Left Foot Subcutaneous Tissue and Fascia, Open Approach, Diagnostic (ICD-10-PCS; principal; 2019-04-14 12:00)
PROC: 5A09457 Assistance with Respiratory Ventilation, 24-96 Consecutive Hours, Continuous Positive Airway Pressure (ICD-10-PCS; 2019-04-18)
DX: S90.32XA Contusion of left foot, initial encounter (principal); J96.01 Acute respiratory failure with hypoxia; J96.02 Acute respiratory failure with hypercapnia; N17.9 Acute kidney failure, unspecified; L03.116 Cellulitis of left lower limb; I13.0 Hypertensive heart and chronic kidney disease with heart failure and stage 1 through stage 4 chronic kidney disease, or unspecified chronic kidney disease; I50.30 Unspecified diastolic (congestive) heart failure; I82.511 Chronic embolism and thrombosis of right femoral vein; K92.1 Melena; K92.2 Gastrointestinal hemorrhage, unspecified; J44.1 Chronic obstructive pulmonary disease with (acute) exacerbation; L03.032 Cellulitis of left toe; I25.10 Atherosclerotic heart disease of native coronary artery without angina pectoris; J44.9 Chronic obstructive pulmonary disease, unspecified; K21.9 Gastro-esophageal reflux disease without esophagitis; E78.5 Hyperlipidemia, unspecified; E66.9 Obesity, unspecified; Z68.38 Body mass index [BMI] 38.0-38.9, adult; F03.90 Unspecified dementia, unspecified severity, without behavioral disturbance, psychotic disturbance, mood disturbance, and anxiety; R32 Unspecified urinary incontinence; E11.22 Type 2 diabetes mellitus with diabetic chronic kidney disease; N18.2 Chronic kidney disease, stage 2 (mild); E11.649 Type 2 diabetes mellitus with hypoglycemia without coma; S92.912 Unspecified fracture of left toe(s); K58.9 Irritable bowel syndrome, unspecified; L08.9 Local infection of the skin and subcutaneous tissue, unspecified; I48.91 Unspecified atrial fibrillation; G47.33 Obstructive sleep apnea (adult) (pediatric); I27.20 Pulmonary hypertension, unspecified; R59.1 Generalized enlarged lymph nodes; Z95.5 Presence of coronary angioplasty implant and graft; Z87.11 Personal history of peptic ulcer disease
CPT/HCPCS: 36415; 36600; 71045-TC-FY; 71250-TC; 73630-TC-LT; 73660-TC-LT-FY; 73718-TC-LT; 76775-TC; 76856-TC; 80048; 80053; 81003; 82803; 82962; 83735; 83880; 84100; 85025; 85610; 85651; 85730; 86140; 86850; 86900; 86901; 87040; 87070; 87077; 87186; 87205; 88304-TC; 93005; 93010; 93306-TC; 93926-TC; 94010; 94640; 94660; 94760; 94761; 97116-GP; 97162-GP; 99284-25; G0463-25; G0480; J7030

== ENCOUNTER 2020-11-11 15:03 | Inpatient (IN) | payer OTHER, BC ==
[2020-11-11] MEDS ORDERED: DEXAMETHASONE SOD PHOSPHATE 10 MG/1 ML VIAL IVPUSH ONE (16:05)
[2020-11-11] MEDS ORDERED: DEXAMETHASONE SOD PHOSPHATE 4 MG/1 ML VIAL ONE (16:09)
[2020-11-11] MEDS ORDERED: CEFTRIAXONE 1,000 MG in DEXTROSE 5%-WATER - 50 ML IVPB ONE (16:41)
[2020-11-11] MEDS ORDERED: AZITHROMYCIN IVPB 500 MG in DEXTROSE 5%-WATER - 250 ML IVPB ONE (16:41)
[2020-11-11 16:53] LABS: VENOUS BASE EXCESS -0.5 mmol/L (-2-2); VENOUS O2 SATURATION 21.7 % (70-80); VENOUS PCO2 55.9 mmHg (38-52); VENOUS PH 7.305 (7.310-7.410)
[2020-11-11 16:58] LABS: BASO % 0.2 % (0-2.0); EOS % 0.1 % (0-4.5); HEMATOCRIT 45.5 % (32.4-45.2); HEMOGLOBIN 15.4 GM/dL (10.7-15.3); LYMPH % 5.1 % (8-40); MCH 29.4 pg (25.7-33.7); MCHC 33.8 g/dl (32.0-36.0); MEAN CELL VOLUME 86.9 fl (80-96); MEAN PLT VOLUME 9.2 fl (7.5-11.1); MONO % 6.8 % (3.8-10.2); NEUT % 87.8 % (42.8-82.8); PLATELET COUNT 245 K/MM3 (134-434); RBC 5.24 M/mm3 (3.60-5.2); RDW 15.9 % (11.6-15.6); WHITE BLOOD COUNT 12.4 K/mm3 (4.0-10.0)
[2020-11-11 17:14] LABS: CHLORIDE 96 mmol/L (98-107); POTASSIUM 5.6 mmol/L (3.5-5.1); SODIUM 128 mmol/L (136-145)
[2020-11-11 17:16] LABS: CALCIUM 8.2 mg/dL (8.5-10.1)
[2020-11-11 17:17] LABS: ALBUMIN 2.8 g/dl (3.4-5.0); ANION GAP 3 MMOL/L (8-16); BLOOD UREA NITROGEN 23.7 mg/dL (7-18); CO2 28 mmol/L (21-32)
[2020-11-11 17:19] LABS: BILIRUBIN,DIRECT < 0.1 mg/dL (0.0-0.2)
[2020-11-11 17:20] LABS: CREATININE 1.4 mg/dL (0.55-1.3); SGOT/AST 72 U/L (15-37); SGPT/ALT 31 U/L (13-61)
[2020-11-11 17:21] LABS: BILIRUBIN,TOTAL 0.9 mg/dL (0.2-1)
[2020-11-11 17:22] LABS: ALK PHOS 103 U/L (45-117)
[2020-11-11 17:23] LABS: LDH 824 U/L (84-246)
[2020-11-11] MEDS ORDERED: CEFTRIAXONE 1 GM/50 ML BAG ONE (17:42)
[2020-11-11] MEDS ORDERED: AZITHROMYCIN IVPB 500 MG/250 ML BAG IVPB ONE (17:42)
[2020-11-11 17:58] LABS: GLUCOSE,RANDOM 17 mg/dL (74-106)
[2020-11-11] MEDS ORDERED: DEXTROSE 50%-WATER - 25 GM/50 ML VIAL IVPUSH ONE (17:58)
[2020-11-11] MEDS ORDERED: DEXTROSE 5%-NORMAL SALINE 1,000 ML IV SCH ×2 (18:00)
[2020-11-11] MEDS ORDERED: DEXTROSE 50%-WATER 25 GM/50 ML DISP.SYRIN ONE (18:00)
[2020-11-11 21:57] LABS: POTASSIUM 4.3 mmol/L (3.5-5.1)
[2020-11-11 21:58] LABS: CALCIUM 8.1 mg/dL (8.5-10.1)
[2020-11-11 21:59] LABS: BLOOD UREA NITROGEN 23.1 mg/dL (7-18)
[2020-11-11 22:02] LABS: CREATININE 1.4 mg/dL (0.55-1.3)
[2020-11-11] MEDS ORDERED: ASCORBIC ACID 500 MG TABLET (FP) ONE (22:15)
[2020-11-11] MEDS: ASCORBIC ACID 500 MG TABLET (FP) PO SCH (22:23)
[2020-11-11] MEDS: INSULIN SLIDING SCALE (NOVOLOG) 1 VIAL SQ SCH (22:26)
[2020-11-11] MEDS: SODIUM CHLORIDE 1,000 ML IV SCH (22:27)
[2020-11-12 06:59] LABS: BASO % 0.2 % (0-2.0); EOS % 0.1 % (0-4.5); HEMATOCRIT 43.2 % (32.4-45.2); HEMOGLOBIN 14.2 GM/dL (10.7-15.3); MCH 28.9 pg (25.7-33.7); MEAN CELL VOLUME 87.8 fl (80-96); MEAN PLT VOLUME 8.9 fl (7.5-11.1); MONO % 5.3 % (3.8-10.2); NEUT % 89.4 % (42.8-82.8); PLATELET COUNT 238 K/MM3 (134-434); RBC 4.92 M/mm3 (3.60-5.2); WHITE BLOOD COUNT 12.5 K/mm3 (4.0-10.0)
[2020-11-12 07:08] LABS: POTASSIUM 4.9 mmol/L (3.5-5.1)
[2020-11-12 07:10] LABS: ALBUMIN 2.4 g/dl (3.4-5.0); CALCIUM 7.7 mg/dL (8.5-10.1)
[2020-11-12 07:11] LABS: BLOOD UREA NITROGEN 23.7 mg/dL (7-18); MAGNESIUM 2.1 mg/dL (1.8-2.4)
[2020-11-12 07:14] LABS: CREATININE 1.4 mg/dL (0.55-1.3); PHOSPHOROUS 3.2 mg/dL (2.5-4.9)
[2020-11-12 07:15] LABS: TOT PROT 6.1 g/dl (6.4-8.2)
[2020-11-12] MEDS: INSULIN SLIDING SCALE (NOVOLOG) 1 VIAL SQ SCH ×4 (07:29→22:39)
[2020-11-12 07:56] LABS: BILIRUBIN,TOTAL 0.4 mg/dL (0.2-1)
[2020-11-12] MEDS ORDERED: ASCORBIC ACID 500 MG TABLET (FP) ONE (11:27)
[2020-11-12] MEDS ORDERED: DEXAMETHASONE SOD PHOSPHATE 4 MG/1 ML VIAL ONE (11:28)
[2020-11-12] MEDS ORDERED: ZINC SULFATE 220 MG CAPSULE (FP) ONE (11:28)
[2020-11-12] MEDS ORDERED: CEFTRIAXONE 1 GM/50 ML BAG ONE (11:28)
[2020-11-12] MEDS ORDERED: CHOLECALCIFEROL (VIT D3) 1,000 UNIT (25 MCG) TABLET ONE (11:28)
[2020-11-12] MEDS ORDERED: HEPARIN NA (PORCINE) 5,000 UNITS/ML 1ML VIAL ONE ×2 (11:28→14:28)
[2020-11-12] MEDS ORDERED: AZITHROMYCIN IVPB 500 MG/250 ML BAG IVPB ONE (11:29)
[2020-11-12] MEDS ORDERED: FAMOTIDINE 20 MG TABLET PO SCH (11:45)
[2020-11-12] MEDS: AZITHROMYCIN IVPB 500 MG/250 ML BAG IVPB SCH (11:49)
[2020-11-12] MEDS: ASCORBIC ACID 500 MG TABLET (FP) PO SCH ×2 (11:49→22:37)
[2020-11-12] MEDS: DEXAMETHASONE SOD PHOSPHATE 4 MG/1 ML VIAL IVPUSH SCH (11:49)
[2020-11-12] MEDS: ZINC SULFATE 220 MG CAPSULE (FP) PO SCH (11:49)
[2020-11-12] MEDS: CHOLECALCIFEROL (VIT D3) 1,000 UNIT (25 MCG) TABLET PO SCH (11:49)
[2020-11-12] MEDS: CEFTRIAXONE 1 GM in DEXTROSE 5%-WATER - 50 ML IVPB SCH (11:49)
[2020-11-12] MEDS: HEPARIN NA (PORCINE) 5,000 UNITS/ML 1ML VIAL SQ SCH ×3 (11:49→22:37)
[2020-11-12] MEDS ORDERED: REMDESIVIR 200 MG in SODIUM CHLORIDE 210 ML IVPB ONE (13:00)
[2020-11-12] MEDS ORDERED: BUDESONIDE/FORMETEROL FUMARATE 160/4.5 mcg INHALER IH SCH (22:00)
[2020-11-12] MEDS: SODIUM CHLORIDE 1,000 ML IV SCH (22:46)
[2020-11-13] MEDS: INSULIN SLIDING SCALE (NOVOLOG) 1 VIAL SQ SCH ×4 (06:46→22:11)
[2020-11-13] MEDS: HEPARIN NA (PORCINE) 5,000 UNITS/ML 1ML VIAL SQ SCH ×3 (06:46→22:24)
[2020-11-13] MEDS: guaiFENesin/D-METHORPHAN HB 10 ML UNIT-DOSE CUPS PO PRN ×2 (06:46→22:11)
[2020-11-13] MEDS ORDERED: ALBUTEROL SO4 0.083% IH SOL 2.5 MG/3 ML VIAL.NEB. NEB PRN (08:53)
[2020-11-13] MEDS ORDERED: ALBUTEROL SO4 HFA INHALER IH PRN (09:15)
[2020-11-13] MEDS ORDERED: CEFTRIAXONE 1 GM in DEXTROSE 5%-WATER - 50 ML IVPB SCH ×2 (10:00→11:00)
[2020-11-13] MEDS ORDERED: PT OWN MED DRAWER 7, Y5N ONE (10:30)
[2020-11-13] MEDS: ASCORBIC ACID 500 MG TABLET (FP) PO SCH ×2 (10:38→22:11)
[2020-11-13] MEDS: ZINC SULFATE 220 MG CAPSULE (FP) PO SCH (10:38)
[2020-11-13] MEDS: CHOLECALCIFEROL (VIT D3) 1,000 UNIT (25 MCG) TABLET PO SCH (10:38)
[2020-11-13] MEDS: AZITHROMYCIN IVPB 500 MG/250 ML BAG IVPB SCH (10:38)
[2020-11-13] MEDS: DEXAMETHASONE SOD PHOSPHATE 4 MG/1 ML VIAL IVPUSH SCH (10:39)
[2020-11-13] MEDS: BENZOCAINE/MENTH/CETYLPYRD CL 1 EACH LOZENGE MM PRN ×2 (10:41→15:37)
[2020-11-13] MEDS ORDERED: INSULIN (NOVOLOG) ASPART 100 UNITS/ML 10ML VIAL ONE ×3 (11:57→21:01)
[2020-11-13] MEDS ORDERED: DEXTROSE 5%-WATER - 50 ML IVPB ONE (11:58)
[2020-11-13] MEDS ORDERED: cefTRIAXone SODIUM 1 GM VIAL ONE (11:58)
[2020-11-13] MEDS ORDERED: ALBUTEROL SO4 2.5/IPRATROPIUM 0.5 INH SOL 3 ML VIAL.NEB. NEB SCH (12:00)
[2020-11-13] MEDS: ASPIRIN 81 MG CHEWABLE TABLETS PO SCH (12:06)
[2020-11-13 12:49] LABS: BASO % 0.3 % (0-2.0); HEMATOCRIT 37.4 % (32.4-45.2); HEMOGLOBIN 12.3 GM/dL (10.7-15.3); LYMPH % 8.6 % (8-40); MCH 28.9 pg (25.7-33.7); MCHC 32.8 g/dl (32.0-36.0); MEAN PLT VOLUME 9.2 fl (7.5-11.1); MONO % 8.2 % (3.8-10.2); NEUT % 82.9 % (42.8-82.8); PLATELET COUNT 299 K/MM3 (134-434); RBC 4.25 M/mm3 (3.60-5.2); RDW 16.7 % (11.6-15.6); WHITE BLOOD COUNT 9.5 K/mm3 (4.0-10.0)
[2020-11-13 13:05] LABS: POTASSIUM 4.4 mmol/L (3.5-5.1)
[2020-11-13 13:08] LABS: ALBUMIN 2.2 g/dl (3.4-5.0); BLOOD UREA NITROGEN 32.5 mg/dL (7-18); CALCIUM 7.9 mg/dL (8.5-10.1)
[2020-11-13 13:11] LABS: CREATININE 1.3 mg/dL (0.55-1.3); PHOSPHOROUS 1.8 mg/dL (2.5-4.9)
[2020-11-13 13:13] LABS: TOT PROT 5.7 g/dl (6.4-8.2)
[2020-11-13 13:14] LABS: BILIRUBIN,TOTAL 0.6 mg/dL (0.2-1)
[2020-11-13] MEDS: TIOTROPIUM BROMIDE 2.5 MCG (SPIRIVA) RESPIMAT INHALER IH SCH (13:25)
[2020-11-13] MEDS: FLUTICASONE/SALMETEROL 100 MCG/50 MCG DISKUS IH SCH ×2 (13:25→22:26)
[2020-11-13] MEDS: CEFTRIAXONE 1 GM in DEXTROSE 5%-WATER - 50 ML IVPB SCH (13:27)
[2020-11-13] MEDS: REMDESIVIR 100 MG in SODIUM CHLORIDE 230 ML IVPB SCH (15:36)
[2020-11-13] MEDS: SODIUM CHLORIDE NASAL SPRAY 44 ML BOTTLE NS PRN (19:33)
[2020-11-13] MEDS: SODIUM CHLORIDE 1,000 ML IV SCH ×2 (20:42→22:18)
[2020-11-14] MEDS: HEPARIN NA (PORCINE) 5,000 UNITS/ML 1ML VIAL SQ SCH ×3 (06:32→21:51)
[2020-11-14] MEDS: INSULIN SLIDING SCALE (NOVOLOG) 1 VIAL SQ SCH ×4 (06:32→21:52)
[2020-11-14] MEDS: SODIUM CHLORIDE NASAL SPRAY 44 ML BOTTLE NS PRN (06:40)
[2020-11-14] MEDS ORDERED: INSULIN (NOVOLOG) ASPART 100 UNITS/ML 10ML VIAL ONE ×2 (06:51→11:58)
[2020-11-14] MEDS: FLUTICASONE/SALMETEROL 100 MCG/50 MCG DISKUS IH SCH ×2 (10:02→21:49)
[2020-11-14] MEDS: ZINC SULFATE 220 MG CAPSULE (FP) PO SCH (10:02)
[2020-11-14] MEDS: FAMOTIDINE 20 MG TABLET PO SCH (10:02)
[2020-11-14] MEDS: ASPIRIN 81 MG CHEWABLE TABLETS PO SCH (10:02)
[2020-11-14] MEDS: ASCORBIC ACID 500 MG TABLET (FP) PO SCH ×2 (10:02→21:53)
[2020-11-14] MEDS: CHOLECALCIFEROL (VIT D3) 1,000 UNIT (25 MCG) TABLET PO SCH (10:02)
[2020-11-14] MEDS: TIOTROPIUM BROMIDE 2.5 MCG (SPIRIVA) RESPIMAT INHALER IH SCH (10:03)
[2020-11-14] MEDS: DEXAMETHASONE SOD PHOSPHATE 4 MG/1 ML VIAL IVPUSH SCH (10:03)
[2020-11-14 10:13] LABS: BASO % 0.3 % (0-2.0); HEMATOCRIT 36.1 % (32.4-45.2); LYMPH % 5.8 % (8-40); MCH 29.3 pg (25.7-33.7); MCHC 33.1 g/dl (32.0-36.0); MEAN CELL VOLUME 88.5 fl (80-96); MEAN PLT VOLUME 9.1 fl (7.5-11.1); MONO % 9.4 % (3.8-10.2); NEUT % 84.5 % (42.8-82.8); PLATELET COUNT 316 K/MM3 (134-434); RBC 4.08 M/mm3 (3.60-5.2); RDW 16.3 % (11.6-15.6); WHITE BLOOD COUNT 9.5 K/mm3 (4.0-10.0)
[2020-11-14 10:35] LABS: POTASSIUM 4.8 mmol/L (3.5-5.1)
[2020-11-14 10:37] LABS: ALBUMIN 2.3 g/dl (3.4-5.0); BLOOD UREA NITROGEN 30.9 mg/dL (7-18); CALCIUM 8.1 mg/dL (8.5-10.1); MAGNESIUM 2.1 mg/dL (1.8-2.4)
[2020-11-14 10:41] LABS: CREATININE 1.3 mg/dL (0.55-1.3); PHOSPHOROUS 2.1 mg/dL (2.5-4.9)
[2020-11-14 10:42] LABS: BILIRUBIN,TOTAL 0.4 mg/dL (0.2-1)
[2020-11-14 10:45] LABS: TOT PROT 5.8 g/dl (6.4-8.2)
[2020-11-14] MEDS: NYSTATIN 100,000 UNIT/GM TOPICAL CREAM 15 GM TUBE TP SCH ×2 (11:33→21:52)
[2020-11-14] MEDS: REMDESIVIR 100 MG in SODIUM CHLORIDE 230 ML IVPB SCH (12:30)
[2020-11-14 17:35] VITALS: BMI 35.3
[2020-11-14] MEDS: SODIUM CHLORIDE 1,000 ML IV SCH (21:53)
[2020-11-14] MEDS ORDERED: DEXAMETHASONE SOD PHOSPHATE 4 MG/1 ML VIAL IVPUSH SCH (22:00)
[2020-11-15] MEDS: SODIUM CHLORIDE NASAL SPRAY 44 ML BOTTLE NS PRN (03:46)
[2020-11-15] MEDS: guaiFENesin/D-METHORPHAN HB 10 ML UNIT-DOSE CUPS PO PRN ×2 (03:46→21:49)
[2020-11-15] MEDS: HEPARIN NA (PORCINE) 5,000 UNITS/ML 1ML VIAL SQ SCH ×4 (05:54→21:42)
[2020-11-15] MEDS: INSULIN SLIDING SCALE (NOVOLOG) 1 VIAL SQ SCH ×4 (06:13→21:42)
[2020-11-15 09:20] LABS: POTASSIUM 4.7 mmol/L (3.5-5.1)
[2020-11-15 09:37] LABS: ALBUMIN 2.4 g/dl (3.4-5.0)
[2020-11-15 09:38] LABS: BILIRUBIN,TOTAL 0.6 mg/dL (0.2-1); TOT PROT 5.7 g/dl (6.4-8.2)
[2020-11-15 09:41] LABS: CREATININE 1.2 mg/dL (0.55-1.3)
[2020-11-15 09:42] LABS: PHOSPHOROUS 1.9 mg/dL (2.5-4.9)
[2020-11-15 09:43] LABS: CALCIUM 8.6 mg/dL (8.5-10.1)
[2020-11-15 09:45] LABS: MAGNESIUM 2.3 mg/dL (1.8-2.4)
[2020-11-15] MEDS: CHOLECALCIFEROL (VIT D3) 1,000 UNIT (25 MCG) TABLET PO SCH (09:48)
[2020-11-15] MEDS: MULTIVITAMINS (DAILY MVI) TABLET (FP) PO SCH (09:48)
[2020-11-15] MEDS: ASPIRIN 81 MG CHEWABLE TABLETS PO SCH (09:48)
[2020-11-15] MEDS: FAMOTIDINE 20 MG TABLET PO SCH (09:48)
[2020-11-15] MEDS: FLUTICASONE/SALMETEROL 100 MCG/50 MCG DISKUS IH SCH ×2 (09:49→21:43)
[2020-11-15] MEDS: NYSTATIN 100,000 UNIT/GM TOPICAL CREAM 15 GM TUBE TP SCH ×2 (09:50→21:43)
[2020-11-15] MEDS: TIOTROPIUM BROMIDE 2.5 MCG (SPIRIVA) RESPIMAT INHALER IH SCH (09:50)
[2020-11-15 10:03] LABS: BASO % 0.5 % (0-2.0); EOS % 0.1 % (0-4.5); HEMATOCRIT 36.7 % (32.4-45.2); HEMOGLOBIN 12.4 GM/dL (10.7-15.3); LYMPH % 6.5 % (8-40); MCH 29.6 pg (25.7-33.7); MCHC 33.7 g/dl (32.0-36.0); MEAN CELL VOLUME 87.7 fl (80-96); MEAN PLT VOLUME 9.1 fl (7.5-11.1); MONO % 7.7 % (3.8-10.2); NEUT % 85.2 % (42.8-82.8); PLATELET COUNT 359 K/MM3 (134-434); RBC 4.18 M/mm3 (3.60-5.2); RDW 16.5 % (11.6-15.6); WHITE BLOOD COUNT 8.3 K/mm3 (4.0-10.0)
[2020-11-15] MEDS: REMDESIVIR 100 MG in SODIUM CHLORIDE 230 ML IVPB SCH (13:21)
[2020-11-16] MEDS ORDERED: amLODIPine BESYLATE 5 MG TABLET (FP) PO ONE (06:30)
[2020-11-16] MEDS: HEPARIN NA (PORCINE) 5,000 UNITS/ML 1ML VIAL SQ SCH ×3 (06:39→21:09)
[2020-11-16] MEDS: INSULIN SLIDING SCALE (NOVOLOG) 1 VIAL SQ SCH ×4 (06:40→21:09)
[2020-11-16 09:11] LABS: HEMATOCRIT 38.5 % (32.4-45.2); HEMOGLOBIN 12.5 GM/dL (10.7-15.3); MCH 28.6 pg (25.7-33.7); MCHC 32.5 g/dl (32.0-36.0); MEAN PLT VOLUME 9.2 fl (7.5-11.1); MONO % 12.6 % (3.8-10.2); NEUT % 79.4 % (42.8-82.8); PLATELET COUNT 366 K/MM3 (134-434); RBC 4.37 M/mm3 (3.60-5.2); RDW 15.9 % (11.6-15.6); WHITE BLOOD COUNT 12.5 K/mm3 (4.0-10.0)
[2020-11-16 09:23] LABS: POTASSIUM 4.5 mmol/L (3.5-5.1)
[2020-11-16 09:31] LABS: CALCIUM 8.7 mg/dL (8.5-10.1)
[2020-11-16 09:32] LABS: ALBUMIN 2.5 g/dl (3.4-5.0); BLOOD UREA NITROGEN 35.9 mg/dL (7-18); MAGNESIUM 2.1 mg/dL (1.8-2.4)
[2020-11-16 09:33] LABS: BILIRUBIN,TOTAL 0.8 mg/dL (0.2-1); TOT PROT 5.8 g/dl (6.4-8.2)
[2020-11-16 09:35] LABS: CREATININE 1.1 mg/dL (0.55-1.3)
[2020-11-16] MEDS ORDERED: PT OWN MED DRAWER 7, Y5N ONE (10:29)
[2020-11-16] MEDS: FAMOTIDINE 20 MG TABLET PO SCH (10:33)
[2020-11-16] MEDS: CHOLECALCIFEROL (VIT D3) 1,000 UNIT (25 MCG) TABLET PO SCH (10:33)
[2020-11-16] MEDS: ASPIRIN 81 MG CHEWABLE TABLETS PO SCH (10:33)
[2020-11-16] MEDS: MULTIVITAMINS (DAILY MVI) TABLET (FP) PO SCH (10:33)
[2020-11-16] MEDS: NYSTATIN 100,000 UNIT/GM TOPICAL CREAM 15 GM TUBE TP SCH ×2 (10:34→21:10)
[2020-11-16] MEDS: FLUTICASONE/SALMETEROL 100 MCG/50 MCG DISKUS IH SCH ×2 (10:35→21:11)
[2020-11-16] MEDS: TIOTROPIUM BROMIDE 2.5 MCG (SPIRIVA) RESPIMAT INHALER IH SCH (10:35)
[2020-11-16] MEDS: REMDESIVIR 100 MG in SODIUM CHLORIDE 230 ML IVPB SCH (12:31)
[2020-11-16] MEDS ORDERED: POTASSIUM PHOSPHATE 30 MM in SODIUM CHLORIDE 500 ML IVPB ONE (13:00)
[2020-11-16] MEDS: PANTOPRAZOLE 40 MG TABLET PO SCH (17:45)
[2020-11-16] MEDS: CLOPIDOGREL BISULFATE 75 MG TABLET (FP) PO SCH (17:45)
[2020-11-16] MEDS: ATORVASTATIN CA 40 MG TABLET (FP) PO SCH (17:45)
[2020-11-16] MEDS: CARVEDILOL 3.125 MG TABLET (FP) PO SCH (21:09)
[2020-11-16] MEDS: guaiFENesin/D-METHORPHAN HB 10 ML UNIT-DOSE CUPS PO PRN (21:09)
[2020-11-17] MEDS: HEPARIN NA (PORCINE) 5,000 UNITS/ML 1ML VIAL SQ SCH ×3 (06:24→22:25)
[2020-11-17] MEDS: INSULIN SLIDING SCALE (NOVOLOG) 1 VIAL SQ SCH ×4 (06:24→22:29)
[2020-11-17] MEDS ORDERED: PT OWN MED DRAWER 7, Y5N ONE (09:23)
[2020-11-17 09:25] LABS: HEMOGLOBIN 12.5 GM/dL (10.7-15.3); MCH 28.6 pg (25.7-33.7); MEAN CELL VOLUME 86.6 fl (80-96); PLATELET COUNT 373 K/MM3 (134-434); RBC 4.38 M/mm3 (3.60-5.2); RDW 16.3 % (11.6-15.6); WHITE BLOOD COUNT 11.6 K/mm3 (4.0-10.0)
[2020-11-17] MEDS: ASPIRIN 81 MG CHEWABLE TABLETS PO SCH (09:27)
[2020-11-17] MEDS: CARVEDILOL 3.125 MG TABLET (FP) PO SCH ×2 (09:27→22:25)
[2020-11-17] MEDS: ATORVASTATIN CA 40 MG TABLET (FP) PO SCH (09:27)
[2020-11-17] MEDS: MULTIVITAMINS (DAILY MVI) TABLET (FP) PO SCH (09:27)
[2020-11-17] MEDS: FAMOTIDINE 20 MG TABLET PO SCH (09:27)
[2020-11-17] MEDS: CLOPIDOGREL BISULFATE 75 MG TABLET (FP) PO SCH (09:27)
[2020-11-17] MEDS: FLUTICASONE/SALMETEROL 100 MCG/50 MCG DISKUS IH SCH ×2 (09:28→22:22)
[2020-11-17] MEDS: CHOLECALCIFEROL (VIT D3) 1,000 UNIT (25 MCG) TABLET PO SCH (09:28)
[2020-11-17] MEDS: NYSTATIN 100,000 UNIT/GM TOPICAL CREAM 15 GM TUBE TP SCH ×2 (09:28→22:22)
[2020-11-17] MEDS: TIOTROPIUM BROMIDE 2.5 MCG (SPIRIVA) RESPIMAT INHALER IH SCH (09:28)
[2020-11-17] MEDS: PANTOPRAZOLE 40 MG TABLET PO SCH ×2 (09:28→09:35)
[2020-11-17 09:45] LABS: POTASSIUM 4.9 mmol/L (3.5-5.1)
[2020-11-17 10:17] LABS: ALBUMIN 2.3 g/dl (3.4-5.0); BLOOD UREA NITROGEN 31.1 mg/dL (7-18); MAGNESIUM 1.9 mg/dL (1.8-2.4)
[2020-11-17 10:20] LABS: CREATININE 1.1 mg/dL (0.55-1.3)
[2020-11-17 10:21] LABS: PHOSPHOROUS 2.4 mg/dL (2.5-4.9)
[2020-11-17 10:22] LABS: TOT PROT 5.2 g/dl (6.4-8.2)
[2020-11-17] MEDS ORDERED: NAPH,MB-DB/K PH,MBDB POWDER PACKET PO ONE (13:30)
[2020-11-17] MEDS: guaiFENesin/D-METHORPHAN HB 10 ML UNIT-DOSE CUPS PO PRN (22:25)
[2020-11-18] MEDS: HEPARIN NA (PORCINE) 5,000 UNITS/ML 1ML VIAL SQ SCH ×2 (06:25→17:03)
[2020-11-18] MEDS: INSULIN SLIDING SCALE (NOVOLOG) 1 VIAL SQ SCH ×3 (06:26→17:03)
[2020-11-18 08:35] LABS: HEMATOCRIT 36.6 % (32.4-45.2); HEMOGLOBIN 12.2 GM/dL (10.7-15.3); MCHC 33.3 g/dl (32.0-36.0); MEAN PLT VOLUME 8.8 fl (7.5-11.1); PLATELET COUNT 371 K/MM3 (134-434); RBC 4.21 M/mm3 (3.60-5.2); RDW 16.2 % (11.6-15.6); WHITE BLOOD COUNT 10.9 K/mm3 (4.0-10.0)
[2020-11-18 09:02] LABS: POTASSIUM 4.8 mmol/L (3.5-5.1)
[2020-11-18 09:08] LABS: ALBUMIN 2.2 g/dl (3.4-5.0); BLOOD UREA NITROGEN 26.1 mg/dL (7-18); CALCIUM 8.2 mg/dL (8.5-10.1)
[2020-11-18 09:11] LABS: CREATININE 1.1 mg/dL (0.55-1.3)
[2020-11-18 09:12] LABS: PHOSPHOROUS 2.5 mg/dL (2.5-4.9)
[2020-11-18] MEDS: FAMOTIDINE 20 MG TABLET PO SCH (10:34)
[2020-11-18] MEDS: CARVEDILOL 3.125 MG TABLET (FP) PO SCH (10:34)
[2020-11-18] MEDS: MULTIVITAMINS (DAILY MVI) TABLET (FP) PO SCH (10:34)
[2020-11-18] MEDS: ASPIRIN 81 MG CHEWABLE TABLETS PO SCH (10:34)
[2020-11-18] MEDS: FLUTICASONE/SALMETEROL 100 MCG/50 MCG DISKUS IH SCH (10:34)
[2020-11-18] MEDS: CLOPIDOGREL BISULFATE 75 MG TABLET (FP) PO SCH (10:34)
[2020-11-18] MEDS: NYSTATIN 100,000 UNIT/GM TOPICAL CREAM 15 GM TUBE TP SCH (10:35)
[2020-11-18] MEDS: TIOTROPIUM BROMIDE 2.5 MCG (SPIRIVA) RESPIMAT INHALER IH SCH (10:35)
[2020-11-18] MEDS: CHOLECALCIFEROL (VIT D3) 1,000 UNIT (25 MCG) TABLET PO SCH (10:35)
[2020-11-18] MEDS: ATORVASTATIN CA 40 MG TABLET (FP) PO SCH (10:35)
[2020-11-18] MEDS ORDERED: INSULIN (LEVEMIR) 100 UNITS/ML UNITS SQ ONE (11:32)
[2020-11-18] MEDS ORDERED: INSULIN (NOVOLOG) ASPART 100 UNITS/ML 10ML VIAL ONE ×2 (12:21→16:54)
[2020-11-18 14:44] VITALS: BP 149/65; PULSE 74; TEMP 97.3
== END 2020-11-18 19:15 | DRG 177 ==
LOC: JER 15:03 → JERBED 16:42 → J6S 11-12 16:37
PROVIDERS: ADMIT Internal Medicine; ATTEND Internal Medicine
PROC: XW033E5 Introduction of Remdesivir Anti-infective into Peripheral Vein, Percutaneous Approach, New Technology Group 5 (ICD-10-PCS; principal; 2020-11-12)
DX: U07.1 COVID-19 (principal); J12.82 Pneumonia due to coronavirus disease 2019; I50.32 Chronic diastolic (congestive) heart failure; E87.1 Hypo-osmolality and hyponatremia; J44.1 Chronic obstructive pulmonary disease with (acute) exacerbation; N17.9 Acute kidney failure, unspecified; I13.0 Hypertensive heart and chronic kidney disease with heart failure and stage 1 through stage 4 chronic kidney disease, or unspecified chronic kidney disease; E78.5 Hyperlipidemia, unspecified; E11.9 Type 2 diabetes mellitus without complications; I25.10 Atherosclerotic heart disease of native coronary artery without angina pectoris; K21.9 Gastro-esophageal reflux disease without esophagitis; D64.9 Anemia, unspecified; R50.9 Fever, unspecified; E11.649 Type 2 diabetes mellitus with hypoglycemia without coma; E87.6 Hypokalemia; E87.5 Hyperkalemia; K58.9 Irritable bowel syndrome, unspecified; N18.9 Chronic kidney disease, unspecified; E11.22 Type 2 diabetes mellitus with diabetic chronic kidney disease; S20.229A Contusion of unspecified back wall of thorax, initial encounter; S00.03XA Contusion of scalp, initial encounter; W18.39XA Other fall on same level, initial encounter; Y92.098 Other place in other non-institutional residence as the place of occurrence of the external cause; Z87.11 Personal history of peptic ulcer disease; Z99.81 Dependence on supplemental oxygen; Z95.820 Peripheral vascular angioplasty status with implants and grafts
CPT/HCPCS: 36415; 70450-TC; 71045-TC-FY; 71250-TC; 72125-TC; 72128-TC; 72131-TC; 74176-TC; 80048; 80053; 82248; 82550; 82553; 82728; 82803; 82962; 83605; 83615; 83735; 84100; 84484; 85025; 85027; 85379; 85730; 86140; 86769; 86850; 86900; 86901; 87040; 87804; 93005; 93010; 94660; 97116-GP; 97161-GP; 99285-25; C9399; C9803; J1100; J1644; U0003